=== PATIENT | female | born 1935 | race Caucasian/White ===

== ENCOUNTER → 2016-06-30 | Outpatient (CLI) | payer BC ==
[~2016-06-30] MED LIST: ATOR10TA88 PO; CHLOTAB3 PO; CHOL4POW5 PO; CIPR1TAB11 PO; CLON1TAB3 PO; CLOP1TAB15 PO; CYCL0.05 OP; DOXY100C76 PO; FURO-85 PO; GABA1TAB PO; GABAPENTIN PO; LEVO1TAB33 PO; LEVO75TA PO; LEVO75TA5 PO; LUTE1CAP5 PO; METO1TAB31 PO; MULT-845 PO; MULTCAP33 PO; NTRGSL/4 UT; OXYC1CAP5 PO; POLY1SOL6 OP; POLY335019 PO; POTA20TA16 PO; SPIR25TA PO; TUMERIC PO; bactrim PO
[2016-06-30 10:33] LABS: BLOOD UREA NITROGEN 26 mg/dl (7-18); BUN/CREATININE RATIO 25.6 (10-20); CALCIUM 9.9 mg/dl (8.5-10.1); CARBON DIOXIDE 26 mmol/L (21-32); CHLORIDE 108 mmol/L (98-107); GLUCOSE 79 mg/dl (70-99); POTASSIUM 3.9 mmol/L (3.5-5.1); SODIUM 144 mmol/L (136-145)
--- NOTE | 2016-06-30 10:37 | DIAGNOSTIC IMAGING REPORT ---
ULTRASOUND OF THE THYROID GLAND CLINICAL HISTORY: Hypothyroidism. COMPARISON STUDY: No priors. TECHNIQUE: Real-time, grayscale, and color flow sonography of the thyroid gland is performed utilizing a high-frequency linear transducer. Images are reviewed in the transverse and longitudinal planes. FINDINGS: Right lobe: The right lobe of the thyroid gland mildly atrophic and homogeneous in echotexture, measuring 3.9 x 1.5 x 1.6 cm. There are several colloid cysts in the right lobe. The largest measures 1.1 x 0.9 x 0.8 cm. A hypoechoic nodule in the lower pole measures 0.9 x 0.7 x 0.9 cm. Additional subcentimeter nodules are noted. Left lobe: The left lobe of the thyroid gland is mildly atrophic and homogeneous in echotexture, measuring 3.3 x 1.5 x 1.5 cm. Colloid cysts are noted. The largest is in the midpole and measures 1.0 x 0.6 x 0.9 cm. A solid and cystic nodule in the upper pole measures 1.0 x 0.6 x 1.0 cm. Isthmus: The thyroid isthmus is normal in appearance and measures 0.2 cm in AP diameter. IMPRESSION: Bilateral low suspicion subcentimeter nodules and colloid cysts as above. Electronically signed by: Ronak Montalvo M.D. 06/30/2016 10:35 AM Dictated Date/Time: 06/30/2016 10:33 AM
== END | disposition home or self-care (01) ==
LOC: C.ULTR 09:14
PROVIDERS: ATTEND Internal Medicine Endocrinology, Diabetes & Metabolism
DX: E03.9 Hypothyroidism, unspecified (principal)

== ENCOUNTER → 2016-07-03 | Outpatient (CLI) | payer BC ==
[2016-07-03 10:29] LABS: BLOOD UREA NITROGEN 16 mg/dl (7-18); BUN/CREATININE RATIO 18.9 (10-20); CALCIUM 10.2 mg/dl (8.5-10.1); CARBON DIOXIDE 27 mmol/L (21-32); CHLORIDE 106 mmol/L (98-107); CREATININE 0.87 mg/dl (0.60-1.20); GLUCOSE 94 mg/dl (70-99); POTASSIUM 4.1 mmol/L (3.5-5.1); SODIUM 142 mmol/L (136-145)
[2016-07-03 10:31] LABS: CALCIUM URINE < 5.0 mg/dl; URINE COLLECTION TIME 24 HOURS
[2016-07-03 10:40] LABS: PHOSPHORUS 3.1 mg/dl (2.5-4.9); THYROID STIMULATING HORMONE 0.291 uIu/ml (0.300-4.500)
== END | disposition home or self-care (01) ==
LOC: C.LAB 09:08
PROVIDERS: ATTEND Internal Medicine Endocrinology, Diabetes & Metabolism
DX: E21.3 Hyperparathyroidism, unspecified (principal); Z85.828 Personal history of other malignant neoplasm of skin

== ENCOUNTER → 2016-07-22 | Outpatient (CLI) | payer BC ==
[~2016-07-22] MED LIST changes: -SPIR25TA PO
[2016-07-22 12:12] LABS: URINE APPEARANCE CLEAR (CLEAR); URINE BILIRUBIN NEG (NEG); URINE COLOR YELLOW; URINE EPITHELIAL CELL AUTO 0-5 /lpf (0-5); URINE NITRITE NEG (NEG); URINE SPECIFIC GRAVITY 1.009 (1.000-1.030); UROBILINOGEN NEG (NEG); ZZUR CULT IF INDIC CLEAN CATCH NO
[2016-07-22 12:14] LABS: MANUAL MICROSCOPIC REQUIRED? NO; REVIEW REQ? NO
== END | disposition home or self-care (01) ==
LOC: C.LAB 11:06
PROVIDERS: ATTEND Internal Medicine Nephrology
DX: E21.3 Hyperparathyroidism, unspecified (principal); E03.9 Hypothyroidism, unspecified; N18.9 Chronic kidney disease, unspecified

== ENCOUNTER → 2016-08-02 | Outpatient (CLI) | payer BC ==
[2016-08-02 19:07] LABS: BASO % 0.3 %; BASO ABS # 0.02 K/uL (0-0.2); COMPLETE YES; EOS % 0.8 %; HEMATOCRIT 41.7 % (37-47); IG% 0.3 %; LYMPH % 40.2 %; MEAN CELL VOLUME 93.1 fL (80-100); MEAN CORPUSCULAR HEMOGLOBIN 31.5 pg (25-34); MEAN CORPUSCULAR HGB CONC 33.8 g/dl (32-36); MEAN PLATELET VOLUME 11.2 fL (7.4-10.4); MONO % 12.6 %; NEUT % 45.8 %; PLATELET COUNT 240 K/uL (130-400); RED BLOOD COUNT 4.48 M/uL (4.2-5.4); WHITE BLOOD COUNT 7.46 K/uL (4.8-10.8)
[2016-08-02 19:26] LABS: ALT/SGPT 30 U/L (12-78); BLOOD UREA NITROGEN 35 mg/dl (7-18); BUN/CREATININE RATIO 23.6 (10-20); CALCIUM 11.2 mg/dl (8.5-10.1); CARBON DIOXIDE 25 mmol/L (21-32); CHLORIDE 103 mmol/L (98-107); GLUCOSE 84 mg/dl (70-99); POTASSIUM 4.1 mmol/L (3.5-5.1); SODIUM 138 mmol/L (136-145)
[2016-08-02 19:29] LABS: ALB/GLOB RATIO 1.2 (0.9-2); ALKALINE PHOSPHATASE 79 U/L (45-117); AST/SGOT 21 U/L (15-37)
== END | disposition home or self-care (01) ==
LOC: C.LAB 18:08
PROVIDERS: ATTEND Family Medicine
DX: E83.52 Hypercalcemia (principal)

== ENCOUNTER → 2016-08-09 | Outpatient (CLI) | payer BC ==
--- NOTE | 2016-08-09 16:01 | DIAGNOSTIC IMAGING REPORT ---
CT OF THE ABDOMEN AND PELVIS WITHOUT CONTRAST, STONE PROTOCOL CLINICAL HISTORY: Gross hematuria. Probable kidney stone. COMPARISON STUDY: CT of the abdomen and pelvis February 02, 2016 and bladder ultrasound June 16, 2016. TECHNIQUE: Helical axial images of the abdomen and pelvis were obtained without IV or oral contrast according to renal stone protocol. FINDINGS: There is mild dilatation of visualized portions of the ascending aorta. Note is made of a 3 mm calculus within the lower pole of the right kidney. There are no ureteral calculi although evaluation of the pelvis is difficult due to streak artifact from a right hip arthroplasty. There is no hydronephrosis or hydroureter. Multifocal scarring of the left kidney is noted. Numerous bilateral renal lesions are suboptimally assessed on this unenhanced exam. The majority of these measure water attenuation and likely reflect cysts. A 3 cm intermediate attenuation lesion within the upper pole of the left kidney shown on image 60 of 189 was shown to likely represent a hyperdense cyst on MRI of July 01, 2008. The sensitivity for detection of urothelial lesions is diminished on this unenhanced exam. There is no evidence for a bowel obstruction. The appendix is normal. A tubular peripherally calcified abnormality within the left anterior aspect of the pelvis is unchanged and of doubtful significance. There is no lymphadenopathy. No suspicious findings are identified within visualized skeletal structures. A 9 mm right hepatic lobe cyst is again noted. The gallbladder surgically absent. IMPRESSION: 1. 3 mm right renal calculus. No ureteral calculi or hydronephrosis. Decreased sensitivity for detection of urothelial lesions given the lack of IV contrast. 2. Multifocal scarring of the left kidney. Multiple bilateral renal lesions which are suboptimally assessed on this unenhanced exam although are similar to prior studies and likely reflect a combination of simple and hyperdense cysts. Electronically signed by: Reilly Silva M.D. 08/09/2016 4:00 PM Dictated Date/Time: 08/09/2016 3:46 PM
== END | disposition home or self-care (01) ==
LOC: C.CTS 15:21
PROVIDERS: ATTEND Family Medicine
DX: R31.0 Gross hematuria (principal); N20.1 Calculus of ureter

== ENCOUNTER → 2016-08-21 | Outpatient (CLI) | payer BC ==
[2016-08-21 13:38] LABS: CALCIUM URINE 7.3 mg/dl
== END | disposition home or self-care (01) ==
LOC: C.LABSPEC 11:35
PROVIDERS: ATTEND Family Medicine
DX: R31.9 Hematuria, unspecified (principal); R39.15 Urgency of urination; R39.89 Other symptoms and signs involving the genitourinary system

== ENCOUNTER → 2016-11-02 | Outpatient (CLI) | payer BC ==
[~2016-11-02] MED LIST changes: +ATOR10TA82 PO; -ATOR10TA88 PO; +CYCL0.052 OPB; +GABA600T PO; +METO-478 PO; -METO1TAB31 PO; +TURMERIC PO; +VALA500T60 PO
== END | disposition home or self-care (01) ==
LOC: C.LAB 11:17
PROVIDERS: ATTEND Radiology Diagnostic Radiology
DX: E21.3 Hyperparathyroidism, unspecified (principal)

== ENCOUNTER → 2016-11-16 | Outpatient (CLI) | payer BC ==
--- NOTE | 2016-11-16 12:38 | DIAGNOSTIC IMAGING REPORT ---
KUB CLINICAL HISTORY: Constipation. FINDINGS: An AP supine abdominal radiograph is correlated with abdominal CT dated 08/09/2016. There is a nonobstructed abdominal bowel gas pattern noting moderate colonic fecal retention. No evidence of intraperitoneal free air is seen on this supine examination. Cholecystectomy clips are noted in the right upper quadrant. Vascular calcifications are observed in the pelvis. The skeletal structures are osteopenic. There is advanced lumbosacral spondylosis. A right hip arthroplasty is in place. There is evidence of a healed right pubic ring fracture. IMPRESSION: Nonobstructed abdominal bowel gas pattern noting moderate constipation. Electronically signed by: Ronak Montalvo M.D. 11/16/2016 12:36 PM Dictated Date/Time: 11/16/2016 12:35 PM
--- NOTE | 2016-11-16 12:43 | DIAGNOSTIC IMAGING REPORT ---
PELVIS/BILATERAL HIP 2 VIEWS CLINICAL HISTORY: Fall. Bilateral hip pain. COMPARISON STUDY: Abdominal series 02/21/2016. FINDINGS: Right total hip arthroplasty. Old, healed right pubic bone fractures. No acute fracture or dislocation within the pelvis or hips. The sacrum is intact. Mild osteoarthritis within the left hip, bilateral sacroiliac joints. There is osteitis pubis. Calcifications are again noted within the left deep pelvis. IMPRESSION: No acute fracture or dislocation within the pelvis or hips. Electronically signed by: Rip Hester M.D. 11/16/2016 12:42 PM Dictated Date/Time: 11/16/2016 12:37 PM
== END | disposition home or self-care (01) ==
LOC: C.RAD 11:34
PROVIDERS: ATTEND Family Medicine
DX: M25.551 Pain in right hip (principal); M25.552 Pain in left hip; K59.00 Constipation, unspecified

== ENCOUNTER → 2017-01-09 | Outpatient (CLI) | payer BC ==
[~2017-01-09] MED LIST changes: -ATOR10TA82 PO; +ATOR10TA88 PO; -CYCL0.052 OPB; -FURO-85 PO; -GABA1TAB PO; -GABA600T PO; -GABAPENTIN PO; -METO-478 PO; +METO1TAB31 PO; -TURMERIC PO; -VALA500T60 PO
--- NOTE | 2017-01-09 12:23 | DIAGNOSTIC IMAGING REPORT ---
(BLADE) RETROPERITONEAL LTD CLINICAL HISTORY: URINARY RETENTION*WITH PRE AND POST VOID RESIDUAL* TECHNIQUE: Ultrasound COMPARISON STUDY: 06/16/2016 FINDINGS: Prevoid bladder volume is 122 cc. Post void is 14 cc. Small amount of debris is present within the bladder. IMPRESSION: Pre and postvoid volumes 122 and 14 cc respectively. Small amount of bladder debris The above report was generated using voice recognition software. It may contain grammatical, syntax or spelling errors. Electronically signed by: Maykel Mejias M.D. 01/09/2017 12:22 PM Dictated Date/Time: 01/09/2017 12:20 PM
== END | disposition home or self-care (01) ==
LOC: C.ULTR 11:32
PROVIDERS: ATTEND Family Medicine
DX: R33.9 Retention of urine, unspecified (principal)

== ENCOUNTER → 2017-01-30 | Outpatient (CLI) | payer BC ==
--- NOTE | 2017-01-30 15:52 | DIAGNOSTIC IMAGING REPORT ---
CHEST 2 VIEWS ROUTINE CLINICAL HISTORY: PRE OP, PT WENT TO LAB FIRST, SEND PT TO [facility] NEXT preoperative evaluation COMPARISON STUDY: 02/21/2016 FINDINGS: The bones soft tissues and hemidiaphragms are normal. The cardiomediastinal silhouette is normal. The lungs are clear. The pulmonary vasculature is normal. IMPRESSION: Negative chest. The above report was generated using voice recognition software. It may contain grammatical, syntax or spelling errors. Electronically signed by: Maykel Mejias M.D. 01/30/2017 3:51 PM Dictated Date/Time: 01/30/2017 3:51 PM
[2017-01-30 16:38] LABS: BASO % 0.6 %; BASO ABS # 0.04 K/uL (0-0.2); COMPLETE YES; EOS % 2.3 %; HEMATOCRIT 35.5 % (37-47); LYMPH % 24.6 %; LYMPH ABS # 1.63 K/uL (1.2-3.4); MEAN CELL VOLUME 98.6 fL (80-100); MEAN CORPUSCULAR HEMOGLOBIN 32.2 pg (25-34); MEAN CORPUSCULAR HGB CONC 32.7 g/dl (32-36); MEAN PLATELET VOLUME 11.3 fL (7.4-10.4); MONO % 13.4 %; NEUT % 59.1 %; PLATELET COUNT 209 K/uL (130-400); WHITE BLOOD COUNT 6.63 K/uL (4.8-10.8)
[2017-01-30 16:53] LABS: PARTIAL THROMBOPLASTIN RATIO 1.1; PROTHROMBIN TIME (PATIENT) 10.5 SECONDS (9.0-12.0)
[2017-01-30 17:01] LABS: ALT/SGPT 25 U/L (12-78); AST/SGOT 23 U/L (15-37); BLOOD UREA NITROGEN 24 mg/dl (7-18); BUN/CREATININE RATIO 28.8 (10-20); CALCIUM 10.2 mg/dl (8.5-10.1); CARBON DIOXIDE 27 mmol/L (21-32); CHLORIDE 111 mmol/L (98-107); CREATININE 0.84 mg/dl (0.60-1.20); GLUCOSE 94 mg/dl (70-99); POTASSIUM 3.6 mmol/L (3.5-5.1); SODIUM 144 mmol/L (136-145)
[2017-01-30 17:04] LABS: ALB/GLOB RATIO 1.1 (0.9-2); ALKALINE PHOSPHATASE 76 U/L (45-117)
== END | disposition home or self-care (01) ==
LOC: C.CPL 15:04
PROVIDERS: ATTEND Family Medicine
DX: Z01.818 Encounter for other preprocedural examination (principal)

== ENCOUNTER → 2017-02-09 | Outpatient (CLI) | payer BC ==
[2017-02-14 10:36] LABS: HSV TYPE 1 DNA Not Detected (Not Detected); HSV TYPE 2 DNA Not Detected (Not Detected)
== END | disposition home or self-care (01) ==
LOC: C.LABSPEC 10:49
PROVIDERS: ATTEND Family Medicine
DX: R22.1 Localized swelling, mass and lump, neck (principal)

== ENCOUNTER → 2017-02-12 | Outpatient (CLI) | payer BC ==
--- NOTE | 2017-02-12 18:03 | DIAGNOSTIC IMAGING REPORT ---
(CHEST) THORAX WITHOUT CT DOSE: 198.01 mGy.cm HISTORY: FEVER TECHNIQUE: Multiaxial CT images of the chest were performed without contrast. A dose lowering technique was utilized adhering to the principles of ALARA. COMPARISON: Chest CT 09/08/2011. FINDINGS: Mild aneurysmal dilatation of the ascending thoracic aorta measuring 4.1 cm. No mediastinal or hilar lymphadenopathy. The heart is normal in size. No pleural or pericardial effusions. Cystic focus anterior to the scapula which measures 4.2 x 2.4 cm. This favors a distended subcoracoid recess. Cholecystectomy. Stable 1 cm hypodense lesion within the right hepatic lobe. This favors a cyst. There are few hypodense lesions within the left kidney which also favor cysts. There is also a 3.1 cm intermediate density lesion within the upper pole the left kidney. This could represent a renal mass but is incompletely characterize on this noncontrast study. Coronary artery calcifications. Partially visualized left shoulder prosthesis. No fractures within the visualized osseous structures. No pneumothorax. The central airways are patent. There are multiple scattered subcentimeter pulmonary nodules seen throughout the lungs. There are between 20 and 30 nodules total. The dominant nodule is seen within the right lower lobe on image 114 and measures 5 mm. These nodules are new compared to the 2012 examination. No focal lung consolidations. IMPRESSION: 1. Multiple new scattered subcentimeter pulmonary nodules seen within the lungs measuring up to 5 mm. These may represent inflammatory/infectious nodules. Metastatic disease cannot be entirely excluded. A 2-[address] follow-up is recommended to ensure resolution/stability of these nodules. 2. There is a 3.1 cm indeterminate lesion within the left kidney. Dedicated nonemergent renal CT or renal ultrasound is recommended to exclude a renal mass. Electronically signed by: Rip Hester M.D. 02/12/2017 6:02 PM Dictated Date/Time: 02/12/2017 5:44 PM
--- NOTE | 2017-02-12 18:24 | DIAGNOSTIC IMAGING REPORT ---
SINUSES MIN 3 VIEWS ROUTINE CLINICAL HISTORY: FEVER COMPARISON STUDY: Sinuses 02/28/2013. FINDINGS: The paranasal sinuses and mastoid air cells appear clear. No fluid levels identified. Minimal right nasal septal deviation. The orbital floors are intact. IMPRESSION: No significant sinus disease by conventional radiographic technique. Electronically signed by: Rip Hester M.D. 02/12/2017 6:23 PM Dictated Date/Time: 02/12/2017 6:21 PM
== END | disposition home or self-care (01) ==
LOC: C.CTS 17:28
PROVIDERS: ATTEND Family Medicine
DX: R50.9 Fever, unspecified (principal); N28.9 Disorder of kidney and ureter, unspecified; R91.1 Solitary pulmonary nodule

== ENCOUNTER → 2017-03-03 | Outpatient (CLI) | payer BC ==
--- NOTE | 2017-03-03 11:40 | DIAGNOSTIC IMAGING REPORT ---
LEFT PELVIS/UNILATERAL HIP 2-3VIEWS CLINICAL HISTORY: INJURY trauma. Pain. COMPARISON: 11/16/2016 DISCUSSION: Moderate degenerative change left hip. No evidence for acetabular protrusion. No evidence for fracture or dislocation. Old fracture right pubic ring unchanged in the prior study. Pre-existing total right hip arthroplasty. There is no evidence for soft tissue swelling. IMPRESSION: Degenerative and postoperative change. No acute process left hip. The above report was generated using voice recognition software. It may contain grammatical, syntax or spelling errors. Electronically signed by: Maykel Mejias M.D. 03/03/2017 11:39 AM Dictated Date/Time: 03/03/2017 11:37 AM
== END | disposition home or self-care (01) ==
LOC: C.RAD 11:15
PROVIDERS: ATTEND Family Medicine
DX: S79.911A Unspecified injury of right hip, initial encounter (principal); M89.8X8 Other specified disorders of bone, other site; X58.XXXA Exposure to other specified factors, initial encounter; Z96.641 Presence of right artificial hip joint

== ENCOUNTER → 2017-03-05 | Outpatient (CLI) | payer BC ==
--- NOTE | 2017-03-05 16:51 | DIAGNOSTIC IMAGING REPORT ---
HEAD WITHOUT CONTRAST (CT) CT DOSE: 709.48 mGy.cm HISTORY: Mental status change SUBDURAL HEMATOMA TECHNIQUE: Multiaxial CT images of the head were performed without the use of intravenous contrast. A dose lowering technique was utilized adhering to the principles of ALARA. Comparison: 10/01/2006 Findings: The paranasal sinuses and mastoid air cells are clear. The calvarium and skull base are intact. The ventricles and sulci are within normal limits. There is no mass, hematoma, midline shift, or acute infarct. Mild age-related atrophy and chronic small vessel change. No acute intracranial hemorrhage. Impression: Age-related change. No acute process. The above report was generated using voice recognition software. It may contain grammatical, syntax or spelling errors. Electronically signed by: Maykel Mejias M.D. 03/05/2017 4:49 PM Dictated Date/Time: 03/05/2017 4:47 PM
== END | disposition home or self-care (01) ==
LOC: C.CTS 16:22
PROVIDERS: ATTEND Family Medicine
DX: R50.9 Fever, unspecified (principal); S06.5X9A Traumatic subdural hemorrhage with loss of consciousness of unspecified duration, initial encounter; X58.XXXA Exposure to other specified factors, initial encounter

== ENCOUNTER → 2017-03-23 | Outpatient (CLI) | payer BC ==
[~2017-03-23] MED LIST changes: -CIPR1TAB11 PO
--- NOTE | 2017-03-23 12:22 | DIAGNOSTIC IMAGING REPORT ---
MRI OF THE BRAIN WITHOUT CONTRAST CLINICAL HISTORY: Altered mental status. History of head trauma one month ago. Dizziness. Weight loss. COMPARISON STUDY: Noncontrast head CT dated 03/05/2017, MRI the brain dated 12/24/2012 FINDINGS: Sagittal T1, axial diffusion, proton density and T2 weighted axial, coronal FLAIR, and axial T1-weighted images were acquired. No intra or extra-axial mass lesions are visualized Axial diffusion-weighted images reveal no evidence of acute or subacute infarction. There is no evidence of ventricular dilatation. Proton density T2-weighted and FLAIR images reveal scattered foci of increased T2 signal within the white matter, likely on a small vessel basis. These have minimally progressed when compared the prior December 2012 study There are no abnormal flow voids. There are foci of increased T2 signal within the right mastoid, likely inflammatory. IMPRESSION: 1. No acute intracranial findings 2. No evidence of intracranial mass 3. No evidence of acute or subacute infarction Electronically signed by: Ronald Tuttle M.D. 03/23/2017 12:20 PM Dictated Date/Time: 03/23/2017 12:17 PM
== END | disposition home or self-care (01) ==
LOC: C.MRI 11:27
PROVIDERS: ATTEND Family Medicine
DX: R41.82 Altered mental status, unspecified (principal); S09.90XA Unspecified injury of head, initial encounter; X58.XXXA Exposure to other specified factors, initial encounter

== ENCOUNTER → 2017-05-22 | Outpatient (CLI) | payer BC ==
[~2017-05-22] MED LIST changes: +ATOR10TA82 PO; -ATOR10TA88 PO; -CYCL0.05 OP; +CYCL0.052 OPB; -DOXY100C76 PO; +GABA600T PO; -LEVO1TAB33 PO; +METO-478 PO; -METO1TAB31 PO; -POLY1SOL6 OP; -TUMERIC PO; +TURMERIC PO; +VALA500T60 PO; -bactrim PO
== END | disposition home or self-care (01) ==
LOC: C.MAMM 14:44
PROVIDERS: ATTEND Family Medicine
DX: M85.88 Other specified disorders of bone density and structure, other site (principal); M81.0 Age-related osteoporosis without current pathological fracture

== ENCOUNTER → 2017-05-28 | Day surgery (SDC) | payer BC ==
[2017-05-14 08:24] VITALS: Ht 167.6 cm; Wt 63.6 kg
[~2017-05-28] VITALS: Ht 167.6 cm; Wt 63.6 kg
[~2017-05-28] MED LIST changes: +FENTANYL CITRATE INJ 50 MCG/1 ML 2 ML VIAL ONE; +LIDOCAINE HCL 2% 2 ML VIAL (20MG/ML) ONE; +PROPOFOL IV EMULSION 10 MG/ML 20 ML VIAL IV ONE
--- NOTE | 2017-05-28 15:02 | Endo History and Physical ---
History & Physical Date of Service: May 28, 2017. Chief Complaint: Dysphagia Referring Physician: Dr Clay History of Present Illness For EGD Past Surgical History Hx Cardiac Surgery: Yes (HEART CATH-1 STENT) Hx Internal Defibrillator: No Hx Pacemaker: No Hx Abdominal Surgery: Yes (VISHNU BSO) Hx of Implantable Prosthesis: No Hx Post-Op Nausea and Vomiting: No Hx Cancer Surgery: Yes (SKIN INCISION-SCC) Hx Thoracic Surgery: No Hx Orthopedic: No (RT/LEFT TKA, RT CHARLI, LEFT TSA, LUMBAR FUSION, RT THUMB SURGERY) Hx Urinary Tract Surgery: No Family History Esophogeal CA, IBD Social History Smoking Status: Never Smoker Hx Substance Use: No Hx Alcohol Use: No Allergies Coded Allergies: Iodinated Diagnostic Agents (Verified Allergy, Severe, ANAPHYLAXIS, ) Amoxicillin (Verified Adverse Reaction, Intermediate, diarrhea, 05/21/17) Clavulanic Acid (Verified Adverse Reaction, Intermediate, diarrhea, ) Penicillins (Verified Adverse Reaction, Mild, augmentin=diarrhea/gi sxs, 05/21/17) Current Medications Reported Home Medications Medications Dose Route/Sig Max Daily Dose Days Date Category Dose Instructions [Turmeric] 1 Cap PO HS 05/14/17 Reported Restasis (Cyclosporine (Ophth)) 0.05 % Emu 1 Drop OPB BID 05/14/17 Reported Neurontin (Gabapentin) 600 Mg Tab 600 Mg PO HS 05/07/17 Reported Valtrex (Valacyclovir HCl) 500 Mg Tab 500 Mg PO BID 05/07/17 Reported Oxycodone Hcl 5 Mg Cap 5 Mg PO DAILY PRN 12/11/16 Reported Natural Lutein (Lutein) 20 Mg Cap 20 Mg PO BID 12/11/16 Reported Levothyroxine Sodium 75 Mcg Tab 37.5 Mg PO Sunday11/06/16 Reported Centrum Silver Adult 50+ (Multiple Vitamins W/ Minerals) 1 Tab Tab 1 Tab PO DAILY 05/24/16 Reported Miralax (Polyethylene Glycol 3350) 1 Pow 17 Gm PO BID PRN 05/24/16 Reported Preservision Areds (Multiple Vitamins W/ Minerals) 1 Cap Cap 1 Cap PO BID 02/02/16 Reported WITH EXTRA LUTEIN Nitrostat (Nitroglycerin) 0.4 Mg Tab 0.4 Mg UT PRN 02/02/16 Reported Synthroid (Levothyroxine Sodium) 75 Mcg Tab 75 Mcg PO Q6 DAYS 02/02/16 Reported Prevalite (Cholestyramine Light) 4 Gm/Dose Pow 1 Dose PO BID PRN 02/02/16 Reported Lipitor (Atorvastatin Calcium) 10 Mg Tab 10 Mg PO 2XWK 02/02/16 Reported Parafon Forte Dsc (Chlorzoxazone) 500 Mg Tab 500 Mg PO HS PRN 02/02/16 Reported Klor-Con (Potassium Chloride) 20 Meq Tabcr 20 Meq PO BID 02/02/16 Reported Klonopin (Clonazepam) 1 Mg Tab 1 Mg PO HS 01/16/13 Reported WILL TAKE A 2ND 1 @ NIGHT PRN Plavix (Clopidogrel Bisulfate) 75 Mg Tab 75 Mg PO HS 01/16/13 Reported Toprol Xl (Metoprolol Succinate) 25 Mg Tab 25 Mg PO BID 05/05/12 Reported Vital Signs Weight (Kilograms): 63.64 Height (Feet): 5 Height (Inches): 6 Physical Exam General Appearance: WD/WN Respiratory/Chest: Respiratory effort: no dyspnea Cardiovascular: Heart Auscultation: RRR Abdomen: Inspection & Palpation: soft Assessment and Plan Dysphagia for EGD
--- NOTE | 2017-05-28 15:42 | Discharge Instructions ---
Endoscopy Patient Instructions Date / Procedure(s) Performed May 28, 2017. EGD Allergy Information Coded Allergies: Iodinated Diagnostic Agents (Verified Allergy, Severe, ANAPHYLAXIS, ) Amoxicillin (Verified Adverse Reaction, Intermediate, diarrhea, 05/21/17) Clavulanic Acid (Verified Adverse Reaction, Intermediate, diarrhea, ) Penicillins (Verified Adverse Reaction, Mild, augmentin=diarrhea/gi sxs, 05/21/17) Discharge Date / Findings May 28, 2017. Normal EGD Medication Instructions Restart Stopped Medication(s): resume meds Reported Home Medications Medications Dose Route/Sig Max Daily Dose Days Date Category Dose Instructions [Turmeric] 1 Cap PO HS 05/14/17 Reported Restasis (Cyclosporine (Ophth)) 0.05 % Emu 1 Drop OPB BID 05/14/17 Reported Neurontin (Gabapentin) 600 Mg Tab 600 Mg PO HS 05/07/17 Reported Valtrex (Valacyclovir HCl) 500 Mg Tab 500 Mg PO BID 05/07/17 Reported Oxycodone Hcl 5 Mg Cap 5 Mg PO DAILY PRN 12/11/16 Reported Natural Lutein (Lutein) 20 Mg Cap 20 Mg PO BID 12/11/16 Reported Levothyroxine Sodium 75 Mcg Tab 37.5 Mg PO SUNDAY 30 11/06/16 Reported Centrum Silver Adult 50+ (Multiple Vitamins W/ Minerals) 1 Tab Tab 1 Tab PO DAILY 05/24/16 Reported Miralax (Polyethylene Glycol 3350) 1 Pow Pow 17 Gm PO BID PRN 05/24/16 Reported Preservision Areds (Multiple Vitamins W/ Minerals) 1 Cap Cap 1 Cap PO BID 02/02/16 Reported WITH EXTRA LUTEIN Nitrostat (Nitroglycerin) 0.4 Mg Tab 0.4 Mg UT PRN 02/02/16 Reported Synthroid (Levothyroxine Sodium) 75 Mcg Tab 75 Mcg PO Q6 DAYS 02/02/16 Reported Prevalite (Cholestyramine Light) 4 Gm/Dose Pow 1 Dose PO BID PRN 02/02/16 Reported Lipitor (Atorvastatin Calcium) 10 Mg Tab 10 Mg PO 2XWK 02/02/16 Reported Parafon Forte Dsc (Chlorzoxazone) 500 Mg Tab 500 Mg PO HS PRN 02/02/16 Reported Klor-Con (Potassium Chloride) 20 Meq Tabcr 20 Meq PO BID 02/02/16 Reported Klonopin (Clonazepam) 1 Mg Tab 1 Mg PO HS 01/16/13 Reported WILL TAKE A 2ND 1 @ NIGHT PRN Plavix (Clopidogrel Bisulfate) 75 Mg Tab 75 Mg PO HS 01/16/13 Reported Toprol Xl (Metoprolol Succinate) 25 Mg Tab 25 Mg PO BID 05/05/12 Reported Provider Instructions Activity Restrictions - No exercising or heavy lifting for 24 hours. - Do not drink alcohol the day of the procedure. - Do not drive a car or operate machinery until the day after the procedure. - Do not make any important decisions or sign important papers in 24 hours after the procedure. Following Day: - Return to full activity which may include returning to work/school. Diet Start your diet with liquids and light foods (jello, soup, juice, toast). Then eat your usual diet if not nauseated. Treatment For Common After Affects For mild abdominal pain, bloating, or excessive gas: - Rest - Eat lightly - Lie on right side Follow-Up Information Follow-up with as scheduled Anesthesia Information What You Should Know You have had a procedure that required some medicine to reduce anxiety and discomfort. This treatment is called moderate sedation. After receiving the treatment, you may be sleepy, but you will be able to breathe on your own. The effects of the treatment may last for several hours. Follow these instructions along with Activity/Diet recommendations noted above: * Do NOT do anything where dizziness or clumsiness would be dangerous. * Rest quietly at home today, then you can be up and about tomorrow. * Have a responsible person stay with you the rest of today. * You may have had an I.V. today. If so, you may take the dressing off later today. Recommendations Call your doctor if: * Trouble breathing * Continuous vomiting for more than 24 hours * Temperature above 101 degrees * Severe abdominal pain or bloating * Pain not relieved by pain medicine ordered * There is increased drainage or redness from any incision * A large amount of rectal bleeding greater than 2-3 tablespoons. (If you had a polyp/s removed or have hemorrhoids, a small amount of blood - from the rectum is to be expected.) * You have any unanswered questions or concerns. IN THE EVENT OF A SERIOUS EMERGENCY, GO TO THE NEAREST EMERGENCY ROOM Your discharge instructions were prepared by provider Salinas Villagran. Patient Instructions Signature Page Hannah Ahmadi Patient (or Guardian) Signature/Date: I have read and understand the instructions given to me by my caregivers. Caregiver/RN/Doctor Signature/Date: The above-named patient and/or guardian has received patient instructions on this date. + Original Patient Signature Page (only) stays with chart. Please make copy for patient.
--- NOTE | 2017-05-28 15:44 | GI REPORT ---
Procedure Date: 05/28/2017 3:32 PM Procedure: Upper GI endoscopy Indications: Dysphagia Medicines: Fentanyl 50 micrograms IV, Propofol total dose 50 mg IV Complications: No immediate complications. Estimated Blood Loss: Estimated blood loss: none. Procedure: Pre-Anesthesia Assessment: - Prior to the procedure, a History and Physical was performed, and patient medications, allergies and sensitivities were reviewed. The patient's tolerance of previous anesthesia was reviewed. - The risks and benefits of the procedure and the sedation options and risks were discussed with the patient. All questions were answered and informed consent was obtained. After obtaining informed consent, the endoscope was passed under direct vision. Throughout the procedure, the patient's blood pressure, pulse, and oxygen saturations were monitored continuously. The scope was introduced through the mouth, and advanced to the second part of duodenum. The upper GI endoscopy was accomplished without difficulty. The patient tolerated the procedure well. Findings: The esophagus was normal. The stomach was normal. The examined duodenum was normal. Impression: - Normal esophagus. - Normal stomach. - Normal examined duodenum. - No specimens collected. Recommendation: - Discharge patient to home (ambulatory). - Continue present medications. - Return to primary care physician PRN. Salinas Villagran M.D. Salinas Villagran MD 05/28/2017 3:43:58 PM This report has been signed electronically. Note Initiated On: 05/28/2017 3:32 PM I attest to the content of the Intraoperative Record and orders documented therein, exceptions below
--- NOTE | 2017-05-28 15:57 | Anesthesiology Progress Note ---
Anesthesia Post Op Note Date & Time May 28, 2017 at 15:57 Vital Signs Pain Intensity: 0 Vital Signs Past 12 Hours Date Time Temp Pulse Resp B/P (MAP) Pulse Ox O2 Delivery O2 Flow Rate FiO2 05/28/17 15:49 70 20 122/71 (88) 97 Room Air 05/28/17 15:10 36.6 86 16 152/90 (110) 97 Room Air Notes Mental Status: alert / awake / arousable, participated in evaluation Pt Amnestic to Procedure: Yes Nausea / Vomiting: adequately controlled Pain: adequately controlled Airway Patency, RR, SpO2: stable & adequate BP & HR: stable & adequate Hydration State: stable & adequate Anesthetic Complications: no major complications apparent
[2017-05-28 16:18] VITALS: BP 164/89; PULSE 66; O2SAT 97
== END | disposition home or self-care (01) ==
LOC: C.GI 14:26
PROVIDERS: ATTEND Internal Medicine Gastroenterology
DX: R13.10 Dysphagia, unspecified (principal); Z80.0 Family history of malignant neoplasm of digestive organs; Z83.79 Family history of other diseases of the digestive system; Z96.641 Presence of right artificial hip joint; E21.3 Hyperparathyroidism, unspecified

== ENCOUNTER → 2017-08-21 | Outpatient (CLI) | payer BC ==
[~2017-08-21] MED LIST changes: -CHOL4POW5 PO; +CLON0.1T12 PO; -FENTANYL CITRATE INJ 50 MCG/1 ML 2 ML VIAL ONE; -LIDOCAINE HCL 2% 2 ML VIAL (20MG/ML) ONE; +PRED20TA PO; -PROPOFOL IV EMULSION 10 MG/ML 20 ML VIAL IV ONE
--- NOTE | 2017-08-21 14:35 | DIAGNOSTIC IMAGING REPORT ---
KUB CLINICAL HISTORY: 81 years-old Female presenting with RENAL COLIC,KIDNEY STONE. TECHNIQUE: Single supine view of the abdomen was obtained. COMPARISON: 11/16/2016. FINDINGS: Mild diffuse gaseous distention of small bowel. Moderate stool burden in the right colon. No gross pneumoperitoneum allowing for supine technique. Cholecystectomy clips noted. Evaluation of the renal shadows is significantly limited by bowel gas and stool. A single punctate renal calculus is evident at the lower pole of the right kidney. Total right hip arthroplasty. Significant degenerative changes in the lower lumbar spine. Old fracture deformity of the right superior pubic ramus suggested. Lung bases clear. IMPRESSION: 1. Punctate calculus at the lower pole the right kidney. Electronically signed by: Charan Sena M.D. 08/21/2017 2:34 PM Dictated Date/Time: 08/21/2017 2:32 PM
[2017-08-21 15:10] LABS: ALBUMIN 3.4 gm/dl (3.4-5.0); ALT/SGPT 27 U/L (12-78); AST/SGOT 22 U/L (15-37); BLOOD UREA NITROGEN 18 mg/dl (7-18); CALCIUM 8.9 mg/dl (8.5-10.1); CARBON DIOXIDE 24 mmol/L (21-32); CREATININE 1.13 mg/dl (0.60-1.20); GLUCOSE 107 mg/dl (70-99); POTASSIUM 4.1 mmol/L (3.5-5.1); SODIUM 138 mmol/L (136-145)
[2017-08-21 15:13] LABS: ALKALINE PHOSPHATASE 67 U/L (45-117); TOTAL PROTEIN 7.6 gm/dl (6.4-8.2)
== END | disposition home or self-care (01) ==
LOC: C.RAD 13:27
PROVIDERS: ATTEND Family Medicine
DX: N23 Unspecified renal colic (principal); N20.0 Calculus of kidney; N39.0 Urinary tract infection, site not specified; E21.3 Hyperparathyroidism, unspecified

== ENCOUNTER → 2017-08-30 | Outpatient (CLI) | payer BC ==
--- NOTE | 2017-08-30 14:14 | DIAGNOSTIC IMAGING REPORT ---
(CHEST) THORAX WITHOUT CLINICAL HISTORY: R91.8 Pulmonary nodules COMPARISON STUDY: February 12, 2017 CT DOSE: 313.58 mGy.cm TECHNIQUE: CT of the thorax was performed from the thoracic inlet to the lung bases. Images are reviewed in the axial, sagittal, and coronal planes. IV contrast was not administered for this examination. A dose lowering technique was utilized adhering to the principles of ALARA. FINDINGS: Thyroid: Imaged portions of the thyroid gland are normal in appearance. Thoracic aorta: There is mild dilatation of the ascending thoracic aorta which measures 4 cm Heart: The heart is normal in size and configuration, without pericardial effusion. Lungs and pleural spaces: There are no pleural effusions. There is no focal pulmonary consolidation. There is been interval resolution of the previously identified scattered subcentimeter pulmonary nodules. This could indicate a prior inflammatory etiology. No suspicious pulmonary masses are visualized Mediastinum: There is no mediastinal lymphadenopathy. Paige: There is no nodes of pathologic hilar adenopathy given the limitations of a noncontrast study Axilla: There is no evidence of pathologic axillary lymphadenopathy. Upper abdomen: There is a stable 1 cm right lobe hepatic hypodensity. Clustered upper pole left renal cysts are suspected Skeletal structures: There is a fluid collection anterior to the right scapula, likely relating fluid within the subcoracoid recess. Advanced arthritic changes are present within the right shoulder. There is a left shoulder arthroplasty. IMPRESSION: 1. Interval resolution of the multiple subcentimeter pulmonary nodules. This indicates a prior inflammatory etiology 2. No evidence of pathologic adenopathy 3. Stable mild dilatation of the ascending thoracic aorta which measures 4 cm Electronically signed by: Ronald Tuttle M.D. 08/30/2017 2:12 PM Dictated Date/Time: 08/30/2017 2:05 PM
== END | disposition home or self-care (01) ==
LOC: C.CTS 13:50
PROVIDERS: ATTEND Internal Medicine Critical Care Medicine
DX: R91.8 Other nonspecific abnormal finding of lung field (principal)

== ENCOUNTER → 2017-09-06 | Outpatient (CLI) | payer BC ==
--- NOTE | 2017-09-07 12:56 | ECHOCARDIOGRAM REPORT ---
*NOTICE TO RECEIVING [employer] This information is strictly Confidential and protected under [place] law. [place] law prohibits you from making any further disclosure of this information unless further disclosure is expressly permitted by the written consent of the person to whom it pertains or is authorized by law. A general authorization for the release of medical or other information is not sufficient for this purpose. Hospital accepts no responsibility if the information is made available to any other person, INCLUDING THE PATIENT. Interpretation Summary * Name: BANG CAVAZOS Study Date: 09/06/2017 11:41 AM BP: 176/93 mmHg * Patient Location: [facility] HR: 68 * : 1935 (M/d/yyyy) Gender: Female Height: 64 in * Age: 81 yrs Ethnicity: [place] Weight: 154 lb * Ordering Physician: Shivam Kenny * Referring Physician: Royce Clay. * Performed By: Yojana Miller RCS * * Reason For Study: THORACIC ASCENDING AORTIC DILATION * BSA: 1.8 m2 * -- Conclusions -- * There is mild concentric left ventricular hypertrophy. * Left ventricular systolic function is normal. * Grade I diastolic dysfunction, (abnormal relaxation pattern). * There is mild mitral regurgitation. * Right ventricular systolic pressure is elevated at 50-60mmHg. Procedure Details * A complete two-dimensional transthoracic echocardiogram was performed (2D, M-mode, Doppler and color flow Doppler). Left Ventricle * The left ventricle is normal in size. * There is mild concentric left ventricular hypertrophy. * Left ventricular systolic function is normal. * Ejection Fraction = 55-60%. * Grade I diastolic dysfunction, (abnormal relaxation pattern). * The left ventricular wall motion is normal. Right Ventricle * The right ventricle is normal in size and function. Atria * The left atrial size is normal. * Right atrial size is normal. Mitral Valve * The mitral valve leaflets appear thickened, but open well. * There is mild mitral regurgitation. Tricuspid Valve * The tricuspid valve is not well visualized, but is grossly normal. * There is trace tricuspid regurgitation. * Right ventricular systolic pressure is elevated at 50-60mmHg. Aortic Valve * The aortic valve is normal in structure and function. * The aortic valve is trileaflet. * No hemodynamically significant valvular aortic stenosis. * There is no significant aortic regurgitation. Pulmonic Valve * The pulmonic valve leaflets are thin and pliable; valve motion is normal. Great Vessels * The aortic root is normal size. Pericardium/Pleural * There is no pericardial effusion. MMode 2D Measurements and Calculations IVSd 1.3 cm IVSs 1.5 cm LVIDd 4.5 cm LVIDs 3.1 cm LVPWd 1.1 cm LVPWs 1.2 cm IVS/LVPW 1.1 FS 30.2 % EDV(Teich) 90.9 ml ESV(Teich) 38.5 ml EF(Teich) 57.7 % EDV(cubed) 89.2 ml ESV(cubed) 30.3 ml EF(cubed) 66.0 % % IVS thick 15.7 % % LVPW thick 4.8 % LV mass(C)d 193.5 grams LV mass(C)dI 110.6 grams/m\S\2 LV mass(C)s 133.6 grams LV mass(C)sI 76.3 grams/m\S\2 SV(Teich) 52.4 ml SI(Teich) 29.9 ml/m\S\2 SV(cubed) 58.8 ml SI(cubed) 33.6 ml/m\S\2 Ao root diam 3.0 cm Ao root area 7.2 cm\S\2 ACS 2.1 cm LA dimension 2.5 cm LA/Ao 0.82 LVOT diam 2.0 cm LVOT area 3.3 cm\S\2 LVAd ap4 25.6 cm\S\2 LVLd ap4 6.8 cm EDV(MOD-sp4) 78.8 ml EDV(sp4-el) 81.2 ml LVAs ap4 14.3 cm\S\2 LVLs ap4 5.2 cm ESV(MOD-sp4) 32.0 ml ESV(sp4-el) 33.3 ml EF(MOD-sp4) 59.4 % EF(sp4-el) 59.0 % LVAd ap2 23.0 cm\S\2 LVLd ap2 6.2 cm EDV(MOD-sp2) 69.3 ml EDV(sp2-el) 72.7 ml LVAs ap2 15.9 cm\S\2 LVLs ap2 5.1 cm ESV(MOD-sp2) 40.9 ml ESV(sp2-el) 42.0 ml EF(MOD-sp2) 41.0 % EF(sp2-el) 42.2 % LVLd %diff -10.95 % EDV(MOD-bp) 78.3 ml LVLs %diff -0.84 % ESV(MOD-bp) 36.5 ml EF(MOD-bp) 53.4 % SV(MOD-sp4) 46.8 ml SI(MOD-sp4) 26.8 ml/m\S\2 SV(MOD-sp2) 28.4 ml SI(MOD-sp2) 16.2 ml/m\S\2 SV(MOD-bp) 41.8 ml SI(MOD-bp) 23.9 ml/m\S\2 SV(sp4-el) 47.9 ml SI(sp4-el) 27.4 ml/m\S\2 SV(sp2-el) 30.7 ml SI(sp2-el) 17.5 ml/m\S\2 Doppler Measurements and Calculations MV E max amanda 79.8 cm/sec MV A max amanda 90.1 cm/sec MV E/A 0.89 MV P1/2t max amanda 96.6 cm/sec MV P1/2t 42.4 msec MVA(P1/2t) 5.2 cm\S\2 MV dec slope 667.3 cm/sec\S\2 MV dec time 0.17 sec Ao V2 max 80.0 cm/sec Ao max PG 2.6 mmHg Ao max PG (full) 0.69 mmHg JENNIFER(V,A) 2.8 cm\S\2 JENNIFER(V,D) 2.8 cm\S\2 LV V1 max PG 1.9 mmHg LV V1 max 68.5 cm/sec MR max amanda 569.1 cm/sec MR max PG 130.5 mmHg PA V2 max 93.2 cm/sec PA max PG 3.5 mmHg PI max amanda 184.6 cm/sec PI max PG 13.6 mmHg PI dec slope 204.1 cm/sec\S\2 PI P1/2t 264.9 msec TR max amanda 327.9 cm/sec
== END | disposition home or self-care (01) ==
LOC: C.CPL 11:02
PROVIDERS: ATTEND Internal Medicine Critical Care Medicine
DX: I71.2 Thoracic aortic aneurysm, without rupture (principal)

== ENCOUNTER → 2017-10-03 | Outpatient (CLI) | payer BC ==
[~2017-10-03] MED LIST changes: +POTA-639 PO; -POTA20TA16 PO
== END | disposition home or self-care (01) ==
LOC: C.LABSPEC 14:39
PROVIDERS: ATTEND Family Medicine
DX: N39.0 Urinary tract infection, site not specified (principal)

== ENCOUNTER → 2017-10-15 | Outpatient (CLI) | payer BC ==
--- NOTE | 2017-10-15 17:02 | DIAGNOSTIC IMAGING REPORT ---
ABDOMEN AND PELVIS CT WITHOUT CONTRAST CT DOSE: 742.91 mGycm HISTORY: NEPHROLITHIASIS, POSSIBLE STONE TECHNIQUE: Multiaxial CT images of the abdomen and pelvis were performed without the use of intravenous and oral contrast according to the standard department stone protocol. A dose lowering technique was utilized adhering to the principles of ALARA. COMPARISON STUDY: Abdomen and pelvis CT 08/09/2016. FINDINGS: Stable 3 mm nodule within the right lower lobe. No pneumoperitoneum. No pneumatosis. There is a right total hip arthroplasty. Old, healed right pubic ring fractures. Cholecystectomy. Stable 9 mm hypodense lesion within the right hepatic lobe. The unenhanced pancreas, spleen, and adrenal glands are unremarkable. No retroperitoneal lymphadenopathy. Multiple bilateral renal lesions are not simply changed compared to the prior study. These are incompletely characterize on this noncontrast study. No left-sided nephrolithiasis. A stable 3 mm stone within the right kidney. No hydronephrosis. No ureteral stones identified. Of note, the distal ureters and bladder are not well evaluated due to the metallic artifact. No definite bladder wall thickening. Pelvic floor collapse. The uterus is surgically absent. Suboptimal evaluation for bowel pathology due to the lack of intravenous and oral contrast. However, there is no definite bowel wall thickening or obstruction. Normal appendix. Colonic diverticulosis. Stable multifocal scarring within the left kidney. IMPRESSION: 1. Overall, no significant change compared to the prior study. 2. Right-sided nephrolithiasis. No ureteral calculi identified. No hydronephrosis. 3. Multiple bilateral renal lesions are not significantly changed. 4. No definite bowel wall thickening or obstruction. Electronically signed by: Rip Hester M.D. 10/15/2017 5:00 PM Dictated Date/Time: 10/15/2017 4:49 PM
== END | disposition home or self-care (01) ==
LOC: C.CTS 16:29
PROVIDERS: ATTEND Family Medicine
DX: N20.0 Calculus of kidney (principal)

== ENCOUNTER → 2018-01-16 | Outpatient (CLI) | payer BC ==
[~2018-01-16] MED LIST changes: +ASPCH81X PO; -CHLOTAB3 PO; -CLON1TAB3 PO; +CLON1TAB5 PO; +FLUT50SP45 NAE; +LATA0.5S OPB; -LEVO75TA PO; +NRN300 PO; -PRED20TA PO; -TURMERIC PO
--- NOTE | 2018-01-16 11:47 | DIAGNOSTIC IMAGING REPORT ---
CHEST 2 VIEWS ROUTINE CLINICAL HISTORY: PAT preoperative evaluation COMPARISON STUDY: 01/30/2017 FINDINGS: The bones soft tissues and hemidiaphragms are normal. The cardiomediastinal silhouette is normal. The lungs are clear. The pulmonary vasculature is normal. IMPRESSION: Negative chest. The above report was generated using voice recognition software. It may contain grammatical, syntax or spelling errors. Electronically signed by: Maykel Mejias M.D. 01/16/2018 10:28 AM Dictated Date/Time: 01/16/2018 10:28 AM
[2018-01-16 12:38] LABS: PTT PATIENT 26.3 SECONDS (21.0-31.0)
[2018-01-16 13:05] LABS: BASO % 0.4 %; BASO ABS # 0.03 K/uL (0-0.2); EOS ABS # 0.21 K/uL (0-0.5); HEMATOCRIT 36.2 % (37-47); HEMOGLOBIN 11.9 g/dL (12.0-16.0); IG# 0.02 K/uL (0.00-0.02); LYMPH % 17.7 %; LYMPH ABS # 1.25 K/uL (1.2-3.4); MEAN CELL VOLUME 103.1 fL (80-100); MEAN CORPUSCULAR HEMOGLOBIN 33.9 pg (25-34); MEAN CORPUSCULAR HGB CONC 32.9 g/dl (32-36); MEAN PLATELET VOLUME 10.6 fL (7.4-10.4); MONO % 16.4 %; MONO ABS # 1.16 K/uL (0.11-0.59); NEUT % 62.2 %; PLATELET COUNT 253 K/uL (130-400); RED CELL DISTRIBUTION WIDTH CV 13.8 % (11.5-14.5); RED CELL DISTRIBUTION WIDTH SD 51.8 fL (36.4-46.3); WHITE BLOOD COUNT 7.07 K/uL (4.8-10.8)
== END | disposition home or self-care (01) ==
LOC: C.CPL 09:17
PROVIDERS: ATTEND Orthopaedic Surgery Orthopaedic Surgery of the Spine
DX: Z01.812 Encounter for preprocedural laboratory examination (principal)

== ENCOUNTER 2018-01-21 08:24 | Inpatient (IN) | payer BC, OTHER ==
[2018-01-14 08:34] VITALS: BMI 25.0
--- NOTE | 2018-01-14 17:34 | PAT Medication Instructions ---
Service Date Jan 14, 2018. Current Home Medication List Aspirin (Aspirin Chewable), 81 MG PO DAILY Atorvastatin (Lipitor), 10 MG PO 2XWK Clonazepam (Klonopin), 1 MG PO HS Clonidine Hcl (Catapres), 1 TAB PO BID PRN for IF SBP >170 Clopidogrel (Plavix), 75 MG PO HS Cyclosporine (Ophth) (Restasis), 1 DROP OPB QID Fluticasone Propionate (Nasal) (Allergy Nasal [place] 24 Ho), 1-2 SPRAY ROYA BID Gabapentin (Neurontin), 300 MG PO HS Latanoprost (Xalatan 0.005% Oph Veronica), 1 DROPS OPB HS Levothyroxine Sodium (Levothyroxine Sodium), 1 TAB PO QAM Lutein (Natural Lutein), 20 MG PO BID Metoprolol Succinate (Toprol Xl), 25 MG PO BID Multiple Vitamins W/ Minerals (Preservision Areds), 1 CAP PO BID Multiple Vitamins W/ Minerals (Centrum Silver Adult 50+), 1 TAB PO DAILY Nitroglycerin (Nitrostat), 0.4 MG UT PRN Oxycodone Hcl (Oxycodone Hcl), 5 MG PO Q4 PRN for Pain Polyethylene Glycol 3350 (Miralax), 17 GM PO BID PRN for Constipation Potassium Ext Rel (Klor-Con), 20 MEQ PO BID Valacyclovir (Valtrex), 500 MG PO BID Medication Instructions For Your Scheduled Surgery -Check with surgeon and metal buggy operator: Aspirin (Aspirin Chewable), 81 MG PO DAILY Clopidogrel (Plavix), 75 MG PO HS -Continue as directed: Atorvastatin (Lipitor), 10 MG PO 2XWK Nitroglycerin (Nitrostat), 0.4 MG UT PRN (if needed) - Hold the following medications 2 weeks prior to surgery: Lutein (Natural Lutein), 20 MG PO BID - Hold the following medications the morning of surgery: Multiple Vitamins W/ Minerals (Preservision Areds), 1 CAP PO BID Multiple Vitamins W/ Minerals (Centrum Silver Adult 50+), 1 TAB PO DAILY Polyethylene Glycol 3350 (Miralax), 17 GM PO BID PRN for Constipation Potassium Ext Rel (Klor-Con), 20 MEQ PO BID - Take the following medications the morning of surgery with a sip of water: Clonidine Hcl (Catapres), 1 TAB PO BID PRN for IF SBP >170 (if needed) Cyclosporine (Ophth) (Restasis), 1 DROP OPB QID Fluticasone Propionate (Nasal) (Allergy Nasal [place] 24 Ho), 1-2 SPRAY ROYA BID Levothyroxine Sodium (Levothyroxine Sodium), 1 TAB PO QAM Metoprolol Succinate (Toprol Xl), 25 MG PO BID Oxycodone Hcl (Oxycodone Hcl), 5 MG PO Q4 PRN for Pain (if needed, may be taken up to four hours before surgery) Valacyclovir (Valtrex), 500 MG PO BID - Take the following medications as scheduled the night before surgery: Clonazepam (Klonopin), 1 MG PO HS Clonidine Hcl (Catapres), 1 TAB PO BID PRN for IF SBP >170 (if needed) Cyclosporine (Ophth) (Restasis), 1 DROP OPB QID Fluticasone Propionate (Nasal) (Allergy Nasal [place] 24 Ho), 1-2 SPRAY ROYA BID Gabapentin (Neurontin), 300 MG PO HS Latanoprost (Xalatan 0.005% Oph Veronica), 1 DROPS OPB HS Metoprolol Succinate (Toprol Xl), 25 MG PO BID Multiple Vitamins W/ Minerals (Preservision Areds), 1 CAP PO BID Oxycodone Hcl (Oxycodone Hcl), 5 MG PO Q4 PRN for Pain (if needed) Polyethylene Glycol 3350 (Miralax), 17 GM PO BID PRN for Constipation (if needed ) Potassium Ext Rel (Klor-Con), 20 MEQ PO BID Valacyclovir (Valtrex), 500 MG PO BID If you have any questions please call us at [phone] or [phone] or [phone]
[2018-01-16 09:30] VITALS: BMI 26.0
--- NOTE | 2018-01-18 16:55 | HISTORY & PHYSICAL EXAMINATION ---
DATE OF ADMISSION: 01/21/2018 CHIEF COMPLAINT: She is being preoped for spinal stenosis surgery. HISTORY OF PRESENT ILLNESS: Hannah is delightful. She is 81. She is failing conservative care. She has pain, weakness, lower extremity difficulty and bladder issues. PAST MEDICAL HISTORY: Positive for rheumatoid arthritis, kidney disease, usual childhood diseases. PAST SURGICAL HISTORY: Tonsils, complete hysterectomy, bilateral knee replacement, cholecystectomy. ALLERGIES: POLLEN, IODINE. FAMILY HISTORY: Carcinoma. SOCIAL HISTORY: , three children. No alcohol. No tobacco. Moderately active. REVIEW OF SYSTEMS: Twelve system review is positive for some chills, sinus issues. No chest pain, palpitations. There is no asthma or wheezing. Does have a change in bowel habits with constipation, occasional incontinence. Does have some urinary issues and some kidney stones and some old kidney surgery. She also admits to musculoskeletal joint pain. MEDICATIONS: Include Medrol 25 mg, Synthroid, Plavix, Zocor, lutein capsules, gabapentin and clonidine. OBJECTIVE: GENERAL: She is alert, oriented. Mentation normal. VITAL SIGNS: Blood pressure 130/80, pulse 80, respiratory rate 16. HEENT: Essentially normal. SKIN INTEGUMENTARY: Normal. CARDIAC: Normal S1, S2, no S3. LUNGS: Clear to auscultation. ABDOMEN: Soft, nontender. EXTREMITIES: She has pain localized in the L4 region, lumbar spine, weakness to the extremities, dorsi flexors, plantar flexors and quadriceps region. MRI of the spine demonstrate a grade 2 spondylolisthesis with pinpoint canal stenosis at L4-5. PLAN: Includes laminectomy and fusion at L4-L5 lumbar spine.
[~2018-01-21] VITALS: Ht 167.6 cm; Wt 74.4 kg
[2018-01-21] VITALS (8 sets, daily range): BP systolic 108–156; BP diastolic 63–86; PULSE 74–104; TEMP 36.4–37.6; O2SAT 94–100; Ht 167.6 cm; Wt 74.4 kg
[~2018-01-21 08:24] MED LIST changes: +LACTATED RINGER'S 1000ML 1,000 ML IV SCH; -NRN300 PO; +NSS 1000ML IV SCH
[2018-01-21] MEDS ORDERED: NRN300 PO (09:03)
[2018-01-21] MEDS ORDERED: PHENYLEPHRINE HCL INJ 10 MG/ML VIAL ONE (09:49)
[2018-01-21] MEDS ORDERED: LIDOCAINE HCL 2% 2 ML VIAL (20MG/ML) ONE (09:49)
[2018-01-21] MEDS ORDERED: PROPOFOL IV EMULSION 10 MG/ML 20 ML VIAL ONE (09:49)
[2018-01-21] MEDS ORDERED: ONDANSETRON INJ 2 MG/ML 2 ML VIAL ONE (09:49)
[2018-01-21] MEDS ORDERED: GLYCOPYRROLATE INJ 0.2 MG/ML VIAL ONE (09:49)
[2018-01-21] MEDS ORDERED: SUCCINYLCHOLINE CHLORIDE 20 MG/ML 10 ML VIAL IV ONE (09:49)
[2018-01-21] MEDS ORDERED: NEOSTIGMINE METHYLSULFATE 5 MG/5 ML SYR ONE (09:49)
[2018-01-21] MEDS ORDERED: DEXAMETHASONE SOD INJ 4 MG/ML VIAL ONE (09:49)
[2018-01-21] MEDS ORDERED: EpHEDrine SULFATE INJ 50 MG/ML AMP ONE (09:49)
[2018-01-21] MEDS ORDERED: FENTANYL CITRATE INJ 50 MCG/1 ML 2 ML VIAL ONE ×2 (09:50→14:12)
[2018-01-21] MEDS ORDERED: THROMBIN FOR SOLN 20000 UNIT KIT ONE (10:29)
[2018-01-21] MEDS ORDERED: VANCOMYCIN HCL 1000MG/20ML VIAL ONE (10:29)
[2018-01-21] MEDS ORDERED: GELATIN SPONGE SZ 100 ONE ×2 (10:29→12:10)
[2018-01-21] MEDS ORDERED: BACITRACIN 50000 UNIT VIAL ONE (10:29)
[2018-01-21] MEDS ORDERED: BUPIVACAINE/EPINEPHRINE 0.5% MPF 1:200,000 30 ML VIAL ONE (10:30)
--- NOTE | 2018-01-21 10:34 | History & Physical Bridge Note ---
H&P Re-Evaluation Bridge Note: I have examined the patient, reviewed the History & Physical and in the interval since the performance of the History & Physical I have noted the following changes of clinical significance: No changes noted
[2018-01-21] MEDS: CEFAZOLIN 2000MG IV PUSH 15 ML IV SCH (11:02)
[2018-01-21] MEDS ORDERED: HYDROmorphone INJ 2 MG/ML SYR/VIAL ONE (11:35)
[2018-01-21 12:44] LABS: ISTAT CREATININE 0.5 mg/dl (0.6-1.3); ISTAT IONIZED CALCIUM 1.15 mmol/l (1.12-1.32); ISTAT POTASSIUM 3.6 mEq/L (3.3-5.0)
[2018-01-21 12:55] LABS: HEMATOCRIT 30.3 % (37-47); HEMOGLOBIN 9.7 g/dL (12.0-16.0)
--- NOTE | 2018-01-21 13:06 | Pathology Note ---
Pathology Note Date of Service Jan 21, 2018. Pathology Notes We received an order for type and cross x 2 on this 82 year old female patient. She is O negative. Current inventory of O negative is low at 5 units (normal is 8 units). One unit is short dated (will soon). We will give her the short date unit of O negative and a unit of O positive to conserve O negative inventory. Elbert Peace MD
--- NOTE | 2018-01-21 13:23 | DIAGNOSTIC IMAGING REPORT ---
INTRAOPERATIVE RADIOGRAPH CLINICAL HISTORY: L4-L5 spinal fusion. Fluoroscopy time: 2 seconds. FINDINGS: A single spot fluoroscopic view of the lumbar spine is presented. Surgical probes project posteriorly at L3 and L5. There is grade 1 anterolisthesis at L4-L5. IMPRESSION: Intraoperative image of the lower lumbar spine as above. Electronically signed by: Ronak Montalvo M.D. 01/21/2018 1:22 PM Dictated Date/Time: 01/21/2018 1:21 PM
--- NOTE | 2018-01-21 13:27 | [facility] Post Operative Brief Note ---
Immediate Operative Summary Operative Date Jan 21, 2018. Pre-Operative Diagnosis Grade 2 Spondilolisthesis with [place] Canal Stenosis L4-L5 Post-Operative Diagnosis Grade 2 Spondilolisthesis with [place] Canal Stenosis L4-L5 Procedure(s) Performed Decompression L3-S1, Laminectiomy and Fusion L3-L4 Surgeon Dr Huber Firer Electric Locomotive Surgeon(s) Elbert Mcdaniel PA-C Estimated Blood Loss 300ml Findings Consistent with Post-Op Diagnosis Specimens None per surgeon Anesthesia Type General Disposition Accompanied Pt To Recover: no Overlapping Procedure I was immediately available: during the entire case
[2018-01-21] MEDS ORDERED: LORAZEPAM 1 MG TAB PO PRN (13:45)
[2018-01-21] MEDS ORDERED: LORAZEPAM INJ 1 MG in SYRINGE 0 ML IV PRN (13:45)
[2018-01-21] MEDS ORDERED: NITROGLYCERIN 0.4 MG SL PER TAB CHARGE UT PRN (13:45)
[2018-01-21] MEDS ORDERED: HYDROmorphone INJ 1 MG/ML SYR IV PRN (13:45)
[2018-01-21] MEDS ORDERED: OXYCODONE/ACETAMINOPHEN 5-325 TAB PO PRN (13:45)
[2018-01-21] MEDS ORDERED: OXYCODONE HCL IR 5 MG TAB (IMMEDIATE RELEASE) PO PRN (13:45)
[2018-01-21] MEDS ORDERED: POLYETHYLENE (MIRALAX) 17 GM PACK PO PRN ×2 (13:45→14:15)
[2018-01-21] MEDS ORDERED: ONDANSETRON INJ 2 MG/ML 2 ML VIAL IV PRN ×2 (13:45→14:00)
[2018-01-21] MEDS ORDERED: ACETAMINOPHEN 325 MG TAB PO PRN (13:45)
[2018-01-21] MEDS ORDERED: METOCLOPRAMIDE HCL INJ 5 MG/ML 2 ML VIAL IV PRN (13:45)
[2018-01-21] MEDS ORDERED: MAGNESIUM HYDROXIDE SUSP 30 ML UDC PO PRN (13:45)
[2018-01-21] MEDS ORDERED: PROMETHAZINE HCL INJ 12.5 MG in SODIUM CHLORIDE 0.9% 50ML 50 ML IV PRN ×2 (13:45→14:00)
[2018-01-21] MEDS ORDERED: CLONIDINE HCL 0.1 MG TAB PO PRN (13:45)
[2018-01-21] MEDS ORDERED: FENTANYL CITRATE INJ 50 MCG/1 ML 2 ML VIAL IV PRN (14:00)
[2018-01-21] MEDS ORDERED: NALOXONE HCL 0.4 MG/1 ML VIAL/CARP IV PRN (14:00)
[2018-01-21] MEDS ORDERED: LABETALOL HCL IV 5 MG/ML 20ML IV PRN (14:00)
[2018-01-21] MEDS ORDERED: EpHEDrine SULFATE INJ 50 MG/ML AMP IV PRN (14:00)
[2018-01-21] MEDS ORDERED: ATROPINE SULFATE 0.1 MG/ML 5ML SYR IV PRN (14:00)
[2018-01-21] MEDS ORDERED: CISATRACURIUM BESYLATE IV SOLN 2 MG/ML 10 ML VIAL ONE (14:07)
[2018-01-21] MEDS ORDERED: ESMOLOL HCL 10 MG/ML 10 ML VIAL ONE (14:07)
[2018-01-21] MEDS ORDERED: ROCURONIUM BROMIDE 10 MG/ML 5 ML VIAL ONE (14:07)
--- NOTE | 2018-01-21 14:09 | OPERATIVE REPORT ---
DATE OF OPERATION: 01/21/2018 PREOPERATIVE DIAGNOSES: 1. Severe spinal stenosis lumbar spine, L3-L4, L4-L5. 2. A grade 2 spondylolisthesis, L4 on L5. 3. Prior surgery, L4 on L5. POSTOPERATIVE DIAGNOSES: 1. Severe spinal stenosis lumbar spine, L3-L4, L4-L5. 2. A grade 2 spondylolisthesis, L4 on L5. 3. Prior surgery, L4 on L5. PROCEDURES: Include: 1. Laminectomy L3, L4, L5, lumbar spine foraminotomy, decompression of the cauda equina. 2. Posterior lateral fusion, L3-L4. I assessed the stability of the grade 2 spondylolisthesis. I felt that the spine was rock solid at the time of surgery and that a fusion including instrumentation at the L4-L5 level of the lumbar spine was not indicated. ANESTHESIA: General. SURGEON: Bert Huber DO UPHOLSTERER APPRENTICE: Elbert Mcdaniel PA-C. BLOOD LOSS: 300 mL. No apparent complications. ANESTHETIC: General. DESCRIPTION OF PROCEDURE: The patient was taken to the operating room and general intubated anesthetic provided to the patient and placed prone, scrubbed, prepped and draped sterile. We made a skin incision and fascial incision. We came down between the lamina of L3 and the lamina of the sacrum. We put in a deep self-retaining retractor. The spinal canal was exceedingly tight. We meticulously decompressed the neural elements getting free of the nerve roots at S1, L5, L4, even L3 to my estimation. They were free of obstruction bilaterally. The cauda equina was free as well, ligamentum flavum, removed significant bone. I thus assessed the spine for stability as I did preoperative, I felt it was very solid at L4-L5, there was 0 motion at this level. So to prevent junctional breakdown, I went ahead and did a biological fusion at L3-L4 lumbar spine. We irrigated thoroughly. We closed in layers with #1 Vicryl, 2-0 and 3-0 nylon over vancomycin powder and over Hemovac drain. The patient then returned supine, extubated to PACU stable. No apparent complications. Sponge and needle count correct. I attest to the content of the Intraoperative Record and any orders documented therein. Any exception s are noted below.
[2018-01-21 14:18] LABS: HEMATOCRIT 30.1 % (37-47); HEMOGLOBIN 9.8 g/dL (12.0-16.0)
--- NOTE | 2018-01-21 14:41 | Anesthesiology Progress Note ---
Anesthesia Post Op Note Date & Time Jan 21, 2018 at 14:40 Vital Signs Pain Intensity: 3 Vital Signs Past 12 Hours Date Time Temp Pulse Resp B/P (MAP) Pulse Ox O2 Delivery O2 Flow Rate FiO2 01/21/18 14:30 81 13 109/79 98 Nasal Cannula 2 01/21/18 14:20 84 12 122/78 100 Nasal Cannula 2 01/21/18 14:10 89 23 104/79 97 Nasal Cannula 2 01/21/18 14:00 36.3 87 28 125/54 100 Oxymask 10 01/21/18 13:50 36.3 93 13 124/56 100 Oxymask 10 01/21/18 09:07 37.6 104 20 156/86 94 Room Air Notes Mental Status: alert / awake / arousable, participated in evaluation Pt Amnestic to Procedure: Yes Nausea / Vomiting: adequately controlled Pain: adequately controlled Airway Patency, RR, SpO2: stable & adequate BP & HR: stable & adequate Hydration State: stable & adequate Anesthetic Complications: no major complications apparent
[2018-01-21] MEDS: SODIUM CHLORIDE 0.9% 1000ML 1,000 ML IV SCH (16:26)
[2018-01-21] MEDS: HYDROmorphone INJ 1 MG/ML SYR IV PRN (16:27)
--- NOTE | 2018-01-21 16:38 | History and Physical ---
History & Physical Date & Time of Service: Jan 21, 2018 at 16:34 Chief Complaint: Spinal Stenosis, Spondylolisthesis Primary Care Physician: Royce Clay M.D. 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 Social History Smoking Status: Never Smoker Drug Use: other Marital Status: Housing status: lives with family Occupational Status: retired Immunizations History of Influenza Vaccine: Yes Influenza Vaccine Date: Jun 03, 2011 History of Tetanus Vaccine?: Yes Tetanus Immunization Date: Jun 03, 2010 History of Pneumococcal: Yes Pneumococcal Date: Sep 17, 2004 History of Hepatitis B Vaccine: No Allergies Coded Allergies: Iodinated Diagnostic Agents (Verified Allergy, Severe, ANAPHYLAXIS, ) Home Medications Scheduled Aspirin (Aspirin Chewable), 81 MG PO DAILY Atorvastatin (Lipitor), 10 MG PO 2XWK Clonazepam (Klonopin), 1 MG PO HS Clopidogrel (Plavix), 75 MG PO HS Cyclosporine (Ophth) (Restasis), 1 DROP OPB QID Fluticasone Propionate (Nasal) (Allergy Nasal [place] 24 Ho), 1-2 SPRAY ROYA BID Gabapentin (Gabapentin), 300 MG PO DAILY Latanoprost (Xalatan 0.005% Oph Veronica), 1 DROPS OPB HS Levothyroxine Sodium (Levothyroxine Sodium), 1 TAB PO QAM Lutein (Natural Lutein), 20 MG PO BID Metoprolol Succinate (Toprol Xl), 25 MG PO BID Multiple Vitamins W/ Minerals (Preservision Areds), 1 CAP PO BID Multiple Vitamins W/ Minerals (Centrum Silver Adult 50+), 1 TAB PO DAILY Nitroglycerin (Nitrostat), 0.4 MG UT PRN Potassium Ext Rel (Klor-Con), 20 MEQ PO BID Valacyclovir (Valtrex), 500 MG PO BID Scheduled PRN Clonidine Hcl (Catapres), 1 TAB PO BID PRN for IF SBP >170 Oxycodone Hcl (Oxycodone Hcl), 5 MG PO Q4 PRN for Pain Polyethylene Glycol 3350 (Miralax), 17 GM PO BID PRN for Constipation Physical Exam Vital Signs Date Time Temp Pulse Resp B/P (MAP) Pulse Ox O2 Delivery O2 Flow Rate FiO2 01/21/18 16:00 91 18 135/71 (92) 100 Nasal Cannula 2.0 01/21/18 15:45 36.4 74 18 133/80 96 Nasal Cannula 2.0 01/21/18 15:10 36.7 82 19 129/68 98 Nasal Cannula 2 01/21/18 14:55 36.7 84 10 123/68 98 Nasal Cannula 2 01/21/18 14:40 36.7 84 10 115/57 98 Nasal Cannula 2 01/21/18 14:30 81 13 109/79 98 Nasal Cannula 2 01/21/18 14:20 84 12 122/78 100 Nasal Cannula 2 01/21/18 14:10 89 23 104/79 97 Nasal Cannula 2 01/21/18 14:00 87 28 125/54 100 Oxymask 10 01/21/18 13:50 36.3 93 13 124/56 100 Oxymask 10 01/21/18 09:07 37.6 104 20 156/86 94 Room Air Diagnostics Laboratory Results Results Past 24 Hours Test 01/21/18 12:20 01/21/18 12:45 01/21/18 14:11 Range/Units Bedside Hemoglobin 8.8 12.0-16.0 g/dl Bedside Hematocrit 26 37-47 % Bedside Sodium 139 135-144 mEq/L Bedside Potassium 3.6 3.3-5.0 mEq/L Bedside Chloride 108 101-112 mEq/L Bedside Total CO2 25 24-31 mEq/l Anion Gap 10.0 16-25 mmol/L Bedside Blood Urea Nitrogen 14 7-18 mg/dl Bedside Creatinine 0.5 0.6-1.3 mg/dl Bedside Glucose (other) 95 70-99 mg/dl Bedside Ionized Calcium (Negar) 1.15 1.12-1.32 mmol/l Hemoglobin 9.7 9.8 12.0-16.0 g/dL Hematocrit 30.3 30.1 37-47 % Troponin I < 0.015 0-0.045 ng/ml Impression Assessment and Plan consult #[id number] Advanced Directives Existing Living Will: Yes Existing Power of Tag Clerk: Yes Resuscitation Status VTE Prophylaxis Will order VTE Prophylaxis: Yes
--- NOTE | 2018-01-21 16:40 | Progress Note ---
Progress Note Date of Service Jan 21, 2018. Progress Note consult for post op afib sinus preop ekg sinus on monitor - reviewed entirety of her time on monitor - did have some atrial ectopy that created an appearance of irregularity, did have period of artifact that obscured P waves but was totally regular then called PACU - sinus there they called OR - 10 seconds of ?afib then - not captured on anything to be able to review pt with no known hx of afib, notes that PCP has never raised concern about this -suspect atrial ectopy or artifact not afib -monitor overnight -if no afib, nothing to manage -would defer to PCP regarding outpt event monitoring for completeness -TSH for completeness; echo was done in august - LVH and elevated R heart pressures -will sign off unless further need arises, thanks
--- NOTE | 2018-01-21 17:23 | CONSULTATION REPORT ---
DATE OF CONSULTATION: 01/21/2018 REASON FOR CONSULTATION: Management of postop AFib. HISTORY OF PRESENT ILLNESS: The patient is an 82-year-old female who is immediately postop from a laminectomy, L3, L4, L5, lumbar spine foraminectomy, decompression of the cauda equina and posterior fusion of L3 and L4. We are asked to consult for postop AFib. On review of her chart, I found her preop EKG to be sinus rhythm. I went to evaluate her on monitor with the monitor grocery clerk selling. She does not have a lot of time on monitor to evaluate. So we essentially looked at every heartbeat and while she has a little bit of atrial ectopy that drives a degree of irregularity, she does not have any atrial fibrillation at all. At another point, she has a degree of artifact that makes it difficult to see P waves but at that point she is clearly very regular. So I called the PACU and the PACU nurse noted that she was sinus rhythm the entire time in PACU. Called back to the OR and apparently while not captured in any way that anyone else can review for about 10 seconds, the drug and alcohol counselor thought the person may be in AFib. On evaluation with the patient, she feels okay. She has no chest symptoms. She notes she has never had AFib before. She has no suspicion that she has AFib nor has her PCP, felt the need to evaluate her for it. She notes "I am diagnosing myself as not having AFib." REVIEW OF SYSTEMS: Otherwise negative, except for as above. PAST MEDICAL HISTORY: Includes type 1 diabetes with diabetic retinopathy, CKD, approximately stage IV. Apparently prior PE, GERD, protein S deficiency, asthma, hypothyroidism, of course lumbar spine disease. PAST SURGICAL HISTORY: Most relevant today's procedure as listed above. FAMILY HISTORY: None of significance. SOCIAL HISTORY: She is a never smoker, no alcohol. ALLERGIES: INCLUDE IODINE, MIRTAZAPINE, NEFAZODONE, NITROFURANTOIN, AMOXICILLIN, CLAVULANIC, CODEINE, ASPIRIN, AND PENICILLINS. CURRENT MEDICATIONS: Listed as aspirin, atorvastatin, Klonopin, Catapres, Plavix, Restasis, fluticasone nasal, gabapentin, Xalatan, Synthroid, Lutein, metoprolol, multivitamins, nitroglycerin, oxycodone, MiraLax, potassium, and Valtrex. PHYSICAL EXAMINATION: VITAL SIGNS: Temperature 36.4, pulse 74, respiratory rate 18, blood pressure 133/80, and 96% on 2 L. GENERAL: She is awake, alert, oriented, pleasant, in no acute distress. HEENT: Normocephalic, atraumatic. Mucous membranes are moist. CARDIOVASCULAR: Regular without rubs, murmurs, or gallops. LUNGS: Clear to auscultation bilaterally. No rales, rhonchi or wheezes. EXTREMITIES: Show no cyanosis. SKIN: Shows no rashes, no pallor or icterus. NEUROLOGIC: Shows no focal deficits. EKG is sinus rhythm, on the monitor is sinus. Do not have an old TSH on record. She does have an echo from August showing mild LVH, normal systolic function, grade 1 diastolic dysfunction, mild mitral regurg, and elevated right ventricular systolic pressure at 50-60. ASSESSMENT AND PLAN: Abnormal rhythm. We were asked to manage postop atrial fibrillation, truthfully she has been in sinus for all that I can see. Unfortunately, there is nothing captured of her 10 seconds of abnormal or potentially abnormal rhythm in the OR. We will continue to monitor her rhythm overnight but if she shows no atrial fibrillation, certainly there does not appear to be anything that needs to be acutely managed given the common things are common in atrial fibrillation and her age range with some LVH certainly would not be surprising. I will defer to her PCP about possibly ambulatory monitoring such as an event monitor, but unless she goes into atrial fibrillation overtly nothing appears to need to be done at this point in time. For completeness sake, I will check a TSH. She has a recent enough echo that this would certainly not need to be repeated and we will sign off the consultation unless further need arises.
[2018-01-21] MEDS: DEXAMETHASONE INJ 10 MG in SYRINGE 0 ML IV SCH (19:30)
[2018-01-21] MEDS: CEFAZOLIN IV 1,000 MG in SYRINGE 0 ML IV SCH (19:30)
[2018-01-21] MEDS ORDERED: MINERALS PO SCH (21:00)
[2018-01-21] MEDS ORDERED: LUTEIN 20 MG PO SCH (21:00)
[2018-01-21] MEDS ORDERED: MULTIPLE VITAMINS PO SCH (21:00)
[2018-01-21] MEDS: LATANOPROST 0.005% OP SOLN 2.5 ML BTL OPB SCH (21:34)
[2018-01-21] MEDS: METOPROLOL SUCC 25MG EXT REL TAB PO SCH (21:39)
[2018-01-21] MEDS: POTASSIUM CHLORIDE 20 MEQ TABCR PO SCH (21:39)
[2018-01-21] MEDS: CLONAZEPAM 1 MG TAB PO SCH (21:41)
[2018-01-22] VITALS (8 sets, daily range): BP systolic 109–125; BP diastolic 64–77; PULSE 68–81; TEMP 36.5–37; O2SAT 91–97
[2018-01-22] MEDS: DEXAMETHASONE INJ 10 MG in SYRINGE 0 ML IV SCH ×3 (03:07→19:55)
[2018-01-22] MEDS: CEFAZOLIN IV 1,000 MG in SYRINGE 0 ML IV SCH ×2 (03:08→11:48)
[2018-01-22] MEDS: SODIUM CHLORIDE 0.9% 1000ML 1,000 ML IV SCH ×2 (03:10→08:08)
[2018-01-22] MEDS: HYDROmorphone INJ 1 MG/ML SYR IV PRN ×3 (03:15→11:25)
[2018-01-22] MEDS: LEVOTHYROXINE 75 MCG TAB PO SCH (05:54)
[2018-01-22] MEDS ORDERED: BISACODYL 5 MG TABEC PO PRN (06:00)
[2018-01-22] MEDS ORDERED: BISACODYL 10 MG SUPP PR PRN (06:00)
[2018-01-22] MEDS: CEROVITE ADV FORMULA TAB PO SCH (07:57)
[2018-01-22] MEDS: METOPROLOL SUCC 25MG EXT REL TAB PO SCH ×2 (07:58→21:17)
[2018-01-22] MEDS: ASPIRIN 81 MG ECTAB PO SCH (07:58)
[2018-01-22] MEDS: CycloSPORINE 0.05% 0.4 ML 30 UDV/BOX OPB SCH ×2 (07:58→19:56)
[2018-01-22] MEDS: POLYETHYLENE (MIRALAX) 17 GM PACK PO SCH (07:59)
[2018-01-22] MEDS: POTASSIUM CHLORIDE 20 MEQ TABCR PO SCH ×2 (07:59→21:00)
--- NOTE | 2018-01-22 08:07 | Clinical Documentation Query ---
CLINICAL DOCUMENTATION QUERY Dr. BOYD, In your clinical opinion is this patient being managed for: ( ) Acute blood loss anemia ( ) Not Agree ( ) Other explanation of clinical findings (No explanation is considered a No Response) ( ) Unable to determine ( ) Need to Discuss (Phone CDS or qliq) (No discussion is considered a No Response) The medical record reflects the following clinical findings, treatment, and risk factors. Clinical Indicators: 82 yo female presenting with lumbar spinal stenosis for a spinal fusion. Baseline Hgb 12.3/Hct 37.4 which has trended down to 9.8/30.1. EBL of 600 cc with additional 90 cc hemovac drainage. Treatment: IV fluids, monitor H/H Risk Factors: expected surgery associated blood loss Please clarify and document your clinical opinion in the progress notes and discharge summary. Terms such as "probable", "suspected", "likely", "questionable", "possible", or "still to be ruled out" are acceptable. IF IN AGREEMENT, YOU MUST DOCUMENT ABOVE DIAGNOSTIC STATEMENT IN DAILY PROGRESS NOTES AND DISCHARGE SUMMARY. This document is not part of the patient's record. Thank You, Angie Zamora, RN [phone]
[2018-01-22] MEDS ORDERED: GABAPENTIN 300 MG CAP PO SCH (09:00)
--- NOTE | 2018-01-22 10:06 | ORTHOPEDICS PROGRESS NOTE ---
DATE: 01/22/2018 SUBJECTIVE: She is alert, oriented, able to move extremities to a mild degree. No chest pain, shortness of breath, confusion. ASSESSMENT: Severe spinal stenosis, cauda equina type symptoms, profound lower extremity weakness. She is now 20 hours postoperative. PLAN: We will try to get up with physical therapy today, hopefully get her discharged to [facility] I am estimating tomorrow or the next day.
--- NOTE | 2018-01-22 10:15 | Anesthesiology Progress Note ---
Anesthesia Post Op Note Date & Time Jan 22, 2018 at 10:15 Vital Signs Vital Signs Past 12 Hours Date Time Temp Pulse Resp B/P (MAP) Pulse Ox O2 Delivery O2 Flow Rate FiO2 01/22/18 08:00 Room Air 01/22/18 07:47 36.5 81 16 114/71 (85) 96 01/22/18 04:41 36.6 74 18 109/64 (79) 93 Nasal Cannula 2.0 01/22/18 00:00 Nasal Cannula 01/21/18 23:43 36.7 79 18 130/76 (94) 94 Nasal Cannula 2.0
--- NOTE | 2018-01-22 17:06 | Discharge Instructions ---
Discharge Instructions Date of Service Jan 22, 2018. Admission Reason for Admission: Spinal Stenosis, Spondylolisthesis Discharge Discharge Diagnosis / Problem: same Discharge Goals Goal(s): Improve function Activity Recommendations Activity Limitations: as noted below Lifting Limitations: no more than 5 pounds, gradually increase as tolerated Exercise/Sports Limitations: until after follow-up appointment May Resume Sexual Activity: after follow-up appointment Shower/Bathe: keep incision dry . Instructions / Follow-Up Instructions / Follow-Up MEDICATIONS: Please take your prescriptions as instructed at your pre-op appointment. SPECIAL CARE: The following information is intended to answer some of the common questions and concerns regarding your surgery. Each patient is an individual and receives individual counselling throughout the course of treatment, from diagnosis to surgery all the way through recovery. What follows is not an exhaustive list, but should be a useful guide to some of the common questions and concerns patients have regarding their surgeries. These are not provided to keep you from calling us; rather, they give you something accurate and concrete to reference as you recover from your procedure. If you need us, we are available to you. As always, if you are not sure about something, call us at [phone]. MEDICAL EMERGENCIES: For these conditions, call 911 or go to your local hospital-based Emergency Department - not [facility] or equivalent. * Paralysis * Severe chest pain or difficulty breathing * Swelling or redness of either leg Spine procedures can be rather complex and though complications are rare, they do occur. In such cases, effective advice regarding emergency situations cannot always be addressed over the telephone. You may be referred to the emergency department for more effective management of your problem. Activity Limitations: It is important to give your body time to heal, so please limit your activities : * In general, don't do anything that moves your spine too much. You should avoid contact sports, twisting or heavy lifting while you recover. * 5-10 pounds is all you should attempt to lift. * You should not plan on driving for approximately 3 weeks and you should avoid traveling more than 30-45 minutes at a time. Longer trips should be broken down with walking breaks spaced appropriately. * Physical therapy is not usually required. * Walking and good posture practices will help you recover and regain your function. * Avoid straining or sudden changes in position. * In general, the goal is to take it easy and recover. Don't cause any new problems. Just relax. Showers: * Do not take a bath, use a Jacuzzi or hot tub or otherwise submerge your incision. * It is usually safe to take a shower 4-5 days after your surgery. * Your incision does not require any special creams or ointments. * Simply clean it with soap and water, dry and re-dress with a clean bandage afterwards. Incision: * Keep incision clean, dry and protected until your first follow-up appointment. * Some amount of drainage and redness is normal. Any drainage should be fairly clear and not have a foul odor. * If you feel anything is wrong or you have excessive drainage, please call us. * Your stitches and tasha will be removed 10-14 days after your surgery. At the time of your first post-op visit. * Neck surgeries are typically closed with a suture underneath the skin. The steri-strips over the incision should be maintained until we see you in the office. Bracing: * You may be provided with a back or neck brace to encourage good posture and prevent injury. It will remind you not to do too much as you heal and will alert others to the fact that you have had a surgery. * Back braces may be removed for showers and when you are resting at home. They must be worn when you are walking around for any period of time or for travel. * For neck surgery, you will likely be provided with two cervical collars. The soft collar ([place] or foam rubber) is worn most commonly throughout the day and while sleeping. The plastic collar (provided at the hospital) is for showering/bathing. * Except while eating, collars should remain in place. More specifically, bracing is provided for a purpose and should be worn. * Please obtain your brace or collars prior to your operation and bring them to the hospital with you on the day of surgery. * You should also bring your collars to your post-op appointment with Dr. Huber. You should always take good care of your body and practice healthy habits, especially following surgery. You should: * Follow your doctor's treatment plan * Sit and stand properly with good posture (ears over shoulders, shoulders over hips) Don't slouch * Learn to lift correctly * Exercise regularly (low-impact aerobic exercise is especially good, but check with your doctor first) * Generally, be up and walking for 5-10 minutes at a time at least 3-4 times per day from the day you get home * Increasing walking to tolerance until you can walk for 20-30 minutes at a time * Attain and maintain a healthy body weight * Eat healthy foods ( a well-balanced, low-fat diet rich in fruits and vegetables) and get enough calcium * Avoid excessive use of alcohol When to call our office - If you notice any of the following: * Increased pain not relieve by pain medicine * Fevers greater then 100 degrees F, chills or flu symptoms * Increased redness around incision * Drainage from the incision that is not clear * Any foul smelling drainage * Swelling or fluid collection beneath the skin Miscellaneous: * In the hospital, you may be given a walker or cane for support while walking. These are temporary needs and are intended to prevent injuries due to falls. You may discontinue them when you feel strong and steady enough on your feet. * Sleep in a comfortable position. We find that many patients find a lounge chair or recliner with several pillows to be beneficial in the early post-operative period. * The support stockings should be used for 7-10 days and may be discontinued when you are back to walking more and conducting usual household activities. No problem is insignificant. We are here to help you and get you well. Contact us at [phone]. Definitions: Foraminotomy: If part of the disc or a bone spur (osteophyte) is pressing on a nerve as it leaves the vertebra (through an exit called the foramen), a foraminotomy may be done. Otomy means "to make an opening." A foraminotomy is making the opening of the foramen larger, so the nerve can exit without being compressed. Laminotomy: Similar to the foraminotomy, a laminotomy makes a larger opening, this time in your bony plate protecting your spinal canal and spinal cord (the lamina). The lamina may be pressing on your nerve, so the surgeon may make more room for the nerves using a laminotomy. Laminectomy: Sometimes, a laminotomy is not sufficient. The surgeon may need to remove all or part of the lamina. This procedure is called a laminectomy. This can often be done at many levels without any harmful effects. Current Hospital Diet Patient's current hospital diet: Regular Diet Discharge Diet Recommended Diet: Regular Diet Procedures Procedures Performed: Decompression L3-S1, Laminectiomy and Fusion L3-L4 Pending Studies Studies pending at discharge: no Medical Emergencies . Who to Call and When: Medical Emergencies: If at any time you feel your situation is an emergency, please call 911 immediately. . Non-Emergent Contact Non-Emergency issues call your: Primary Care Provider . "Provider Documentation" section prepared by Bert Huber. .
[2018-01-22] MEDS: LATANOPROST 0.005% OP SOLN 2.5 ML BTL OPB SCH (21:14)
[2018-01-22] MEDS: CLONAZEPAM 1 MG TAB PO SCH (21:15)
[2018-01-22] MEDS: OXYCODONE HCL IR 5 MG TAB (IMMEDIATE RELEASE) PO PRN (21:18)
[2018-01-22] MEDS ORDERED: NURSING VERBAL MED ORDER ONE (23:15)
[2018-01-23] MEDS: DEXAMETHASONE INJ 10 MG in SYRINGE 0 ML IV SCH (04:18)
[2018-01-23] MEDS: LEVOTHYROXINE 75 MCG TAB PO SCH (05:44)
[2018-01-23 08:09] VITALS: BP 138/72; PULSE 70; TEMP 36.9; O2SAT 94
[2018-01-23 08:52] VITALS: O2SAT 94
[2018-01-23] MEDS: CycloSPORINE 0.05% 0.4 ML 30 UDV/BOX OPB SCH ×2 (09:02→21:09)
[2018-01-23] MEDS: METOPROLOL SUCC 25MG EXT REL TAB PO SCH ×2 (09:03→21:13)
[2018-01-23] MEDS: ASPIRIN 81 MG ECTAB PO SCH (09:04)
[2018-01-23] MEDS: CEROVITE ADV FORMULA TAB PO SCH (09:04)
[2018-01-23] MEDS: POTASSIUM CHLORIDE 20 MEQ TABCR PO SCH ×2 (09:05→21:11)
[2018-01-23] MEDS: POLYETHYLENE (MIRALAX) 17 GM PACK PO SCH (09:05)
[2018-01-23] MEDS ORDERED: NURSING VERBAL MED ORDER ONE (09:30)
[2018-01-23] MEDS ORDERED: HYDROmorphone INJ 1 MG/ML SYR IV PRN (10:00)
[2018-01-23] MEDS: HYDROmorphone HCL 2 MG TAB PO PRN (10:06)
--- NOTE | 2018-01-23 11:24 | Hospitalist Progress Note ---
Hospitalist Progress Note Date of Service Jan 23, 2018. Subjective Pt evaluation today including: conversation w/ patient, conversation w/ family ( at bedside), physical exam, chart review, lab review, review of inpatient medication list Patient voices several concerns to me. She is concerned that she has not been up and walking around enough and states physical therapy has not worked with her at all, although review of her chart shows that PT did do a full evaluation yesterday. She states the pain in her back is still rather severe and the oxycodone does not help. The pain does radiate down her legs, R>L. She denies any acute numbness or tingling. She is otherwise doing well postop. She has a mild non-productive cough. She is tolerating a diet well and voiding on her own. She has not yet passed gas or had a bowel movement postop but took some Miralax this morning. The patient denies fevers, chills, sweats, chest pain, palpitations, claudication, wheezing, shortness of breath, nausea, vomiting, abdominal pain, dysuria, hematuria, urinary retention, paralysis, weakness, numbness and tingling. Additional Comments: See HPI for pertinent positives and negatives. All other systems reviewed and negative. Objective Vital Signs Date Time Temp Pulse Resp B/P (MAP) Pulse Ox O2 Delivery O2 Flow Rate FiO2 01/23/18 08:52 94 Room Air 01/23/18 08:09 36.9 70 16 138/72 (94) 94 Room Air 01/23/18 07:45 Room Air 01/22/18 23:51 Room Air 01/22/18 22:48 36.9 68 18 122/73 (89) 91 Room Air 01/22/18 21:19 68 125/77 (93) 01/22/18 15:41 37.0 81 18 124/74 (91) 96 Room Air 01/22/18 15:30 Room Air 01/22/18 15:00 36.7 78 16 97 01/22/18 11:47 78 97 01/22/18 11:42 36.7 79 16 115/74 (88) 97 Room Air Physical Exam Notes: General appearance: Well-developed, well-nourished, no apparent distress Head: Normocephalic, atraumatic Eyes: Normal inspection, PERRL, EOMI ENT: Normal ENT inspection, hearing grossly normal, pharynx normal Neck: Supple, no JVD, trachea midline Respiratory/Chest: Lungs clear to auscultation, normal breath sounds, no respiratory distress Cardiovascular: Regular rate & rhythm, no gallop, no murmur Abdomen/GI: Normal bowel sounds, non-tender, soft Extremities/Musculoskeletal: +Pt in back brace, hemovac in place. Trace pitting edema. No calf tenderness Neurological/Psych: Alert, normal mood/affect, oriented x 3 Skin: Normal color, warm/dry, no rash Assessment and Plan 82 y/o female with a history of CAD s/p stent, HTN, HLD, hypothyroidism, CKD stage III, neuropathy, and h/o PE who presents s/p decompression of L3-S1, laminectomy and fusion of L3-L4 with Dr. Huber for medical management. S/p lumbar decompression and fusion--POD #2 -Pain management, DVT prophylaxis, and PT/OT as per primary team -Ok to resume Plavix but no chemical DVT ppx per Dr. Huber. Recommend chemical ppx if able when ok with surgery due to h/o PE -PT/OT recommend rehab, pt wants [facility] Delirium--resolved -Pt reportedly saw cats in the hallway last night per nursing. On my exam she is alert and oriented x4, no hallucinations -Likely hospital delirium Possible postop a-fib--no a-fib found, pt has remained sinus CAD s/p stent in 2008, HTN, HLD--stable -Continue ASA, clonidine, metoprolol, Lipitor -Plavix resumed, ok w/surgery Hypothyroidism -Continue Synthroid CKD stage III -Check PRP w/morning labs -POC creatinine done on POD #0 WNL Neuropathy -Continue gabapentin, adjusted dosing to match what pt does at home Code Status -Level I, FULL RESUSCITATION STATUS Pt. is stable from a medical standpoint, we will sign off. Clear for discharge as per primary team.
[2018-01-23 11:58] VITALS: BP 132/79; PULSE 72; TEMP 36.9; O2SAT 94
[2018-01-23 15:49] VITALS: BP 135/76; PULSE 79; TEMP 37; O2SAT 91
[2018-01-23] MEDS: OXYCODONE HCL IR 5 MG TAB (IMMEDIATE RELEASE) PO PRN (19:05)
[2018-01-23] MEDS ORDERED: COUGH DROP (SUGAR FREE) LOZ 24 LOZ/1 BOX LOZ PRN (20:45)
[2018-01-23] MEDS ORDERED: NURSING DECISION MEDICATION ORDER SCH (20:45)
[2018-01-23] MEDS ORDERED: GABAPENTIN 600 MG TAB PO SCH (21:00)
[2018-01-23] MEDS ORDERED: CLOPIDOGREL BISULFATE 75 MG TAB PO SCH (21:00)
[2018-01-23] MEDS: CLONAZEPAM 1 MG TAB PO SCH (21:09)
[2018-01-23] MEDS: LATANOPROST 0.005% OP SOLN 2.5 ML BTL OPB SCH (21:10)
[2018-01-23 21:14] VITALS: BP 146/82; PULSE 65
[2018-01-23 23:01] VITALS: BP 137/88; PULSE 63; TEMP 36.5; O2SAT 94
[2018-01-24] MEDS: LEVOTHYROXINE 75 MCG TAB PO SCH (05:46)
[2018-01-24 06:54] VITALS: BP 150/76; PULSE 63; TEMP 36.5; O2SAT 93
[2018-01-24 07:17] LABS: HEMATOCRIT 24.6 % (37-47); HEMOGLOBIN 8.2 g/dL (12.0-16.0); MEAN CELL VOLUME 99.6 fL (80-100); MEAN CORPUSCULAR HEMOGLOBIN 33.2 pg (25-34); MEAN CORPUSCULAR HGB CONC 33.3 g/dl (32-36); MEAN PLATELET VOLUME 10.4 fL (7.4-10.4); PLATELET COUNT 263 K/uL (130-400); RED CELL DISTRIBUTION WIDTH CV 13.9 % (11.5-14.5); RED CELL DISTRIBUTION WIDTH SD 50.7 fL (36.4-46.3)
[2018-01-24 07:51] LABS: CALCIUM 8.7 mg/dl (8.5-10.1); CREATININE 0.73 mg/dl (0.60-1.20); POTASSIUM 4.4 mmol/L (3.5-5.1)
[2018-01-24 07:54] VITALS: BP 155/84; PULSE 64; TEMP 37.1; O2SAT 98
[2018-01-24 08:03] VITALS: O2SAT 98
[2018-01-24] MEDS: CycloSPORINE 0.05% 0.4 ML 30 UDV/BOX OPB SCH (08:48)
[2018-01-24] MEDS: HYDROmorphone HCL 2 MG TAB PO PRN (08:48)
[2018-01-24] MEDS: ASPIRIN 81 MG ECTAB PO SCH (08:49)
[2018-01-24] MEDS: POTASSIUM CHLORIDE 20 MEQ TABCR PO SCH (08:49)
[2018-01-24] MEDS: POLYETHYLENE (MIRALAX) 17 GM PACK PO SCH (08:50)
[2018-01-24] MEDS: CEROVITE ADV FORMULA TAB PO SCH (08:50)
[2018-01-24] MEDS: METOPROLOL SUCC 25MG EXT REL TAB PO SCH (08:51)
--- NOTE | 2018-01-24 13:48 | OPERATIVE REPORT ---
DATE OF OPERATION: 01/24/2018 ADDENDUM I was asked the, in clinical opinion, was the patient be managed for acute blood loss anemia and I agree with that. She had fairly extensive spinal surgery and her drop in hemoglobin from 12-9.8 would be secondary to blood loss anemia. No other explanation. I attest to the content of the Intraoperative Record and any orders documented therein. Any exception s are noted below.
[2018-01-24 14:10] VITALS: BP 155/84; PULSE 64; TEMP 37.1; O2SAT 98
[2018-01-24] MEDS: OXYCODONE HCL IR 5 MG TAB (IMMEDIATE RELEASE) PO PRN (15:52)
[2018-01-30] MEDS ORDERED: HYDROmorphone HCL 2 MG TAB PO PRN (17:30)
[2018-01-31] MEDS ORDERED: LIDODERM (LIDOCAINE) PATCH 5% TD SCH (09:00)
== END 2018-01-24 16:05 | DRG 460 ==
LOC: C.ACU 08:24 → C.2T 13:49 → ENRESERV 14:57 → C.MSW 01-22 15:33
PROVIDERS: ADMIT Orthopaedic Surgery Orthopaedic Surgery of the Spine; ATTEND Orthopaedic Surgery Orthopaedic Surgery of the Spine
PROC: 0SG00Z1 (ICD-10-PCS; principal; 2018-01-21 10:00)
PROC: 00NY0ZZ Release Lumbar Spinal Cord, Open Approach (ICD-10-PCS; principal; 2018-01-21 10:00)
DX: M48.061 Spinal stenosis, lumbar region without neurogenic claudication (principal); D62 Acute posthemorrhagic anemia; M43.16 Spondylolisthesis, lumbar region; I49.9 Cardiac arrhythmia, unspecified; R41.0 Disorientation, unspecified; I25.10 Atherosclerotic heart disease of native coronary artery without angina pectoris; E78.5 Hyperlipidemia, unspecified; I12.9 Hypertensive chronic kidney disease with stage 1 through stage 4 chronic kidney disease, or unspecified chronic kidney disease; N18.3 Chronic kidney disease, stage 3 (moderate); E03.9 Hypothyroidism, unspecified; G62.9 Polyneuropathy, unspecified; M06.9 Rheumatoid arthritis, unspecified; H40.9 Unspecified glaucoma; Z86.711 Personal history of pulmonary embolism; Z86.2 Personal history of diseases of the blood and blood-forming organs and certain disorders involving the immune mechanism; I25.2 Old myocardial infarction; Z95.5 Presence of coronary angioplasty implant and graft; Z79.02 Long term (current) use of antithrombotics/antiplatelets; Z79.52 Long term (current) use of systemic steroids; Z79.82 Long term (current) use of aspirin; Z79.899 Other long term (current) drug therapy; Z91.048 Other nonmedicinal substance allergy status; Z88.0 Allergy status to penicillin; Z88.1 Allergy status to other antibiotic agents; Z88.5 Allergy status to narcotic agent; Z88.6 Allergy status to analgesic agent; Z88.8 Allergy status to other drugs, medicaments and biological substances

== ENCOUNTER 2018-01-29 10:59 | Inpatient (IN) | payer BC, OTHER ==
[~2018-01-29] VITALS: Ht 167.6 cm; Wt 73.0 kg
[~2018-01-29 10:59] MED LIST changes: +CLON1TAB10 PO; -CLON1TAB5 PO; -GABA600T PO; -LACTATED RINGER'S 1000ML 1,000 ML IV SCH; +NRN300 PO; -NSS 1000ML IV SCH
[2018-01-29] MEDS ORDERED: SODIUM CHLORIDE 0.9% 1000ML 1,000 ML IV SCH ×2 (11:05→16:45)
--- NOTE | 2018-01-29 11:35 | EMERGENCY ROOM VISIT NOTE ---
History Report prepared by Altagracia: Mary Lawson Under the Supervision of: Dr. Alexx Carpenter M.D. First contact with patient: 11:05 Chief Complaint: ALTERED MENTAL STATUS Stated Complaint: AMS Nursing Triage Summary: pt brought in by EMS from [facility]. staff states pt w/ AMS and right sided weakness begining this am. last well known time unknown. ems states states strenght equal bilaterally. pt unable to raise right arm in room. pt a/o x2. History of Present Illness The patient is a 82 year old female who presents to the Emergency Room after referral from Dr. Oakes's office. He states that the patient had right-sided weakness that began last night. The patient also complains of pain to the right shoulder, arm, and wrist. She also states that pain worsens with range of motion. The patient's son is with her and states that she has had this pain for "quite some time". The patient was recently discharged from [facility] after having a laminectomy with Dr. Huber. She is at [facility] for rehabilitation. Source of History: patient, family, treating provider Onset: last night Position: other (generalized) Quality: other (right-sided weakness ) Modifying Factors (Worsening): movement Note: additional symptoms: right shoulder, arm, and wrist, pain Review of Systems See HPI for pertinent positives & negatives. A total of 10 systems reviewed and were otherwise negative. 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 Social History Smoking Status: Former Smoker Drug Use: other Marital Status: Housing Status: lives with family Occupation Status: retired Current/Historical Medications Scheduled Aspirin (Aspirin Chewable), 81 MG PO DAILY Atorvastatin (Lipitor), 10 MG PO 2XWK Clonazepam (Klonopin), 1 MG PO HS Clopidogrel (Plavix), 75 MG PO HS Cyclosporine (Ophth) (Restasis), 1 DROP OPB BID Docusate Sodium (Docusate Sodium), 100 MG PO BID Fluticasone Propionate (Nasal) (Allergy Nasal [place] [address] Ho), 1-2 SPRAY ROYA BID Gabapentin (Neurontin), 600 MG PO UD Latanoprost (Xalatan 0.005% Oph Veronica), 1 DROPS OPB HS Levothyroxine Sodium (Levothyroxine Sodium), 1 TAB PO QAM Lidocaine (Lidocaine), 1 PATCH TD QAM Metoprolol Succinate (Toprol Xl), 25 MG PO BID Multiple Vitamins W/ Minerals (Preservision Areds), 1 CAP PO BID Multiple Vitamins W/ Minerals (Centrum Silver Adult 50+), 1 TAB PO DAILY Nitroglycerin (Nitrostat), 0.4 MG UT PRN Potassium Ext Rel (Klor-Con), 20 MEQ PO BID Scheduled PRN Acetaminophen (Tylenol), 650 MG PO Q4 PRN for Pain Bisacodyl (Bisacodyl), 1 SUPP RE DAILY PRN for Constipation Clonidine Hcl (Catapres), 1 TAB PO BID PRN for IF SBP >170 Hydromorphone Hcl (Dilaudid), 4 MG PO Q4 PRN for Pain Magnesium Hydroxide (Milk Of Magnesia), 30 ML PO DAILY PRN for Constipation Polyethylene Glycol 3350 (Miralax), 17 GM PO BID PRN for Constipation Senna (Senokot), 1 TAB PO QDL PRN for Constipation Sodium Phosphate/Biphosphate (Fleet Enema), 1 EA ME DAILY PRN for Constipation Allergies Coded Allergies: Iodinated Diagnostic Agents (Verified Allergy, Severe, ANAPHYLAXIS, 01/29/18 ) Physical Exam Vital Signs Date Time Temp Pulse Resp B/P (MAP) Pulse Ox O2 Delivery O2 Flow Rate FiO2 01/29/18 15:00 80 21 97 Room Air 01/29/18 14:30 73 19 98 Room Air 01/29/18 13:40 71 18 123/76 97 Room Air 01/29/18 13:23 71 01/29/18 12:14 73 18 126/83 97 Room Air 01/29/18 11:09 96 Room Air 01/29/18 11:09 37.1 81 18 120/73 97 Room Air 01/29/18 11:07 80 Physical Exam GENERAL: Awake, well-appearing, in no acute distress. Alert to person and place , but does not know the day. Is somewhat noncooperative with exam. HENT: Normocephalic, atraumatic. Oropharynx unremarkable. EYES: Normal conjunctiva. Sclera non-icteric. NECK: Supple. No nuchal rigidity. FROM. No JVD. RESPIRATORY: Clear to auscultation. CARDIAC: Regular rate, normal rhythm. Extremities warm and well perfused. Pulses equal. ABDOMEN: Soft, non-distended. No tenderness to palpation. No rebound or guarding. No masses. RECTAL: Deferred. MUSCULOSKELETAL: Chest examination reveals no tenderness. The back is symmetrical on inspection without obvious abnormality. There is no CVA tenderness to palpation. No joint edema. She has right shoulder pain with movement of the right shoulder. LOWER EXTREMITIES: Calves are equal size bilaterally and non-tender. No edema. No discoloration. NEURO: Normal sensorium. No sensory or motor deficits noted. SKIN: No rash or jaundice noted. Medical Decision & Procedures ER Provider Diagnostic Interpretation: Radiology results as stated below per my review and radiologist interpretation: HEAD WITHOUT CONTRAST (CT) CT DOSE: 537.48 mGy.cm HISTORY: Mental status change Stroke TECHNIQUE: Multiaxial CT images of the head were performed without the use of intravenous contrast. A dose lowering technique was utilized adhering to the principles of ALARA. Comparison: 2016 Findings: The paranasal sinuses and mastoid air cells are clear. The calvarium and skull base are intact. The ventricles and sulci are within normal limits. There is no mass, hematoma, midline shift, or acute infarct. Impression: No acute intracranial abnormality. Mild age-related change. The above report was generated using voice recognition software. It may contain grammatical, syntax or spelling errors. Electronically signed by: Maykel Mejias M.D. 01/29/2018 12:03 PM Dictated Date/Time: 01/29/2018 12:03 PM CHEST ONE VIEW PORTABLE CLINICAL HISTORY: Stroke mental status change COMPARISON STUDY: 01/16/2018 FINDINGS: The bones soft tissues and hemidiaphragms are normal. The cardiomediastinal silhouette is normal. The lungs are clear. The pulmonary vasculature is normal. Prior left shoulder arthroplasty. IMPRESSION: No acute process. The above report was generated using voice recognition software. It may contain grammatical, syntax or spelling errors. Electronically signed by: Maykel Mejias M.D. 01/29/2018 11:37 AM Dictated Date/Time: 01/29/2018 11:35 AM R SHOULDER MIN 2 VIEWS ROUTINE CLINICAL HISTORY: Pt c/o RT shoulder pain pain COMPARISON: None. DISCUSSION: Considerable degenerative change of the glenohumeral joint. Considerable peripheral reactive osteophytic change of the humeral head. Moderate sclerosis of the glenoid. Mild degenerative change acromioclavicular joint. No significant soft tissue calcifications. There is no evidence for soft tissue swelling. IMPRESSION: Significant degenerative change right glenohumeral joint. The above report was generated using voice recognition software. It may contain grammatical, syntax or spelling errors. Electronically signed by: Maykle Mejias M.D. 01/29/2018 11:38 AM Dictated Date/Time: 01/29/2018 11:37 AM Laboratory Results Test 01/29/18 11:21 01/29/18 11:30 01/29/18 11:51 01/29/18 13:57 Bedside Glucose 207 mg/dl (70-90) Urine Color YELLOW Urine Appearance CLEAR (CLEAR) Urine pH 6.0 (4.5-7.5) Urine Specific [place] 1.014 (1.000-1.030) Urine Protein 1+ (NEG) Urine Glucose (UA) NEG (NEG) Urine Ketones NEG (NEG) Urine Occult Blood NEG (NEG) Urine Nitrite NEG (NEG) Urine Bilirubin NEG (NEG) Urine Urobilinogen NEG (NEG) Urine Leukocyte Esterase NEG (NEG) Urine WBC (Auto) 0 /hpf (0-5) Urine RBC (Auto) 0-4 /hpf (0-4) Urine Hyaline Casts (Auto) 1-5 /lpf (0-5) Urine Epithelial Cells (Auto) 5-10 /lpf (0-5) Urine Bacteria (Auto) NEG (NEG) Erythrocyte Sedimentation Rate 76 mm/hr (0-21) Prothrombin Time 10.8 SECONDS (9.0-12.0) Prothromb Time International Ratio 1.0 (0.9-1.1) Activated Partial Thromboplast Time 26.4 SECONDS (21.0-31.0) Partial Thromboplastin Ratio 1.0 Estimated Average Glucose 120 mg/dl Hemoglobin A1c 5.8 % (4.5-5.6) Phosphorus Level 2.3 mg/dl (2.5-4.9) Magnesium Level 2.2 mg/dl (1.8-2.4) Total Creatine Kinase 52 U/L (26-192) Troponin I 0.032 ng/ml (0-0.045) C-Reactive Protein 9.64 mg/dl (0-0.29) Thyroid Stimulating Hormone (TSH) 0.324 uIu/ml (0.300-4.500) Arterial Blood pH 7.46 (7.35-7.45) Arterial Blood Partial Pressure CO2 31 mmHg (35-46) Arterial Blood Partial Pressure O2 86 mm/Hg (80-95) Arterial Blood HCO3 22 mmol/L (19-24) Arterial Blood Oxygen Saturation 95.9 % (90-95) Arterial Blood Base Excess -1.7 mEq/L (-9-1.8) Arterial Blood Gas Delivery RA Michele Test POS (POS) Labs reviewed by ED physician. Medications Administered Medications (Trade) Dose Ordered Sig/Michael Route Start Time Stop Time Status Last Admin Dose Admin Sodium Chloride 1,000 ml @ 50 mls/hr Q20H IV 01/29/18 11:05 01/30/18 08:22 DC 01/29/18 11:05 50 MLS/HR Acetaminophen (Tylenol Tab) 650 mg Q4 PRN PO 01/29/18 15:00 02/28/18 14:59 01/29/18 22:41 650 MG ECG Per My Interpretation Indication: other (altered mental status ) Rate (beats per minute): 78 Rhythm: normal sinus Findings: other (no ST elevation or ST depression) ED Course 1120: Past medical records reviewed. The patient was evaluated in room C6. A complete history and physical examination was performed. 1252: I discussed the case with Dr. Ferrari-Dave Connors Hospitalist. She will admit the patient for further evaluation. Medical Decision Prior records/ancillary studies reviewed and summarized above. Nursing notes reviewed. Additional history obtained from Dr. Oakes. The patient's history was concerning for weakness. Differential diagnosis: Etiologies such as metabolic, infection, hypo/hyperglycemia, electrolyte abnormalities, cardiac sources, intracerebral event, toxicologic, neurologic, as well as others were entertained. This is a 89-year-old female who presents emergency department over concerns about altered mental status. There was some concern that the patient had right- sided weakness however on my physical examination the patient states that her right side is just painful and it has been this way for the past several months. Patient's son is also at the bedside and he also confirms this. Based on this physical examination as well as history I do not feel that the patient is a candidate for TPA or stroke alert. She does have an elevation in her white blood cell count. She was sent for CT of the head as well as the lumbar spine. There does not appear to be any evidence of infection at the patient's surgical field. I did discuss the case with the on-call hospitalist who agreed to admit the patient. Patient and family were in agreement with the treatment plan. Medication Reconcilliation Current Medication List: was personally reviewed by me Blood Pressure Screening Patient's blood pressure: Normal blood pressure Consults Time Called: 1248 Consulting Physician: Dr. Maru Connors Hospitalist Returned Call: 1252 I discussed the case with Dr. [facility]u [facility]. She will admit the patient for further evaluation. Impression Primary Impression: Altered mental status Scribe Attestation The scribe's documentation has been prepared under my direction and personally reviewed by me in its entirety. I confirm that the note above accurately reflects all work, treatment, procedures, and medical decision making performed by me. Departure Information Dispostion Being Evaluated By Hospitalist Referrals Royce Clay M.D. (PCP) Patient Instructions My Dave Connors Health Problem Qualifiers Primary Impression: Altered mental status Altered mental status type: unspecified Qualified Codes: R41.82 - Altered mental status, unspecified
--- NOTE | 2018-01-29 11:38 | DIAGNOSTIC IMAGING REPORT ---
CHEST ONE VIEW PORTABLE CLINICAL HISTORY: Stroke mental status change COMPARISON STUDY: 01/16/2018 FINDINGS: The bones soft tissues and hemidiaphragms are normal. The cardiomediastinal silhouette is normal. The lungs are clear. The pulmonary vasculature is normal. Prior left shoulder arthroplasty. IMPRESSION: No acute process. The above report was generated using voice recognition software. It may contain grammatical, syntax or spelling errors. Electronically signed by: Maykel Mejias M.D. 01/29/2018 11:37 AM Dictated Date/Time: 01/29/2018 11:35 AM
--- NOTE | 2018-01-29 11:39 | DIAGNOSTIC IMAGING REPORT ---
R SHOULDER MIN 2 VIEWS ROUTINE CLINICAL HISTORY: Pt c/o RT shoulder pain pain COMPARISON: None. DISCUSSION: Considerable degenerative change of the glenohumeral joint. Considerable peripheral reactive osteophytic change of the humeral head. Moderate sclerosis of the glenoid. Mild degenerative change acromioclavicular joint. No significant soft tissue calcifications. There is no evidence for soft tissue swelling. IMPRESSION: Significant degenerative change right glenohumeral joint. The above report was generated using voice recognition software. It may contain grammatical, syntax or spelling errors. Electronically signed by: Maykel Mejias M.D. 01/29/2018 11:38 AM Dictated Date/Time: 01/29/2018 11:37 AM
[2018-01-29 12:04] LABS: BASO % 0.1 %; BASO ABS # 0.01 K/uL (0-0.2); HEMATOCRIT 30.3 % (37-47); HEMOGLOBIN 9.9 g/dL (12.0-16.0); IG# 0.16 K/uL (0.00-0.02); LYMPH % 7.4 %; LYMPH ABS # 1.09 K/uL (1.2-3.4); MEAN CORPUSCULAR HEMOGLOBIN 32.4 pg (25-34); MEAN CORPUSCULAR HGB CONC 32.7 g/dl (32-36); MONO ABS # 2.81 K/uL (0.11-0.59); NEUT % 72.4 %; NEUT ABS # 10.74 K/uL (1.4-6.5); PLATELET COUNT 335 K/uL (130-400); RED CELL DISTRIBUTION WIDTH CV 13.9 % (11.5-14.5); RED CELL DISTRIBUTION WIDTH SD 49.8 fL (36.4-46.3); WHITE BLOOD COUNT 14.81 K/uL (4.8-10.8)
--- NOTE | 2018-01-29 12:04 | DIAGNOSTIC IMAGING REPORT ---
HEAD WITHOUT CONTRAST (CT) CT DOSE: 537.48 mGy.cm HISTORY: Mental status change Stroke TECHNIQUE: Multiaxial CT images of the head were performed without the use of intravenous contrast. A dose lowering technique was utilized adhering to the principles of ALARA. Comparison: 2016 Findings: The paranasal sinuses and mastoid air cells are clear. The calvarium and skull base are intact. The ventricles and sulci are within normal limits. There is no mass, hematoma, midline shift, or acute infarct. Impression: No acute intracranial abnormality. Mild age-related change. The above report was generated using voice recognition software. It may contain grammatical, syntax or spelling errors. Electronically signed by: Maykel Mejias M.D. 01/29/2018 12:03 PM Dictated Date/Time: 01/29/2018 12:03 PM
[2018-01-29 12:18] LABS: PTT PATIENT 26.4 SECONDS (21.0-31.0)
[2018-01-29 12:26] LABS: BLOOD UREA NITROGEN 19 mg/dl (7-18); CALCIUM 8.8 mg/dl (8.5-10.1); CARBON DIOXIDE 22 mmol/L (21-32); CKMB < 1.0 ng/ml (0.5-3.6); GLUCOSE 181 mg/dl (70-99); POTASSIUM 4.6 mmol/L (3.5-5.1); SODIUM 132 mmol/L (136-145)
[2018-01-29] MEDS ORDERED: DOCU100C31 PO (13:25)
[2018-01-29] MEDS ORDERED: MOML PO (13:25)
[2018-01-29] MEDS ORDERED: BISA10SU5 RE (13:25)
[2018-01-29] MEDS ORDERED: ACET-1311 PO (13:25)
[2018-01-29] MEDS ORDERED: HYDR4TAB2 PO (13:25)
[2018-01-29] MEDS ORDERED: SENN-61 PO (13:25)
[2018-01-29] MEDS ORDERED: GABA600T PO (13:25)
[2018-01-29] MEDS ORDERED: LIDO1PAD2 TD (13:25)
[2018-01-29] MEDS ORDERED: SODIENE PR (13:25)
--- NOTE | 2018-01-29 13:30 | DIAGNOSTIC IMAGING REPORT ---
LUMBAR SPINE WITHOUT CT DOSE: 640.49 mGycm HISTORY: Pain Pt c/o low bck pain, recent laminectomy TECHNIQUE: Multiaxial CT images of the lumbar spine were performed and reformatted in the sagittal and coronal plane without the use of contrast. A dose lowering technique was utilized adhering to the principles of ALARA. COMPARISON: 01/21/2018 FINDINGS: Grade 2 anterolisthesis of L4 on L5. This has been present previously. Vacuum disc is present the L4-L5 level. Interval posterior laminectomy from L3 through L5. Small amount of residual postprocedural air is present considered unremarkable in a postoperative basis. No major compromise of the spinal canal. Moderate osteophytic narrowing of the neuroforamina bilaterally at L4-L5. Generalized degenerative changes of posterior facets throughout. IMPRESSION: 1. Grade 2 anterolisthesis of L4 and L5 2. Moderate osteophytic narrowing of the neuroforamina bilaterally at L4-L5. 3. Operative changes consistent with a posterior decompression hemilaminotomy from L3 through L5. 4. Unremarkable postoperative lumbar spine The above report was generated using voice recognition software. It may contain grammatical, syntax or spelling errors. Electronically signed by: Maykel Mejias M.D. 01/29/2018 1:29 PM Dictated Date/Time: 01/29/2018 1:25 PM
[2018-01-29] MEDS ORDERED: MAGNESIUM HYDROXIDE SUSP 30 ML UDC PO PRN (15:00)
[2018-01-29] MEDS ORDERED: BISACODYL 10 MG SUPP PR PRN (15:00)
[2018-01-29] MEDS ORDERED: ACETAMINOPHEN 325 MG TAB PO PRN (15:00)
[2018-01-29] MEDS ORDERED: PHARMACIST DISCHARGE MED REC CONSULT PRN (15:00)
--- NOTE | 2018-01-29 15:15 | History and Physical ---
History & Physical Date & Time of Service: Jan 29, 2018 at 15:11 Chief Complaint: AMS Primary Care Physician: Royce Clay M.D. History of Present Illness Source: patient 82yo female from [facility] complaining of RUE pain and weakness that started last night. Pain involves shoulder, arm and wrist, associated with muscle cramping. Also with increased pain and weakness in her right leg. Patient also found to be slightly altered, less responsive than previously. No additional complaints at this time. I spoke with patient's PCP, Dr. Oakes who voiced concern for possible TIA given RUE/RLE weakness and mild alteration in mental status. Patient denies fevers, but does have some chills. Denies chest pain, shortness of breath, cough, sputum, abdominal pain, nausea/vomiting , diarrhea or constipation. She is still complaining of pain in the right arm. ER Course: NSS Past Medical/Surgical History Medical Problems: Hypothyroidism Asthma CKD PE Protein S deficiency GERD Past Surgical History: Laminectomy Left shoulder knee Right hip thumb right hand hysterectomy Family History Patient reports no known family medical history. Social History Smoking Status: Former Smoker Alcohol Use: none Drug Use: none, other Marital Status: Housing status: lives with family Occupational Status: retired Immunizations History of Influenza Vaccine: Yes Influenza Vaccine Date: Jun 03, 2011 History of Tetanus Vaccine?: Yes Tetanus Immunization Date: Jun 03, 2010 History of Pneumococcal: Yes Pneumococcal Date: Sep 17, 2004 History of Hepatitis B Vaccine: No Allergies Coded Allergies: Iodinated Diagnostic Agents (Verified Allergy, Severe, ANAPHYLAXIS, 01/29/18 ) Home Medications Scheduled Aspirin (Aspirin Chewable), 81 MG PO DAILY Atorvastatin (Lipitor), 10 MG PO 2XWK Clonazepam (Klonopin), 1 MG PO HS Clopidogrel (Plavix), 75 MG PO HS Cyclosporine (Ophth) (Restasis), 1 DROP OPB BID Docusate Sodium (Docusate Sodium), 100 MG PO BID Fluticasone Propionate (Nasal) (Allergy Nasal [place] 24 Ho), 1-2 SPRAY ROYA BID Gabapentin (Neurontin), 600 MG PO UD Latanoprost (Xalatan 0.005% Oph Veronica), 1 DROPS OPB HS Levothyroxine Sodium (Levothyroxine Sodium), 1 TAB PO QAM Lidocaine (Lidocaine), 1 PATCH TD QAM Metoprolol Succinate (Toprol Xl), 25 MG PO BID Multiple Vitamins W/ Minerals (Preservision Areds), 1 CAP PO BID Multiple Vitamins W/ Minerals (Centrum Silver Adult 50+), 1 TAB PO DAILY Nitroglycerin (Nitrostat), 0.4 MG UT PRN Potassium Ext Rel (Klor-Con), 20 MEQ PO BID Scheduled PRN Acetaminophen (Tylenol), 650 MG PO Q4 PRN for Pain Bisacodyl (Bisacodyl), 1 SUPP RE DAILY PRN for Constipation Clonidine Hcl (Catapres), 1 TAB PO BID PRN for IF SBP >170 Hydromorphone Hcl (Dilaudid), 4 MG PO Q4 PRN for Pain Magnesium Hydroxide (Milk Of Magnesia), 30 ML PO DAILY PRN for Constipation Polyethylene Glycol 3350 (Miralax), 17 GM PO BID PRN for Constipation Senna (Senokot), 1 TAB PO QDL PRN for Constipation Sodium Phosphate/Biphosphate (Fleet Enema), 1 EA AL DAILY PRN for Constipation Review of Systems Constitutional: + chills, No fever, No sweats Eyes: No worsening of vision, No diplopia ENT: No hearing loss, No sore throat Respiratory: No cough, No sputum, No shortness of breath Cardiovascular: No chest pain, No palpitations Abdomen: No pain, No nausea, No vomiting, No diarrhea, No constipation Musculoskeletal: No joint pain Genitourinary - Female: No dysuria, No urinary frequency Neurologic: + weakness, No numbness/tingling Endocrine: No fatigue Hematologic / Lymphatic: No abnormal bleeding/bruising Integumentary: No rash Physical Exam Vital Signs Date Time Temp Pulse Resp B/P (MAP) Pulse Ox O2 Delivery O2 Flow Rate FiO2 01/29/18 15:00 80 21 97 Room Air 01/29/18 14:30 73 19 98 Room Air 01/29/18 13:40 71 18 123/76 97 Room Air 01/29/18 13:23 71 01/29/18 12:14 73 18 126/83 97 Room Air 01/29/18 11:09 96 Room Air 01/29/18 11:09 37.1 81 18 120/73 97 Room Air 01/29/18 11:07 80 General: patient resting comfortably in bed, NAD, AA&O x 4 Skin: warm, dry, intact, no rashes or lesions HEENT: NC/AT, PERRL, EOMI, anicteric sclera, conjunctiva without injection, nares patent, dry mucus membranes, no oropharyngeal lesions, neck supple, trachea midline, no thyromegaly, no LAD Heart: +S1/S2, regular, no m/r/g Lungs: equal air entry bilaterally, no rales/rhonchi/wheezes Abdomen: soft, NT/ND, no masses/organomegaly/ascites Extremities: warm, well perfused, no clubbing/cyanosis or edema, 2+ palpable pulses in UE/LE bilaterally Neuro: AA&O x 4, speech intact, no facial droop, CN II-XII grossly intact, RUE in flexion, pain with palpation and movement, limited ROM at the elbow. Altered sensation to light touch. Mild decrease in MS 4+/5 RLE with mild decrease in strength 4+/5, unable to assess coordination and gait secondary to discomfort Diagnostics Laboratory Results Results Past 24 Hours Test 01/29/18 11:21 01/29/18 11:30 01/29/18 11:51 01/29/18 13:57 Range/Units Bedside Glucose 207 70-90 mg/dl Urine Color YELLOW Urine Appearance CLEAR CLEAR Urine pH 6.0 4.5-7.5 Urine Specific [place] 1.014 1.000-1.030 Urine Protein 1+ NEG Urine Glucose (UA) NEG NEG Urine Ketones NEG NEG Urine Occult Blood NEG NEG Urine Nitrite NEG NEG Urine Bilirubin NEG NEG Urine Urobilinogen NEG NEG Urine Leukocyte Esterase NEG NEG Urine WBC (Auto) 0 0-5 /hpf Urine RBC (Auto) 0-4 0-4 /hpf Urine Hyaline Casts (Auto) 1-5 0-5 /lpf Urine Epithelial Cells (Auto) 5-10 0-5 /lpf Urine Bacteria (Auto) NEG NEG White Blood Count 14.81 4.8-10.8 K/uL Red Blood Count 3.06 4.2-5.4 M/uL Hemoglobin 9.9 12.0-16.0 g/dL Hematocrit 30.3 37-47 % Mean Corpuscular Volume 99.0 80-100 fL Mean Corpuscular Hemoglobin 32.4 25-34 pg Mean Corpuscular Hemoglobin Concent 32.7 32-36 g/dl Platelet Count 335 130-400 K/uL Mean Platelet Volume 10.0 7.4-10.4 fL Neutrophils (%) (Auto) 72.4 % Lymphocytes (%) (Auto) 7.4 % Monocytes (%) (Auto) 19.0 % Eosinophils (%) (Auto) 0.0 % Basophils (%) (Auto) 0.1 % Neutrophils # (Auto) 10.74 1.4-6.5 K/uL Lymphocytes # (Auto) 1.09 1.2-3.4 K/uL Monocytes # (Auto) 2.81 0.11-0.59 K/uL Eosinophils # (Auto) 0.00 0-0.5 K/uL Basophils # (Auto) 0.01 0-0.2 K/uL RDW Standard Deviation 49.8 36.4-46.3 fL RDW Coefficient of Variation 13.9 11.5-14.5 % Immature Granulocyte % (Auto) 1.1 % Immature Granulocyte # (Auto) 0.16 0.00-0.02 K/uL Erythrocyte Sedimentation Rate 76 0-21 mm/hr Prothrombin Time 10.8 9.0-12.0 SECONDS Prothromb Time International Ratio 1.0 0.9-1.1 Activated Partial Thromboplast Time 26.4 21.0-31.0 SECONDS Partial Thromboplastin Ratio 1.0 Sodium Level 132 136-145 mmol/L Potassium Level 4.6 3.5-5.1 mmol/L Chloride Level 102 98-107 mmol/L Carbon Dioxide Level 22 21-32 mmol/L Anion Gap 8.0 3-11 mmol/L Blood Urea Nitrogen 19 7-18 mg/dl Creatinine 0.90 0.60-1.20 mg/dl Est Creatinine Clear Calc Drug Dose 42.6 ml/min Estimated GFR () 69.0 Estimated GFR (Non- 59.5 BUN/Creatinine Ratio 20.9 10-20 Random Glucose 181 70-99 mg/dl Calcium Level 8.8 8.5-10.1 mg/dl Magnesium Level 2.2 1.8-2.4 mg/dl Total Creatine Kinase 52 26-192 U/L Creatine Kinase MB < 1.0 0.5-3.6 ng/ml Creatine Kinase MB Ratio 0-3.0 Troponin I 0.032 0-0.045 ng/ml C-Reactive Protein 9.64 0-0.29 mg/dl Arterial Blood pH 7.46 7.35-7.45 Arterial Blood Partial Pressure CO2 31 35-46 mmHg Arterial Blood Partial Pressure O2 86 80-95 mm/Hg Arterial Blood HCO3 22 19-24 mmol/L Arterial Blood Oxygen Saturation 95.9 90-95 % Arterial Blood Base Excess -1.7 -9-1.8 mEq/L Arterial Blood Gas Delivery RA Michele Test POS POS Test 01/29/18 15:00 Range/Units Diagnostic Radiology Brain MRI WITH AND WITHOUT CONTRAST HISTORY: Right-sided weakness. Confusion. Stroke TECHNIQUE: Multiplanar multisequence MRI of the brain was performed both before and after the intravenous administration of contrast. COMPARISON STUDY: Head CT 01/29/2018. Brain MRI 03/23/2017. FINDINGS: There is a 7 mm focus of restricted diffusion within the right cerebellar hemisphere and a 5 mm focus of restricted diffusion within the left cerebellar hemisphere. These are consistent with acute lacunar infarcts. There is no mass, hematoma, or midline shift. The paranasal sinuses are clear. The mastoid air cells are clear. The ventricles and sulci demonstrate mild age-related involutional changes. Scattered foci of T2 hyperintensity seen within the periventricular and subcortical white matter are nonspecific but suggestive of mild microvascular ischemic changes. The major vascular flow voids at the skull base are well-maintained. IMPRESSION: Small acute bilateral cerebellar lacunar infarcts. BILATERAL CAROTID DOPPLER STUDY HISTORY: Stroke COMPARISON: None. TECHNIQUE: Real-time, grayscale, and color Doppler sonography of the carotid arteries was performed. Imaging reviewed in the transverse and longitudinal planes. All measurements were calculated based on NASCET criteria. FINDINGS: Antegrade flow is seen in the bilateral vertebral arteries. The brachial pressures are hemodynamically similar. Moderate calcified plaque within the right carotid bifurcation and right carotid bulb. Mild to moderate calcified plaque within the left carotid bifurcation/carotid bulb. The peak systolic velocity within the right ICA is 121 cm/s. The right systolic ratio is 1.3. The peak systolic velocity within the left ICA is 83 cm/s. The left systolic ratio is 1.0. IMPRESSION: Mild to moderate calcified plaque within the bilateral carotid arteries. However, no hemodynamically significant stenosis. EKG regular, narrow complex rhythm with P waves, ?inverted P axis downward in lead 3 , ?atrial arrhythmia Impression Assessment and Plan 82yo female with small cerebellar strokes noted 1. CVA - patient with weakness in RUE/LUE. MRI brain revealed small cerebellar strokes -Admit to medical floor -Neuro checks q shift -Check AIC and lipids -Continue ASA and Plavix -Increase Atorvastatin to 80mg -Consult Neurology -Consult PT, OT -Nursing swallow evaluation 2. CAD - Stable, no evidence of ischemia -Continue ASA, Plavix and Statin as above -Hold metoprolol for now to allow for permissive hypertension -Continue to monitor 3. Hypothyroidism - stable -Continue synthroid 4. F/E/N - NSS at 80mL/hr x 1 liter, monitor electrolytes and replete as needed , AHA diet as tolerated. 5. Ppx - Lovenox for DVT prophylaxis 6. Code - Full per discussion with patient 7. Dispo - admit to medical floor Resuscitation Status Full VTE Prophylaxis Will order VTE Prophylaxis: Yes
[2018-01-29] MEDS ORDERED: IV FLUIDS COMPLETED PRN (16:00)
[2018-01-29] MEDS ORDERED: GABAPENTIN~ORDER AWAITING ACTION SCH (16:00)
[2018-01-29 16:01] LABS: PHOSPHORUS 2.3 mg/dl (2.5-4.9)
[2018-01-29] MEDS ORDERED: NURSING VERBAL MED ORDER ONE (17:30)
[2018-01-29 17:38] LABS: CKMB < 1.0 ng/ml (0.5-3.6)
[2018-01-29 17:46] VITALS: BP 129/81; PULSE 88; TEMP 37.1; O2SAT 97; Ht 167.6 cm; Wt 73.0 kg
--- NOTE | 2018-01-29 19:55 | DIAGNOSTIC IMAGING REPORT ---
Brain MRI WITH AND WITHOUT CONTRAST HISTORY: Right-sided weakness. Confusion. Stroke TECHNIQUE: Multiplanar multisequence MRI of the brain was performed both before and after the intravenous administration of contrast. COMPARISON STUDY: Head CT 01/29/2018. Brain MRI 03/23/2017. FINDINGS: There is a 7 mm focus of restricted diffusion within the right cerebellar hemisphere and a 5 mm focus of restricted diffusion within the left cerebellar hemisphere. These are consistent with acute lacunar infarcts. There is no mass, hematoma, or midline shift. The paranasal sinuses are clear. The mastoid air cells are clear. The ventricles and sulci demonstrate mild age-related involutional changes. Scattered foci of T2 hyperintensity seen within the periventricular and subcortical white matter are nonspecific but suggestive of mild microvascular ischemic changes. The major vascular flow voids at the skull base are well-maintained. IMPRESSION: Small acute bilateral cerebellar lacunar infarcts. Electronically signed by: Rip Hester M.D. 01/29/2018 7:53 PM Dictated Date/Time: 01/29/2018 7:48 PM
--- NOTE | 2018-01-29 20:24 | DIAGNOSTIC IMAGING REPORT ---
BILATERAL CAROTID DOPPLER STUDY HISTORY: Stroke COMPARISON: None. TECHNIQUE: Real-time, grayscale, and color Doppler sonography of the carotid arteries was performed. Imaging reviewed in the transverse and longitudinal planes. All measurements were calculated based on NASCET criteria. FINDINGS: Antegrade flow is seen in the bilateral vertebral arteries. The brachial pressures are hemodynamically similar. Moderate calcified plaque within the right carotid bifurcation and right carotid bulb. Mild to moderate calcified plaque within the left carotid bifurcation/carotid bulb. The peak systolic velocity within the right ICA is 121 cm/s. The right systolic ratio is 1.3. The peak systolic velocity within the left ICA is 83 cm/s. The left systolic ratio is 1.0. IMPRESSION: Mild to moderate calcified plaque within the bilateral carotid arteries. However, no hemodynamically significant stenosis. Electronically signed by: Rip Hester M.D. 01/29/2018 8:23 PM Dictated Date/Time: 01/29/2018 8:21 PM
[2018-01-29] MEDS: FLUTICASONE PROPIONATE NA SPR 16 GM BTL NAE SCH (20:42)
[2018-01-29] MEDS: DOCUSATE SODIUM 100 MG CAP PO SCH (20:43)
[2018-01-29] MEDS: CLOPIDOGREL BISULFATE 75 MG TAB PO SCH (20:44)
[2018-01-29 20:45] VITALS: BP 117/80; PULSE 80
[2018-01-29] MEDS: ENOXAPARIN 40 MG/0.4 ML SYR SC SCH (20:47)
[2018-01-29] MEDS: CLONAZEPAM 1 MG TAB PO SCH (20:50)
[2018-01-29] MEDS ORDERED: METOPROLOL SUCC 25MG EXT REL TAB PO SCH (21:00)
[2018-01-29] MEDS ORDERED: GABAPENTIN 300 MG CAP PO SCH (21:00)
[2018-01-29] MEDS ORDERED: NURSING DECISION MEDICATION ORDER SCH (21:15)
[2018-01-29] MEDS: GABAPENTIN 600 MG TAB PO SCH (21:30)
[2018-01-29 22:33] VITALS: TEMP 37.8
[2018-01-29] MEDS: CycloSPORINE 0.05% 0.4 ML 30 UDV/BOX OPB SCH (22:42)
[2018-01-29] MEDS: LATANOPROST 0.005% OP SOLN 2.5 ML BTL OPB SCH (22:43)
[2018-01-29 23:07] VITALS: BP 125/80; PULSE 79; TEMP 37.8; O2SAT 95
[2018-01-30] VITALS (9 sets, daily range): BP systolic 106–143; BP diastolic 63–88; PULSE 68–85; TEMP 36.6–37.3; O2SAT 94–97
[2018-01-30 06:26] LABS: BASO % 0.1 %; BASO ABS # 0.01 K/uL (0-0.2); EOS % 0.4 %; EOS ABS # 0.04 K/uL (0-0.5); HEMATOCRIT 30.1 % (37-47); HEMOGLOBIN 9.8 g/dL (12.0-16.0); IG# 0.13 K/uL (0.00-0.02); LYMPH % 16.7 %; LYMPH ABS # 1.76 K/uL (1.2-3.4); MEAN CELL VOLUME 98.7 fL (80-100); MEAN CORPUSCULAR HEMOGLOBIN 32.1 pg (25-34); MEAN CORPUSCULAR HGB CONC 32.6 g/dl (32-36); MEAN PLATELET VOLUME 10.4 fL (7.4-10.4); MONO % 20.6 %; MONO ABS # 2.17 K/uL (0.11-0.59); NEUT ABS # 6.41 K/uL (1.4-6.5); PLATELET COUNT 318 K/uL (130-400); RED CELL DISTRIBUTION WIDTH SD 50.2 fL (36.4-46.3); WHITE BLOOD COUNT 10.52 K/uL (4.8-10.8)
[2018-01-30 06:27] LABS: HEMOGLOBIN A1C 5.8 % (4.5-5.6)
[2018-01-30 07:02] LABS: CALCIUM 8.2 mg/dl (8.5-10.1); CREATININE 0.81 mg/dl (0.60-1.20)
[2018-01-30] MEDS: LEVOTHYROXINE 75 MCG TAB PO SCH (07:02)
[2018-01-30] MEDS ORDERED: KETOROLAC TROMETHAMINE 15 MG/ML VIAL IV. STA (08:14)
[2018-01-30] MEDS: CycloSPORINE 0.05% 0.4 ML 30 UDV/BOX OPB SCH ×2 (08:44→20:58)
[2018-01-30] MEDS: LIDODERM (LIDOCAINE) PATCH 5% TD SCH (08:44)
[2018-01-30] MEDS: ASPIRIN 81 MG CHEW PO SCH (08:45)
[2018-01-30] MEDS: DOCUSATE SODIUM 100 MG CAP PO SCH ×2 (08:45→20:19)
[2018-01-30] MEDS: FLUTICASONE PROPIONATE NA SPR 16 GM BTL NAE SCH ×2 (08:50→21:00)
[2018-01-30] MEDS: GABAPENTIN 600 MG TAB PO SCH ×2 (08:50→20:56)
[2018-01-30] MEDS ORDERED: ATORVASTATIN 40 MG TAB PO SCH (09:00)
[2018-01-30] MEDS ORDERED: ATORVASTATIN 10 MG TAB PO SCH (09:00)
--- NOTE | 2018-01-30 10:01 | Neurology Consultation ---
Neurology Consultation Date of Consultation: Jan 30, 2018. Attending Physician: Roxie Ferrari D.O. Primary Care Physician: Royce Clay M.D. Reason for Consultation: Stroke History of Present Illness Source: patient, hospital records Patient is an 82-year-old female who was transferred to the hospital from [facility] for further evaluation of altered mental status that was noted yesterday morning. She has also been complaining of right-sided weakness that seems to be new although she has chronic right shoulder and lumbar radiculopathy. She has a history of recent lumbar spinal fusion and laminectomy completed 1-2 weeks ago and continues to complain of sciatica type pain to the right lower limb. Her history is also notable for severe right shoulder arthropathy although she was not considered an appropriate candidate for shoulder surgery. She has chronic right shoulder pain which limits the overall mobility of her right upper limb. Past medical history is notable for asthma, chronic kidney disease, diabetes mellitus, protein S deficiency, and history of pulmonary embolism. She takes both aspirin and Plavix as well as Lipitor and gabapentin. A CT of the head completed in the emergency department was negative for hemorrhage or acute process. An electrocardiogram revealed a normal sinus rhythm, 78 beats per minute. A serum glucose was 181. Sodium 132. Hemoglobin 9.9. White blood cell count 14.81. Additional testing is also been completed including a brain MRI and carotid ultrasound. The brain MRI revealed 2, small, bilateral cerebellar lacunar infarcts. The study was also notable for chronic small vessel ischemic disease. I reviewed the images as well as the radiologist's interpretation of this test. The carotid ultrasound was negative for hemodynamically significant stenosis.Antegrade flow seen in both vertebral arteries. Past Medical/Surgical History Medical Problems: (1) Altered mental status Status: Acute (2) Perforated bowel Status: Acute Family History Noncontributory in light of patient's advanced age Social History Smoking Status: Never smoker Alcohol Use: none Drug Use: none, other Marital Status: Housing Status: lives with family Occupation Status: retired Allergies Coded Allergies: Iodinated Diagnostic Agents (Verified Allergy, Severe, ANAPHYLAXIS, 01/29/18 ) Current Inpatient Medications Current Inpatient Medications Medications (Trade) Dose Ordered Sig/Michael Route Start Time Stop Time Status Last Admin Dose Admin Miscellaneous Information (Pharmacist Discharge Med Rec Consult) 1 ea UD PRN N/A 01/29/18 15:00 02/28/18 14:59 Enoxaparin Sodium (Lovenox Inj) 40 mg Q24H SC 01/29/18 21:00 02/28/18 20:59 01/29/18 20:47 40 MG Acetaminophen (Tylenol Tab) 650 mg Q4 PRN PO 01/29/18 15:00 02/28/18 14:59 01/29/18 22:41 650 MG Aspirin (Aspirin Chew) 81 mg DAILY PO 01/30/18 09:00 03/01/18 08:59 01/30/18 08:45 81 MG Bisacodyl (Dulcolax Supp) 10 mg DAILY PRN FL 01/29/18 15:00 02/28/18 14:59 Clonazepam (Klonopin Tab) 1 mg HS PO 01/29/18 21:00 02/28/18 20:59 01/29/18 20:50 1 MG Clopidogrel Bisulfate (plAVix TAB) 75 mg HS PO 01/29/18 21:00 02/28/18 20:59 01/29/18 20:44 75 MG Docusate Sodium (coLACE CAP) 100 mg BID PO 01/29/18 21:00 02/28/18 20:59 Fluticasone Propionate (Flonase Nasal [place]) 1 sprays BID ROYA 01/29/18 21:00 02/28/18 20:59 01/29/18 20:42 1 SPRAYS Latanoprost (Xalatan Oph Soln) 1 drops HS OPB 01/29/18 21:00 02/28/18 20:59 01/29/18 22:43 1 DROPS Levothyroxine Sodium (Synthroid Tab) 75 mcg DAILYBB PO 01/30/18 06:30 03/01/18 06:59 01/30/18 07:02 75 MCG Lidocaine (Lidoderm Patch 5%) 1 patch QAM TD 01/30/18 09:00 03/01/18 08:59 01/30/18 08:44 1 PATCH Magnesium Hydroxide (Milk Of Magnesia Susp) 30 ml DAILY PRN PO 01/29/18 15:00 02/28/18 14:59 Miscellaneous (Remove Lidoderm Patch) 1 ea DAILY@21 N/A 01/29/18 21:00 02/28/18 20:59 01/29/18 21:00 1 EA Miscellaneous (Iv Fluids Completed) 1 ea PRN PRN N/A 01/29/18 16:00 01/29/19 15:59 Gabapentin (Neurontin Tab) 300 mg BID PO 01/29/18 21:30 02/28/18 21:29 Cyclosporine (Restasis) 1 drops BID OPB 01/29/18 22:00 02/28/18 21:59 01/30/18 08:44 1 DROPS Atorvastatin Calcium (Lipitor Tab) 80 mg DAILY PO 01/30/18 09:00 03/01/18 08:59 01/30/18 08:45 80 MG Review of Systems Constitutional: No fever chills Eyes: No vision loss or diplopia ENT: No vertigo or tinnitus Cardiovascular: No chest pain or palpitations Respiratory: No cough or shortness of breath Musculoskeletal: Chronic joint pain, especially the right shoulder and low back as described in the history of present illness. Neurological: As per history of present illness A full 10 point review of systems was obtained from this patient with pertinent positives and negatives described in history of present illness and otherwise listed above. All remaining systems were reviewed and are negative. Physical Exam Vital Signs (Past 24 Hrs): Date Time Temp Pulse Resp B/P (MAP) Pulse Ox O2 Delivery O2 Flow Rate FiO2 01/30/18 07:06 36.7 68 16 110/73 (85) 97 01/30/18 04:27 37.0 74 18 107/88 (94) 94 Room Air 01/30/18 02:06 37.3 01/29/18 23:07 37.8 79 20 125/80 (95) 95 Room Air 01/29/18 22:33 37.8 01/29/18 20:45 80 117/80 (92) 01/29/18 20:30 Room Air 01/29/18 17:46 37.1 88 20 129/81 97 Room Air 01/29/18 16:23 74 20 129/81 97 01/29/18 15:00 80 21 97 Room Air 01/29/18 14:30 73 19 98 Room Air 01/29/18 13:40 71 18 123/76 97 Room Air 01/29/18 13:23 71 01/29/18 12:14 73 18 126/83 97 Room Air 01/29/18 11:09 96 Room Air 01/29/18 11:09 37.1 81 18 120/73 97 Room Air 01/29/18 11:07 80 The patient is a well-developed elderly female. She is lying comfortably in bed. She is alert and fully oriented. Recent and remote memory intact. Attention and concentration normal. Patient exhibits a normal spontaneous speech pattern as well as an age-appropriate fund of knowledge. Visual ramos full to confrontation. Visual acuity normal. Pupils equal round react to light and accommodation. Eye movements normal. There is no nystagmus. Facial sensation intact. There is no facial droop or facial weakness. Hearing intact bilaterally. Palate elevates to midline. Shoulder shrug strength limited on the right due to pain. Tongue protrudes to midline. Sensation intact to all modalities in all 4 limbs. Deep tendon reflexes are diminished throughout. Plantar responses downgoing bilaterally. There is no dysdiadochokinesia or dysmetria of [id number] or heel to chang bilaterally. Movement of the right upper extremity is limited, however, due to persistent right shoulder pain. Ophthalmoscopic examination reveals normal-appearing optic discs and posterior segments. No papilledema or hemorrhages. Carotid pulses normal bilaterally, no bruits to auscultation. Gait and station cannot be tested. Patient's muscle strength appears to be normal throughout although she does have some limitation proximally of the right upper extremity due to persistent right shoulder pain. Otherwise, she has intact strength for the right biceps, triceps , wrist and finger extensors, ppap coordinator, and intrinsic hand muscles. Patient exhibits normal facility for the right hand as well. Muscle tone normal throughout. No atrophy. No abnormal movements observed. Laboratory Results Past 24 Hours: 01/30/18 05:33 Red Blood Count 3.05, Mean Corpuscular Volume 98.7, Mean Corpuscular Hemoglobin 32.1, Mean Corpuscular Hemoglobin Concent 32.6, Mean Platelet Volume 10.4, Neutrophils (%) (Auto) 61.0, Lymphocytes (%) (Auto) 16.7, Monocytes (%) (Auto) 20.6, Eosinophils (%) (Auto) 0.4, Basophils (%) (Auto) 0.1, Neutrophils # (Auto ) 6.41, Lymphocytes # (Auto) 1.76, Monocytes # (Auto) 2.17, Eosinophils # (Auto ) 0.04, Basophils # (Auto) 0.01 01/30/18 05:33 Test 01/29/18 11:21 01/29/18 11:30 01/29/18 11:51 01/29/18 13:57 Bedside Glucose 207 mg/dl (70-90) Urine Color YELLOW Urine Appearance CLEAR (CLEAR) Urine pH 6.0 (4.5-7.5) Urine Specific [place] 1.014 (1.000-1.030) Urine Protein 1+ (NEG) Urine Glucose (UA) NEG (NEG) Urine Ketones NEG (NEG) Urine Occult Blood NEG (NEG) Urine Nitrite NEG (NEG) Urine Bilirubin NEG (NEG) Urine Urobilinogen NEG (NEG) Urine Leukocyte Esterase NEG (NEG) Urine WBC (Auto) 0 /hpf (0-5) Urine RBC (Auto) 0-4 /hpf (0-4) Urine Hyaline Casts (Auto) 1-5 /lpf (0-5) Urine Epithelial Cells (Auto) 5-10 /lpf (0-5) Urine Bacteria (Auto) NEG (NEG) Erythrocyte Sedimentation Rate 76 mm/hr (0-21) Prothrombin Time 10.8 SECONDS (9.0-12.0) Prothromb Time International Ratio 1.0 (0.9-1.1) Activated Partial Thromboplast Time 26.4 SECONDS (21.0-31.0) Partial Thromboplastin Ratio 1.0 Estimated Average Glucose 120 mg/dl Hemoglobin A1c 5.8 % (4.5-5.6) Phosphorus Level 2.3 mg/dl (2.5-4.9) Magnesium Level 2.2 mg/dl (1.8-2.4) Total Creatine Kinase 52 U/L (26-192) Troponin I 0.032 ng/ml (0-0.045) C-Reactive Protein 9.64 mg/dl (0-0.29) Thyroid Stimulating Hormone (TSH) 0.324 uIu/ml (0.300-4.500) Arterial Blood pH 7.46 (7.35-7.45) Arterial Blood Partial Pressure CO2 31 mmHg (35-46) Arterial Blood Partial Pressure O2 86 mm/Hg (80-95) Arterial Blood HCO3 22 mmol/L (19-24) Arterial Blood Oxygen Saturation 95.9 % (90-95) Arterial Blood Base Excess -1.7 mEq/L (-9-1.8) Arterial Blood Gas Delivery RA Michele Test POS (POS) Test 01/29/18 15:11 01/29/18 16:48 01/30/18 05:33 Creatine Kinase MB Ratio (0-3.0) Creatine Kinase MB < 1.0 ng/ml (0.5-3.6) White Blood Count 10.52 K/uL (4.8-10.8) Red Blood Count 3.05 M/uL (4.2-5.4) Hemoglobin 9.8 g/dL (12.0-16.0) Hematocrit 30.1 % (37-47) Mean Corpuscular Volume 98.7 fL (80-100) Mean Corpuscular Hemoglobin 32.1 pg (25-34) Mean Corpuscular Hemoglobin Concent 32.6 g/dl (32-36) Platelet Count 318 K/uL (130-400) Mean Platelet Volume 10.4 fL (7.4-10.4) Neutrophils (%) (Auto) 61.0 % Lymphocytes (%) (Auto) 16.7 % Monocytes (%) (Auto) 20.6 % Eosinophils (%) (Auto) 0.4 % Basophils (%) (Auto) 0.1 % Neutrophils # (Auto) 6.41 K/uL (1.4-6.5) Lymphocytes # (Auto) 1.76 K/uL (1.2-3.4) Monocytes # (Auto) 2.17 K/uL (0.11-0.59) Eosinophils # (Auto) 0.04 K/uL (0-0.5) Basophils # (Auto) 0.01 K/uL (0-0.2) RDW Standard Deviation 50.2 fL (36.4-46.3) RDW Coefficient of Variation 14.0 % (11.5-14.5) Immature Granulocyte % (Auto) 1.2 % Immature Granulocyte # (Auto) 0.13 K/uL (0.00-0.02) Anion Gap 7.0 mmol/L (3-11) Est Creatinine Clear Calc Drug Dose 50.1 ml/min Estimated GFR () 78.4 Estimated GFR (Non- 67.6 BUN/Creatinine Ratio 24.2 (10-20) Calcium Level 8.2 mg/dl (8.5-10.1) Triglycerides Level 71 mg/dl (0-150) Cholesterol Level 174 mg/dl (0-200) HDL Cholesterol 40 mg/dl LDL Cholesterol, Calculated 120 mg/dl VLDL Cholesterol, Calculated 14 mg/dl Cholesterol/HDL Ratio 4.4 Date/Time Source Procedure Growth Status 01/29/18 18:16 Nasal MRSA DNA Surveillance Screen - Final Specimen Negative for MRSA by DNA Probe Complete Impression Resolved alteration in mental status. Patient's brain MRI does reveal to small , bilateral, cerebellar lacunar infarcts. I do not find any specific deficits on this patient's neurological examination that would be consistent with the small infarcts. This patient's right upper extremity weakness appears to be primarily related to chronic right shoulder arthropathy and pain. Her shoulder x-ray does reveal significant glenohumeral degeneration. This patient's difficulty moving her right lower extremity appears to be primarily related to her history of lumbar spinal stenosis for which she recently underwent spinal fusion surgery. Plan I would recommend a transthoracic echocardiogram with bubble study to evaluate for any potential cardioembolic source. Would also obtain an MRA of the head and neck to evaluate for significant vertebrobasilar stenosis. Would continue Aspirin, Plavix, and Lipitor as ordered. I am uncertain if additional orthopedic consultations are needed for this patient in regards to her shoulder or lumbar spine I will defer to the primary service. Please contact me if I may be of further assistance.
--- NOTE | 2018-01-30 16:47 | Hospitalist Progress Note ---
Hospitalist Progress Note Date of Service Jan 30, 2018. Subjective Pt evaluation today including: conversation w/ patient, conversation w/ family , physical exam, chart review, lab review, review of studies, review of inpatient medication list Patient seen and evaluated. MRI confirms b/l cerebellar lacunar infarcts. She is alert and oriented. Is sometimes forgetful but does not appear delirious. Unsure if confusion was pain medication or some delirium due to some underlying dementia? Her presenting symptoms do not seem to really coordinate with her CVA findings. Her med rec states she is on Dilaudid for pain and this may contributing. 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 Constitutional: + chills, No fever Respiratory: No cough, No shortness of breath Cardiovascular: No chest pain Abdomen: No pain, No nausea, No vomiting, No diarrhea, No constipation Musculoskeletal: No swelling, No calf pain Female : No dysuria Neurologic: + weakness (ongoing RLE and RUE (limitations from pain)) Heme: No abnormal bleeding/bruising Skin: No rash Medications Current Inpatient Medications Medications (Trade) Dose Ordered Sig/Michael Route Start Time Stop Time Status Last Admin Dose Admin Miscellaneous Information (Pharmacist Discharge Med Rec Consult) 1 ea UD PRN N/A 01/29/18 15:00 02/28/18 14:59 Enoxaparin Sodium (Lovenox Inj) 40 mg Q24H SC 01/29/18 21:00 02/28/18 20:59 01/29/18 20:47 40 MG Acetaminophen (Tylenol Tab) 650 mg Q4 PRN PO 01/29/18 15:00 02/28/18 14:59 01/29/18 22:41 650 MG Aspirin (Aspirin Chew) 81 mg DAILY PO 01/30/18 09:00 03/01/18 08:59 01/30/18 08:45 81 MG Bisacodyl (Dulcolax Supp) 10 mg DAILY PRN MD 01/29/18 15:00 02/28/18 14:59 Clonazepam (Klonopin Tab) 1 mg HS PO 01/29/18 21:00 02/28/18 20:59 01/29/18 20:50 1 MG Clopidogrel Bisulfate (plAVix TAB) 75 mg HS PO 01/29/18 21:00 02/28/18 20:59 01/29/18 20:44 75 MG Docusate Sodium (coLACE CAP) 100 mg BID PO 01/29/18 21:00 02/28/18 20:59 Fluticasone Propionate (Flonase Nasal [place]) 1 sprays BID ROYA 01/29/18 21:00 02/28/18 20:59 01/29/18 20:42 1 SPRAYS Latanoprost (Xalatan Oph Soln) 1 drops HS OPB 01/29/18 21:00 02/28/18 20:59 01/29/18 22:43 1 DROPS Levothyroxine Sodium (Synthroid Tab) 75 mcg DAILYBB PO 01/30/18 06:30 03/01/18 06:59 01/30/18 07:02 75 MCG Lidocaine (Lidoderm Patch 5%) 1 patch QAM TD 01/30/18 09:00 03/01/18 08:59 01/30/18 08:44 1 PATCH Magnesium Hydroxide (Milk Of Magnesia Susp) 30 ml DAILY PRN PO 01/29/18 15:00 02/28/18 14:59 Miscellaneous (Remove Lidoderm Patch) 1 ea DAILY@21 N/A 01/29/18 21:00 02/28/18 20:59 01/29/18 21:00 1 EA Miscellaneous (Iv Fluids Completed) 1 ea PRN PRN N/A 01/29/18 16:00 01/29/19 15:59 Gabapentin (Neurontin Tab) 300 mg BID PO 01/29/18 21:30 02/28/18 21:29 Cyclosporine (Restasis) 1 drops BID OPB 01/29/18 22:00 02/28/18 21:59 01/30/18 08:44 1 DROPS Atorvastatin Calcium (Lipitor Tab) 80 mg DAILY PO 01/30/18 09:00 03/01/18 08:59 01/30/18 08:45 80 MG Objective Vital Signs Date Time Temp Pulse Resp B/P (MAP) Pulse Ox O2 Delivery O2 Flow Rate FiO2 01/30/18 12:16 36.6 79 16 106/63 (77) 97 Room Air 01/30/18 08:10 97 Room Air 01/30/18 08:10 97 Room Air 01/30/18 07:06 36.7 68 16 110/73 (85) 97 01/30/18 04:27 37.0 74 18 107/88 (94) 94 Room Air 01/30/18 02:06 37.3 01/29/18 23:07 37.8 79 20 125/80 (95) 95 Room Air 01/29/18 22:33 37.8 01/29/18 20:45 80 117/80 (92) 01/29/18 20:30 Room Air 01/29/18 17:46 37.1 88 20 129/81 97 Room Air 01/29/18 16:23 74 20 129/81 97 Physical Exam General Appearance: no apparent distress Eyes: sclerae normal ENT: hearing grossly normal Neck: supple, no JVD, trachea midline Respiratory/Chest: lungs clear, normal breath sounds, no respiratory distress, no accessory muscle use Cardiovascular: regular rate, rhythm Abdomen: normal bowel sounds, non tender, soft Neurologic/Psychiatric: alert, oriented x 3, + pertinent finding (limited ROM to elbow of RUE but good strength; some mild weakness of RLE) Skin: normal color, warm/dry Laboratory Results Last 24 Hours Test 01/29/18 16:48 01/30/18 05:33 Creatine Kinase MB < 1.0 ng/ml White Blood Count 10.52 K/uL Red Blood Count 3.05 M/uL Hemoglobin 9.8 g/dL Hematocrit 30.1 % Mean Corpuscular Volume 98.7 fL Mean Corpuscular Hemoglobin 32.1 pg Mean Corpuscular Hemoglobin Concent 32.6 g/dl Platelet Count 318 K/uL Mean Platelet Volume 10.4 fL Neutrophils (%) (Auto) 61.0 % Lymphocytes (%) (Auto) 16.7 % Monocytes (%) (Auto) 20.6 % Eosinophils (%) (Auto) 0.4 % Basophils (%) (Auto) 0.1 % Neutrophils # (Auto) 6.41 K/uL Lymphocytes # (Auto) 1.76 K/uL Monocytes # (Auto) 2.17 K/uL Eosinophils # (Auto) 0.04 K/uL Basophils # (Auto) 0.01 K/uL RDW Standard Deviation 50.2 fL RDW Coefficient of Variation 14.0 % Immature Granulocyte % (Auto) 1.2 % Immature Granulocyte # (Auto) 0.13 K/uL Sodium Level 136 mmol/L Potassium Level 4.0 mmol/L Chloride Level 108 mmol/L Carbon Dioxide Level 21 mmol/L Anion Gap 7.0 mmol/L Blood Urea Nitrogen 20 mg/dl Creatinine 0.81 mg/dl Est Creatinine Clear Calc Drug Dose 50.1 ml/min Estimated GFR () 78.4 Estimated GFR (Non- 67.6 BUN/Creatinine Ratio 24.2 Random Glucose 100 mg/dl Calcium Level 8.2 mg/dl Triglycerides Level 71 mg/dl Cholesterol Level 174 mg/dl HDL Cholesterol 40 mg/dl LDL Cholesterol, Calculated 120 mg/dl VLDL Cholesterol, Calculated 14 mg/dl Cholesterol/HDL Ratio 4.4 Assessment and Plan 82yo female with small cerebellar strokes noted Acute B/L Cerebellar Lacunar Infarcts: - However her presenting symptoms appear rather chronic in regards to RUE/RLE weakness and pain and wouldn't really coordinate with a cerebellar infarct - limitations of RUE is more pain related and RLE is likely more explained by her chronic spine issues/recent decompression - Only noted coordination issues viewed was when she was trying to eat she would occ. miss her mouth but rather nonspecific as she was eating using her R hand which is bothersome for her - Carotid U/S with mild/moderate plaque in b/l carotids but no significant stenosis - Awaiting echo - ASA 81 mg daily; Plavix 75 mg daily; will resume her Atorvastatin 10 mg twice a week as she reports (and outpatient records record) myalgias with daily usage - Metoprolol placed on hold for permissive HTN and can likely resume this tomorrow - Neurology following - recommendations given and additional testing suggested Paroxysmal Atrial Fibrillation and CAD: - It appears she has documented episodes as she does follow with cardiology - EKG does suggest a possible ectopy atrial rhythm but no episodes of A Fib have been noted during admission - There was question of possible A Fib during her back surgery however it did not appear to be - She was started on isosorbide HS upon review of outpatient records - patient does report she takes a daily medication to help with pain but relates this to her previous shingles as she states she has "internal shingles" and possibly this maybe what she was referring to as I do not see other medications that she could be thinking of as I would think she is not on suppressive anti-virals? DVT Prophylaxis: Lovenox Code Status: FULL Disposition: Plan to return to [facility] for ongoing rehab - possibly tomorrow Discharge planning: rehab hospital
[2018-01-30] MEDS: ENOXAPARIN 40 MG/0.4 ML SYR SC SCH (20:52)
[2018-01-30] MEDS: ISOSORBIDE MONONITRATE 30 MG TABCR PO SCH (20:52)
[2018-01-30] MEDS: CLONAZEPAM 1 MG TAB PO SCH (20:57)
[2018-01-30] MEDS: LATANOPROST 0.005% OP SOLN 2.5 ML BTL OPB SCH (20:59)
[2018-01-30] MEDS: CLOPIDOGREL BISULFATE 75 MG TAB PO SCH (21:00)
[2018-01-30] MEDS: HYDROCODONE/ACETAMIN 5/325MG TAB PO PRN (21:01)
[2018-01-31] VITALS (7 sets, daily range): BP systolic 97–143; BP diastolic 59–85; PULSE 81–97; TEMP 36.6–36.8; O2SAT 96–98
[2018-01-31] MEDS: HYDROCODONE/ACETAMIN 5/325MG TAB PO PRN ×3 (04:15→21:16)
[2018-01-31 06:11] LABS: BASO % 0.1 %; BASO ABS # 0.01 K/uL (0-0.2); HEMATOCRIT 26.8 % (37-47); HEMOGLOBIN 8.5 g/dL (12.0-16.0); IG# 0.08 K/uL (0.00-0.02); LYMPH % 12.8 %; LYMPH ABS # 1.52 K/uL (1.2-3.4); MEAN CELL VOLUME 98.5 fL (80-100); MEAN CORPUSCULAR HEMOGLOBIN 31.3 pg (25-34); MEAN CORPUSCULAR HGB CONC 31.7 g/dl (32-36); MEAN PLATELET VOLUME 10.1 fL (7.4-10.4); MONO % 10.8 %; MONO ABS # 1.28 K/uL (0.11-0.59); NEUT % 75.6 %; NEUT ABS # 9.01 K/uL (1.4-6.5); PLATELET COUNT 306 K/uL (130-400); RED CELL DISTRIBUTION WIDTH CV 13.9 % (11.5-14.5); RED CELL DISTRIBUTION WIDTH SD 50.2 fL (36.4-46.3)
[2018-01-31 06:37] LABS: CALCIUM 8.5 mg/dl (8.5-10.1); CREATININE 0.66 mg/dl (0.60-1.20); POTASSIUM 3.8 mmol/L (3.5-5.1)
[2018-01-31] MEDS: LEVOTHYROXINE 75 MCG TAB PO SCH (07:12)
[2018-01-31] MEDS: CycloSPORINE 0.05% 0.4 ML 30 UDV/BOX OPB SCH ×2 (08:08→20:35)
[2018-01-31] MEDS: FLUTICASONE PROPIONATE NA SPR 16 GM BTL NAE SCH ×2 (08:09→20:35)
[2018-01-31] MEDS: DOCUSATE SODIUM 100 MG CAP PO SCH ×2 (08:10→20:36)
[2018-01-31] MEDS: LIDODERM (LIDOCAINE) PATCH 5% TD SCH (08:11)
[2018-01-31] MEDS: ASPIRIN 81 MG CHEW PO SCH (08:12)
--- NOTE | 2018-01-31 11:03 | Discharge Instructions ---
Discharge Instructions Date of Service Jan 31, 2018. Admission Reason for Admission: Tia (Transient Ischemic Attack) Discharge Discharge Diagnosis / Problem: same Discharge Goals Goal(s): Improve function Activity Recommendations Activity Limitations: as noted below Lifting Limitations: no more than 5 pounds Exercise/Sports Limitations: gradually increase as tolerated Shower/Bathe: no limitations . Instructions / Follow-Up Instructions / Follow-Up Please try to ambulate 2 to 3 times per day. weight bearing as tolerated. Sutures may be removed 02/04/18. Apply steri strips. Follow up with dr. Huber 2 weeks Current Hospital Diet Patient's current hospital diet: AHA Diet (Heart Healthy) Discharge Diet Recommended Diet: Regular Diet Pending Studies Studies pending at discharge: no Laboratory Results Hemoglobin A1c Test 01/29/18 11:51 Range/Units Estimated Average Glucose 120 mg/dl Hemoglobin A1c 5.8 H 4.5-5.6 % Lipid Panel Test 01/30/18 05:33 Range/Units Triglycerides Level 71 0-150 mg/dl Cholesterol Level 174 0-200 mg/dl HDL Cholesterol 40 mg/dl Cholesterol/HDL Ratio 4.4 LDL Cholesterol, Calculated 120 mg/dl Medical Emergencies . Who to Call and When: Medical Emergencies: If at any time you feel your situation is an emergency, please call 911 immediately. . . "Provider Documentation" section prepared by Bert Huber. .
--- NOTE | 2018-01-31 15:44 | DIAGNOSTIC IMAGING REPORT ---
MRA HEAD WITHOUT CONTRAST HISTORY: Stroke Cerebellar CVA TECHNIQUE: 3-D [id number] MRA of the brain was performed without contrast. COMPARISON STUDY: None. FINDINGS: Visualized intracranial internal carotid arteries, distal vertebral arteries, and basilar artery are widely patent. There is no significant stenosis, occlusion, or aneurysm seen within the bilateral ACAs, MCAs, or med asst. 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 Right vertebral is dominant. Basilar artery is unremarkable. IMPRESSION: 1. The anterior middle posterior cerebral circulations are intact and unremarkable. 3. Posterior circulation shows a small caliber left vertebral artery with a high-grade long segment stenosis at its distal aspect. The above report was generated using voice recognition software. It may contain grammatical, syntax or spelling errors. Electronically signed by: Maykel Mejias M.D. 01/31/2018 3:43 PM Dictated Date/Time: 01/31/2018 3:39 PM
--- NOTE | 2018-01-31 15:58 | DIAGNOSTIC IMAGING REPORT ---
MRA NECK WITHOUT CONTRAST CLINICAL HISTORY: Cerebellar CVA stroke COMPARISON STUDY: None. TECHNIQUE: A 1.5 Jeanine magnet was utilized. 2-D and 3-D [id number] imaging was performed to obtain unenhanced MRA of the neck. NASCET criteria were utilized to estimate the degree of carotid stenosis. FINDINGS: Mild atherosclerotic change carotid bifurcations. No evidence for significant stenotic process. Right vertebral artery and basilar unremarkable. Left vertebral artery is considerably small terms caliber the critical enteritis a high-grade stenosis distally. IMPRESSION: 1. 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 2. Mild plaque duration carotid bifurcations. 3. Study is otherwise unremarkable with no additional evidence for a secondary significant stenotic process. The above report was generated using voice recognition software. It may contain grammatical, syntax or spelling errors. Electronically signed by: Maykel Mejias M.D. 01/31/2018 3:57 PM Dictated Date/Time: 01/31/2018 3:55 PM
--- NOTE | 2018-01-31 16:03 | ECHOCARDIOGRAM REPORT ---
*NOTICE TO RECEIVING [employer] This information is strictly Confidential and protected under [place] law. [place] law prohibits you from making any further disclosure of this information unless further disclosure is expressly permitted by the written consent of the person to whom it pertains or is authorized by law. A general authorization for the release of medical or other information is not sufficient for this purpose. Hospital accepts no responsibility if the information is made available to any other person, INCLUDING THE PATIENT. Interpretation Summary * Name: BANG CAVAZOS Study Date: 01/30/2018 03:00 PM BP: 106/63 mmHg * Patient Location: .[facility]\S\[id number]\S\2 HR: 87 * : 1935 (M/d/yyyy) Gender: Female Height: 66 in * Age: 82 yrs Ethnicity: [place] Weight: 156 lb * Ordering Physician: Akiko Lion * Referring Physician: Self, Referred * Performed By: Roxie Brunner RDCS * * Reason For Study: CEREBRAL ISCHEMIA/EMBOLUS * BSA: 1.8 m2 * -- Conclusions -- * 1. Normal left ventricular size and systolic function. EF 60-65%. No regional wall motion abnormalities. No left ventricular hypertrophy. Type 1 diastolic dysfunction. * 2. No significant valvular abnormalities visualized. * 3. Normal estimated right ventricular systolic pressure; 28mmHg. * 4. Interatrial septal aneurysm. No visualized right to left interatrial shunt noted via color Doppler or following agitated saline injection. * 5. Compared to prior study on 09/06/2017, RVSP is now normal. Procedure Details * A saline contrast injection was performed to assess for cardiac shunting. * The injection was performed through an intravenous line in the left arm. * The attending nurse who injected the saline contrast was ZBIGNIEW BIRMINGHAM. * A total of 10 cc of agitated saline was given. Left Ventricle * Normal left ventricular size and systolic function. EF 60-65%. No regional wall motion abnormalities. No left ventricular hypertrophy. Type 1 diastolic dysfunction. Right Ventricle * The right ventricle is normal size. * The right ventricular systolic function is normal as assessed by tricuspid annular plane systolic excursion (TAPSE) (normal >1.5 cm). Atria * The left atrial size is normal. * Right atrial size is normal. * There is no evidence of atrial septal defect, but resolution does not allow assessment for a patent foramen ovale. * Interatrial septal aneurysm. No visualized right to left interatrial shunt noted via color Doppler or following agitated saline injection. Mitral Valve * The mitral valve leaflets appear normal. There is no evidence of stenosis, fluttering, or prolapse. * Significant mitral regurgitation is absent. Tricuspid Valve * The tricuspid valve is not well visualized, but is grossly normal. * There is no tricuspid stenosis. * There is mild tricuspid regurgitation. Aortic Valve * The aortic valve is trileaflet. * No hemodynamically significant valvular aortic stenosis. * No aortic regurgitation is present. Pulmonic Valve * The pulmonary valve is inadequately visualized, but the Doppler data is adequate for interpretation. * There is no pulmonic valvular stenosis. * Trace pulmonic valvular regurgitation. Great Vessels * The aortic root is normal size. Pericardium/Pleural * There is no pericardial effusion. Great Vessels * Normal inferior vena cava size and collapsability with sniff indicates a normal right atrial pressure of 3 mmHg MMode 2D Measurements and Calculations IVSd 0.97 cm IVSs 1.6 cm LVIDd 4.4 cm LVIDs 2.7 cm LVPWd 0.95 cm LVPWs 1.9 cm IVS/LVPW 1.0 FS 38.8 % EDV(Teich) 90.0 ml ESV(Teich) 27.6 ml EF(Teich) 69.4 % EDV(cubed) 88.1 ml ESV(cubed) 20.2 ml EF(cubed) 77.1 % % IVS thick 61.8 % % LVPW thick 96.2 % LV mass(C)d 142.7 grams LV mass(C)dI 79.3 grams/m\S\2 LV mass(C)s 178.4 grams LV mass(C)sI 99.1 grams/m\S\2 SV(Teich) 62.5 ml SI(Teich) 34.7 ml/m\S\2 SV(cubed) 67.9 ml SI(cubed) 37.7 ml/m\S\2 Ao root diam 3.4 cm Ao root area 9.0 cm\S\2 LA dimension 2.8 cm LA/Ao 0.81 LVAd ap4 28.1 cm\S\2 LVLd ap4 8.2 cm EDV(MOD-sp4) 83.7 ml EDV(sp4-el) 81.9 ml LVAs ap4 16.7 cm\S\2 LVLs ap4 6.6 cm ESV(MOD-sp4) 38.4 ml ESV(sp4-el) 35.7 ml EF(MOD-sp4) 54.1 % EF(sp4-el) 56.4 % SV(MOD-sp4) 45.3 ml SI(MOD-sp4) 25.1 ml/m\S\2 SV(sp4-el) 46.2 ml SI(sp4-el) 25.7 ml/m\S\2 Doppler Measurements and Calculations MV E max amanda 79.8 cm/sec MV A max amanda 84.1 cm/sec MV E/A 0.95 MV dec time 0.23 sec Ao V2 max 148.4 cm/sec Ao max PG 8.8 mmHg Ao max PG (full) 2.4 mmHg LV V1 max PG 6.4 mmHg LV V1 max 126.5 cm/sec TR max amanda 249.3 cm/sec RVSP(TR) 27.9 mmHg RAP systole 3.0 mmHg
[2018-01-31] MEDS: LATANOPROST 0.005% OP SOLN 2.5 ML BTL OPB SCH (20:36)
[2018-01-31] MEDS: CLOPIDOGREL BISULFATE 75 MG TAB PO SCH (20:37)
[2018-01-31] MEDS: GABAPENTIN 600 MG TAB PO SCH (20:38)
[2018-01-31] MEDS: ISOSORBIDE MONONITRATE 30 MG TABCR PO SCH (20:46)
[2018-01-31] MEDS: CLONAZEPAM 1 MG TAB PO SCH (20:47)
[2018-01-31] MEDS: ENOXAPARIN 40 MG/0.4 ML SYR SC SCH (20:50)
--- NOTE | 2018-01-31 22:32 | Hospitalist Progress Note ---
Hospitalist Progress Note Date of Service Jan 31, 2018. Subjective Pt evaluation today including: conversation w/ patient, physical exam, chart review, lab review, review of studies, review of inpatient medication list Patient seen and evaluated. No acute events overnight. She is having a lot of "nerve pain" which is chronic. She is hesitant to use more Gabapentin as it makes her sleepy and gives her diplopia. She has been using [place] but reports she is not sure how helpful it is...and its probably not. She is able to have more ROM in her RUE but does seem to favor this but some pain with movement at the elbow and shoulder. She isn't weak on exam except for the limitations from pain. Again it is likely the cerebellar lacunar infarcts are more incidental as her symptoms do not really fit with this part of the brain. Unsure of the confusion as she appears to be likely at her baseline. She can be forgetful but is well aware of the situation and has good recall. She states it is her 60th wedding anniversary today and her will be coming in for a special dinner. She still plans to return to [facility] for ongoing rehab. No findings of A Fib or arrhythmia on monitor. Echo with interatrial septal aneurysm but no visualized R to L shunt. Her MRA shows L vertebral artery stenosis which may be the cause of her lacunar infarcts? Constitutional: No fever, No chills Respiratory: No cough, No shortness of breath Cardiovascular: No chest pain, No palpitations Abdomen: No pain, No nausea, No vomiting, No diarrhea, No constipation Musculoskeletal: + joint pain (R elbow/shoulder) Female : No dysuria Neurologic: + problem reported ("nerve pain" in lower extremities) Heme: No abnormal bleeding/bruising Medications Current Inpatient Medications Medications (Trade) Dose Ordered Sig/Michael Route Start Time Stop Time Status Last Admin Dose Admin Miscellaneous Information (Pharmacist Discharge Med Rec Consult) 1 ea UD PRN N/A 01/29/18 15:00 02/28/18 14:59 Enoxaparin Sodium (Lovenox Inj) 40 mg Q24H SC 01/29/18 21:00 02/28/18 20:59 01/31/18 20:50 40 MG Acetaminophen (Tylenol Tab) 650 mg Q4 PRN PO 01/29/18 15:00 02/28/18 14:59 01/29/18 22:41 650 MG Aspirin (Aspirin Chew) 81 mg DAILY PO 01/30/18 09:00 03/01/18 08:59 01/31/18 08:12 81 MG Bisacodyl (Dulcolax Supp) 10 mg DAILY PRN WA 01/29/18 15:00 02/28/18 14:59 Clonazepam (Klonopin Tab) 1 mg HS PO 01/29/18 21:00 02/28/18 20:59 01/31/18 20:47 1 MG Clopidogrel Bisulfate (plAVix TAB) 75 mg HS PO 01/29/18 21:00 02/28/18 20:59 01/31/18 20:37 75 MG Docusate Sodium (coLACE CAP) 100 mg BID PO 01/29/18 21:00 02/28/18 20:59 Fluticasone Propionate (Flonase Nasal [place]) 1 sprays BID ROYA 01/29/18 21:00 02/28/18 20:59 01/31/18 20:35 1 SPRAYS Latanoprost (Xalatan Oph Soln) 1 drops HS OPB 01/29/18 21:00 02/28/18 20:59 01/31/18 20:36 1 DROPS Levothyroxine Sodium (Synthroid Tab) 75 mcg DAILYBB PO 01/30/18 06:30 03/01/18 06:59 01/31/18 07:12 75 MCG Lidocaine (Lidoderm Patch 5%) 1 patch QAM TD 01/30/18 09:00 03/01/18 08:59 01/31/18 08:11 1 PATCH Magnesium Hydroxide (Milk Of Magnesia Susp) 30 ml DAILY PRN PO 01/29/18 15:00 02/28/18 14:59 Miscellaneous (Remove Lidoderm Patch) 1 ea DAILY@21 N/A 01/29/18 21:00 02/28/18 20:59 01/30/18 21:15 1 EA Miscellaneous (Iv Fluids Completed) 1 ea PRN PRN N/A 01/29/18 16:00 01/29/19 15:59 Cyclosporine (Restasis) 1 drops BID OPB 01/29/18 22:00 02/28/18 21:59 01/31/18 20:35 1 DROPS Gabapentin (Neurontin Tab) 300 mg HS PO 01/30/18 21:00 02/28/18 21:29 01/31/18 20:38 300 MG Atorvastatin Calcium (Lipitor Tab) 10 mg WeSa@0900 PO 02/02/18 09:00 03/04/18 08:59 Isosorbide Mononitrate (Imdur Ext Rel Tab) 30 mg HS PO 01/30/18 21:00 03/01/18 20:59 01/31/18 20:46 30 MG Acetaminophen/ Hydrocodone Bitart ([place] 5/325 Tab) one tablet for pain level ... Q6H PRN PO 01/30/18 17:45 02/13/18 17:44 01/31/18 21:16 1 TAB Objective Vital Signs Date Time Temp Pulse Resp B/P (MAP) Pulse Ox O2 Delivery O2 Flow Rate FiO2 01/31/18 19:45 36.6 95 18 143/85 (104) 97 Room Air 01/31/18 17:23 Room Air 01/31/18 15:31 36.7 83 18 126/73 (90) 97 Room Air 01/31/18 11:34 36.8 81 20 104/66 (79) 98 01/31/18 08:00 96 Room Air 01/31/18 07:33 36.6 84 20 97/59 (72) 96 01/31/18 03:42 36.7 81 18 107/71 (83) 96 Room Air 01/31/18 00:00 Room Air 01/30/18 23:22 36.6 81 16 107/66 (80) 94 Room Air Physical Exam General Appearance: WD/WN, no apparent distress Eyes: sclerae normal ENT: hearing grossly normal Neck: supple, no JVD, trachea midline Respiratory/Chest: lungs clear, normal breath sounds, no respiratory distress, no accessory muscle use Cardiovascular: regular rate, rhythm, no gallop, no murmur Abdomen: normal bowel sounds, non tender, soft Extremities: no pedal edema Neurologic/Psychiatric: alert, oriented x 3, + pertinent finding (no focal deficits; RUE with improved ROM but limited due to pain) Skin: normal color, warm/dry Laboratory Results Last 24 Hours Test 01/31/18 05:42 White Blood Count 11.90 K/uL Red Blood Count 2.72 M/uL Hemoglobin 8.5 g/dL Hematocrit 26.8 % Mean Corpuscular Volume 98.5 fL Mean Corpuscular Hemoglobin 31.3 pg Mean Corpuscular Hemoglobin Concent 31.7 g/dl Platelet Count 306 K/uL Mean Platelet Volume 10.1 fL Neutrophils (%) (Auto) 75.6 % Lymphocytes (%) (Auto) 12.8 % Monocytes (%) (Auto) 10.8 % Eosinophils (%) (Auto) 0.0 % Basophils (%) (Auto) 0.1 % Neutrophils # (Auto) 9.01 K/uL Lymphocytes # (Auto) 1.52 K/uL Monocytes # (Auto) 1.28 K/uL Eosinophils # (Auto) 0.00 K/uL Basophils # (Auto) 0.01 K/uL RDW Standard Deviation 50.2 fL RDW Coefficient of Variation 13.9 % Immature Granulocyte % (Auto) 0.7 % Immature Granulocyte # (Auto) 0.08 K/uL Red Blood Cell Morphology Unremarkable Sodium Level 137 mmol/L Potassium Level 3.8 mmol/L Chloride Level 107 mmol/L Carbon Dioxide Level 22 mmol/L Anion Gap 8.0 mmol/L Blood Urea Nitrogen 20 mg/dl Creatinine 0.66 mg/dl Est Creatinine Clear Calc Drug Dose 61.5 ml/min Estimated GFR () 95.3 Estimated GFR (Non- 82.3 BUN/Creatinine Ratio 30.5 Random Glucose 90 mg/dl Calcium Level 8.5 mg/dl Assessment and Plan 82yo female with small cerebellar strokes noted Acute B/L Cerebellar Lacunar Infarcts: - However her presenting symptoms appear rather chronic in regards to RUE/RLE weakness and pain and wouldn't really coordinate with a cerebellar infarct - limitations of RUE is more pain related and RLE is likely more explained by her chronic spine issues/recent decompression - Carotid U/S with mild/moderate plaque in b/l carotids but no significant stenosis; MRA with L vertebral artery stenosis - Echo - shows interatrial aneurysm but no R to L shunt - ASA 81 mg daily; Plavix 75 mg daily; will resume her Atorvastatin 10 mg twice a week as she reports (and outpatient records report) myalgias with daily usage - Can resume Metoprolol - Neurology following - recommendations given and additional testing suggested Paroxysmal Atrial Fibrillation and CAD: - It appears she has documented episodes as she does follow with cardiology - EKG does suggest a possible ectopy atrial rhythm but no episodes of A Fib have been noted during admission - There was question of possible A Fib during her back surgery however it did not appear to be when reviewing monitor - She was started on isosorbide HS upon review of outpatient records - discussed this with her and she reports she has the Rx but hasn't started this but after discussion she thinks it may be worth trying as it was recommended by her corporate concierge - Would hold on utilizing anti-coagulation as this hasn't been seen while hospitalized DVT Prophylaxis: Lovenox Code Status: FULL Disposition: Plan to return to [facility] for ongoing rehab - possibly tomorrow Continued [facility] stay due to: ambulation difficulties Discharge planning: rehab hospital
[2018-02-01] MEDS ORDERED: CLONAZEPAM 1 MG TAB PO ONE (00:45)
[2018-02-01 05:19] VITALS: BP 99/60; PULSE 88; TEMP 36.7; O2SAT 94
[2018-02-01] MEDS: LEVOTHYROXINE 75 MCG TAB PO SCH (05:25)
[2018-02-01] MEDS: HYDROCODONE/ACETAMIN 5/325MG TAB PO PRN ×2 (05:26→15:28)
[2018-02-01 06:33] LABS: BASO % 0.1 %; BASO ABS # 0.01 K/uL (0-0.2); EOS % 1.4 %; EOS ABS # 0.13 K/uL (0-0.5); HEMATOCRIT 24.2 % (37-47); HEMOGLOBIN 7.8 g/dL (12.0-16.0); IG# 0.06 K/uL (0.00-0.02); LYMPH % 17.4 %; LYMPH ABS # 1.65 K/uL (1.2-3.4); MEAN CELL VOLUME 98.8 fL (80-100); MEAN CORPUSCULAR HEMOGLOBIN 31.8 pg (25-34); MEAN CORPUSCULAR HGB CONC 32.2 g/dl (32-36); MEAN PLATELET VOLUME 9.9 fL (7.4-10.4); MONO % 9.5 %; NEUT ABS # 6.71 K/uL (1.4-6.5); PLATELET COUNT 303 K/uL (130-400); RED CELL DISTRIBUTION WIDTH CV 14.2 % (11.5-14.5); RED CELL DISTRIBUTION WIDTH SD 51.4 fL (36.4-46.3); WHITE BLOOD COUNT 9.46 K/uL (4.8-10.8)
[2018-02-01 07:08] LABS: CREATININE 0.68 mg/dl (0.60-1.20); POTASSIUM 3.9 mmol/L (3.5-5.1)
[2018-02-01 07:25] VITALS: BP 99/59; PULSE 92; TEMP 36.6; O2SAT 95
[2018-02-01] MEDS: CycloSPORINE 0.05% 0.4 ML 30 UDV/BOX OPB SCH (08:41)
[2018-02-01] MEDS: DOCUSATE SODIUM 100 MG CAP PO SCH (08:43)
[2018-02-01] MEDS: FLUTICASONE PROPIONATE NA SPR 16 GM BTL NAE SCH (08:43)
[2018-02-01] MEDS: ASPIRIN 81 MG CHEW PO SCH (08:44)
[2018-02-01] MEDS: LIDODERM (LIDOCAINE) PATCH 5% TD SCH (08:50)
[2018-02-01 09:00] VITALS: O2SAT 95
[2018-02-01 10:13] LABS: HEMATOCRIT 27.2 % (37-47); HEMOGLOBIN 8.7 g/dL (12.0-16.0)
[2018-02-01 11:44] VITALS: BP 104/68; PULSE 86; TEMP 36.5; O2SAT 92
[2018-02-01] MEDS ORDERED: NRN600 PO (12:19)
--- NOTE | 2018-02-01 12:33 | Discharge Instructions ---
Discharge Instructions Date of Service Feb 01, 2018. Admission Reason for Admission: Tia (Transient Ischemic Attack) Discharge Discharge Diagnosis / Problem: Lacunar Cerebellum CVA Discharge Goals Goal(s): Decrease discomfort, Improve function, Increase independence Activity Recommendations Activity Level: Assistance Required Therapies: Physical Therapy, Occupational Therapy . Additional Information Patient informed of condition: Yes Advance Directives: Yes DNR: No Level of Care: Acute Rehab Communicable Disease: No Prognosis: Stable Instructions / Follow-Up Instructions / Follow-Up Acute B/L Cerebellar Lacunar Infarcts: - However her presenting symptoms appear rather chronic in regards to RUE/RLE weakness and pain and wouldn't really coordinate with a cerebellar infarct. Possibly recent surgery and chronic lower extremity issues maybe masked some subtle symptoms? Given that they are lacunar they may not have really given symptoms? - Pain is improving in RUE but some pain with the elbow and shoulder. Will use Voltaren gel to help with symptoms. There is no fracture but there is significant degenerative changes likely contributing to her symptoms - Carotid U/S with mild/moderate plaque in b/l carotids but no significant stenosis; MRA with L vertebral artery stenosis however this is normally not intervened on and is more medically managed. She states she does forget to take her ASA sometimes and the main intervention will be ASA/Plavix - Echo - shows interatrial aneurysm but no R to L shunt to explain b/l strokes - No episodes of atrial fib/flutter to explain embolic nature - she does care a chronic diagnosis of paroxysmal a fib but currently no findings of this and will hold on anticoagulation but may need to consider event monitor to see if there are episodes in the long-term evaluation and decision for anticoagulation can be determined from there - ASA 81 mg daily; Plavix 75 mg daily; will resume her Atorvastatin 10 mg twice a week as she reports (and outpatient records report) myalgias with daily usage - Can resume Metoprolol BID - Recommend F/U with Dr. Vo from [facility] in next 1-2 weeks. She was previously established with him prior to admission Paroxysmal Atrial Fibrillation and CAD: - It appears she has documented episodes in the past as she does follow with cardiology - EKG does suggest a possible ectopy atrial rhythm but no episodes of A Fib have been noted during admission - There was question of possible A Fib during her back surgery however it did not appear to be when reviewing monitor - She was started on isosorbide HS upon review of outpatient records - discussed this with her and she reports she has the Rx but hasn't started this - did use this during admission and she does report some dizziness this morning and might be best to not continue this. Did not place on D/C medication reconciliation. May need to have cardiology evaluate this prior to her starting this upon returning home Altered Mental Status: RESOLVED - Patient appears to be at baseline and confirms. Not sure if this was medication-induced? No further episodes of delirium or altered mental status viewed in-hospital. Neuropathy: - This appears chronic and related to her chronic back issues. Dr. Huber supplied discharge instructions and recommendations for suture removal - She states gabapentin works the best but she reports she has only been using 300 mg at night because it makes her dizzy/drowsy. Did make this change on the med rec and maybe with F/U with neurology a better regimen can be planned. She does not want to use gabapentin through the day. - She has been using [place] here for pain. Will provide an Rx. There was Dilaudid on the list when she came in. Wasn't sure if this was added at [facility] as it is not in the drug monitoring program. Pain medication can be adjusted as necessary per recommendations from [facility]. Current Hospital Diet Patient's current hospital diet: AHA Diet (Heart Healthy) Discharge Diet Recommended Diet: AHA Diet (Heart Healthy) Pending Studies Studies pending at discharge: no Physician Orders On Transfer POLST Discussion: Not Applicable Laboratory Results Hemoglobin A1c Test 01/29/18 11:51 Range/Units Estimated Average Glucose 120 mg/dl Hemoglobin A1c 5.8 H 4.5-5.6 % Lipid Panel Test 01/30/18 05:33 Range/Units Triglycerides Level 71 0-150 mg/dl Cholesterol Level 174 0-200 mg/dl HDL Cholesterol 40 mg/dl Cholesterol/HDL Ratio 4.4 LDL Cholesterol, Calculated 120 mg/dl Medical Emergencies . Who to Call and When: Medical Emergencies: If at any time you feel your situation is an emergency, please call 911 immediately. . Non-Emergent Contact Non-Emergency issues call your: Primary Care Provider Call Non-Emergent contact if: you have a fever, your pain is concerning you, you have any medication questions . . "Provider Documentation" section prepared by Akiko Lion. . Core Measure Problem Core Measures: Stroke Stroke Core Measures Reason no t-PA for Stroke: Treatment not indicated Reason no antithrom by day 2: Treatment provided - N/A Reason no antithrom at D/C: Treatment provided - N/A Reason no statin at D/C: Treatment provided - N/A Reason no anticoag w/a fib: Treatment not indicated
[2018-02-01] MEDS ORDERED: VLTG EX (12:34)
[2018-02-01] MEDS ORDERED: HYDR-5688 PO (12:35)
[2018-02-01 12:43] VITALS: BP 104/68; PULSE 86; TEMP 36.5; O2SAT 92
--- NOTE | 2018-02-01 18:57 | Discharge Summary ---
Discharge Summary Date of Service Feb 01, 2018. Discharge Summary Admission Date: Jan 30, 2018 at 11:42 Discharge Date: Feb 01, 2018 Discharge Disposition: Rehab Principal Diagnosis: B/L Cerebellar Lacunar Infarcts Problems/Secondary Diagnoses: 1. Cerebellar Lacunar Infarcts 2. Chronic Lumbar Back Pain/Stenosis S/P Decompression/Fusion 3. Paroxysmal Atrial Fibrillation 4. CAD 5. Peripheral Neuropathy Immunizations: Have You Had Influenza Vaccine: Yes Influenza Vaccine Date: Jun 03, 2011 History of Tetanus Vaccine?: Yes Tetanus Immunization Date: Jun 03, 2010 History of Pneumococcal: Yes Pneumococcal Date: Sep 17, 2004 History of Hepatitis B Vaccine: No Procedures: Brain MRI WITH AND WITHOUT CONTRAST FINDINGS: There is a 7 mm focus of restricted diffusion within the right cerebellar hemisphere and a 5 mm focus of restricted diffusion within the left cerebellar hemisphere. These are consistent with acute lacunar infarcts. There is no mass, hematoma, or midline shift. The paranasal sinuses are clear. The mastoid air cells are clear. The ventricles and sulci demonstrate mild age-related involutional changes. Scattered foci of T2 hyperintensity seen within the periventricular and subcortical white matter are nonspecific but suggestive of mild microvascular ischemic changes. The major vascular flow voids at the skull base are well-maintained. IMPRESSION: Small acute bilateral cerebellar lacunar infarcts. MRA HEAD WITHOUT CONTRAST FINDINGS: Visualized intracranial internal carotid arteries, distal vertebral arteries, and basilar artery are widely patent. There is no significant stenosis, occlusion, or aneurysm seen within the bilateral ACAs, MCAs, or form worker. 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 Right vertebral is dominant. Basilar artery is unremarkable. IMPRESSION: 1. The anterior middle posterior cerebral circulations are intact and unremarkable. 2. Posterior circulation shows a small caliber left vertebral artery with a high-grade long segment stenosis at its distal aspect. BILATERAL CAROTID DOPPLER STUDY FINDINGS: Antegrade flow is seen in the bilateral vertebral arteries. The brachial pressures are hemodynamically similar. Moderate calcified plaque within the right carotid bifurcation and right carotid bulb. Mild to moderate calcified plaque within the left carotid bifurcation/carotid bulb. The peak systolic velocity within the right ICA is 121 cm/s. The right systolic ratio is 1.3. The peak systolic velocity within the left ICA is 83 cm/s. The left systolic ratio is 1.0. IMPRESSION: Mild to moderate calcified plaque within the bilateral carotid arteries. However, no hemodynamically significant stenosis. LUMBAR SPINE WITHOUT FINDINGS: Grade 2 anterolisthesis of L4 on L5. This has been present previously. Vacuum disc is present the L4-L5 level. Interval posterior laminectomy from L3 through L5. Small amount of residual postprocedural air is present considered unremarkable in a postoperative basis. No major compromise of the spinal canal. Moderate osteophytic narrowing of the neuroforamina bilaterally at L4-L5. Generalized degenerative changes of posterior facets throughout. IMPRESSION: 1. Grade 2 anterolisthesis of L4 and L5 2. Moderate osteophytic narrowing of the neuroforamina bilaterally at L4-L5. 3. Operative changes consistent with a posterior decompression hemilaminotomy from L3 through L5. 4. Unremarkable postoperative lumbar spine R SHOULDER MIN 2 VIEWS ROUTINE DISCUSSION: Considerable degenerative change of the glenohumeral joint. Considerable peripheral reactive osteophytic change of the humeral head. Moderate sclerosis of the glenoid. Mild degenerative change acromioclavicular joint. No significant soft tissue calcifications. There is no evidence for soft tissue swelling. IMPRESSION: Significant degenerative change right glenohumeral joint. Consultations: 1. Neurology Medication Reconciliation New Medications: Diclofenac Sod (Voltaren) 100 Appln/100 Gm Gel 1 APPLN EX Q6H PRN for Pain, #1 TUBE Gabapentin (Gabapentin) 600 Mg Tab 300 MG PO HS for 30 Days, #30 TAB Hydrocodone/Acetaminophen 5MG/325MG ([place] 5MG/325MG) Tab 1-2 TAB PO Q6H PRN for Pain for 3 Days, #24 TAB PRN PAIN Continued Medications: Acetaminophen (Tylenol) 325 Mg Tab 650 MG PO Q4 PRN for Pain Aspirin (Aspirin Chewable) 81 Mg Chew 81 MG PO DAILY "OFTEN FORGETS TO TAKE" Atorvastatin (Lipitor) 10 Mg Tab 10 MG PO 2XWK, TAB Bisacodyl (Bisacodyl) 10 Mg Sup 1 SUPP RE DAILY PRN for Constipation Clonazepam (Klonopin) 1 Mg Tab 1 MG PO HS, TAB WILL TAKE A 2ND 1 @ NIGHT PRN Clonidine Hcl (Catapres) 0.1 Mg Tab 1 TAB PO BID PRN for IF SBP >170, TAB Clopidogrel (Plavix) 75 Mg Tab 75 MG PO HS, TAB Cyclosporine (Ophth) (Restasis) 0.05 % Emu 1 DROP OPB BID, BTL Docusate Sodium (Docusate Sodium) 100 Mg Cap 100 MG PO BID Fluticasone Propionate (Nasal) (Allergy Nasal [place] 24 Ho) 50 Mcg/Act Spr 1-2 SPRAY ROYA BID Latanoprost (Xalatan 0.005% Oph Veronica) 0.005 % Veronica 1 DROPS OPB HS, ML Levothyroxine Sodium (Levothyroxine Sodium) 75 Mcg Tab 1 TAB PO QAM, TAB Lidocaine (Lidocaine) 5 % Pad 1 PATCH TD QAM Magnesium Hydroxide (Milk Of Magnesia) 30 Ml Susp 30 ML PO DAILY PRN for Constipation Metoprolol Succinate (Toprol Xl) 25 Mg Tab 25 MG PO BID, TAB Multiple Vitamins W/ Minerals (Preservision Areds) 1 Cap Cap 1 CAP PO BID WITH EXTRA LUTEIN Multiple Vitamins W/ Minerals (Centrum Silver Adult 50+) 1 Tab Tab 1 TAB PO DAILY Nitroglycerin (Nitrostat) 0.4 Mg Tab 0.4 MG UT PRN, BTL Polyethylene Glycol 3350 (Miralax) 1 Pow Pow 17 GM PO BID PRN for Constipation, #527 GM Potassium Ext Rel (Klor-Con) 20 Meq Tabcr 20 MEQ PO BID, TAB Senna (Senokot) 8.6 Mg Tab 1 TAB PO QDL PRN for Constipation Sodium Phosphate/Biphosphate (Fleet Enema) Selena 1 EA NM DAILY PRN for Constipation Discontinued Medications: Gabapentin (Neurontin) 600 Mg Tab 600 MG PO UD Hydromorphone Hcl (Dilaudid) 4 Mg Tab 4 MG PO Q4 PRN for Pain Discharge Exam REVIEW OF SYSTEMS: Constitutional: No fever, No chills Respiratory: No cough, No shortness of breath Cardiovascular: No chest pain, No palpitations Abdomen: No pain, No nausea, No vomiting, No diarrhea, No constipation Musculoskeletal: + joint pain (R elbow/shoulder) Female : No dysuria Neurologic: + problem reported ("nerve pain" in lower extremities) Heme: No abnormal bleeding/bruising PHYSICAL EXAM General Appearance: WD/WN, no apparent distress Eyes: sclerae normal ENT: hearing grossly normal Neck: supple, no JVD, trachea midline Respiratory/Chest: lungs clear, normal breath sounds, no respiratory distress, no accessory muscle use Cardiovascular: regular rate, rhythm, no gallop, no murmur Abdomen: normal bowel sounds, non tender, soft Extremities: no pedal edema Neurologic/Psychiatric: alert, oriented x 3, + pertinent finding (no focal deficits; RUE with improved ROM but limited due to pain) Skin: normal color, warm/dry Hospital Course ADMISSION: 82yo female from [facility] complaining of RUE pain and weakness that started last night. Pain involves shoulder, arm and wrist, associated with muscle cramping. Also with increased pain and weakness in her right leg. Patient also found to be slightly altered, less responsive than previously. No additional complaints at this time. I spoke with patient's PCP, Dr. Oakes who voiced concern for possible TIA given RUE/RLE weakness and mild alteration in mental status. Patient denies fevers, but does have some chills. Denies chest pain, shortness of breath, cough, sputum, abdominal pain, nausea/vomiting , diarrhea or constipation. She is still complaining of pain in the right arm. HOSPITAL COURSE: Acute B/L Cerebellar Lacunar Infarcts: - However her presenting symptoms appear rather chronic in regards to RUE/RLE weakness and pain and wouldn't really coordinate with a cerebellar infarct. Possibly recent surgery and chronic lower extremity issues maybe masked some subtle symptoms? Given that they are lacunar they may not have really given symptoms? - Pain is improving in RUE but some pain with the elbow and shoulder. Will use Voltaren gel to help with symptoms. There is no fracture but there is significant degenerative changes likely contributing to her symptoms - Carotid U/S with mild/moderate plaque in b/l carotids but no significant stenosis; MRA with L vertebral artery stenosis however this is normally not intervened on and is more medically managed. She states she does forget to take her ASA sometimes and the main intervention will be ASA/Plavix - Echo - shows interatrial aneurysm but no R to L shunt to explain b/l strokes - No episodes of atrial fib/flutter to explain embolic nature - she does care a chronic diagnosis of paroxysmal a fib but currently no findings of this and will hold on anticoagulation but may need to consider event monitor to see if there are episodes in the long-term evaluation and decision for anticoagulation can be determined from there - ASA 81 mg daily; Plavix 75 mg daily; will resume her Atorvastatin 10 mg twice a week as she reports (and outpatient records report) myalgias with daily usage - Discussed with [facility] that she is on Imdur there and no BB therapy - this can be further evaluated by her application integration specialist/PCP - Recommend F/U with Dr. Vo from [facility] in next 1-2 weeks. She was previously established with him prior to admission Paroxysmal Atrial Fibrillation and CAD: - It appears she has documented episodes in the past as she does follow with cardiology - EKG does suggest a possible ectopy atrial rhythm but no episodes of A Fib have been noted during admission - There was question of possible A Fib during her back surgery however it did not appear to be when reviewing monitor - She was started on isosorbide HS upon review of outpatient records - discussed this with her and she reports she has the Rx but hasn't started this but apparently has been on this at [facility] - this again could be reviewed again by her application integration specialist/PCP Altered Mental Status: RESOLVED - Patient appears to be at baseline and confirms. Not sure if this was medication-induced? No further episodes of delirium or altered mental status viewed in-hospital. Neuropathy: - This appears chronic and related to her chronic back issues. Dr. Huber supplied discharge instructions and recommendations for suture removal - She states gabapentin works the best but she reports she has only been using 300 mg at night because it makes her dizzy/drowsy. Did make this change on the med rec and maybe with F/U with neurology a better regimen can be planned. She does not want to use gabapentin through the day. - She has been using [place] here for pain. Will provide an Rx. There was Dilaudid on the list when she came in. Wasn't sure if this was added at [facility] as it is not in the drug monitoring program. Pain medication can be adjusted as necessary per recommendations from [facility]. Disposition: Return to [facility] for ongoing rehab prior to return home Total Time Spent: Greater than 30 minutes This includes examination of the patient, discharge planning, medication reconciliation, and communication with other providers. Discharge Instructions Please refer to the electronic Patient Visit Report (Discharge Instructions) for additional information. Additional Copies To William, Dory Jackson; Royce Clay M.D.
[2018-02-02] MEDS ORDERED: ATORVASTATIN 10 MG TAB PO SCH (09:00)
== END 2018-02-01 15:35 | DRG 65 ==
LOC: EDBD 10:59 → C.EDC 11:01 → C.MED 15:08 → ENRESERV 16:09 → OBSVTOIN 01-30 11:42
PROVIDERS: ADMIT Internal Medicine; ATTEND Internal Medicine
DX: I63.8 Other cerebral infarction (principal); I48.0 Paroxysmal atrial fibrillation; E03.9 Hypothyroidism, unspecified; J45.902 Unspecified asthma with status asthmaticus; D68.59 Other primary thrombophilia; N18.4 Chronic kidney disease, stage 4 (severe); Z86.73 Personal history of transient ischemic attack (TIA), and cerebral infarction without residual deficits; E11.319 Type 2 diabetes mellitus with unspecified diabetic retinopathy without macular edema; K21.9 Gastro-esophageal reflux disease without esophagitis; Z86.711 Personal history of pulmonary embolism; Z87.890 Personal history of sex reassignment; Z98.1 Arthrodesis status; I25.10 Atherosclerotic heart disease of native coronary artery without angina pectoris; E11.51 Type 2 diabetes mellitus with diabetic peripheral angiopathy without gangrene

== ENCOUNTER 2022-02-24 08:29 | Inpatient (IN) ==
[2022-02-24 08:47] LABS: Basophils # (auto) 0.04 K/uL (0-0.2); Basophils % (auto) 0.6 %; Eosinophils % (auto) 2.9 %; Hematocrit (blood only) 38.7 % (34.1-44.9); Hemoglobin 12.5 g/dl (12.0-16.0); Immature Granulocytes # (auto) 0.03 K/uL (0.00-0.02); Immature Granulocytes % (auto) 0.4 %; Lymphocytes # (auto) 2.16 K/uL (1.2-3.4); Lymphocytes % (auto) 31.1 %; Mean Corpuscular Hemoglobin 30.9 pg (25.0-34.0); Mean Corpuscular Hgb Conc 32.3 g/dL (32.0-36.0); Mean Corpuscular Volume 95.8 fL (80.0-100.0); Mean Platelet Volume 11.7 fL (9.4-12.3); Monocytes # (auto) 1.06 K/uL (0.24-0.82); Monocytes % (auto) 15.3 %; Neutrophils # (auto) 3.45 K/uL (1.4-6.5); Neutrophils % (auto) 49.7 %; Platelet Count 151 K/uL (130-400); RDW Coefficient of Variation 15.7 % (11.5-14.5); RDW Standard Deviation 55.8 fL (36.4-46.3); Red Blood Count 4.04 M/uL (3.93-5.22); White Blood Count 6.94 K/ul (4.8-10.8)
--- NOTE | 2022-02-24 08:49 | Emergency Department Note ---
Impression & Plan COVID-19, Cough, Weakness ED Provider Note Provider: Jose L Leonardo MD DATE OF SERVICE: 02/24/2022 CHIEF COMPLAINT: Weakness HISTORY OF PRESENT ILLNESS: Patient is a 86-year-old female history of CVA, CAD, and UTI presenting from house today reportedly having weakness and cough developing over the last day or 2. She states that she tested positive for COVID yesterday at home. She denies sick contact to her knowledge. Patient states she feels generally weak all over. Denies any chest pain or abdominal pain. Denies nausea, vomiting or diarrhea. Patient noted by EMS to be 91% on room air. States her daughter is out of town and her son's wedding and her son-in-law came to check on her and was worried and referred her here. She denies taking any medications today. Patient states she has not seen a doctor in quite some time and does not take any medications at home however the records indicate differently and I do believe she has some underlying memory issues. REVIEW OF SYSTEMS: A total of 10 review of systems was obtained and negative except as stated above in the HPI. PAST MEDICAL HISTORY: As noted above MEDICATIONS: Reviewed home medication list from the [facility] medical record SOCIAL HISTORY: She states she lives at home with her , denies a smoking history PHYSICAL EXAM: GENERAL: alert and oriented to person in no acute distress on stretcher but not the best long-term historian. Head: normocephalic and atraumatic EYES: No injection, discharge or icterus. PERRL NECK: Trachea midline. Supple. ENT: Mucous membranes pink and moist. LUNGS: Airway patent. No retractions. Breath sounds clear. Occasionally coughing. HEART: Regular rate and rhythm. No chest wall tenderness ABDOMEN: Soft and non-tender, without guarding or rebound. SKIN: Acyanotic, warm, dry, without rashes EXTREMITIES: Without swelling, tenderness or deformity NEUROLOGICAL: No focal deficits. No aphasia. No facial droop or slurred speech. EK bpm sinus rhythm first-degree AV block. No PVC. No acute ST segment elevation with left axis and LVH with some mild QRS widening of 126 ms. Some respiratory artifact noted on the cardiogram. CONTINUOUS CARDIAC MONITORING: was ordered and showed a heart rate of 70s-80s bpm in normal sinus rhythm Patient's laboratory studies and imaging reviewed. Differential includes Infection, dehydration, metabolic abnormality, hypo/hyp erglycemia, electrolyte disturbance, anemia, hypoxia, cardiac sources, intracerebral event, toxicologic, neurologic, as well as other pathologies. IMPRESSION/MEDICAL DECISION MAKING: Patient poorly with COVID from home with cough. On room air here not hypoxic. Basic blood work and x-ray obtained as she does have somewhat of a deep cough. Benign abdomen. No trauma history reported. I case management access [facility] medical records. Patient on multiple home medications. Blood work here without significant anemia or leukocytosis. Creatinine today 1.58 with last creatinine in November 23.. Given a small amount of fluid. No other significant electrolyte abnormalities. No troponin elevation or evidence of hepatitis or pancreatitis. Chest x-ray per radiology report with some cardiomegaly but no other acute findings noted. Does have some documented memory issues and likely still experiencing some of that as she cannot remember what her taught previously and is little bit easy with his details. Patient's COVID test here does return positive. Discussed with the patient's daughter via phone findings. Fairly good cough and does have some transient desaturations during coughing fits into the high 80s mid 80s but recovers at rest. Sore throat reported. Given some steroid here as well as some Tylenol Mucinex to help with symptoms. Patient did receive the COVID-vaccine and boosters by report was at home with her who has dementia but there are caregivers and daughter who assist. Discussion with the daughter via phone and feel that further observation here would be best and she is in agreement. Discussed with the patient. Hospitalist contacted. DIAGNOSIS: Weakness, cough, COVID-19 DISPOSITION: Hospitalist will evaluate Patient was agreeable with this plan. Past Med/Surg History Medical History Actinic keratosis Alzheimer disease EARLY STAGES Asthma (12/23/12) PT DENIES Chronic fatigue Chronic kidney disease CVA (cerebral vascular accident) PER RECORD-PT DENIES ANY RESIDUAL PHYSICAL EFFECTS Cyst removed from left eye Diabetic retinopathy (12/23/12) Dyslipidemia Fall GERD (gastroesophageal reflux disease) (12/23/12) History of hyperparathyroidism w/ subsequent surgery at [facility] History of pulmonary embolus (PE) (12/23/12) History of SCC (squamous cell carcinoma) of skin Hypercalcemia Hyperparathyroidism Hypertension F/U DR NELDA RAMON Hypogammaglobulinemia Hypothyroidism Idiopathic polyneuropathy Lumbar stenosis Memory loss or impairment Midline low back pain with right-sided sciatica Protein S deficiency F/U [facility] [employer] REPRESENT[facility] Pulmonary nodules Rheumatoid arthritis Sinus infection Thoracic ascending aortic aneurysm TIA (transient ischemic attack) HX Urinary retention Vitamin D deficiency Xerostomia Surgical History History of bilateral knee replacement History of colonoscopy History of esophagogastroduodenoscopy (EGD) History of kidney surgery History of lumbar fusion History of right coronary artery stent placement Hx laparoscopic cholecystectomy Hx of hysterectomy Hx of shoulder surgery Hx of tonsillectomy Hx of total hip arthroplasty Family History Mother Family history of diabetes mellitus Other Family history non-contributory Social History Smoking Status: Never smoker Second Hand Exposure: No; Hx Alcohol Use: No Hx Substance Use: No Preferred Language: Emirati Communication Ability: Effective Motivational Speaker Required: No Beliefs That Will Affect Care: Orthodoxy Orthodoxy Beliefs: PRESBYTERIAN marital status: Current Living Situation: Spouse current occupational status: retired Feels Safe at Home: Yes Assistive Devices: Glasses Allergies Allergies Allergy/AdvReac Type Severity Reaction Status Date / Time Iodinated Contrast Media Allergy Severe ANAPHYLAXIS Verified 09/22/21 10:25 allopurinol AdvReac CAN NOT Verified 09/22/21 10:25 TAKE DUE TO KIDNEY FUNCTION Home Meds Home Medications Medication Instructions Recorded Confirmed atorvastatin 10 mg tablet (Lipitor) 10 mg PO 2XWK #0 tabs 02/02/16 02/24/22 vitamins A,C,D-ievy-razrxf 2,148 1 tab PO BID 06/16/18 02/24/22 mcg-113 mg-45 mg-17.4 mg tablet (PreserVision AREDS) cyclosporine 0.05 % eye drops in a 1 drp OPB BID 02/05/19 02/24/22 dropperette (Restasis) latanoprost 0.005 % eye drops 1 drp OPB HS 02/05/19 02/24/22 (Xalatan) metoprolol succinate 25 mg 25 mg PO BID #0 tabs 07/01/19 02/24/22 tablet,extended release 24 hr (Toprol XL) multivitamin with minerals 1 tab PO QAM #0 tabs 04/22/20 02/24/22 lutein 20 mg tablet 20 mg PO QAM 05/05/20 02/24/22 Previous Rx's Medication Instructions Recorded furosemide 20 mg tablet 20 mg PO DAILY PRN edema #30 tabs 01/15/20 potassium chloride 20 mEq 20 meq PO DAILY PRN if take 01/15/20 tablet,extended release (K-Tab) furosemide #30 tabs levothyroxine 75 mcg tablet 75 mcg PO QAM #90 tabs 04/22/20 (Synthroid) memantine 10 mg tablet See Rx Instructions .Route 08/25/21 .COMPLEX #180 tabs donepezil 10 mg tablet 10 mg PO HS #30 tabs 11/16/21 pregabalin 100 mg capsule 100 mg PO BID #60 caps 11/25/21 meloxicam 15 mg tablet 15 mg PO DAILY #30 tabs 12/14/21 nortriptyline 75 mg capsule 75 mg PO HS #30 caps 01/30/22 Results & Data (ED) Vital Signs Vital Signs - 24 hr 02/24/22 08:34 02/24/22 08:34 02/24/22 08:34 Temperature 36.9 C Temperature Source Oral Pulse Rate 83 Pulse Rate [Right Finger] Pulse Rhythm Regular Pulse Rhythm [Right Finger] Pulse Strength Normal Pulse Strength [Right Finger] Respiratory Rate 19 Respiratory Effort / Characteristics Non-Labored Non-Labored Respiratory Depth Normal Respiratory Pattern Regular Regular Blood Pressure 138/91 Blood Pressure [Left Arm] Blood Pressure Mean 106 Blood Pressure Mean [Left Arm] Blood Pressure Position Lying Blood Pressure Position [Left Arm] Pulse Oximetry 96 Oxygen Delivery Method Room Air Room Air Sepsis Recent Fever Within 48 Hours No Sepsis New/Unexplained Change in Mental Status No Sepsis Action Taken by Nursing No Action Required 02/24/22 09:33 02/24/22 10:00 Temperature Temperature Source Pulse Rate Pulse Rate [Right Finger] 82 Pulse Rhythm Pulse Rhythm [Right Finger] Regular Pulse Strength Pulse Strength [Right Finger] Normal Respiratory Rate 18 Respiratory Effort / Characteristics Non-Labored Respiratory Depth Normal Respiratory Pattern Regular Blood Pressure Blood Pressure [Left Arm] 135/86 Blood Pressure Mean Blood Pressure Mean [Left Arm] 102 Blood Pressure Position Blood Pressure Position [Left Arm] Lying Pulse Oximetry 92 Oxygen Delivery Method Room Air Room Air Sepsis Recent Fever Within 48 Hours Sepsis New/Unexplained Change in Mental Status Sepsis Action Taken by Nursing Laboratory Data Result diagrams: 02/24/22 08:35 02/24/22 08:35 Lab Results 02/24/22 02/24/22 02/24/22 Range/Units 08:35 08:35 08:35 WBC 6.94 (4.8-10.8) K/ul RBC 4.04 (3.93-5.22) M/uL Hgb 12.5 (12.0-16.0) g/dl Hct 38.7 (34.1-44.9) % MCV 95.8 (80.0-100.0) fL MCH 30.9 (25.0-34.0) pg MCHC 32.3 (32.0-36.0) g/dL RDW Std Deviation 55.8 H (36.4-46.3) fL RDW Coeff of Bon 15.7 H (11.5-14.5) % Plt Count 151 (130-400) K/uL MPV 11.7 (9.4-12.3) fL Immature Gran % (Auto) 0.4 % Neut % (Auto) 49.7 % Lymph % (Auto) 31.1 % [place] % (Auto) 15.3 % Eos % (Auto) 2.9 % Baso % (Auto) 0.6 % Neut # (Auto) 3.45 (1.4-6.5) K/uL Lymph # (Auto) 2.16 (1.2-3.4) K/uL [place] # (Auto) 1.06 H (0.24-0.82) K/uL Eos # (Auto) 0.20 (0-0.50) K/uL Baso # (Auto) 0.04 (0-0.2) K/uL Immature Gran # (Auto) 0.03 H (0.00-0.02) K/uL PT 10.4 (9.0-12.0) Seconds INR 1.0 (0.9-1.1) Sodium 144 (136-145) mmol/L Potassium 3.9 (3.5-5.1) mmol/L Chloride 108 H (98-107) mmol/L Carbon Dioxide 28 (21-32) mmol/L Anion Gap 8 (3-11) BUN 36 H (6-23) mg/dl Creatinine 1.58 H (0.6-1.2) mg/dl Est Cr Clr Drug Dosing 29.1 ml/min Est GFR ( Amer) 34.0 ml/min Est GFR (Non-Af Amer) 29.3 ml/min BUN/Creatinine Ratio 22.8 H (10-20) Glucose 92 (70-99(Fasting)) mg/dl Calcium 8.9 (8.5-10.1) mg/dl Magnesium 2.0 (1.7-2.4) mg/dl Total Bilirubin 0.4 (0.2-1.0) mg/dl AST 25 (13-39) U/L ALT 18 (7-52) U/L Alkaline Phosphatase 63 (34-104) U/L Troponin I High Sens 12.2 (0-14) pg/ml Total Protein 6.3 (6.0-8.3) gm/dl Albumin 3.8 (3.4-5.0) gm/dl Globulin 2.5 (2.5-4.0) gm/dl Albumin/Globulin Ratio 1.5 (0.9-2) Lipase 71 (11-82) U/L TSH (0.300-4.500) uIu/ml SARS-CoV-2, RNA, NAAT (NEGATIVE) 02/24/22 02/24/22 Range/Units 09:16 09:33 WBC (4.8-10.8) K/ul RBC (3.93-5.22) M/uL Hgb (12.0-16.0) g/dl Hct (34.1-44.9) % MCV (80.0-100.0) fL MCH (25.0-34.0) pg MCHC (32.0-36.0) g/dL RDW Std Deviation (36.4-46.3) fL RDW Coeff of Bon (11.5-14.5) % Plt Count (130-400) K/uL MPV (9.4-12.3) fL Immature Gran % (Auto) % Neut % (Auto) % Lymph % (Auto) % [place] % (Auto) % Eos % (Auto) % Baso % (Auto) % Neut # (Auto) (1.4-6.5) K/uL Lymph # (Auto) (1.2-3.4) K/uL [place] # (Auto) (0.24-0.82) K/uL Eos # (Auto) (0-0.50) K/uL Baso # (Auto) (0-0.2) K/uL Immature Gran # (Auto) (0.00-0.02) K/uL PT (9.0-12.0) Seconds INR (0.9-1.1) Sodium (136-145) mmol/L Potassium (3.5-5.1) mmol/L Chloride (98-107) mmol/L Carbon Dioxide (21-32) mmol/L Anion Gap (3-11) BUN (6-23) mg/dl Creatinine (0.6-1.2) mg/dl Est Cr Clr Drug Dosing ml/min Est GFR ( Amer) ml/min Est GFR (Non-Af Amer) ml/min BUN/Creatinine Ratio (10-20) Glucose (70-99(Fasting)) mg/dl Calcium (8.5-10.1) mg/dl Magnesium (1.7-2.4) mg/dl Total Bilirubin (0.2-1.0) mg/dl AST (13-39) U/L ALT (7-52) U/L Alkaline Phosphatase (34-104) U/L Troponin I High Sens (0-14) pg/ml Total Protein (6.0-8.3) gm/dl Albumin (3.4-5.0) gm/dl Globulin (2.5-4.0) gm/dl Albumin/Globulin Ratio (0.9-2) Lipase (11-82) U/L TSH 3.127 (0.300-4.500) uIu/ml SARS-CoV-2, RNA, NAAT POSITIVE A* (NEGATIVE) Administered Medications Discontinued Medications Acetaminophen (Acetaminophen 500 Mg Tab) 1,000 mg PO NOW STA Stop: 02/24/22 10:31 Last Admin: 02/24/22 10:51 Dose: 1,000 mg Documented By: AP Dexamethasone Sodium Phosphate (DexamethasonePf 10 Mg/Ml Vial) 6 mg IV NOW ONE Stop: 02/24/22 10:31 Last Admin: 02/24/22 10:51 Dose: 6 mg Documented By: AP Guaifenesin (Guaifenesin 600 Mg Tabcr) 1,200 mg PO ONCE ONE Stop: 02/24/22 10:32 Last Admin: 02/24/22 10:51 Dose: 1,200 mg Documented By: NATHEN Sodium Chloride (Nss) 250 mls @ 999 mls/hr IV .Q16M ONE Stop: 02/24/22 10:45 Last Infusion: 02/24/22 11:15 Dose: 0 mls/hr Documented By: Admin: 02/24/22 10:52 Dose: 999 mls/hr Documented By: AP Imaging Data Radiologist's Impression: Chest X-Ray 02/24/22 08:40 SINGLE VIEW CHEST CLINICAL HISTORY: Generalized weakness. FINDINGS: An AP, portable, upright chest radiograph is compared to study dated 10/15/2020 and correlated with chest CT dated 02/05/2020. The examination is degraded by portable technique and patient rotation. The heart is enlarged noting atherosclerotic calcification of the thoracic aorta. The pulmonary vasculature is noncongested. Chronic interstitial thickening is similar to previous. There is chronic elevation of the right hemidiaphragm with bibasilar scarring/atelectasis. The lungs and pleural spaces are otherwise clear. No pneumothorax is seen. The bony thorax is grossly intact. A left shoulder arthroplasty is in place. Advanced arthritic change is seen in the right shoulder. IMPRESSION: Cardiomegaly with no active disease in the chest. ACT 112: Negative or not required by law. Electronically signed by: Ronak Montalvo M.D. 02/24/2022 9:20 AM Discharge Plan Visit Data Chief Complaint: Shortness of Breath/Dyspnea Stated Complaint: SOB, COUGH, COVID + ED Provider: Jose L Leonardo Discharge Problem: COVID-19, Cough, Weakness Patient Disposition: Being Evaluated by Hospitalist Forms Stand Alone Forms: My [facility] [employer] Prescriptions Prescriptions: No Action atorvastatin [Lipitor] 10 mg Tablet 10 mg PO 2XWK Qty: 0 metoprolol succinate [Toprol XL] 25 mg tablet extended release 24 hr 25 mg PO BID Qty: 0 multivitamin with minerals Tablet 1 tab PO QAM Qty: 0 Label Comments: WITH EXTRA LUTEIN Pt has not taken for some days due to not getting the medication from the store. Pt says that dosage varies by whatever the store has in stock that day. 05/08/19 memantine 10 mg tablet See Rx Instructions .ROUTE .COMPLEX Qty: 180 1RF Dose Instruction: TAKE 1 TABLET BY MOUTH TWICE A DAY Rx Instructions: TAKE 1 TABLET BY MOUTH TWICE A DAY nortriptyline 75 mg capsule 75 mg PO HS Qty: 30 5RF furosemide 20 mg tablet 20 mg PO DAILY PRN (Reason: edema) Qty: 30 5RF Rx Instructions: Take one pill only if you have swelling or weight gain. Take a potassium pill if you take furosemide. potassium chloride [K-Tab] 20 mEq tablet extended release 20 meq PO DAILY PRN (Reason: if take furosemide) Qty: 30 5RF Rx Instructions: Take 1 pill if you take furosemide. pregabalin 100 mg capsule 100 mg PO BID Qty: 60 5RF donepezil 10 mg tablet 10 mg PO HS Qty: 30 8RF levothyroxine [Synthroid] 75 mcg tablet 75 mcg PO QAM Qty: 90 3RF Rx Instructions: MUST BE BRAND NAME meloxicam 15 mg tablet 15 mg PO DAILY Qty: 30 3RF PreserVision AREDS [id number] Tablet 1 tab PO BID cyclosporine [Restasis] 0.05 % dropperette 1 drp OPB BID latanoprost [Xalatan] 0.005 % drops 1 drp OPB HS lutein 20 mg Tablet 20 mg PO QAM Referrals Referrals: Pancho Zimmer MD [Primary Care Provider] - : Cough Qualifiers: Cough type: acute Qualified Code(s): R05.1 - Acute cough
[2022-02-24 08:57] LABS: Prothrombin Time 10.4 Seconds (9.0-12.0)
[2022-02-24 09:19] LABS: Troponin I High Sensitivity 12.2 pg/ml (0-14)
--- NOTE | 2022-02-24 09:21 | XRay Report ---
SINGLE VIEW CHEST CLINICAL HISTORY: Generalized weakness. FINDINGS: An AP, portable, upright chest radiograph is compared to study dated 10/15/2020 and correlat ed with chest CT dated 02/05/2020. The examination is degraded by portable technique and patient rotat ion. The heart is enlarged noting atherosclerotic calcification of the thoracic aorta. The pulmonary vasculature is noncongested. Chronic interstitial thickening is similar to previous. There is chroni c elevation of the right hemidiaphragm with bibasilar scarring/atelectasis. The lungs and pleural [place] are otherwise clear. No pneumothorax is seen. The bony thorax is grossly intact. A left shoulder arthroplasty is in place. Advanced arthritic change is seen in the right shoulder. IMPRESSION: Cardiomegaly with no active disease in the chest. ACT 112: Negative or not required by law. Electronically signed by: Ronak Montalvo M.D. 02/24/2022 9:20 AM
[2022-02-24 09:24] LABS: Albumin Globulin Ratio 1.5 (0.9-2); Albumin Level 3.8 gm/dl (3.4-5.0); BUN Creatinine Ratio 22.8 (10-20); Bilirubin,Total 0.4 mg/dl (0.2-1.0); Calcium 8.9 mg/dl (8.5-10.1); Creatinine Clr Calc Pharmacy 29.1 ml/min; Est GFR (Non-African American) 29.3 ml/min; Globulin 2.5 gm/dl (2.5-4.0); Potassium 3.9 mmol/L (3.5-5.1); Total Protein 6.3 gm/dl (6.0-8.3)
[2022-02-24] MEDS ORDERED: SODIUM CHLORIDE 0.9% 250 ML IV ONE (10:30)
[2022-02-24] MEDS ORDERED: dexAMETHasone**PF** 10 MG/ML VIAL IV ONE (10:30)
[2022-02-24] MEDS ORDERED: ACETAMINOPHEN 500 MG TAB PO STA (10:30)
[2022-02-24] MEDS ORDERED: guaiFENesin 600 MG TABCR PO ONE (10:31)
--- NOTE | 2022-02-24 11:29 | History & Physical Report ---
Date of Service February 24, 2022 History of Present Illness Chief Complaint: shortness of breath Primary Care Provider: Pancho Zimmer MD Allergies Allergy/AdvReac Type Severity Reaction Status Date / Time Iodinated Contrast Media Allergy Severe ANAPHYLAXIS Verified 09/22/21 10:25 allopurinol AdvReac CAN NOT Verified 09/22/21 10:25 TAKE DUE TO KIDNEY FUNCTION Home Medications Medication Instructions Recorded Confirmed Type atorvastatin 10 mg tablet (Lipitor) 10 mg PO 2XWK #0 tabs 02/02/16 11/16/21 History vitamins A,C,Y-zlem-irbals 2,148 1 tab PO BID 06/16/18 11/16/21 History mcg-113 mg-45 mg-17.4 mg tablet (PreserVision AREDS) cyclosporine 0.05 % eye drops in a 1 drp OPB BID 02/05/19 11/16/21 History dropperette (Restasis) latanoprost 0.005 % eye drops 1 drp OPB HS 02/05/19 11/16/21 History (Xalatan) metoprolol succinate 25 mg 25 mg PO BID #0 tabs 07/01/19 11/16/21 History tablet,extended release 24 hr (Toprol XL) furosemide 20 mg tablet 20 mg PO DAILY PRN edema #30 tabs 01/15/20 11/16/21 Rx potassium chloride 20 mEq 20 meq PO DAILY PRN if take 01/15/20 11/16/21 Rx tablet,extended release (K-Tab) furosemide #30 tabs levothyroxine 75 mcg tablet 75 mcg PO QAM #90 tabs 04/22/20 11/16/21 Rx (Synthroid) multivitamin with minerals 1 tab PO QAM #0 tabs 04/22/20 11/16/21 History lutein 20 mg tablet 20 mg PO QAM 05/05/20 11/16/21 History nitroglycerin 0.4 mg sublingual 0.4 mg sublingual DIRECTED PRN 07/13/20 11/16/21 Rx tablet (Nitrostat) chest pain #25 tabs clonazepam 1 mg tablet 1 mg PO HS PRN Anxiety 05/10/21 11/16/21 History memantine 10 mg tablet See Rx Instructions .Route 08/25/21 11/16/21 Rx .COMPLEX #180 tabs donepezil 10 mg tablet 10 mg PO HS #30 tabs 11/16/21 11/16/21 Rx pregabalin 100 mg capsule 100 mg PO BID #60 caps 11/25/21 11/25/21 Rx meloxicam 15 mg tablet 15 mg PO DAILY #30 tabs 12/14/21 12/14/21 Rx nortriptyline 75 mg capsule 75 mg PO HS #30 caps 01/30/22 Rx Past Med/Surg History Medical History Actinic keratosis Alzheimer disease EARLY STAGES Asthma (12/23/12) PT DENIES Chronic fatigue Chronic kidney disease CVA (cerebral vascular accident) PER RECORD-PT DENIES ANY RESIDUAL PHYSICAL EFFECTS Cyst removed from left eye Diabetic retinopathy (12/23/12) Dyslipidemia Fall GERD (gastroesophageal reflux disease) (12/23/12) History of hyperparathyroidism w/ subsequent surgery at [facility] History of pulmonary embolus (PE) (12/23/12) History of SCC (squamous cell carcinoma) of skin Hypercalcemia Hyperparathyroidism Hypertension F/U DR NELDA RAMON Hypogammaglobulinemia Hypothyroidism Idiopathic polyneuropathy Lumbar stenosis Memory loss or impairment Midline low back pain with right-sided sciatica Protein S deficiency F/U [facility] [employer]BL[employer] Pulmonary nodules Rheumatoid arthritis Sinus infection Thoracic ascending aortic aneurysm TIA (transient ischemic attack) HX Urinary retention Vitamin D deficiency Xerostomia Surgical History History of bilateral knee replacement History of colonoscopy History of esophagogastroduodenoscopy (EGD) History of kidney surgery History of lumbar fusion History of right coronary artery stent placement Hx laparoscopic cholecystectomy Hx of hysterectomy Hx of shoulder surgery Hx of tonsillectomy Hx of total hip arthroplasty Family History Mother Family history of diabetes mellitus Other Family history non-contributory Social History Smoking Status: Never smoker Second Hand Exposure: No; Hx Alcohol Use: No Hx Substance Use: No Preferred Language: Italian Communication Ability: Effective Tile Conduit Layer Required: No Beliefs That Will Affect Care: Muslim Muslim Beliefs: PRESBYTERIAN marital status: Current Living Situation: Spouse current occupational status: retired Feels Safe at Home: Yes Assistive Devices: Glasses Results & Data Results & Data ([facility]) Vital Signs (Past 12 Hours) Vital Signs Temp Pulse Pulse Resp BP BP Pulse Ox 02/24/22 10:00 82 18 135/86 92 02/24/22 09:33 02/24/22 08:34 02/24/22 08:34 36.9 C 83 19 138/91 96 O2 Del Method 02/24/22 10:00 Room Air 02/24/22 09:33 Room Air 02/24/22 08:34 Room Air 02/24/22 08:34 Room Air
[2022-02-24] MEDS ORDERED: ALUMINUM/MAGNESIUM SUSP 30 ML UDC PO PRN (12:39)
[2022-02-24] MEDS ORDERED: MAGNESIUM HYDROXIDE SUSP 30 ML UDC PO PRN (12:39)
[2022-02-24] MEDS ORDERED: ACETAMINOPHEN 325 MG TAB PO PRN (12:39)
--- NOTE | 2022-02-24 12:40 | History & Physical Report ---
Date of Service February 24, 2022 Assessment & Plan (1) COVID-19: Admission and Anticipated Discharge Date Admission Date: Weakness COVID-19 infection Possible COVID-19 pneumonia Patient presenting with dry cough 2 to 3 days associated with weakness Patient has been vaccinated 4 times against COVID per her dtr. Admitting CXR with no acute chest disease, but occasional bilateral crackles on exam. Admitting Trop WNL, EKG with SR. Pt w/ no chest pain or palpitation. Get Pro-Ovidio, CRP, BNP. Incentive spirometer, flutter valve, symptomatic management for cough Continue with dexamethasone started in the ED on 02/24 Patient does not qualify for remdesivir due to her renal function, if it improves tomorrow, patient's daughter Yoon would like to be called prior to resuming remdesivir. PT/ot KELLEY over CKD stage III Admitting BUN and creatinine 36 and 1.58, baseline creatinine around 1.0 Likely prerenal secondary to acute illness and dehydration, will continue with gentle IV hydration Patient uses Lasix and potassium supplement as needed for BLE swelling but per daughter she has been giving them almost daily over the past week. BMP in a.m. hold nephrotoxic's. Renally dose meds. Other chronic medical conditions: Continue with/resume home meds as and when appropriate. Patient uses Lasix and potassium supplement as needed for BLE swelling. DVT prophylaxis: Heparin Full code History of Present Illness Chief Complaint: cough, weakness Primary Care Provider: Pancho Zimmer MD 86-year-old lady with PMH of memory loss or impairment, idiopathic polyneuropathy, abnormal gait, chronic gout, acquired hypothyroidism, HLD, PAF not on anticoagulation, CAD, esophageal motility disorder, GERD, chronic constipation, multiple renal cyst, CKD stage III, generalized OA, senile osteoporosis presented to our ED 02/24 with complaint of dry cough for 2 to 3 days associated with weakness and possible decreased appetite [per patient] but for daughter patient has been eating okay. No other review of symptoms are positive including fever/chills/chest pain/palpitations/belly pain/diarrhea/pain or burning while passing urine/skin rash or wound anywhere in the body. Patient appears to be forgetful more often though oriented x3 at bedside exam. Patient reports not taking any medications at home but when confirmed with her daughter over the phone, her daughter Yoon is giving her medications daily. Per her daughter, patient did not have history of smoking/using alcohol/using recreational drugs. Patient is full code. Family history positive for T2DM in patient's mother. Patient is vaccinated 4 times against COVID. Patient is started on dexamethasone in the ED, will continue with the same. Patient was using 2.5 L nasal cannula oxygen at bedside exam, per ED doctor, patient desaturates into mid 80s during bouts of cough. Patient's labs were fairly normal except for KELLEY noted, EGFR less than 30, hence remdesivir contraindicated for the time being. Allergies Allergy/AdvReac Type Severity Reaction Status Date / Time Iodinated Contrast Media Allergy Severe ANAPHYLAXIS Verified 09/22/21 10:25 allopurinol AdvReac CAN NOT Verified 09/22/21 10:25 TAKE DUE TO KIDNEY FUNCTION Home Medications Medication Instructions Recorded Confirmed Type atorvastatin 10 mg tablet (Lipitor) 10 mg PO 2XWK #0 tabs 02/02/16 02/24/22 History vitamins A,C,L-jhpx-gmkfxg 2,148 1 tab PO BID 06/16/18 02/24/22 History mcg-113 mg-45 mg-17.4 mg tablet (PreserVision AREDS) cyclosporine 0.05 % eye drops in a 1 drp OPB BID 02/05/19 02/24/22 History dropperette (Restasis) latanoprost 0.005 % eye drops 1 drp OPB HS 02/05/19 02/24/22 History (Xalatan) metoprolol succinate 25 mg 25 mg PO BID #0 tabs 07/01/19 02/24/22 History tablet,extended release 24 hr (Toprol XL) furosemide 20 mg tablet 20 mg PO DAILY PRN edema #30 tabs 01/15/20 02/24/22 Rx potassium chloride 20 mEq 20 meq PO DAILY PRN if take 01/15/20 02/24/22 Rx tablet,extended release (K-Tab) furosemide #30 tabs levothyroxine 75 mcg tablet 75 mcg PO QAM #90 tabs 04/22/20 02/24/22 Rx (Synthroid) multivitamin with minerals 1 tab PO QAM #0 tabs 04/22/20 02/24/22 History lutein 20 mg tablet 20 mg PO QAM 05/05/20 02/24/22 History memantine 10 mg tablet See Rx Instructions .Route 08/25/21 02/24/22 Rx .COMPLEX #180 tabs donepezil 10 mg tablet 10 mg PO HS #30 tabs 11/16/21 02/24/22 Rx pregabalin 100 mg capsule 100 mg PO BID #60 caps 11/25/21 02/24/22 Rx meloxicam 15 mg tablet 15 mg PO DAILY #30 tabs 12/14/21 02/24/22 Rx nortriptyline 75 mg capsule 75 mg PO HS #30 caps 01/30/22 02/24/22 Rx Past Med/Surg History Medical History Actinic keratosis Alzheimer disease EARLY STAGES Asthma (12/23/12) PT DENIES Chronic fatigue Chronic kidney disease CVA (cerebral vascular accident) PER RECORD-PT DENIES ANY RESIDUAL PHYSICAL EFFECTS Cyst removed from left eye Diabetic retinopathy (12/23/12) Dyslipidemia Fall GERD (gastroesophageal reflux disease) (12/23/12) History of hyperparathyroidism w/ subsequent surgery at [facility] History of pulmonary embolus (PE) (12/23/12) History of SCC (squamous cell carcinoma) of skin Hypercalcemia Hyperparathyroidism Hypertension F/U DR NELDA RAMON Hypogammaglobulinemia Hypothyroidism Idiopathic polyneuropathy Lumbar stenosis Memory loss or impairment Midline low back pain with right-sided sciatica Protein S deficiency F/U [facility] [employer] [facility] Pulmonary nodules Rheumatoid arthritis Sinus infection Thoracic ascending aortic aneurysm TIA (transient ischemic attack) HX Urinary retention Vitamin D deficiency Xerostomia Surgical History History of bilateral knee replacement History of colonoscopy History of esophagogastroduodenoscopy (EGD) History of kidney surgery History of lumbar fusion History of right coronary artery stent placement Hx laparoscopic cholecystectomy Hx of hysterectomy Hx of shoulder surgery Hx of tonsillectomy Hx of total hip arthroplasty Family History Mother Family history of diabetes mellitus Other Family history non-contributory Social History Smoking Status: Never smoker Second Hand Exposure: No; Hx Alcohol Use: No Hx Substance Use: No Preferred Language: Bolivian Communication Ability: Effective Liability Analyst Required: No Beliefs That Will Affect Care: Buddhism Buddhism Beliefs: PRESBYTERIAN marital status: Current Living Situation: Spouse current occupational status: retired Feels Safe at Home: Yes Assistive Devices: Glasses Review of Systems Review of Systems: Negative otherwise mentioned in HPI. Physical Exam Physical Exam: GENERAL: Alert and oriented x3. NAD, on 2.5L NC O2. Looks ill/frail/weak. HEENT: No pallor, no icterus. Pupils equal, round and reactive to light. Oral mucosa moist. NECK: No JVD, no neck masses. HEART: S1 and S2 heard. Regular rate and rhythm. No murmur, no gallop. RESPIRATORY SYSTEM: Normal AP diameter. No accessory muscle use. No wheezing, occasional bilateral crackles. ABDOMEN: Soft, bowel sounds present, nontender, no distention. CENTRAL NERVOUS SYSTEM: No facial droop. Speech is clear. Obeys simple commands. Moves extremities. EXTREMITIES: No edema, no erythema seen. LLE calf tender. Results & Data Results & Data ([facility]) Vital Signs (Past 12 Hours) Vital Signs Temp Pulse Pulse Resp BP BP Pulse Ox 02/24/22 10:00 82 18 135/86 92 02/24/22 09:33 02/24/22 08:34 02/24/22 08:34 36.9 C 83 19 138/91 96 O2 Del Method 02/24/22 10:00 Room Air 02/24/22 09:33 Room Air 02/24/22 08:34 Room Air 02/24/22 08:34 Room Air Code Status & VTE Plan VTE Prophylaxis Plan VTE Prophylaxis will be ordered: Yes
[2022-02-24] MEDS ORDERED: BENZONATATE 100 MG CAPSULE ONE (14:21)
[2022-02-24] MEDS: SODIUM CHLORIDE 0.9% 1000ML 1,000 ML IV SCH (14:32)
--- NOTE | 2022-02-24 15:03 | Electrocardiogram Report ---
Test Reason : Blood Pressure : / mmHG Vent. Rate : 081 BPM Atrial Rate : 081 BPM P-R Int : 222 ms QRS Dur : 126 ms QT Int : 382 ms P-R-T Axes : 020 -44 072 degrees QTc Int : 443 ms Sinus rhythm with 1st degree A-V block Left axis deviation Left ventricular hypertrophy with QRS widening Abnormal ECG When compared with ECG of 15-OCT-2020 03:56, WA interval has increased QRS duration has increased Confirmed by Donald Singer ([id number]) on 02/24/2022 3:02:54 PM Referred By: REFERRED SELF Confirmed By:Calin Singer
[2022-02-24] MEDS: BENZONATATE 100 MG CAPSULE PO SCH ×2 (15:40→20:56)
--- NOTE | 2022-02-24 17:44 | Ultrasound Report ---
LEFT LOWER EXTREMITY VENOUS DOPPLER HISTORY: Left leg pain. Calf tender during exam, r/o dvt COMPARISON STUDY: None. FINDINGS: There is normal compressibility, flow, and augmentation within the left lower extremity shankar p venous system. IMPRESSION: No DVT within the left lower extremity. ACT 112: Negative or not required by law. Electronically signed by: Rip Hester M.D. 02/24/2022 5:43 PM
--- NOTE | 2022-02-24 18:57 | XRay Report ---
XR chest 1V portable CLINICAL HISTORY: covid/shortness of breath TECHNIQUE: Single frontal radiograph of the chest was obtained. Comparison: Comparison is made to chest radiograph 02/24/2022 FINDINGS: Patient is status post left shoulder arthroplasty. The aorta is tortuous. The remainder of the cardio mediastinal silhouette is unremarkable. Cardiomegaly is again seen. Prominence and cephalization of t he vasculature is seen. Incidental note is made of eventration of the right hemidiaphragm. No evidenc e of pleural effusion or pneumothorax. IMPRESSION: Cardiomegaly with mild pulmonary edema. No radiographic evidence of pneumonia. ACT 112: Negative or not required by law. Electronically signed by: Derick Quintero M.D. 02/24/2022 6:56 PM
[2022-02-24] MEDS: METOPROLOL SUCC 25MG EXT REL TAB PO SCH (20:56)
[2022-02-24] MEDS: NORTRIPTYLINE HCL 25 MG CAP PO SCH (20:56)
[2022-02-24] MEDS: DONEPEZIL HCL 10 MG TAB PO SCH (20:56)
[2022-02-24] MEDS: HEPARIN SOD 5,000 UNIT/0.5 ML VIAL SQ SCH (20:56)
[2022-02-24] MEDS: MEMANTINE HCL 10 MG TAB PO SCH (20:56)
[2022-02-24] MEDS: guaiFENesin 600 MG TABCR PO SCH (20:57)
[2022-02-24] MEDS: LATANOPROST 0.005% OP SOLN 2.5 ML BTL OPB SCH (20:57)
[2022-02-24] MEDS ORDERED: NON-FORMULARY MEDICATION (Vitamins A,C,E-Zinc-Copper [Preservision Areds] 7,160-113-100 un PO SCH (21:00)
[2022-02-24] MEDS ORDERED: BENZOCAINE/MENTHOL 18 LOZ/1 BOX MT PRN (21:25)
[2022-02-24] MEDS: PREGABALIN 50 MG CAP PO SCH (21:39)
[2022-02-24] MEDS: guaiFENesin/DEXTROM SYRUP 100MG/10MG 5ML UDC PO PRN (22:14)
[2022-02-25] MEDS: SODIUM CHLORIDE 0.9% 1000ML 1,000 ML IV SCH (06:06)
[2022-02-25] MEDS: guaiFENesin/DEXTROM SYRUP 100MG/10MG 5ML UDC PO PRN (06:06)
[2022-02-25] MEDS: LEVOTHYROXINE SODIUM 75 MCG TABLET PO SCH (06:06)
--- NOTE | 2022-02-25 07:39 | Hospitalist Progress Note ---
Date of Service February 25, 2022 Assessment & Plan (1) COVID-19: Plan: Weakness COVID-19 infection Possible COVID-19 pneumonia Patient presenting with dry cough 2 to 3 days associated with weakness Patient has been vaccinated 4 times against COVID per her dtr. Admitting CXR with no acute chest disease, but occasional bilateral crackles on exam. Admitting Trop WNL, EKG with SR. Pt w/ no chest pain or palpitation. procalcitonin negative CRP 2.4, BNP 18 Incentive spirometer, flutter valve, symptomatic management for cough Continue with dexamethasone started in the ED on 02/24 Patient does not qualify for remdesivir as she is on RA PT/OT KELLEY over CKD stage III Admitting BUN and creatinine 36 and 1.58, baseline creatinine around 1.0 Current Cr 1.3 Likely prerenal secondary to acute illness and dehydration, gave gentle IV hydration Patient uses Lasix and potassium supplement as needed for BLE swelling but per daughter she has been giving them almost daily over the past week. Follow BMP hold nephrotoxic's. Renally dose meds. Other chronic medical conditions: Continue with/resume home meds as and when appropriate. Patient uses Lasix and potassium supplement as needed for BLE swelling. DVT prophylaxis:Heparin Full code Admission and Anticipated Discharge Date Admission Date: February 24, 2022 Subjective Pt seen in follow up of covid 19 infection, cough, hypoxia Currently lying in bed, in no acute distress, on room air Initially confused, was not sure where she was, then said that she was in the hospital Reports that she needs to talk to her family, made RN aware, who connected with the family Currently denies any fevers, chills, chest pain, shortness of breath, abdomen pain, nausea vomiting Reports poor appetite Review of Systems Review of Systems: All systems reviewed & are unremarkable except as noted in Subjective Physical Exam Physical Exam: GENERAL: elderly f rail F , Alert and oriented x3. NAD, on RA HEENT: NC/ AT. EOMI. Pupils e qual, round and re active to light. Oral mucosa moist. NECK: No JVD, no neck masses. HEAR T: S1 and S2 hear d. Regular rate a nd rhythm. No mur mur, no gallop. RE SPIRATORY: Normal AP diameter. No accessory muscle u se. No wheezing, occasional bilater al crackles. ABDOM EN: Soft, bowel s ounds present, non tender, no distent ion. NEURO: No fa cial droop. Speec h is clear. Obeys simple commands. Moves extremities . EXTREMITIES: No edema, no erythem a seen.moves extr emities Results & Data Results & Data ([facility]) Vital Signs (Past 12 Hours) Vital Signs Temp Pulse Pulse Resp BP Pulse Ox O2 Del Method 02/25/22 07:09 80 02/25/22 07:09 Room Air 02/25/22 03:29 36.6 C 82 18 155/88 H 92 Room Air 02/24/22 22:20 84 02/24/22 22:45 36.6 C 78 18 160/97 H 95 Room Air Laboratory Results 02/25/22 02/25/22 02/25/22 Range/Units 17:00 07:25 07:25 WBC 6.88 (4.8-10.8) K/ul RBC 3.90 L (3.93-5.22) M/uL Hgb 12.1 (12.0-16.0) g/dl Hct 36.7 (34.1-44.9) % MCV 94.1 (80.0-100.0) fL MCH 31.0 (25.0-34.0) pg MCHC 33.0 (32.0-36.0) g/dL RDW Std Deviation 50.4 H (36.4-46.3) fL RDW Coeff of Bon 14.5 (11.5-14.5) % Plt Count 158 (130-400) K/uL MPV 11.7 (9.4-12.3) fL Sodium 140 (136-145) mmol/L Potassium 4.2 (3.5-5.1) mmol/L Chloride 109 H (98-107) mmol/L Carbon Dioxide 24 (21-32) mmol/L Anion Gap 7 (3-11) BUN 38 H (6-23) mg/dl Creatinine 1.32 H (0.6-1.2) mg/dl Est Cr Clr Drug Dosing 34.8 ml/min Est GFR ( Amer) 42.2 ml/min Est GFR (Non-Af Amer) 36.4 ml/min BUN/Creatinine Ratio 28.8 H (10-20) Glucose 134 H (70-99(Fasting)) mg/dl Calcium 8.4 L (8.5-10.1) mg/dl Phosphorus 2.7 (2.5-4.9) mg/dl Magnesium 1.9 (1.7-2.4) mg/dl C-Reactive Protein 2.40 H (0-0.5) mg/dl Urine Color Yellow Urine Appearance Clear (Clear) Urine pH 7.0 (4.5-7.5) Ur Specific [place] 1.015 (1.000-1.030) Urine Protein Negative (Negative) Urine Glucose (UA) Negative (Negative) Urine Ketones Negative (Negative) Urine Blood Negative (Negative) Urine Nitrite Negative (Negative) Urine Bilirubin Negative (Negative) Urine Urobilinogen Negative (Negative) Ur Leukocyte Esterase Trace H (Negative) Urine WBC (Auto) 1-5 (0-5) /hpf Urine RBC (Auto) 5-10 H (0-4) /hpf U Hyaline Cast (Auto) 1-5 (0-5) /lpf U Epithel Cells (Auto) >30 H (0-5) /lpf Urine Bacteria (Auto) Negative (Negative) Medications Administered Current Inpatient Medications Acetaminophen (Acetaminophen 325 Mg Tab) 650 mg PO Q4H PRN PRN Reason: Pain or Fever Stop: 03/26/22 12:38 Al Hydrox/Mg Hydrox/Simethicone (Aluminum/Magnesium Susp 30 Ml Udc) 15 ml PO Q4H PRN PRN Reason: Dyspepsia Stop: 03/26/22 12:38 Atorvastatin Calcium (Atorvastatin 10 Mg Tab) 10 mg PO MoTh@0900 [facility] Stop: 03/29/22 08:59 Benzocaine (Benzocaine/Menthol 18 Esthela/1 Box) 1 esthela MT Q6 PRN PRN Reason: tongue Stop: 03/26/22 21:24 Last Admin: 02/24/22 22:15 Dose: 1 esthela Benzonatate (Benzonatate 100 Mg Capsule) 100 mg PO TID [facility] Stop: 03/26/22 13:59 Last Admin: 02/24/22 20:56 Dose: 100 mg Donepezil HCl (Donepezil Hcl 10 Mg Tab) 10 mg PO HS [facility] Stop: 03/26/22 20:59 Last Admin: 02/24/22 20:56 Dose: 10 mg Guaifenesin (Guaifenesin 600 Mg Tabcr) 600 mg PO Q12 [facility] Stop: 03/26/22 20:59 Last Admin: 02/24/22 20:57 Dose: 600 mg Guaifenesin/Dextromethorphan (Guaifenesin/Dextrom Syrup 100mg/10mg 5ml Udc) 5 ml PO Q6H PRN PRN Reason: Cough Stop: 03/26/22 21:24 Last Admin: 02/25/22 06:06 Dose: 5 ml Heparin Sodium (Porcine) (Heparin Sod 5,000 Unit/0.5 Ml Vial) 5,000 units SQ Q12 [facility] Stop: 03/26/22 20:59 Last Admin: 02/24/22 20:56 Dose: 5,000 units Dexamethasone 6 mg/ Syringe 1.5 mls @ 1 mls/min IV DAILY [facility] Stop: 03/27/22 08:59 Sodium Chloride (Nss 1000ml) 1,000 mls @ 60 mls/hr IV .[id number] [facility] Stop: 02/25/22 22:04 Last Admin: 02/25/22 06:06 Dose: 60 mls/hr Latanoprost (Latanoprost 0.005% Op Soln 2.5 Ml Btl) 1 drops OPB HS [facility] Stop: 03/26/22 20:59 Last Admin: 02/24/22 20:57 Dose: 1 drops Levothyroxine Sodium (Levothyroxine Sodium 75 Mcg Tablet) 75 mcg PO DAILYBB [facility] Stop: 03/27/22 06:29 Last Admin: 02/25/22 06:06 Dose: 75 mcg Magnesium Hydroxide (Magnesium Hydroxide Susp 30 Ml Udc) 30 ml PO Q12H PRN PRN Reason: Constipation Stop: 03/26/22 12:38 Memantine (Memantine Hcl 10 Mg Tab) 10 mg PO BID [facility] Stop: 03/26/22 20:59 Last Admin: 02/24/22 20:56 Dose: 10 mg Metoprolol Succinate (Metoprolol Succ 25mg Ext Rel Tab) 25 mg PO BID [facility] Stop: 03/26/22 20:59 Last Admin: 02/24/22 20:56 Dose: 25 mg Miscellaneous (Restasis Eye Drops: Order Awaiting Action) 1 each N/A DAILY [facility] Stop: 03/27/22 08:59 Multivitamins/Minerals (Cerovite Adv Formula Tab) 1 tab PO QAM [facility] Stop: 03/27/22 08:59 Nortriptyline HCl (Nortriptyline Hcl 25 Mg Cap) 75 mg PO HS [facility] Stop: 03/26/22 20:59 Last Admin: 02/24/22 20:56 Dose: 75 mg Pregabalin (Pregabalin 50 Mg Cap) 50 mg PO BID [facility] Stop: 03/26/22 20:59 Last Admin: 02/24/22 21:39 Dose: 50 mg
[2022-02-25 08:05] LABS: Hematocrit (blood only) 36.7 % (34.1-44.9); Hemoglobin 12.1 g/dl (12.0-16.0); Mean Corpuscular Volume 94.1 fL (80.0-100.0); Mean Platelet Volume 11.7 fL (9.4-12.3); Platelet Count 158 K/uL (130-400); RDW Coefficient of Variation 14.5 % (11.5-14.5); RDW Standard Deviation 50.4 fL (36.4-46.3); White Blood Count 6.88 K/ul (4.8-10.8)
--- NOTE | 2022-02-25 08:16 | XRay Report ---
XR chest 1V portable HISTORY: covid /shortness of breath COMPARISON: Chest 02/24/2022. FINDINGS: No pneumothorax. No pleural effusions. The heart remains mildly enlarged. There is a tortuo us thoracic aorta, unchanged. There is a left shoulder prosthesis and advanced degenerative changes a gain noted within the right shoulder. No new focal lung consolidations to suggest pneumonia. No evide nce for pulmonary edema. IMPRESSION: Stable mild cardiomegaly. Otherwise, no acute process within the chest. ACT 112: Negative or not required by law. Electronically signed by: Rip Hester M.D. 02/25/2022 8:15 AM
[2022-02-25 08:36] LABS: BUN Creatinine Ratio 28.8 (10-20); C Reactive Protein 2.4 mg/dl (0-0.5); Calcium 8.4 mg/dl (8.5-10.1); Creatinine Clr Calc Pharmacy 34.8 ml/min; Est GFR (African American) 42.2 ml/min; Est GFR (Non-African American) 36.4 ml/min; Magnesium 1.9 mg/dl (1.7-2.4); Phosphorus 2.7 mg/dl (2.5-4.9); Potassium 4.2 mmol/L (3.5-5.1)
[2022-02-25] MEDS: MEMANTINE HCL 10 MG TAB PO SCH ×2 (09:31→21:08)
[2022-02-25] MEDS: BENZONATATE 100 MG CAPSULE PO SCH ×3 (09:31→21:08)
[2022-02-25] MEDS: PREGABALIN 50 MG CAP PO SCH ×2 (09:31→21:19)
[2022-02-25] MEDS: CEROVITE ADV FORMULA TAB PO SCH (09:32)
[2022-02-25] MEDS: HEPARIN SOD 5,000 UNIT/0.5 ML VIAL SQ SCH ×2 (09:32→21:08)
[2022-02-25] MEDS: dexAMETHasone 6 MG in SYRINGE 0 ML IV SCH (09:32)
[2022-02-25] MEDS: guaiFENesin 600 MG TABCR PO SCH ×2 (09:32→21:08)
[2022-02-25] MEDS: METOPROLOL SUCC 25MG EXT REL TAB PO SCH ×2 (09:32→21:08)
[2022-02-25] MEDS: RESTASIS EYE DROPS: ORDER AWAITING ACTION SCH (09:32)
[2022-02-25 17:25] LABS: Appearance Urine Clear (Clear); Bacteria Urine Automated Negative (Negative); Bilirubin Urine Negative (Negative); Blood Urine Negative (Negative); Color Urine Yellow; Epithelial Cell Urine Auto >30 /lpf (0-5); Glucose Urine UA Negative (Negative); Ketones Urine Negative (Negative); Leukocyte Esterase Urine Trace (Negative); Nitrite Urine Negative (Negative); Protein Urine Negative (Negative); Specific Gravity Urine 1.015 (1.000-1.030); Urobilinogen Urine Negative (Negative)
[2022-02-25] MEDS: DONEPEZIL HCL 10 MG TAB PO SCH (21:08)
[2022-02-25] MEDS: NORTRIPTYLINE HCL 25 MG CAP PO SCH (21:08)
[2022-02-25] MEDS: LATANOPROST 0.005% OP SOLN 2.5 ML BTL OPB SCH (21:09)
[2022-02-25] MEDS ORDERED: QUEtiapine FUMARATE 25 MG TABLET PO PRN (23:33)
[2022-02-26] MEDS ORDERED: HALOPERIDOL LACTATE 5 MG/ML 1 ML VIAL IM ONE (00:32)
[2022-02-26] MEDS: LEVOTHYROXINE SODIUM 75 MCG TABLET PO SCH (06:23)
[2022-02-26 07:35] LABS: Hematocrit (blood only) 37.6 % (34.1-44.9); Hemoglobin 12.5 g/dl (12.0-16.0); Mean Corpuscular Hemoglobin 30.7 pg (25.0-34.0); Mean Corpuscular Hgb Conc 33.2 g/dL (32.0-36.0); Mean Corpuscular Volume 92.4 fL (80.0-100.0); Mean Platelet Volume 12.1 fL (9.4-12.3); Platelet Count 192 K/uL (130-400); RDW Coefficient of Variation 14.7 % (11.5-14.5); Red Blood Count 4.07 M/uL (3.93-5.22); White Blood Count 10.06 K/ul (4.8-10.8)
[2022-02-26] MEDS: CEROVITE ADV FORMULA TAB PO SCH (08:01)
[2022-02-26] MEDS: METOPROLOL SUCC 25MG EXT REL TAB PO SCH ×2 (08:01→20:27)
[2022-02-26] MEDS: dexAMETHasone 6 MG in SYRINGE 0 ML IV SCH (08:02)
[2022-02-26] MEDS: MEMANTINE HCL 10 MG TAB PO SCH ×2 (08:02→20:27)
[2022-02-26] MEDS: guaiFENesin 600 MG TABCR PO SCH ×2 (08:02→20:27)
[2022-02-26] MEDS: HEPARIN SOD 5,000 UNIT/0.5 ML VIAL SQ SCH ×2 (08:02→20:27)
[2022-02-26] MEDS: RESTASIS EYE DROPS: ORDER AWAITING ACTION SCH (08:03)
[2022-02-26 08:08] LABS: BUN Creatinine Ratio 30.8 (10-20); Creatinine Clr Calc Pharmacy 42.9 ml/min; Est GFR (African American) 54.4 ml/min; Magnesium 2.1 mg/dl (1.7-2.4); Phosphorus 3.2 mg/dl (2.5-4.9); Potassium 4.1 mmol/L (3.5-5.1)
--- NOTE | 2022-02-26 08:13 | Hospitalist Progress Note ---
Date of Service February 26, 2022 Assessment & Plan (1) COVID-19: Plan: Weakness COVID-19 infection Possible COVID-19 pneumonia Patient presenting with dry cough 2 to 3 days associated with weakness Patient has been vaccinated 4 times against COVID per her dtr. Admitting CXR with no acute chest disease, but occasional bilateral crackles on exam. Admitting Trop WNL, EKG with SR. Pt w/ no chest pain or palpitation. procalcitonin negative CRP 2.4, BNP 18 Incentive spirometer, flutter valve, symptomatic management for cough Continued with dexamethasone started in the ED on 02/24, initially - >will stop now as patient is breathing comfortably on room air, and will try to avoid steroids in elderly patient like this Patient does not qualify for remdesivir as she is on RA PT/OT KELLEY over CKD stage III - resolved Admitting BUN and creatinine 36 and 1.58, baseline creatinine around 1.0 Current Cr 1.0 Likely prerenal secondary to acute illness and dehydration, gave gentle IV hydration Patient uses Lasix and potassium supplement as needed for BLE swelling but per daughter she has been giving them almost daily over the past week. Follow BMP hold nephrotoxic's. Renally dose meds. Other chronic medical conditions: Continue with/resume home meds as and when appropriate. Patient uses Lasix and potassium supplement as needed for BLE swelling. DVT prophylaxis:Heparin Full code Admission and Anticipated Discharge Date Admission Date: February 24, 2022 Subjective Pt seen in follow up of covid 19 infection, cough, hypoxia Currently lying in bed, in no acute distress, on room air Confused on and off but able to answer simple questions appropriately Currently denies any fevers, chills, chest pain, shortness of breath, abdomen pain, nausea vomiting Reports poor appetite Daughter is out of town, for wedding. Son-in-law present at home, currently taking care of patient's who also has COVID. CM aware. Review of Systems Review of Systems: All systems reviewed & are unremarkable except as noted in Subjective Physical Exam Physical Exam: GENERAL: elderly f rail F , Alert and oriented x3. NAD, on RA HEENT: NC/ AT. EOMI. Pupils e qual, round and re active to light. Oral mucosa moist. NECK: No JVD, no neck masses. HEAR T: S1 and S2 hear d. Regular rate a nd rhythm. No mur mur, no gallop. RE SPIRATORY: Normal AP diameter. No accessory muscle u se. No wheezing, occasional bilater al crackles. ABDOM EN: Soft, bowel s ounds present, non tender, no distent ion. NEURO: No fa cial droop. Speec h is clear. Obeys simple commands. Moves extremities . EXTREMITIES: No edema, no erythem a seen.moves extr emities Results & Data Results & Data ([facility]) Vital Signs (Past 12 Hours) Vital Signs Temp Pulse Pulse Resp BP Pulse Ox O2 Del Method 02/25/22 23:10 71 02/25/22 22:15 36.8 C 78 18 167/101 H 95 Room Air Laboratory Results 02/26/22 02/26/22 02/25/22 Range/Units 06:49 06:49 17:00 WBC 10.06 (4.8-10.8) K/ul RBC 4.07 (3.93-5.22) M/uL Hgb 12.5 (12.0-16.0) g/dl Hct 37.6 (34.1-44.9) % MCV 92.4 (80.0-100.0) fL MCH 30.7 (25.0-34.0) pg MCHC 33.2 (32.0-36.0) g/dL RDW Std Deviation 50.0 H (36.4-46.3) fL RDW Coeff of Bon 14.7 H (11.5-14.5) % Plt Count 192 (130-400) K/uL MPV 12.1 (9.4-12.3) fL Sodium 140 (136-145) mmol/L Potassium 4.1 (3.5-5.1) mmol/L Chloride 109 H (98-107) mmol/L Carbon Dioxide 23 (21-32) mmol/L Anion Gap 8 (3-11) BUN 33 H (6-23) mg/dl Creatinine 1.07 (0.6-1.2) mg/dl Est Cr Clr Drug Dosing 42.9 ml/min Est GFR ( Amer) 54.4 ml/min Est GFR (Non-Af Amer) 47.0 ml/min BUN/Creatinine Ratio 30.8 H (10-20) Glucose 111 H (70-99(Fasting)) mg/dl Calcium 9.0 (8.5-10.1) mg/dl Phosphorus 3.2 (2.5-4.9) mg/dl Magnesium 2.1 (1.7-2.4) mg/dl C-Reactive Protein (0-0.5) mg/dl Urine Color Yellow Urine Appearance Clear (Clear) Urine pH 7.0 (4.5-7.5) Ur Specific [place] 1.015 (1.000-1.030) Urine Protein Negative (Negative) Urine Glucose (UA) Negative (Negative) Urine Ketones Negative (Negative) Urine Blood Negative (Negative) Urine Nitrite Negative (Negative) Urine Bilirubin Negative (Negative) Urine Urobilinogen Negative (Negative) Ur Leukocyte Esterase Trace H (Negative) Urine WBC (Auto) 1-5 (0-5) /hpf Urine RBC (Auto) 5-10 H (0-4) /hpf U Hyaline Cast (Auto) 1-5 (0-5) /lpf U Epithel Cells (Auto) >30 H (0-5) /lpf Urine Bacteria (Auto) Negative (Negative) 02/25/22 Range/Units 07:25 WBC (4.8-10.8) K/ul RBC (3.93-5.22) M/uL Hgb (12.0-16.0) g/dl Hct (34.1-44.9) % MCV (80.0-100.0) fL MCH (25.0-34.0) pg MCHC (32.0-36.0) g/dL RDW Std Deviation (36.4-46.3) fL RDW Coeff of Bon (11.5-14.5) % Plt Count (130-400) K/uL MPV (9.4-12.3) fL Sodium 140 (136-145) mmol/L Potassium 4.2 (3.5-5.1) mmol/L Chloride 109 H (98-107) mmol/L Carbon Dioxide 24 (21-32) mmol/L Anion Gap 7 (3-11) BUN 38 H (6-23) mg/dl Creatinine 1.32 H (0.6-1.2) mg/dl Est Cr Clr Drug Dosing 34.8 ml/min Est GFR ( Amer) 42.2 ml/min Est GFR (Non-Af Amer) 36.4 ml/min BUN/Creatinine Ratio 28.8 H (10-20) Glucose 134 H (70-99(Fasting)) mg/dl Calcium 8.4 L (8.5-10.1) mg/dl Phosphorus 2.7 (2.5-4.9) mg/dl Magnesium 1.9 (1.7-2.4) mg/dl C-Reactive Protein 2.40 H (0-0.5) mg/dl Urine Color Urine Appearance (Clear) Urine pH (4.5-7.5) Ur Specific [place] (1.000-1.030) Urine Protein (Negative) Urine Glucose (UA) (Negative) Urine Ketones (Negative) Urine Blood (Negative) Urine Nitrite (Negative) Urine Bilirubin (Negative) Urine Urobilinogen (Negative) Ur Leukocyte Esterase (Negative) Urine WBC (Auto) (0-5) /hpf Urine RBC (Auto) (0-4) /hpf U Hyaline Cast (Auto) (0-5) /lpf U Epithel Cells (Auto) (0-5) /lpf Urine Bacteria (Auto) (Negative) Medications Administered Current Inpatient Medications Acetaminophen (Acetaminophen 325 Mg Tab) 650 mg PO Q4H PRN PRN Reason: Pain or Fever Stop: 03/26/22 12:38 Al Hydrox/Mg Hydrox/Simethicone (Aluminum/Magnesium Susp 30 Ml Udc) 15 ml PO Q4H PRN PRN Reason: Dyspepsia Stop: 03/26/22 12:38 Atorvastatin Calcium (Atorvastatin 10 Mg Tab) 10 mg PO MoTh@0900 [facility] Stop: 03/29/22 08:59 Benzocaine (Benzocaine/Menthol 18 Esthela/1 Box) 1 esthela MT Q6 PRN PRN Reason: tongue Stop: 03/26/22 21:24 Last Admin: 02/24/22 22:15 Dose: 1 esthela Benzonatate (Benzonatate 100 Mg Capsule) 100 mg PO TID [facility] Stop: 03/26/22 13:59 Last Admin: 02/25/22 21:08 Dose: 100 mg Donepezil HCl (Donepezil Hcl 10 Mg Tab) 10 mg PO HS [facility] Stop: 03/26/22 20:59 Last Admin: 02/25/22 21:08 Dose: 10 mg Guaifenesin (Guaifenesin 600 Mg Tabcr) 600 mg PO Q12 ABNER Stop: 03/26/22 20:59 Last Admin: 02/25/22 21:08 Dose: 600 mg Guaifenesin/Dextromethorphan (Guaifenesin/Dextrom Syrup 100mg/10mg 5ml Udc) 5 ml PO Q6H PRN PRN Reason: Cough Stop: 03/26/22 21:24 Last Admin: 02/25/22 06:06 Dose: 5 ml Heparin Sodium (Porcine) (Heparin Sod 5,000 Unit/0.5 Ml Vial) 5,000 units SQ Q12 ABNER Stop: 03/26/22 20:59 Last Admin: 02/25/22 21:08 Dose: 5,000 units Dexamethasone 6 mg/ Syringe 1.5 mls @ 1 mls/min IV DAILY ABNER Stop: 03/27/22 08:59 Last Admin: 02/25/22 09:32 Dose: 1 mls/min Latanoprost (Latanoprost 0.005% Op Soln 2.5 Ml Btl) 1 drops OPB HS ABNER Stop: 03/26/22 20:59 Last Admin: 02/25/22 21:09 Dose: 1 drops Levothyroxine Sodium (Levothyroxine Sodium 75 Mcg Tablet) 75 mcg PO DAILYBB ABNER Stop: 03/27/22 06:29 Last Admin: 02/26/22 06:23 Dose: 75 mcg Magnesium Hydroxide (Magnesium Hydroxide Susp 30 Ml Udc) 30 ml PO Q12H PRN PRN Reason: Constipation Stop: 03/26/22 12:38 Memantine (Memantine Hcl 10 Mg Tab) 10 mg PO BID ABNER Stop: 03/26/22 20:59 Last Admin: 02/25/22 21:08 Dose: 10 mg Metoprolol Succinate (Metoprolol Succ 25mg Ext Rel Tab) 25 mg PO BID ABNER Stop: 03/26/22 20:59 Last Admin: 02/25/22 21:08 Dose: 25 mg Miscellaneous (Restasis Eye Drops: Order Awaiting Action) 1 each N/A DAILY ABNER Stop: 03/27/22 08:59 Last Admin: 02/25/22 09:32 Dose: 1 each Multivitamins/Minerals (Cerovite Adv Formula Tab) 1 tab PO QAM ABNER Stop: 03/27/22 08:59 Last Admin: 02/25/22 09:32 Dose: 1 tab Nortriptyline HCl (Nortriptyline Hcl 25 Mg Cap) 75 mg PO HS ABNER Stop: 03/26/22 20:59 Last Admin: 02/25/22 21:08 Dose: 75 mg Pregabalin (Pregabalin 50 Mg Cap) 50 mg PO BID ABNER Stop: 03/26/22 20:59 Last Admin: 02/25/22 21:19 Dose: 50 mg
[2022-02-26] MEDS: BENZONATATE 100 MG CAPSULE PO SCH ×3 (08:24→20:31)
[2022-02-26] MEDS: PREGABALIN 50 MG CAP PO SCH ×2 (08:24→20:32)
[2022-02-26] MEDS ORDERED: OLANZapine 5 MG TABLET PO PRN (19:23)
[2022-02-26] MEDS: NORTRIPTYLINE HCL 25 MG CAP PO SCH (20:27)
[2022-02-26] MEDS: DONEPEZIL HCL 10 MG TAB PO SCH (20:27)
[2022-02-26] MEDS: LATANOPROST 0.005% OP SOLN 2.5 ML BTL OPB SCH (20:28)
[2022-02-27] MEDS: guaiFENesin/DEXTROM SYRUP 100MG/10MG 5ML UDC PO PRN (03:46)
--- NOTE | 2022-02-27 08:36 | Hospitalist Progress Note ---
Date of Service February 27, 2022 Assessment & Plan (1) COVID-19: Plan: Weakness COVID-19 infection Possible COVID-19 pneumonia Patient presenting with dry cough 2 to 3 days associated with weakness Patient has been vaccinated 4 times against COVID per her dtr. Admitting CXR with no acute chest disease, but occasional bilateral crackles on exam. Admitting Trop WNL, EKG with SR. Pt w/ no chest pain or palpitation. procalcitonin negative CRP 2.4, BNP 18 Incentive spirometer, flutter valve, symptomatic management for cough Continued with dexamethasone started in the ED on 02/24, initially - > stopped as patient is breathing comfortably on room air, and will try to avoid steroids in elderly patient like this Patient does not qualify for remdesivir as she is on RA PT/OT KELLEY over CKD stage III - resolved Admitting BUN and creatinine 36 and 1.58, baseline creatinine around 1.0 Current Cr 1.0 Likely prerenal secondary to acute illness and dehydration, gave gentle IV hydration Patient uses Lasix and potassium supplement as needed for BLE swelling but per daughter she has been giving them almost daily over the past week. Follow BMP hold nephrotoxic's. Renally dose meds. Other chronic medical conditions: Continue with/resume home meds as and when appropriate. Patient uses Lasix and potassium supplement as needed for BLE swelling. DVT prophylaxis:Heparin Full code Admission and Anticipated Discharge Date Admission Date: February 24, 2022 Subjective Pt seen in follow up of covid 19 infection, cough, hypoxia Currently lying in bed, in no acute distress, on room air Confused on and off but able to answer simple questions appropriately Currently denies any fevers, chills, chest pain, shortness of breath, abdomen pain, nausea vomiting Reports poor appetite Also reports feeling weak. Patient has home health care per daughter. Per daughter, patient can come back home. CM aware. Review of Systems Review of Systems: All systems reviewed & are unremarkable except as noted in Subjective Physical Exam Physical Exam: GENERAL: elderly f rail F , Alert and oriented x3. NAD, on RA HEENT: NC/ AT. EOMI. Pupils e qual, round and re active to light. Oral mucosa moist. NECK: No JVD, no neck masses. HEAR T: S1 and S2 hear d. Regular rate a nd rhythm. No mur mur, no gallop. RE SPIRATORY: Normal AP diameter. No accessory muscle u se. No wheezing, occasional bilater al crackles. ABDOM EN: Soft, bowel s ounds present, non tender, no distent ion. NEURO: No fa cial droop. Speec h is clear. Obeys simple commands. Moves extremities . EXTREMITIES: No edema, no erythem a seen.moves extr emities Results & Data Results & Data ([facility]) Vital Signs (Past 12 Hours) Vital Signs Temp Pulse Pulse Resp BP Pulse Ox O2 Del Method 02/27/22 07:45 36.8 C 64 17 152/88 H 95 Room Air 02/27/22 03:45 36.5 C 67 18 153/89 H 93 Room Air 02/26/22 22:05 65 02/26/22 23:17 37.1 C 72 18 134/78 94 Room Air Medications Administered Current Inpatient Medications Acetaminophen (Acetaminophen 325 Mg Tab) 650 mg PO Q4H PRN PRN Reason: Pain or Fever Stop: 03/26/22 12:38 Al Hydrox/Mg Hydrox/Simethicone (Aluminum/Magnesium Susp 30 Ml Udc) 15 ml PO Q4H PRN PRN Reason: Dyspepsia Stop: 03/26/22 12:38 Atorvastatin Calcium (Atorvastatin 10 Mg Tab) 10 mg PO MoTh@0900 [facility] Stop: 03/29/22 08:59 Benzocaine (Benzocaine/Menthol 18 Esthela/1 Box) 1 esthela MT Q6 PRN PRN Reason: tongue Stop: 03/26/22 21:24 Last Admin: 02/24/22 22:15 Dose: 1 esthela Benzonatate (Benzonatate 100 Mg Capsule) 100 mg PO TID ABNER Stop: 03/26/22 13:59 Last Admin: 02/26/22 20:31 Dose: 100 mg Donepezil HCl (Donepezil Hcl 10 Mg Tab) 10 mg PO HS ABNER Stop: 03/26/22 20:59 Last Admin: 02/26/22 20:27 Dose: 10 mg Guaifenesin (Guaifenesin 600 Mg Tabcr) 600 mg PO Q12 ABNER Stop: 03/26/22 20:59 Last Admin: 02/26/22 20:27 Dose: 600 mg Guaifenesin/Dextromethorphan (Guaifenesin/Dextrom Syrup 100mg/10mg 5ml Udc) 5 ml PO Q6H PRN PRN Reason: Cough Stop: 03/26/22 21:24 Last Admin: 02/27/22 03:46 Dose: 5 ml Heparin Sodium (Porcine) (Heparin Sod 5,000 Unit/0.5 Ml Vial) 5,000 units SQ Q12 ABNER Stop: 03/26/22 20:59 Last Admin: 02/26/22 20:27 Dose: 5,000 units Latanoprost (Latanoprost 0.005% Op Soln 2.5 Ml Btl) 1 drops OPB HS ABNER Stop: 03/26/22 20:59 Last Admin: 02/26/22 20:28 Dose: 1 drops Levothyroxine Sodium (Levothyroxine Sodium 75 Mcg Tablet) 75 mcg PO DAILYBB ABNER Stop: 03/27/22 06:29 Last Admin: 02/26/22 06:23 Dose: 75 mcg Magnesium Hydroxide (Magnesium Hydroxide Susp 30 Ml Udc) 30 ml PO Q12H PRN PRN Reason: Constipation Stop: 03/26/22 12:38 Memantine (Memantine Hcl 10 Mg Tab) 10 mg PO BID ABNER Stop: 03/26/22 20:59 Last Admin: 02/26/22 20:27 Dose: 10 mg Metoprolol Succinate (Metoprolol Succ 25mg Ext Rel Tab) 25 mg PO BID ABNER Stop: 03/26/22 20:59 Last Admin: 02/26/22 20:27 Dose: 25 mg Miscellaneous (Restasis Eye Drops: Order Awaiting Action) 1 each N/A DAILY ABNER Stop: 03/27/22 08:59 Last Admin: 02/26/22 08:03 Dose: Not Given Multivitamins/Minerals (Cerovite Adv Formula Tab) 1 tab PO QAM ABNER Stop: 03/27/22 08:59 Last Admin: 02/26/22 08:01 Dose: 1 tab Nortriptyline HCl (Nortriptyline Hcl 25 Mg Cap) 75 mg PO HS ABNER Stop: 03/26/22 20:59 Last Admin: 02/26/22 20:27 Dose: 75 mg Olanzapine (Olanzapine 5 Mg Tablet) 5 mg PO HS PRN PRN Reason: Agitation Stop: 03/28/22 20:59 Last Admin: 02/26/22 20:27 Dose: 5 mg Pregabalin (Pregabalin 50 Mg Cap) 50 mg PO BID ABNER Stop: 03/26/22 20:59 Last Admin: 02/26/22 20:32 Dose: 50 mg
[2022-02-27] MEDS ORDERED: ATORVASTATIN 10 MG TAB PO SCH (09:00)
[2022-02-27] MEDS: HEPARIN SOD 5,000 UNIT/0.5 ML VIAL SQ SCH (10:24)
[2022-02-27] MEDS: MEMANTINE HCL 10 MG TAB PO SCH (10:25)
[2022-02-27] MEDS: guaiFENesin 600 MG TABCR PO SCH (10:25)
[2022-02-27] MEDS: LEVOTHYROXINE SODIUM 75 MCG TABLET PO SCH (10:25)
[2022-02-27] MEDS: CEROVITE ADV FORMULA TAB PO SCH (10:25)
[2022-02-27] MEDS: RESTASIS EYE DROPS: ORDER AWAITING ACTION SCH (10:27)
[2022-02-27] MEDS: BENZONATATE 100 MG CAPSULE PO SCH ×2 (10:35→14:01)
[2022-02-27] MEDS: PREGABALIN 50 MG CAP PO SCH (10:35)
[2022-02-27] MEDS: METOPROLOL SUCC 25MG EXT REL TAB PO SCH (11:52)
--- NOTE | 2022-02-27 13:31 | Discharge Summary ---
Date of Service February 27, 2022 Admission HPI Per Admitting Provider 86-year-old lady with PMH of memory loss or impairment, idiopathic polyneuropathy, abnormal gait, chronic gout, acquired hypothyroidism, HLD, PAF not on anticoagulation, CAD, esophageal motility disorder, GERD, chronic constipation, multiple renal cyst, CKD stage III, generalized OA, senile osteoporosis presented to our ED 02/24 with complaint of dry cough for 2 to 3 days associated with weakness and possible decreased appetite [per patient] but for daughter patient has been eating okay. No other review of symptoms are positive including fever/chills/chest pain/palpitations/belly pain/diarrhea/pain or burning while passing urine/skin rash or wound anywhere in the body. Patient appears to be forgetful more often though oriented x3 at bedside exam. Patient reports not taking any medications at home but when confirmed with her daughter over the phone, her daughter Yoon is giving her medications daily. Per her daughter, patient did not have history of smoking/using alcohol/using recreational drugs. Patient is full code. Family history positive for T2DM in patient's mother. Patient is vaccinated 4 times against COVID. Patient is started on dexamethasone in the ED, will continue with the same. P atient was using 2.5 L nasal cannula oxygen at bedside exam, per ED doctor, patient desaturates into mid 80s during bouts of cough. Patient's labs were fairly normal except for KELLEY noted, EGFR less than 30, hence remdesivir contraindicated for the time being. Admission Exam Per Admitting Provider GENERAL: Alert and oriented x3. NAD, on 2.5L NC O2. Looks ill/frail/weak. HEENT: No pallor, no icterus. Pupils equal, round and reactive to light. Oral mucosa moist. NECK: No JVD, no neck masses. HEART: S1 and S2 heard. Regular rate and rhythm. No murmur, no gallop. RESPIRATORY SYSTEM: Normal AP diameter. No accessory muscle use. No wheezing, occasional bilateral crackles. ABDOMEN: Soft, bowel sounds present, nontender, no distention. CENTRAL NERVOUS SYSTEM: No facial droop. Speech is clear. Obeys simple commands. Moves extremities. EXTREMITIES: No edema, no erythema seen. LLE calf tender. Principal Diagnosis Covid 19 infection weakness Discharge Exam GENERAL: elderly frail F , Alert and oriented x3. NAD, on RA HEENT: NC/AT. EOMI. Pupils equal, round and reactive to light. Oral mucosa moist. NECK: No JVD, no neck masses. HEART: S1 and S2 heard. Regular rate and rhythm. No murmur, no gallop. RESPIRATORY: Normal AP diameter. No accessory muscle use. No wheezing, occasional bilateral crackles. ABDOMEN: Soft, bowel sounds present, nontender, no distention. NEURO: No facial droop. Speech is clear. Obeys simple commands. Moves extremities. EXTREMITIES: No edema, no erythema seen.moves extremities Discharge Data Allergies Allergy/AdvReac Type Severity Reaction Status Date / Time Iodinated Contrast Media Allergy Severe ANAPHYLAXIS Verified 09/22/21 10:25 allopurinol AdvReac CAN NOT Verified 09/22/21 10:25 TAKE DUE TO KIDNEY FUNCTION Consultations 02/24/22 11:35 ED Decision to Admit Stat Ordered Studies 02/24/22 16:00 US venous doppler LE LT Routine FINDINGS: There is normal compressibility, flow, and augmentation within the left lower extremity deep venous system. IMPRESSION: No DVT within the left lower extremity. Hospital Course (1) COVID-19: Weakness COVID-19 infection Possible COVID-19 pneumonia Patient presenting with dry cough 2 to 3 days associated with weakness Patient has been vaccinated 4 times against COVID per her dtr. Admitting CXR with no acute chest disease, but occasional bilateral crackles on exam. Admitting Trop WNL, EKG with SR. Pt w/ no chest pain or palpitation. procalcitonin negative CRP 2.4, BNP 18 Incentive spirometer, flutter valve, symptomatic management for cough Continued with dexamethasone started in the ED on 02/24, initially - > stopped as patient is breathing comfortably on room air, and will try to avoid steroids in elderly patient like this Patient does not qualify for remdesivir as she is on RA PT/OT KELLEY over CKD stage III - resolved Admitting BUN and creatinine 36 and 1.58, baseline creatinine around 1.0 Current Cr 1.0 Likely prerenal secondary to acute illness and dehydration, gave gentle IV hydration Patient uses Lasix and potassium supplement as needed for BLE swelling but per daughter she has been giving them almost daily over the past week. Follow BMP hold nephrotoxic's. Renally dose meds. Other chronic medical conditions: Continue with/resume home meds as and when appropriate. Patient uses Lasix and potassium supplement as needed for BLE swelling. Home Health Attestation I certify that this patient is under my care and that I, or a physicians child care assistant working with me, had a face to-face encounter that meets the home health [id number] encounter requirements with this patient. The encounter with the patient was in whole, or in part, for the following medical condition, which is the primary reason for home health care (list m edical condition): SOB I certify that, based on my findings, the following services are medically necessary home health services: My clinical findings support the need for the above services because: Skilled Nsg Assessment Further, I certify that my clinical findings support that this patient is homebound (i.e. absences from home require considerable and taxing effort and are for medical reasons or [facility] services or infrequently or of short duration when for other reasons) because: Supportive Aid - Walker Certification for Home Health Services: Based on the above findings, I certify that this patient is confined to the home and needs intermittent custodial care, physical therapy and/or speech therapy or continues to need occupational therapy. The patient is under my care, and I have initiated the establishment of the plan of care. This patient will be followed by a physician who will periodically review the plan of care. Total Time Total Time Spent Total Time Spent (In Minutes): 40 Discharge Plan Discharge Items Patient Disposition: Home - Home Health Services Reason For Visit: SOB Discharge Diagnosis: Covid 19 infection weakness Activity: Per Instructions section Non-emergency contact: Primary Care Provider Call non-emergency contact if: you have any medication questions and your symptoms worsen Follow-up/Referrals: Pancho Zimmer MD [Primary Care Provider] - Diet: Heart Healthy Diet Texture: Easy to Chew Addtl Attending Provider Instructions: Follow-up with your primary care doctor within 1 week. Continue taking guaifenesin, and using incentive spirometer and flutter valve. Pending Studies at Discharge: No Stand-Alone Forms: My [employer], Smoking Cessation Medications and DC Order Prescriptions: New guaifenesin [Mucinex] 600 mg Tablet Extended Release 12hr 600 mg PO Q12 5 Days Qty: 10 0RF Continued atorvastatin [Lipitor] 10 mg Tablet 10 mg PO 2XWK Qty: 0 metoprolol succinate [Toprol XL] 25 mg tablet extended release 24 hr 25 mg PO BID Qty: 0 multivitamin with minerals Tablet 1 tab PO QAM Qty: 0 Label Comments: WITH EXTRA LUTEIN Pt has not taken for some days due to not getting the medication from the store. Pt says that dosage varies by whatever the store has in stock that day. 05/08/19 memantine 10 mg tablet See Rx Instructions .ROUTE .COMPLEX Qty: 180 1RF Dose Instruction: TAKE 1 TABLET BY MOUTH TWICE A DAY Rx Instructions: TAKE 1 TABLET BY MOUTH TWICE A DAY nortriptyline 75 mg capsule 75 mg PO HS Qty: 30 5RF furosemide 20 mg tablet 20 mg PO DAILY PRN (Reason: edema) Qty: 30 5RF Rx Instructions: Take one pill only if you have swelling or weight gain. Take a potassium pill if you take furosemide. potassium chloride [K-Tab] 20 mEq tablet extended release 20 meq PO DAILY PRN (Reason: if take furosemide) Qty: 30 5RF Rx Instructions: Take 1 pill if you take furosemide. pregabalin 100 mg capsule 100 mg PO BID Qty: 60 5RF donepezil 10 mg tablet 10 mg PO HS Qty: 30 8RF levothyroxine [Synthroid] 75 mcg tablet 75 mcg PO QAM Qty: 90 3RF Rx Instructions: MUST BE BRAND NAME meloxicam 15 mg tablet 15 mg PO DAILY Qty: 30 3RF PreserVision AREDS [id number] Tablet 1 tab PO BID cyclosporine [Restasis] 0.05 % dropperette 1 drp OPB BID latanoprost [Xalatan] 0.005 % drops 1 drp OPB HS lutein 20 mg Tablet 20 mg PO QAM Discharge Orders: Discharge Order (Routine); Ordered 02/27/22 Ordered By: Edgard Alexandra Admission Data Admit Date/Time: 02/24/22 11:49 Attending Provider: Edgard Alexandra Admit Provider: Lida Villanueva Primary Care Provider: Pancho Zimmer Other Providers: Lida Villanueva ; [facility]
== END 2022-02-27 16:00 | disposition home health service (06) | DRG 177 ==
LOC: ED 08:29 → SUATTDRO 11:49 → EDINP 11:49 → 2S 15:20

== ENCOUNTER 2022-07-05 12:08 | Inpatient (IN) ==
--- NOTE | 2022-07-05 13:18 | XRay Report ---
TWO VIEW CHEST CLINICAL HISTORY: Atypical chest pain.. FINDINGS: PA and lateral chest radiographs are compared to study dated 02/25/2022 and correlated with c hest CT dated 02/05/2020. The heart is enlarged noting atherosclerotic calcification of the thoracic a facundo. The pulmonary vasculature is noncongested. Chronic interstitial thickening is similar to previo us. There is bibasilar scarring/atelectasis. No airspace consolidation or pleural effusion is identif ied. There is no pneumothorax. The skeletal structures are osteopenic. The bony thorax appears intact . Advanced arthritic change is seen in the right shoulder. Left shoulder arthroplasty is in place. Sp ondylotic change is noted in the spine. Surgical clips are seen in the upper abdomen. IMPRESSION: Cardiomegaly with no active disease in the chest. ACT 112: Negative or not required by law. Electronically signed by: Ronak Montalvo M.D. 07/05/2022 1:16 PM
[2022-07-05 13:21] LABS: INR 0.9 (0.9-1.1); Partial Thromboplastin Ratio 0.8; Partial Thromboplastin Time 23.1 Seconds (21.0-31.0)
[2022-07-05 13:32] LABS: Basophils # (auto) 0.02 K/uL (0-0.2); Basophils % (auto) 0.2 %; Eosinophils # (auto) 0.22 K/uL (0-0.50); Eosinophils % (auto) 2.7 %; Hematocrit (blood only) 40.4 % (34.1-44.9); Hemoglobin 12.9 g/dl (12.0-16.0); Immature Granulocytes # (auto) 0.05 K/uL (0.00-0.02); Immature Granulocytes % (auto) 0.6 %; Lymphocytes % (auto) 19.6 %; Mean Corpuscular Hemoglobin 31.1 pg (25.0-34.0); Mean Corpuscular Hgb Conc 31.9 g/dL (32.0-36.0); Mean Corpuscular Volume 97.3 fL (80.0-100.0); Mean Platelet Volume 10.9 fL (9.4-12.3); Neutrophils # (auto) 5.38 K/uL (1.4-6.5); Neutrophils % (auto) 65.9 %; Platelet Count 182 K/uL (130-400); RDW Coefficient of Variation 15.1 % (11.5-14.5); Red Blood Count 4.15 M/uL (3.93-5.22); White Blood Count 8.17 K/ul (4.8-10.8)
[2022-07-05 13:38] LABS: Alanine Aminotransferase 40 U/L (7-52); Albumin Globulin Ratio 1.2 (0.9-2); Albumin Level 3.7 gm/dl (3.4-5.0); Alkaline Phosphatase 86 U/L (34-104); Anion Gap 7 (3-11); Aspartate Aminotransferase 22 U/L (13-39); BUN Creatinine Ratio 23.4 (10-20); Bilirubin,Total 0.6 mg/dl (0.2-1.0); Blood Urea Nitrogen 26 mg/dl (6-23); Calcium 9.6 mg/dl (8.5-10.1); Carbon Dioxide 28 mmol/L (21-32); Chloride 107 mmol/L (98-107); Est GFR (African American) 52.1 ml/min; Est GFR (Non-African American) 44.9 ml/min; Globulin 3.2 gm/dl (2.5-4.0); Glucose 112 mg/dl (70-99(Fasting)); Sodium 142 mmol/L (136-145); Total Protein 6.9 gm/dl (6.0-8.3)
[2022-07-05] MEDS ORDERED: ASPIRIN CHEW 324 MG PO STA (14:55)
--- NOTE | 2022-07-05 14:55 | Emergency Department Note ---
Impression & Plan Non-ST elevation (NSTEMI) myocardial infarction, LBBB (left bundle branch block) ED Provider Note INFORMANT: Patient ED PROVIDER(S): Alexx Ervin DO CHIEF COMPLAINT: Chest pain and pedal edema PLAN: Disposition: Admission Condition: Good Outpatient prescription management: none Referral: I spoke with the hospitalist, who will see the patient for admission/observation and further evaluation and consultation. I also spoke with Dr. Kang, bacteriologist pharmaceutical, about the patient. He does recommend admission. MEDICAL DECISION MAKING: This is a 86-year-old female who presents to the ED with a chief complaint of going to the PCP today for pedal edema. The patient scheduled her appointment yesterday. Her daughter noticed some increasing pedal edema starting a week ago. She has been taking Lasix for this without improvement. This morning the patient did have some chest discomfort. At the doctor's office they noticed that she had a new left bundle branch block. She was sent here for further evaluation. She has seen Dr. Kang in the past. Her physical exam today does reveal some pedal edema. Her blood pressure is elevated and her heart rate is slightly tachycardic with a heart rate of 110. Oxygen saturations are normal. Lung sounds are clear. The patient's CBC and chemistry panel was unremarkable. No significant anemia or electrolyte abnormality. A chest x-ray did not show pneumonia or pneumothorax. Troponin was elevated at 61. This is concerning for a myocardial infarction in the setting of a new left bundle branch block noted on her EKG today. The patient will be seen by the hospitalist for further evaluation and care. She was treated with aspirin p.o. Currently not having any chest discomfort. Triage Nursing notes reviewed. Vital Signs: reviewed Prior /Outside records reviewed: none Differential diagnosis: Differential includes myocardial infarction, congestive heart failure, pneumoni a, pneumothorax, other. Diagnostics, as interpreted by me: 12 lead ECG: Sinus tachycardia rate of 106 with a new left bundle branch block. This is new from 10/05/2020. No PVCs. Normal QTC. Cardiac Monitoring: Sinus tach at a rate of 100 110. Medical decision rules: none Imaging studies: Chest x-ray: No acute disease. Pneumothorax or pneumonia. Procedures: none. Critical care: none. HPI: This is a 86-year-old female who presents to the ED with a chief complaint of going to the PCP today for pedal edema. The patient scheduled her appointment yesterday. Her daughter noticed some increasing pedal edema starting a week ago. She has been taking Lasix for this without improvement. This morning the patient did have some chest discomfort. At the doctor's office they noticed that she had a new left bundle branch block. PAST MEDICAL HISTORY: See Below PAST SURGICAL HISTORY: See Below SOCIAL HISTORY: See Below HOME MEDICATIONS: See Below ALLERGIES: See Below VITALS: See Below PHYSICAL EXAMINATION: CONSTITUTIONAL/VITAL SIGNS: Reviewed GENERAL: Non-toxic in appearance. INTEGUMENTARY: Warm, dry, and [place]. HEAD: Normocephalic. EYES: without scleral icterus. ENT/OROPHARYNX: clear and moist. RESPIRATORY: No increased work of breathing. Lungs clear. CARDIOVASCULAR: Regular rate. Regular rhythm. GI/ABDOMEN: Soft and nontender. . EXTREMITIES: Normal NEUROLOGICAL: Intact without focal deficits. PSYCHIATRIC: Normal affect. MUSCULOSKELETAL: Normal. TRIAGE NURSING DOCUMENTATION REVIEWED. Past Med/Surg History Medical History Actinic keratosis Alzheimer disease EARLY STAGES Asthma (12/23/12) PT DENIES Chronic fatigue Chronic kidney disease CVA (cerebral vascular accident) PER RECORD-PT DENIES ANY RESIDUAL PHYSICAL EFFECTS Cyst removed from left eye Diabetic retinopathy (12/23/12) Dyslipidemia Fall GERD (gastroesophageal reflux disease) (12/23/12) History of hyperparathyroidism w/ subsequent surgery at [facility] History of pulmonary embolus (PE) (12/23/12) History of SCC (squamous cell carcinoma) of skin Hypercalcemia Hyperparathyroidism Hypertension F/U DR NELDA RAMON Hypogammaglobulinemia Hypothyroidism Idiopathic polyneuropathy Lumbar stenosis Memory loss or impairment Midline low back pain with right-sided sciatica Protein S deficiency F/U [facility] RN DOCUMENT IMPROVEMENT Pulmonary nodules Rheumatoid arthritis Sinus infection Thoracic ascending aortic aneurysm TIA (transient ischemic attack) HX Urinary retention Vitamin D deficiency Xerostomia Surgical History History of bilateral knee replacement History of colonoscopy History of esophagogastroduodenoscopy (EGD) History of kidney surgery History of lumbar fusion History of right coronary artery stent placement Hx laparoscopic cholecystectomy Hx of hysterectomy Hx of shoulder surgery Hx of tonsillectomy Hx of total hip arthroplasty Family History Mother Family history of diabetes mellitus Other Family history non-contributory Social History Smoking Status: Never smoker Second Hand Exposure: No; Hx Alcohol Use: No Hx Substance Use: No Preferred Language: Malian Communication Ability: Effective Special Education Professional Required: No Beliefs That Will Affect Care: None marital status: Current Living Situation: Spouse current occupational status: retired Feels Safe at Home: Yes Assistive Devices: Cane and Walker Allergies Allergies Allergy/AdvReac Type Severity Reaction Status Date / Time Iodinated Contrast Media Allergy Severe ANAPHYLAXIS Verified 06/14/22 14:04 allopurinol AdvReac CAN NOT Verified 06/14/22 14:04 TAKE DUE TO KIDNEY FUNCTION Home Meds Home Medications Medication Instructions Recorded Confirmed atorvastatin 10 mg tablet (Lipitor) 10 mg PO 2XWK #0 tabs 02/02/16 06/14/22 vitamins A,C,J-jkse-opkvmw 2,148 1 tab PO BID 06/16/18 06/14/22 mcg-113 mg-45 mg-17.4 mg tablet (PreserVision AREDS) cyclosporine 0.05 % eye drops in a 1 drp OPB BID 02/05/19 06/14/22 dropperette (Restasis) latanoprost 0.005 % eye drops 1 drp OPB HS 02/05/19 06/14/22 (Xalatan) metoprolol succinate 25 mg 25 mg PO BID #0 tabs 07/01/19 06/14/22 tablet,extended release 24 hr (Toprol XL) multivitamin with minerals 1 tab PO QAM #0 tabs 04/22/20 06/14/22 lutein 20 mg tablet 20 mg PO QAM 05/05/20 06/14/22 amoxicillin 500 mg capsule 500 mg PO TID 05/10/22 06/14/22 Previous Rx's Medication Instructions Recorded furosemide 20 mg tablet 20 mg PO DAILY PRN edema #30 tabs 01/15/20 potassium chloride 20 mEq 20 meq PO DAILY PRN if take 01/15/20 tablet,extended release (K-Tab) furosemide #30 tabs levothyroxine 75 mcg tablet 75 mcg PO QAM #90 tabs 04/22/20 (Synthroid) donepezil 10 mg tablet 10 mg PO HS #90 tabs 05/10/22 memantine 10 mg tablet See Rx Instructions .Route 05/10/22 .COMPLEX #180 tabs nortriptyline 75 mg capsule 75 mg PO HS #90 caps 05/10/22 pregabalin 100 mg capsule 100 mg PO BID #180 caps 05/10/22 Results & Data (ED) Vital Signs Vital Signs - 24 hr 07/05/22 12:22 Temperature 36.7 C Temperature Source Temporal Artery Scan Pulse Rate 110 H Respiratory Rate 16 Respiratory Effort / Characteristics Non-Labored Respiratory Depth Normal Respiratory Pattern Regular Blood Pressure 159/96 H Blood Pressure Mean 117 Blood Pressure Position Sitting Pulse Oximetry 96 Oxygen Delivery Method Room Air Sepsis Recent Fever Within 48 Hours No Sepsis New/Unexplained Change in Mental Status No Sepsis Action Taken by Nursing No Action Required Laboratory Data 07/05/22 12:56 07/05/22 12:56 Lab Results 07/05/22 07/05/22 07/05/22 Range/Units 12:56 12:56 12:56 WBC 8.17 (4.8-10.8) K/ul RBC 4.15 (3.93-5.22) M/uL Hgb 12.9 (12.0-16.0) g/dl Hct 40.4 (34.1-44.9) % MCV 97.3 (80.0-100.0) fL MCH 31.1 (25.0-34.0) pg MCHC 31.9 L (32.0-36.0) g/dL RDW Std Deviation 54.0 H (36.4-46.3) fL RDW Coeff of Bon 15.1 H (11.5-14.5) % Plt Count 182 (130-400) K/uL MPV 10.9 (9.4-12.3) fL Immature Gran % (Auto) 0.6 % Neut % (Auto) 65.9 % Lymph % (Auto) 19.6 % Milam % (Auto) 11.0 % Eos % (Auto) 2.7 % Baso % (Auto) 0.2 % Neut # (Auto) 5.38 (1.4-6.5) K/uL Lymph # (Auto) 1.60 (1.2-3.4) K/uL Milam # (Auto) 0.90 H (0.24-0.82) K/uL Eos # (Auto) 0.22 (0-0.50) K/uL Baso # (Auto) 0.02 (0-0.2) K/uL Immature Gran # (Auto) 0.05 H (0.00-0.02) K/uL PT 10.0 (9.0-12.0) Seconds INR 0.9 (0.9-1.1) APTT 23.1 (21.0-31.0) Seconds PTT Ratio 0.8 Sodium 142 (136-145) mmol/L Potassium 4.0 (3.5-5.1) mmol/L Chloride 107 (98-107) mmol/L Carbon Dioxide 28 (21-32) mmol/L Anion Gap 7 (3-11) BUN 26 H (6-23) mg/dl Creatinine 1.11 (0.6-1.2) mg/dl Est Cr Clr Drug Dosing Not Reportable Est GFR ( Amer) 52.1 ml/min Est GFR (Non-Af Amer) 44.9 ml/min BUN/Creatinine Ratio 23.4 H (10-20) Glucose 112 H (70-99(Fasting)) mg/dl Calcium 9.6 (8.5-10.1) mg/dl Total Bilirubin 0.6 (0.2-1.0) mg/dl AST 22 (13-39) U/L ALT 40 (7-52) U/L Alkaline Phosphatase 86 (34-104) U/L Troponin I High Sens 61.0 H* (0-14) pg/ml Total Protein 6.9 (6.0-8.3) gm/dl Albumin 3.7 (3.4-5.0) gm/dl Globulin 3.2 (2.5-4.0) gm/dl Albumin/Globulin Ratio 1.2 (0.9-2) Imaging Data Radiologist's Impression: Chest X-Ray 07/05/22 12:25 TWO VIEW CHEST CLINICAL HISTORY: Atypical chest pain.. FINDINGS: PA and lateral chest radiographs are compared to study dated 02/25/2022 and correlated with chest CT dated 02/05/2020. The heart is enlarged noting atherosclerotic calcification of the thoracic aorta. The pulmonary vasculature is noncongested. Chronic interstitial thickening is similar to previous. There is bibasilar scarring/atelectasis. No airspace consolidation or pleural effusion is identified. There is no pneumothorax. The skeletal structures are osteopenic. The bony thorax appears intact. Advanced arthritic change is seen in the right shoulder. Left shoulder arthroplasty is in place. Spondylotic change is noted in the spine. Surgical clips are seen in the upper abdomen. IMPRESSION: Cardiomegaly with no active disease in the chest. ACT 112: Negative or not required by law. Electronically signed by: Ronak Montalvo M.D. 07/05/2022 1:16 PM Discharge Plan Visit Data Chief Complaint: Cardiac Assessment Stated Complaint: New LBBB ED Provider: Alexx Ervin Discharge Problem: Non-ST elevation (NSTEMI) myocardial infarction, LBBB (left bundle branch bloc k) Patient Disposition: Being Evaluated by Hospitalist Forms Stand Alone Forms: My [facility] Prescriptions Prescriptions: No Action atorvastatin [Lipitor] 10 mg Tablet 10 mg PO 2XWK Qty: 0 metoprolol succinate [Toprol XL] 25 mg tablet extended release 24 hr 25 mg PO BID Qty: 0 multivitamin with minerals Tablet 1 tab PO QAM Qty: 0 Label Comments: WITH EXTRA LUTEIN Pt has not taken for some days due to not getting the medication from the store. Pt says that dosage varies by whatever the store has in stock that day. 05/08/19 furosemide 20 mg tablet 20 mg PO DAILY PRN (Reason: edema) Qty: 30 5RF Rx Instructions: Take one pill only if you have swelling or weight gain. Take a potassium pill if you take furosemide. potassium chloride [K-Tab] 20 mEq tablet extended release 20 meq PO DAILY PRN (Reason: if take furosemide) Qty: 30 5RF Rx Instructions: Take 1 pill if you take furosemide. levothyroxine [Synthroid] 75 mcg tablet 75 mcg PO QAM Qty: 90 3RF Rx Instructions: MUST BE BRAND NAME amoxicillin 500 mg capsule 500 mg PO TID donepezil 10 mg tablet 10 mg PO HS Qty: 90 3RF memantine 10 mg tablet See Rx Instructions .ROUTE .COMPLEX Qty: 180 3RF Dose Instruction: TAKE 1 TABLET BY MOUTH TWICE A DAY Rx Instructions: TAKE 1 TABLET BY MOUTH TWICE A DAY nortriptyline 75 mg capsule 75 mg PO HS Qty: 90 3RF pregabalin 100 mg capsule 100 mg PO BID Qty: 180 1RF PreserVision AREDS [id number] Tablet 1 tab PO BID cyclosporine [Restasis] 0.05 % dropperette 1 drp OPB BID latanoprost [Xalatan] 0.005 % drops 1 drp OPB HS lutein 20 mg Tablet 20 mg PO QAM Referrals Referrals: Pancho Zimmer MD [Primary Care Provider] -
--- NOTE | 2022-07-05 16:06 | History & Physical Report ---
Date of Service July 05, 2022 Assessment & Plan (1) Atrial flutter: (2) LBBB (left bundle branch block): (3) Chest pain: (4) Hypertension, essential: (5) CAD (coronary artery disease): Plan: - Admit to tele with new LBBB and atrial flutter - Trend cardiac biomarkers, initial set was 61, given full dose aspirin in the ER - EKG reviewed as above showing new LBBB, no other acute changes on EKG. Pt with hx of NE however pt does not report this is similar to previous NE symptoms. - CHADs VASC of 5, start heparin gtt with bolus - Check 2 D echo - Consulted cardiology - Continue on metoprolol succ 25 mg BID, losartan 50 mg daily, potassium, atorvastatin - Lasix 20 mg PO has been given daily x 1 week. She does not currently appear overloaded, will hold on further lasix. Will monitor strict I/Os, daily weights - Doppler bilateral LE with edema and sedentary lifestyle. - PT/OT consulted - Allow diet (6) Memory loss: (7) Burning sensation of mouth: Plan: - Follows with Dr. Vo as outpatient - continue on donepezil and meantine - Continue lyrica and nortiptyline for the burning mouth sensation DVT ppx: - teds, scds, heparin gtt as above CODE: Full code Dispo: From home, likely to remain in the hospital x 1-2 days. A total of 78 minutes were spent with greater than 50% of that time face to face with the patient, personally reviewing all current laboratories, imaging studies, past medication reconciliation, outpatient chart review, and discussion with specialists to collaborate care for the patient with attending. Please see attending documentation for corrections and/or additions. History of Present Illness Chief Complaint: Chest pain Primary Care Provider: Pancho Zimmer MD This is an 86 yo F with PMHx of paroxysmal A. fib not on anticoagulation, HLD, CAD, history of NE, history of pulmonary embolism, CKD stage III, GERD, vitamin D deficiency, idiopathic polyneuropathy, esophageal motility disorder, chronic pain syndrome who presents to the ER with acute onset of chest pain and leg swelling. Leg edema has been going on for approximately 1 week and the patient was started on Lasix 20 mg daily which did not seem to improve symptoms. Her left knee has been difficult to bend for some time, but she feels she is swollen more in the left than the right. Pt reports being sedentary. This morning she had an EKG at the PCPs office. She then reports having acute onset of chest pain after being told her EKG did not appear normal. Pt has difficulty recalling the order of events due to short term memory issues. Pt denies having any shortness of breath at rest but with exertion gets short of breath, not a new thing. Daughter, Yoon at bedside reports this has been going on for some time now, that the patient normally cares for her who has severe dementia. Yoon lives next door to them and is the medical POA as well as help with their care. They also have Comfort keepers coming to the home regularly. Patient is found to be in a flutter on EKG with heart rate of 110 with a new left bundle branch block. Allergies Allergy/AdvReac Type Severity Reaction Status Date / Time Iodinated Contrast Media Allergy Severe ANAPHYLAXIS Verified 06/14/22 14:04 allopurinol AdvReac CAN NOT Verified 06/14/22 14:04 TAKE DUE TO KIDNEY FUNCTION Home Medications Medication Instructions Recorded Confirmed Type atorvastatin 10 mg tablet (Lipitor) 10 mg PO QAM #0 tabs 02/02/16 07/05/22 History vitamins A,C,C-nslm-jlqicq 2,148 1 tab PO BID 06/16/18 07/05/22 History mcg-113 mg-45 mg-17.4 mg tablet (PreserVision AREDS) cyclosporine 0.05 % eye drops in a 1 drp OPB BID 02/05/19 07/05/22 History dropperette (Restasis) latanoprost 0.005 % eye drops 1 drp OPB HS 02/05/19 07/05/22 History (Xalatan) metoprolol succinate 25 mg 25 mg PO BID #0 tabs 07/01/19 07/05/22 History tablet,extended release 24 hr (Toprol XL) furosemide 20 mg tablet 20 mg PO DAILY PRN edema #30 tabs 01/15/20 07/05/22 Rx potassium chloride 20 mEq 20 meq PO DAILY PRN if take 01/15/20 07/05/22 Rx tablet,extended release (K-Tab) furosemide #30 tabs levothyroxine 75 mcg tablet 75 mcg PO QAM #90 tabs 04/22/20 07/05/22 Rx (Synthroid) multivitamin with minerals 1 tab PO QAM #0 tabs 04/22/20 07/05/22 History amoxicillin 500 mg capsule 500 mg PO TID 05/10/22 07/05/22 History donepezil 10 mg tablet 10 mg PO HS #90 tabs 05/10/22 07/05/22 Rx memantine 10 mg tablet See Rx Instructions .Route 05/10/22 07/05/22 Rx .COMPLEX #180 tabs nortriptyline 75 mg capsule 75 mg PO HS #90 caps 05/10/22 07/05/22 Rx pregabalin 100 mg capsule 100 mg PO BID #180 caps 05/10/22 07/05/22 Rx losartan 50 mg tablet 50 mg PO DAILY 07/05/22 07/05/22 History Past Med/Surg History Medical History Actinic keratosis Alzheimer disease EARLY STAGES Asthma (12/23/12) PT DENIES Chronic fatigue Chronic kidney disease CVA (cerebral vascular accident) PER RECORD-PT DENIES ANY RESIDUAL PHYSICAL EFFECTS Cyst removed from left eye Diabetic retinopathy (12/23/12) Dyslipidemia Fall GERD (gastroesophageal reflux disease) (12/23/12) History of hyperparathyroidism w/ subsequent surgery at [facility] History of pulmonary embolus (PE) (12/23/12) History of SCC (squamous cell carcinoma) of skin Hypercalcemia Hyperparathyroidism Hypertension F/U DR NELDA RAMON Hypogammaglobulinemia Hypothyroidism Idiopathic polyneuropathy Lumbar stenosis Memory loss or impairment Midline low back pain with right-sided sciatica Protein S deficiency F/U [facility] [employer] Pulmonary nodules Rheumatoid arthritis Sinus infection Thoracic ascending aortic aneurysm TIA (transient ischemic attack) HX Urinary retention Vitamin D deficiency Xerostomia Surgical History History of bilateral knee replacement History of colonoscopy History of esophagogastroduodenoscopy (EGD) History of kidney surgery History of lumbar fusion History of right coronary artery stent placement Hx laparoscopic cholecystectomy Hx of hysterectomy Hx of shoulder surgery Hx of tonsillectomy Hx of total hip arthroplasty Family History Mother Family history of diabetes mellitus Other Cancer Hypertension Social History Smoking Status: Never smoker Second Hand Exposure: No; Hx Alcohol Use: No Hx Substance Use: No Preferred Language: Andorran Communication Ability: Effective Occupational Therapy Professor Required: No Beliefs That Will Affect Care: None marital status: Current Living Situation: Spouse current occupational status: retired Feels Safe at Home: Yes Safety Concerns: Feels Safe At This Time Assistive Devices: Glasses Review of Systems Review of Systems: Constitutional: No fever, sweats or chills Eyes: No diplopia, no worsening or blurred vision ENT: normal hearing, no trouble swallowing Respiratory: No cough, sputum, dyspnea at rest or on exertion Cardiovascular: + chest pain intermittently, denies tightness or palpitations Abdomen: No pain, nausea, vomiting, diarrhea or constipation Musculoskeletal: No joint pain, calf pain, swelling Neurologic: No weakness, numbness/tingling, or balance problems Psychiatric: No anxiety or depression Skin: No rash or itch Physical Exam Physical Exam: General: awake, alert, no apparent distress Head: Normocephalic, atraumatic ENT: PERRL, EOMI, no pharyngeal exudate, mucous membranes moist Chest: Clear to auscultation, on room air, no adventitious breath sounds Cardiac: Regular rate and rhythm, no murmur, no JVD, normal peripheral pulses, good capillary refill Abdominal: NABS x 4 quadrants, soft, nondistended, nontender to palpation, no rebound or guarding Extremities: 1+ Peripheral edema in BLE, mild pitting over ankles, otherwise normal inspection, no peripheral edema or erythema, calfs nontender to palpation Psych: Normal mood and affect Neuro: AAO x 3, has difficulty recalling order of events and specific details of the past week, strength intact bilaterally and rated 4/5 in left knee extension, 5/5 right knee extension, no motor deficits, speech is clear, no peripheral sensory deficits Results & Data Results & [facility] ([facility]) Vital Signs (Past 12 Hours) Vital Signs Temp Pulse Pulse Resp BP BP Pulse Ox 07/05/22 14:10 101 H 14 140/81 94 07/05/22 12:25 07/05/22 12:22 36.7 C 110 H 16 159/96 H 96 O2 Del Method 07/05/22 14:10 07/05/22 12:25 Room Air 07/05/22 12:22 Room Air Laboratory Results 07/05/22 07/05/22 07/05/22 12:56 12:56 12:56 WBC 8.17 RBC 4.15 Hgb 12.9 Hct 40.4 MCV 97.3 MCH 31.1 MCHC 31.9 L RDW Std Deviation 54.0 H RDW Coeff of Bon 15.1 H Plt Count 182 MPV 10.9 Immature Gran % (Auto) 0.6 Neut % (Auto) 65.9 Lymph % (Auto) 19.6 [place] % (Auto) 11.0 Eos % (Auto) 2.7 Baso % (Auto) 0.2 Neut # (Auto) 5.38 Lymph # (Auto) 1.60 [place] # (Auto) 0.90 H Eos # (Auto) 0.22 Baso # (Auto) 0.02 Immature Gran # (Auto) 0.05 H PT 10.0 INR 0.9 APTT 23.1 PTT Ratio 0.8 Sodium 142 Potassium 4.0 Chloride 107 Carbon Dioxide 28 Anion Gap 7 BUN 26 H Creatinine 1.11 Est Cr Clr Drug Dosing Not Reportable Est GFR ( Amer) 52.1 Est GFR (Non-Af Amer) 44.9 BUN/Creatinine Ratio 23.4 H Glucose 112 H Calcium 9.6 Total Bilirubin 0.6 AST 22 ALT 40 Alkaline Phosphatase 86 Troponin I High Sens 61.0 H* Total Protein 6.9 Albumin 3.7 Globulin 3.2 Albumin/Globulin Ratio 1.2 Diagnostic Findings Chest X-Ray 07/05/22 12:25 TWO VIEW CHEST CLINICAL HISTORY: Atypical chest pain.. FINDINGS: PA and lateral chest radiographs are compared to study dated 02/25/2022 and correlated with chest CT dated 02/05/2020. The heart is enlarged noting atherosclerotic calcification of the thoracic aorta. The pulmonary vasculature is noncongested. Chronic interstitial thickening is similar to previous. There is bibasilar scarring/atelectasis. No airspace consolidation or pleural effusion is identified. There is no pneumothorax. The skeletal structures are osteopenic. The bony thorax appears intact. Advanced arthritic change is seen in the right shoulder. Left shoulder arthroplasty is in place. Spondylotic change is noted in the spine. Surgical clips are seen in the upper abdomen. IMPRESSION: Cardiomegaly with no active disease in the chest. ACT 112: Negative or not required by law. Electronically signed by: Ronak Montalvo M.D. 07/05/2022 1:16 PM Code Status & VTE Plan Code Status Full code - discussed with the patientand her daughter Yoon at bedside Supervising Physician Co-Signing Physician Notes I have seen and examined the patient and have discussed the case with the provider above. I agree with the assessment and plan as stated with the following exceptions. The patient is an 86-year-old female with a history of chronic chest pain who presents with generalized illness and malaise for the past week along with worsening leg swelling. She has a history of chest pain in the past and has been seen for a Lexiscan nuclear stress test in September 2020. Although she was symptomatic with chest discomfort this resolved with nitro and continuing to walk an EKG revealed no ischemic changes with follow-up imaging revealing no perfusion defects of concern. She has known coronary artery disease undergoing a stent procedure approximately 13 years ago. She has some tachycardia with a new left bundle branch block on EKG. Although atrial flutter is considered above, this is not apparent on the EKGs or telemetry this evening. She appears to be in sinus tachycardia with a heart rate in the low 100s. Her legs are not edematous and she feels like these are improved. She has a history of short-term memory loss. She reports her chest pain has been intermittent for the last few days and has been lasting longer than 20 to 30 minutes per episode. She cannot identify a clear trigger for the pain. She underwent a bilateral venous Doppler with no evidence of DVT in the lower extremities. Her chest x-ray is clear with no active disease. Other work-up includes a normal CBC, normal coag panel, normal chemistry with a kidney function at baseline, highly sensitive troponin of 61 followed by 57.3. On physical exam she is in no acute distress. She is not working to breathe. Cardiac exam reveals a regular rhythm with tachycardic rate. Lungs are clear to auscultation throughout. Abdomen is soft nontender nondistended. Lower extremities without any edema. She examines as euvolemic to dry. She is menta ting clearly. She is a fairly good historian. Overall this is an 86-year-old female with generalized malaise and chest pain intermittent over the past several days. This may be related to tachycardia and a new left bundle branch block is noted. She has a reported history of atrial fibrillation but is not on anticoagulation, however, this is not a confirmed diagnosis in the most recent cardiology notes. She is not demonstrating atrial flutter on telemetry and is instead in sinus tachycardia with a new left bundle branch block. ACS is also less likely given downtrend of troponin and lack of chest pain. Although heparin drip was started as the initial report was atrial flutter, this will now be stopped pending further cardiology review and recommendations. This patient has had chest pain in the past with a work-up that was unrevealing. The cause of her pain is still unclear. Continue monitoring on telemetry and continue medications as above. DO Andrew (1) Chest pain Chest pain type: unspecified Qualified Code(s): R07.9 - Chest pain, unspecified
[2022-07-05] MEDS ORDERED: Heparin IV Adult Wt-Based Standard WITH Bolus Protocol IV STA (18:17)
[2022-07-05] MEDS ORDERED: HEPARIN SOD (PORCINE) 1000 UNIT/ML IV ONE (18:32)
[2022-07-05] MEDS ORDERED: HEPARIN SODIUM/DEXTROSE 25,000 UNITS/500 ML BAG IV SCH (18:45)
--- NOTE | 2022-07-05 19:10 | Ultrasound Report ---
BILATERAL LOWER EXTREMITY VENOUS DOPPLER CLINICAL HISTORY: Bilateral lower extremity edema. COMPARISON STUDY: Left lower extremity venous Doppler ultrasound February 24, 2022 and right lower e xtremity venous Doppler ultrasound April 23, 2019. TECHNIQUE: Sonography of the deep venous system of the bilateral lower extremities was performed. Co mpression and augmentation were evaluated. FINDINGS: The bilateral common femoral, superficial femoral and popliteal veins were compressible. A ugmentation was normal. Flow was shown within the deep calf vessels. IMPRESSION: No evidence of deep venous thrombus within the bilateral lower extremities. ACT 112: Negative or not required by law. Electronically signed by: Reilly Silva M.D. 07/05/2022 7:09 PM
[2022-07-05] MEDS ORDERED: ACETAMINOPHEN 325 MG TAB PO PRN (19:38)
[2022-07-05] MEDS ORDERED: ONDANSETRON INJ 2 MG/ML 2 ML VIAL IV PRN (19:38)
[2022-07-05] MEDS ORDERED: HEPARIN SOD 5,000 UNIT/0.5 ML VIAL SQ SCH (21:00)
[2022-07-05] MEDS: CEROVITE ADV FORMULA TAB PO SCH (21:16)
[2022-07-05] MEDS: METOPROLOL SUCC 25MG EXT REL TAB PO SCH (21:16)
[2022-07-05] MEDS: NORTRIPTYLINE HCL 25 MG CAP PO SCH (21:17)
[2022-07-05] MEDS: MEMANTINE HCL 10 MG TAB PO SCH (21:17)
[2022-07-05] MEDS: DONEPEZIL HCL 10 MG TAB PO SCH (21:18)
[2022-07-05] MEDS: LATANOPROST 0.005% OP SOLN 2.5 ML BTL OPB SCH (21:19)
[2022-07-05] MEDS: PREGABALIN 100 MG CAP PO SCH (21:19)
[2022-07-06 01:28] LABS: Partial Thromboplastin Ratio 2.2
[2022-07-06 01:40] LABS: Partial Thromboplastin Time 61.2 Seconds (21.0-31.0)
[2022-07-06] MEDS: LEVOTHYROXINE SODIUM 75 MCG TABLET PO SCH (05:45)
[2022-07-06 06:56] LABS: Hematocrit (blood only) 35.6 % (34.1-44.9); Hemoglobin 11.8 g/dl (12.0-16.0); Mean Corpuscular Hemoglobin 31.5 pg (25.0-34.0); Mean Corpuscular Hgb Conc 33.1 g/dL (32.0-36.0); Mean Corpuscular Volume 94.9 fL (80.0-100.0); Platelet Count 167 K/uL (130-400); RDW Coefficient of Variation 15.1 % (11.5-14.5); RDW Standard Deviation 52.9 fL (36.4-46.3); Red Blood Count 3.75 M/uL (3.93-5.22); White Blood Count 6.29 K/ul (4.8-10.8)
[2022-07-06 08:38] LABS: BUN Creatinine Ratio 23.1 (10-20); Calcium 8.8 mg/dl (8.5-10.1); Creatinine Clr Calc Pharmacy 37.9 ml/min; Est GFR (African American) 46.9 ml/min; Est GFR (Non-African American) 40.5 ml/min
--- NOTE | 2022-07-06 08:53 | Cardiology Consultation ---
Date of Consultation July 06, 2022 History of Present Illness Reason for Consultation: Chest pain, new LBBB Requesting Physician: Augie rowell Attending Physician: Lida Villanueva MD History of Present Illness 86-year-old female presenting to the emergency department initially due to lower extremity edema and 10 lb weight gain x1 week. She was seen by her PCP yesterday, 07/06. Patient was tachycardic in the office and EKG was obtained showing sinus tach with a new left bundle versus atrial flutter with rates in the 120s. Patient noted chest pain at that time. In the emergency department EKG obtained showing sinus tachycardia with a left bundle branch block, 106 bpm. Patient was placed on IV heparin. Echocardiogram this morning showed a normal LVEF of 50 to 55% with no wall motion abnormalities. Patient was in sinus rhythm during the exam. Grade 2 diastolic dysfunction noted with elevated left atrial pressures. Labs: Stable CBC. Renal function stable with unremarkable potassium levels. Troponins mildly elevated but flat (61>>57.3>>52.1) Tele: I&O: +700mL Weight: 93.7 kg >> 90.8 kg Past medical history: Paroxysmal A. fib, not on anticoagulation due to increased bleeding risk with gait instability Hyperlipidemia CAD, history of [place] ~2008 at [facility] History of recurrent chest pain, 09/2020- nuclear stress testing 09/2020 was negative for inducible ischemia History of PE CKD stage III GERD Idiopathic polyneuropathy Esophageal motility disorder Chronic pain syndrome Allergies Allergy/AdvReac Type Severity Reaction Status Date / Time Iodinated Contrast Media Allergy Severe ANAPHYLAXIS Verified 06/14/22 14:04 allopurinol AdvReac CAN NOT Verified 06/14/22 14:04 TAKE DUE TO KIDNEY FUNCTION Home Medications Medication Instructions Recorded Confirmed Type atorvastatin 10 mg tablet (Lipitor) 10 mg PO QAM #0 tabs 02/02/16 07/05/22 History vitamins A,C,P-jfbb-xliwsw 2,148 1 tab PO BID 06/16/18 07/05/22 History mcg-113 mg-45 mg-17.4 mg tablet (PreserVision AREDS) cyclosporine 0.05 % eye drops in a 1 drp OPB BID 02/05/19 07/05/22 History dropperette (Restasis) latanoprost 0.005 % eye drops 1 drp OPB HS 02/05/19 07/05/22 History (Xalatan) metoprolol succinate 25 mg 25 mg PO BID #0 tabs 07/01/19 07/05/22 History tablet,extended release 24 hr (Toprol XL) furosemide 20 mg tablet 20 mg PO DAILY PRN edema #30 tabs 01/15/20 07/05/22 Rx potassium chloride 20 mEq 20 meq PO DAILY PRN if take 01/15/20 07/05/22 Rx tablet,extended release (K-Tab) furosemide #30 tabs levothyroxine 75 mcg tablet 75 mcg PO QAM #90 tabs 04/22/20 07/05/22 Rx (Synthroid) multivitamin with minerals 1 tab PO QAM #0 tabs 04/22/20 07/05/22 History amoxicillin 500 mg capsule 500 mg PO TID 05/10/22 07/05/22 History donepezil 10 mg tablet 10 mg PO HS #90 tabs 05/10/22 07/05/22 Rx memantine 10 mg tablet See Rx Instructions .Route 05/10/22 07/05/22 Rx .COMPLEX #180 tabs nortriptyline 75 mg capsule 75 mg PO HS #90 caps 05/10/22 07/05/22 Rx pregabalin 100 mg capsule 100 mg PO BID #180 caps 05/10/22 07/05/22 Rx losartan 50 mg tablet 50 mg PO DAILY 07/05/22 07/05/22 History Patient History Medical History Actinic keratosis Alzheimer disease EARLY STAGES Asthma (12/23/12) PT DENIES Chronic fatigue Chronic kidney disease CVA (cerebral vascular accident) PER RECORD-PT DENIES ANY RESIDUAL PHYSICAL EFFECTS Cyst removed from left eye Diabetic retinopathy (12/23/12) Dyslipidemia Fall GERD (gastroesophageal reflux disease) (12/23/12) History of hyperparathyroidism w/ subsequent surgery at [facility] History of pulmonary embolus (PE) (12/23/12) History of SCC (squamous cell carcinoma) of skin Hypercalcemia Hyperparathyroidism Hypertension F/U DR NELDA RAMON Hypogammaglobulinemia Hypothyroidism Idiopathic polyneuropathy Lumbar stenosis Memory loss or impairment Midline low back pain with right-sided sciatica Protein S deficiency F/U [facility] [employer] Pulmonary nodules Rheumatoid arthritis Sinus infection Thoracic ascending aortic aneurysm TIA (transient ischemic attack) HX Urinary retention Vitamin D deficiency Xerostomia Surgical History History of bilateral knee replacement History of colonoscopy History of esophagogastroduodenoscopy (EGD) History of kidney surgery History of lumbar fusion History of right coronary artery stent placement Hx laparoscopic cholecystectomy Hx of hysterectomy Hx of shoulder surgery Hx of tonsillectomy Hx of total hip arthroplasty Family History Mother Family history of diabetes mellitus Other Cancer Hypertension Social History Smoking Status: Never smoker Second Hand Exposure: No; Hx Alcohol Use: No Hx Substance Use: No Preferred Language: Italian Communication Ability: Effective Optical Glass Silverer Required: No Beliefs That Will Affect Care: None marital status: Current Living Situation: Spouse current occupational status: retired Feels Safe at Home: Yes Safety Concerns: Feels Safe At This Time Assistive Devices: Glasses Results & Data ([facility]) Vital Signs (Past 12 Hours) Vital Signs Temp Pulse Pulse Resp BP BP Pulse Ox 07/06/22 07:44 36.5 C 109 H 18 136/78 97 07/05/22 22:20 105 H 07/06/22 03:27 36.9 C 91 H 16 130/84 95 07/06/22 00:00 07/05/22 23:28 37.1 C 111 H 18 105/75 94 07/05/22 21:14 116 H 140/83 Pulse Ox O2 Del Method O2 Del Method 07/06/22 07:44 Room Air 07/05/22 22:20 07/06/22 03:27 Room Air 07/06/22 00:00 94 Room Air 07/05/22 23:28 Room Air 07/05/22 21:14
[2022-07-06] MEDS ORDERED: LOSARTAN POTASSIUM 50 MG TAB PO SCH (09:00)
[2022-07-06] MEDS: FUROSEMIDE 40 MG TAB PO SCH ×2 (09:11→09:26)
[2022-07-06] MEDS: CEROVITE ADV FORMULA TAB PO SCH ×2 (09:12→21:05)
[2022-07-06] MEDS: MEMANTINE HCL 10 MG TAB PO SCH ×2 (09:12→21:05)
[2022-07-06] MEDS: ATORVASTATIN 10 MG TAB PO SCH (09:12)
[2022-07-06] MEDS: METOPROLOL SUCC 25MG EXT REL TAB PO SCH ×2 (09:12→21:05)
[2022-07-06] MEDS: POTASSIUM CHLORIDE CRTAB 20 MEQ TABCR PO SCH (09:12)
[2022-07-06] MEDS: PREGABALIN 100 MG CAP PO SCH ×2 (09:15→21:05)
--- NOTE | 2022-07-06 09:16 | Electrocardiogram Report ---
Test Reason : Blood Pressure : / mmHG Vent. Rate : 106 BPM Atrial Rate : 106 BPM P-R Int : 192 ms QRS Dur : 150 ms QT Int : 368 ms P-R-T Axes : 084 -28 117 degrees QTc Int : 488 ms Poor data quality, interpretation may be adversely affected Sinus tachycardia Left bundle branch block Abnormal ECG When compared with ECG of 24-FEB-2022 08:47, MS interval has decreased Left bundle branch block is now Present Minimal criteria for Septal infarct are no longer Present Confirmed by Inder Bello ([id number]) on 07/06/2022 9:15:57 AM Referred By: REFERRED SELF Confirmed By:Inder Bello
[2022-07-06] MEDS ORDERED: FUROSEMIDE 40 MG/4 ML VIAL IV ONE (09:27)
[2022-07-06] MEDS ORDERED: ISOSORBIDE MONO EXTENDED REL 30 MG TABCR PO ONE (09:35)
--- NOTE | 2022-07-06 09:35 | Cardiology Consultation ---
Date of Consultation July 06, 2022 Assessment & Plan (1) Sinus tachycardia: (2) LBBB (left bundle branch block): (3) Diastolic CHF: (4) Memory loss: (5) CAD (coronary artery disease): Plan 86 year old female with history of CAD and prior PCI in ~2008, repeat nuclear stress testing due to recurrent chest pain 09/2020 which was nonischemic. Prior to admission patient experienced recurrent chest pressure while at rest- resolved on its own without nitro. HS trop minimally elevated but flat. EKG showing sinus tach. New LBBB- patient currently CP free without dizziness. No evidence of atrial flutter- would not recommend AC at this time. Patient would be a poor candidate for AC due to high fall risk. Patient appearing hypervolemic on exam- weight up about 10 lbs from baseline per patient. Notable leg edema. 1. Will attempted diuresis with 40 mg IV Lasix 2. 2 g sodium diet. Daily standing weights. CHF education. 3. In regards to new LBBB- Patient would be a poor candidate for cardiac catheterization, will hold off on stress testing at this time. Will plan on treating conservatively. Patient noted prior use of SL nitro has improved her symptoms in the past. Start Imdur 30 mg daily. Okay to eat from a cardiac standpoint. 4. Monitor renal function and electrolytes- replace potassium for a goal of 4.0 and mag of 2.0 5. Continue to monitor on telemetry while inpatient. Case discussed with Dr. Elizabeth- will follow. Supervising Physician Co-Signing Physician Notes Patient was seen and personally examined. All records reviewed. Echocardiogram reviewed which revealed mild dyssynergy of the septum with EF -% and grade 2 diastolic dysfunction Underlying history is well outlined above but notable for remote coronary disease with stent to the mid" artery 2008 Chronic diastolic heart failure with recent lapse in diuretic usage. Patient seen yesterday for routine appointment with complaints of increasing weight gain and lower extremity edema. EKG with left bundle branch block newly observed. Concerns raised regarding atrial flutter not present on EKG or examination subsequent Blood pressure and heart rates elevated Plan as outlined above treat diastolic heart failure with IV furosemide. Add isosorbide mononitrate for further blood pressure control. May need upward titration of beta-sole during hospital stay. We will continue History of Present Illness Reason for Consultation: Chest pain, new LBBB Requesting Physician: El[facility] Hospitalist Attending Physician: Lida Villanueva MD History of Present Illness 86-year-old female presenting to the emergency department initially due to lower extremity edema and 10 lb weight gain x1 week. She was seen by her PCP yesterday, 07/06. Patient was tachycardic in the office and EKG was obtained showing sinus tach with a new left bundle versus atrial flutter with rates in the 120s. Patient noted chest pain at that time. In the emergency department EKG obtained showing sinus tachycardia with a left bundle branch block, 106 bpm. Patient was placed on IV heparin, but stopped after no evidence of DVT on dopplers. Echocardiogram this morning showed a normal LVEF of 50 to 55% with no wall motion abnormalities. Patient was in sinus rhythm during the exam. Grade 2 diastolic dysfunction noted withelevated left atrial pressures. Labs: Stable CBC. Renal function stable with unremarkable potassium levels. Troponins mildly elevated but flat (61>>57.3>>52.1) Tele: ST 100s, NO ATRIAL FLUTTER I&O: +700mL Weight: 93.7 kg >> 90.8 kg Upon entrance into the room patient resting in the chair without concern. Patient is a poor historian due to underlying dementia. ROS very vague- notable for recurrent chest pain/pressure. Waxes and wanes- occurs for no rhyme or reason. She will occasionally take SL nitro, none recently though. Denies shortness of breath of [place]. Occasional palpitation. No dizziness/lightheadedness/syncope. Deines orthopnea or PND. Unable to wear her shoes due to pedal and leg edema. Past medical history: Paroxysmal A. fib, not on anticoagulation due to increased bleeding risk with ga it instability Hyperlipidemia CAD, history of [place] ~2008 at [facility] treated with drug-eluting stent mid right coronary artery for single-vessel disease History of recurrent chest pain, 09/2020- nuclear stress testing 09/2020 was negative for inducible ischemia History of PE CKD stage III GERD Idiopathic polyneuropathy Esophageal motility disorder Chronic pain syndrome Allergies Allergy/AdvReac Type Severity Reaction Status Date / Time Iodinated Contrast Media Allergy Severe ANAPHYLAXIS Verified 06/14/22 14:04 allopurinol AdvReac CAN NOT Verified 06/14/22 14:04 TAKE DUE TO KIDNEY FUNCTION Home Medications Medication Instructions Recorded Confirmed Type atorvastatin 10 mg tablet (Lipitor) 10 mg PO QAM #0 tabs 02/02/16 07/05/22 History vitamins A,C,N-tklp-apyqxu 2,148 1 tab PO BID 06/16/18 07/05/22 History mcg-113 mg-45 mg-17.4 mg tablet (PreserVision AREDS) cyclosporine 0.05 % eye drops in a 1 drp OPB BID 02/05/19 07/05/22 History dropperette (Restasis) latanoprost 0.005 % eye drops 1 drp OPB HS 02/05/19 07/05/22 History (Xalatan) metoprolol succinate 25 mg 25 mg PO BID #0 tabs 07/01/19 07/05/22 History tablet,extended release 24 hr (Toprol XL) furosemide 20 mg tablet 20 mg PO DAILY PRN edema #30 tabs 01/15/20 07/05/22 Rx potassium chloride 20 mEq 20 meq PO DAILY PRN if take 01/15/20 07/05/22 Rx tablet,extended release (K-Tab) furosemide #30 tabs levothyroxine 75 mcg tablet 75 mcg PO QAM #90 tabs 04/22/20 07/05/22 Rx (Synthroid) multivitamin with minerals 1 tab PO QAM #0 tabs 04/22/20 07/05/22 History amoxicillin 500 mg capsule 500 mg PO TID 05/10/22 07/05/22 History donepezil 10 mg tablet 10 mg PO HS #90 tabs 05/10/22 07/05/22 Rx memantine 10 mg tablet See Rx Instructions .Route 05/10/22 07/05/22 Rx .COMPLEX #180 tabs nortriptyline 75 mg capsule 75 mg PO HS #90 caps 05/10/22 07/05/22 Rx pregabalin 100 mg capsule 100 mg PO BID #180 caps 05/10/22 07/05/22 Rx losartan 50 mg tablet 50 mg PO DAILY 07/05/22 07/05/22 History Patient History Medical History Actinic keratosis Alzheimer disease EARLY STAGES Asthma (12/23/12) PT DENIES Chronic fatigue Chronic kidney disease CVA (cerebral vascular accident) PER RECORD-PT DENIES ANY RESIDUAL PHYSICAL EFFECTS Cyst removed from left eye Diabetic retinopathy (12/23/12) Dyslipidemia Fall GERD (gastroesophageal reflux disease) (12/23/12) History of hyperparathyroidism w/ subsequent surgery at [facility] History of pulmonary embolus (PE) (12/23/12) History of SCC (squamous cell carcinoma) of skin Hypercalcemia Hyperparathyroidism Hypertension F/U DR NELDA RAMON Hypogammaglobulinemia Hypothyroidism Idiopathic polyneuropathy Lumbar stenosis Memory loss or impairment Midline low back pain with right-sided sciatica Protein S deficiency F/U [facility] [employer] Pulmonary nodules Rheumatoid arthritis Sinus infection Thoracic ascending aortic aneurysm TIA (transient ischemic attack) HX Urinary retention Vitamin D deficiency Xerostomia Surgical History History of bilateral knee replacement History of colonoscopy History of esophagogastroduodenoscopy (EGD) History of kidney surgery History of lumbar fusion History of right coronary artery stent placement Hx laparoscopic cholecystectomy Hx of hysterectomy Hx of shoulder surgery Hx of tonsillectomy Hx of total hip arthroplasty Family History Mother Family history of diabetes mellitus Other Cancer Hypertension Social History Smoking Status: Never smoker Second Hand Exposure: No; Hx Alcohol Use: No Hx Substance Use: No Preferred Language: Kiswahili Communication Ability: Effective Auto Claim Representative Required: No Beliefs That Will Affect Care: None marital status: Current Living Situation: Spouse current occupational status: retired Feels Safe at Home: Yes Safety Concerns: Feels Safe At This Time Assistive Devices: Glasses Review of Systems Review of Systems: All systems reviewed & are unremarkable except as noted in HPI & below Physical Exam Constitutional: WD/WN, vitals as above no acute distress ENMT: external ear and nose normal, oropharynx normal Neck: normal visual inspection and trachea midline Respiratory: normal respiratory effort, lungs clear to auscultation Cardiovascular: Rate/Rhythm: regular rate, regular rhythm and + tachycardic Heart Sounds: normal S1 and normal S2; no murmur (distant heart sounds ) Vessels: no JVD Extremities: + pedal edema (+2 BL pedal edema) and + edema (+2 BLLE pitting edema ) Gastrointestinal (Abdomen): normal bowel sounds, soft, nontender, no hepatosplenomegaly Musculoskeletal: no cyanosis or clubbing, extremities motor strength 5/5 Skin: no rashes, warm and dry Psychiatric: A+Ox3, euthymic affect (short term memory loss ) Orientation: cooperative Results & Data ([facility]) Vital Signs (Past 12 Hours) Vital Signs Temp Pulse Pulse Resp BP Pulse Ox Pulse Ox 07/06/22 07:44 36.5 C 109 H 18 136/78 97 07/05/22 22:20 105 H 07/06/22 03:27 36.9 C 91 H 16 130/84 95 07/06/22 00:00 94 07/05/22 23:28 37.1 C 111 H 18 105/75 94 O2 Del Method O2 Del Method 07/06/22 07:44 Room Air 07/05/22 22:20 07/06/22 03:27 Room Air 07/06/22 00:00 Room Air 07/05/22 23:28 Room Air Laboratory Results Cardiac Enzymes 07/05/22 07/05/22 07/06/22 Range/Units 12:56 20:31 00:49 AST 22 (13-39) U/L Troponin I High Sens 61.0 H* 57.3 H* 52.1 H* (0-14) pg/ml Coagulation 07/05/22 07/06/22 Range/Units 12:56 00:49 PT 10.0 (9.0-12.0) Seconds APTT 23.1 61.2 H* (21.0-31.0) Seconds CBC 07/05/22 07/06/22 Range/Units 12:56 05:56 WBC 8.17 6.29 (4.8-10.8) K/ul RBC 4.15 3.75 L (3.93-5.22) M/uL Hgb 12.9 11.8 L (12.0-16.0) g/dl Hct 40.4 35.6 (34.1-44.9) % Plt Count 182 167 (130-400) K/uL Neut # (Auto) 5.38 (1.4-6.5) K/uL Lymph # (Auto) 1.60 (1.2-3.4) K/uL [place] # (Auto) 0.90 H (0.24-0.82) K/uL Eos # (Auto) 0.22 (0-0.50) K/uL Baso # (Auto) 0.02 (0-0.2) K/uL Comprehensive Metabolic Panel 07/05/22 07/06/22 Range/Units 12:56 05:56 Sodium 142 142 (136-145) mmol/L Potassium 4.0 4.0 (3.5-5.1) mmol/L Chloride 107 108 H (98-107) mmol/L Carbon Dioxide 28 29 (21-32) mmol/L BUN 26 H 28 H (6-23) mg/dl Creatinine 1.11 1.21 H (0.6-1.2) mg/dl Glucose 112 H 102 H (70-99(Fasting)) mg/dl Calcium 9.6 8.8 (8.5-10.1) mg/dl AST 22 (13-39) U/L ALT 40 (7-52) U/L Alkaline Phosphatase 86 (34-104) U/L Total Protein 6.9 (6.0-8.3) gm/dl Albumin 3.7 (3.4-5.0) gm/dl Intake and Output 07/05/22 07/06/22 07/06/22 22:59 06:59 14:59 Intake Total 100 / 700 600 / 700 Balance 100 / 700 600 / 700 Intake: IV 500 / 500 Heparin Sodium/Dextrose 25,000 500 / 500 units In 500 ml @ 1,300 UNITS/ HR 26 mls/hr IV .[id number] [facility] Rx #:[id number] Oral 100 / 200 100 / 200 Other: # Unmeasured Voids 1 1 Weight 96.7 kg 90.8 kg Weight Measurement Method Built in [facility] Built in [facility]
--- NOTE | 2022-07-06 14:55 | Hospitalist Progress Note ---
Date of Service July 06, 2022 Assessment & Plan (1) Diastolic CHF: Plan 86-year-old female with PMH of paroxysmal A. fib not on anticoagulation [poor candidate due to high fall risk], HLD, CAD, WI, PE, CKD stage III, GERD, vitamin D deficiency, idiopathic polyneuropathy, esophageal motility disorder, chronic pain syndrome presented to the ED 07/05 with complaint of acute chest pain and leg swelling. 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 She is being managed for the following: Chest pain, likely demand ischemia Atrial flutter New LBBB History of CAD/HTN Patient presented with chest pain and leg swelling. Status post full dose aspirin in the ED. Patient with history of WI however patient does not report this is similar to previous WI symptoms. Admitting troponin of 61.0, flat trended. Admitting EKG with sinus tachycardia and left bundle branch block which is new. 07/06 echo with ejection fraction 50 to 55%, grade 2 diastolic dysfunction, no regional wall motion abnormalities. Patient with no further chest pain, continue with telemetry. Cardiology on board, appreciate recs Monitor and replete electrolytes. Acute on chronic diastolic heart failure: Patient presents with increasing leg swelling for 1 week [employer], not adherent to Lasix as an outpatient, 07/06 echo as above. Currently on IV Lasix, cardiology managing diuresis, strict I's and O's, daily weight, BLE swelling improving, patient on room air. Monitor and replete electrolytes. Memory loss: Burning sensation of mouth: - Follows with Dr. Vo as outpatient - continue on donepezil and meantine - Continue lyrica and nortiptyline for the burning mouth sensation DVT ppx: Hep SC. CODE: Full code Disposition: PT/OT, CM to assist with DC planning. Admission and Anticipated Discharge Date Admission Date: July 05, 2022 Subjective Patient seen and examined at bedside as a follow-up of chest pain, LBBB, acute on chronic diastolic CHF. Patient was lying in bed, on room air, NAD, reports no new acute event overnight. Patient denies any chest pain, reports eating okay, reports improvement in her leg swelling, reports having constipation, reports feeling better overall. Patient states that she has constipation but does not like to be dependent on a stool softener and hence she takes them sparingly. Also has similar opinion regarding use of Lasix and was stating that she does not like to be dependent on Lasix and has been not been using it. Patient was explained in detail the mechanism of action of both the stool softener and Lasix and their role in the clinical set up/improving her health status. Physical Exam Physical Exam: GENERAL: Alert and oriented x3. NAD, on RA. HEENT: No pallor, no icterus. Pupils equal, round and reactive to light. Oral mucosa moist. NECK: No JVD, no neck masses. HEART: S1 and S2 heard. Regular rate and rhythm. No murmur, no gallop. RESPIRATORY SYSTEM: Normal AP diameter. No accessory muscle use. No wheezing, no crackles. ABDOMEN: Soft, bowel sounds present, nontender, no distention. CENTRAL NERVOUS SYSTEM: No facial droop. Speech is clear. Obeys simple commands. Moves extremities. EXTREMITIES: 1+ ble edema, no erythema seen. Results & Data Results & Data ([facility]) Vital Signs (Past 12 Hours) Vital Signs Temp Pulse Resp BP Pulse Ox O2 Del Method 07/06/22 11:00 36.8 C 99 H 18 104/68 92 Room Air 07/06/22 08:00 Room Air 07/06/22 09:59 99 H 140/100 07/06/22 09:58 102 H 171/123 H 07/06/22 07:44 36.5 C 109 H 18 136/78 97 Room Air 07/06/22 03:27 36.9 C 91 H 16 130/84 95 Room Air
[2022-07-06] MEDS: DONEPEZIL HCL 10 MG TAB PO SCH (21:06)
[2022-07-06] MEDS: NORTRIPTYLINE HCL 25 MG CAP PO SCH (21:06)
[2022-07-06] MEDS: LATANOPROST 0.005% OP SOLN 2.5 ML BTL OPB SCH (21:06)
[2022-07-07] MEDS: LEVOTHYROXINE SODIUM 75 MCG TABLET PO SCH (03:10)
[2022-07-07 07:28] LABS: Hemoglobin 11.5 g/dl (12.0-16.0); Mean Corpuscular Hemoglobin 31.3 pg (25.0-34.0); Mean Corpuscular Hgb Conc 32.9 g/dL (32.0-36.0); Mean Corpuscular Volume 95.4 fL (80.0-100.0); Mean Platelet Volume 10.7 fL (9.4-12.3); Platelet Count 163 K/uL (130-400); RDW Coefficient of Variation 15.1 % (11.5-14.5); RDW Standard Deviation 53.1 fL (36.4-46.3); Red Blood Count 3.67 M/uL (3.93-5.22); White Blood Count 7.81 K/ul (4.8-10.8)
[2022-07-07 07:55] LABS: BUN Creatinine Ratio 27.3 (10-20); Calcium 8.9 mg/dl (8.5-10.1); Creatinine Clr Calc Pharmacy 34.7 ml/min; Est GFR (African American) 42.2 ml/min; Est GFR (Non-African American) 36.4 ml/min; Magnesium 2.1 mg/dl (1.7-2.4); Phosphorus 3.8 mg/dl (2.5-4.9); Potassium 4.4 mmol/L (3.5-5.1)
--- NOTE | 2022-07-07 07:56 | Cardiology Progress Note ---
Date of Service July 07, 2022 Assessment & Plan (1) Sinus tachycardia: (2) LBBB (left bundle branch block): (3) Diastolic CHF: (4) Memory loss: (5) CAD (coronary artery disease): Plan 86 year old female with history of CAD and prior PCI in ~2008, repeat nuclear stress testing due to recurrent chest pain 09/2020 which was nonischemic. Prior to admission patient experienced recurrent chest pressure while at rest- resolved on its own without nitro. HS trop minimally elevated but flat. EKG showing sinus tach. New LBBB- patient currently CP free without dizziness. No evidence of atrial flutter- would not recommend AC at this time. Patient would be a poor candidate for AC due to high fall risk. Echo with low normal LVEF of 50-55% and grade 2 diastolic dysfunction. Patient now appearing primarily euvolemic on exam. Weight down. Mild pedal edema remains. 1. Given x1 dose of IV Lasix yesterday, 07/06. Lower extremity edema improved. Given diastolic dysfunction we will start Lasix 20 mg daily plus spironolactone 12.5mg daily. Stop KCL. Will repeat BMP in the morning and reassess K. 2. 2 g sodium diet. Daily standing weights. CHF education. 3. In regards to new LBBB- Patient would be a poor candidate for cardiac ca theterization, will hold off on stress testing at this time. Will plan on treating conservatively. Patient noted prior use of SL nitro has improved her symptoms in the past. Started on Imdur 30 mg daily resulting in hypotension, medication discontinued. Losartan also on hold. 4. Heart rates improved with diuresis. Continue metoprolol succinate 25 mg BID- future considerations on increase in dose. 5. Monitor renal function and electrolytes- replace potassium for a goal of 4.0 and mag of 2.0 6. Continue to monitor on telemetry while inpatient. 7. Given history of CAD- restart ASA 81 mg daily. Case discussed with Dr. Elizabeth- will follow. Admission and Anticipated Discharge Date Admission Date: July 05, 2022 Supervising Physician Co-Signing Physician Notes Patient seen and examined, chart, medications, telemetry reviewed. Patient had mild lightheadedness when up to the bathroom this morning. Mild orthostasis on exam. Main complaint is peripheral edema per patient though only minimal on exam Telemetry reveals intermittent left bundle branch block Plan: As above. EKG will be ordered for this morning to reveal ST segments but not in left bundle. Begin low-dose diuretic orally first dose today assess tolerance. We will likely increase beta-sole in future rather than resuming low-dose Subjective 86-year-old female initially presented to [facility] emergency department due to chest discomfort, shortness of breath, fluid retention, and a new left bundle branch block. Initially there was concerns for atrial flutter on outpatient EKG (NOT PRESENT). 07/06: 40 mg of IV Lasix given due to lower extremity edema. Elevated blood pressures. Patient noting improvement with sublingual nitro in the past at home. Imdur 30 mg daily was started. BP trended downward to the 100s systolic and losartan was held, Imdur was discontinued. 07/07: Telemetry: SR 80-90s with intermittent LBBB Labs: sCr 1.11>>1.21>>1.32 I&O: +650 mL Weight: 96.7 kg >> 90.7 kg Upon entrance into the room patient without acute complaint- believes that her feet are still swollen, but improved from yesterday. No chest pain or sob. No palpations, dizziness, or fatigue. Review of Systems Review of Systems: All systems reviewed & are unremarkable except as noted in HPI & below Physical Exam Physical Exam: GENERAL: Alert and oriented x3. NAD, on RA. HEENT: No pallor, no icterus. Pupils equal, round and reactive to light. Oral mucosa moist. NECK: No JVD, no neck masses. HEART: S1 and S2 heard. Regular rate and rhythm. No murmur, no gallop. RESPIRATORY SYSTEM: Normal AP diameter. No accessory muscle use. No wheezing, no crackles. ABDOMEN: Soft, bowel sounds present, nontender, no distention. CENTRAL NERVOUS SYSTEM: No facial droop. Speech is clear. Obeys simple commands. Moves extremities. EXTREMITIES: 1+ BL pedal edema, no erythema seen. Compression socks on. Results & Data ([facility]) Vital Signs (Past 12 Hours) Vital Signs Temp Pulse Pulse Resp BP Pulse Ox O2 Del Method 07/07/22 03:39 36.8 C 87 18 100/68 92 Room Air 07/07/22 00:00 07/06/22 23:00 103 H 07/06/22 22:49 36.9 C 100 H 18 107/69 91 Room Air O2 Del Method 07/07/22 03:39 07/07/22 00:00 Room Air 07/06/22 23:00 07/06/22 22:49 Laboratory Results CBC 07/07/22 Range/Units 07:04 WBC 7.81 (4.8-10.8) K/ul RBC 3.67 L (3.93-5.22) M/uL Hgb 11.5 L (12.0-16.0) g/dl Hct 35.0 (34.1-44.9) % Plt Count 163 (130-400) K/uL Comprehensive Metabolic Panel 07/07/22 Range/Units 07:04 Sodium 140 (136-145) mmol/L Potassium 4.4 (3.5-5.1) mmol/L Chloride 106 (98-107) mmol/L Carbon Dioxide 28 (21-32) mmol/L BUN 36 H (6-23) mg/dl Creatinine 1.32 H (0.6-1.2) mg/dl Glucose 105 H (70-99(Fasting)) mg/dl Calcium 8.9 (8.5-10.1) mg/dl Intake and Output 07/06/22 07/07/22 07/07/22 22:59 06:59 14:59 Intake Total 150 / 450 150 / 450 Output Total 250 / 500 250 / 500 Balance -100 / -50 -100 / -50 Intake: Oral 150 / 450 150 / 450 Output: Urine 250 / 500 250 / 500 Other: Weight 90.7 kg
[2022-07-07] MEDS: POTASSIUM CHLORIDE CRTAB 20 MEQ TABCR PO SCH (08:24)
[2022-07-07] MEDS: ATORVASTATIN 10 MG TAB PO SCH (08:25)
[2022-07-07] MEDS: MEMANTINE HCL 10 MG TAB PO SCH ×2 (08:25→20:39)
[2022-07-07] MEDS: CEROVITE ADV FORMULA TAB PO SCH ×2 (08:25→20:39)
[2022-07-07] MEDS: METOPROLOL SUCC 25MG EXT REL TAB PO SCH ×2 (08:26→20:39)
[2022-07-07] MEDS: PREGABALIN 100 MG CAP PO SCH ×2 (08:36→20:46)
[2022-07-07] MEDS: SPIRONOLACTONE 12.5 MG TAB PO SCH (11:27)
[2022-07-07] MEDS: FUROSEMIDE 20 MG TAB PO SCH (11:27)
[2022-07-07] MEDS: ASPIRIN 81 MG ECTAB PO SCH (11:37)
--- NOTE | 2022-07-07 16:00 | Hospitalist Progress Note ---
Date of Service July 07, 2022 Assessment & Plan (1) Diastolic CHF: Plan 86-year-old female with PMH of paroxysmal A. fib not on anticoagulation [poor candidate due to high fall risk], HLD, CAD, [place], PE, CKD stage III, GERD, vitamin D deficiency, idiopathic polyneuropathy, esophageal motility disorder, chronic pain syndrome presented to the ED 07/05 with complaint of acute chest pain and leg swelling. Leg swelling was ongoing for approximately 1 week [employer], patient reports not taking Lasix as directed as she states "I do not want to be dependent on medications]. She is being managed for the following: Chest pain, likely demand ischemia Atrial flutter New LBBB History of CAD/HTN Patient presented with chest pain and leg swelling. Status post full dose aspirin in the ED. Patient with history of OR however patient does not report this is similar to previous OR symptoms. Admitting troponin of 61.0, flat trended. Admitting EKG with sinus tachycardia and left bundle branch block which is new. 07/06 echo with ejection fraction 50 to 55%, grade 2 diastolic dysfunction, no regional wall motion abnormalities. Patient with no further chest pain, continue with telemetry. Cardiology on board, appreciate recs, on lasix and aldactone, dc kcl supplement. Monitor and replete electrolytes. 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 Cardiology managing diuresis - lasix, aldactone. strict I's and O's, daily weight, BLE swelling improving, patient on room air. Monitor and replete electrolytes. Orthostatic hypotension: Patient advised slow transition between position changes, same instruction relayed to patient's daughter Yoon as well. Losartan on hold in favor of diuretic therapy Memory loss: Burning sensation of mouth: - Follows with Dr. Vo as outpatient - continue on donepezil and meantine - Continue lyrica and nortiptyline for the burning mouth sensation DVT ppx: Hep SC. CODE: Full code Disposition: PT/OT, CM to assist with DC planning. Likely nabila. Patient's daughter Yoon updated in detail in person, answered all question to her satisfaction. Admission and Anticipated Discharge Date Admission Date: July 05, 2022 Subjective Patient seen and examined at bedside as a follow-up of chest pain, LBBB, acute on chronic diastolic CHF. Patient was sitting up in chair, on room air, NAD, reports no new acute event overnight. Reports feeling weak and reports some dizziness when she stands up to go to bathroom. Pt advised to do slow transition during position changes due to orthostatic hypotension. Patient denies any chest pain, reports eating okay, reports improvement in her leg swelling. Is moving bowels ok per her. Physical Exam Physical Exam: GENERAL: Alert and oriented x3. NAD, on RA. HEENT: No pallor, no icterus. Pupils equal, round and reactive to light. Oral mucosa moist. NECK: No JVD, no neck masses. HEART: S1 and S2 heard. Regular rate and rhythm. No murmur, no gallop. RESPIRATORY SYSTEM: Normal AP diameter. No accessory muscle use. No wheezing, no crackles. ABDOMEN: Soft, bowel sounds present, nontender, no distention. CENTRAL NERVOUS SYSTEM: No facial droop. Speech is clear. Obeys simple commands. Moves extremities. EXTREMITIES: trace/1+ ble edema, no erythema seen. Results & Data Results & Data ([facility]) Vital Signs (Past 12 Hours) Vital Signs Temp Pulse Pulse Resp BP Pulse Ox O2 Del Method 07/07/22 11:45 36.7 C 99 H 19 125/86 93 Room Air 07/07/22 08:00 89 07/07/22 08:00 Room Air 07/07/22 08:03 36.5 C 92 H 19 148/92 H 93 Room Air
[2022-07-07] MEDS: DONEPEZIL HCL 10 MG TAB PO SCH (20:39)
[2022-07-07] MEDS: NORTRIPTYLINE HCL 25 MG CAP PO SCH (20:39)
[2022-07-07] MEDS: LATANOPROST 0.005% OP SOLN 2.5 ML BTL OPB SCH (20:40)
[2022-07-08] MEDS: LEVOTHYROXINE SODIUM 75 MCG TABLET PO SCH (05:20)
[2022-07-08 07:20] LABS: BUN Creatinine Ratio 29.5 (10-20); Calcium 9.5 mg/dl (8.5-10.1); Creatinine Clr Calc Pharmacy 34.4 ml/min; Est GFR (African American) 42.2 ml/min; Est GFR (Non-African American) 36.4 ml/min; Magnesium 2.1 mg/dl (1.7-2.4); Potassium 4.3 mmol/L (3.5-5.1)
[2022-07-08] MEDS: ASPIRIN 81 MG ECTAB PO SCH (09:30)
[2022-07-08] MEDS: METOPROLOL SUCC 25MG EXT REL TAB PO SCH ×2 (09:31→20:42)
[2022-07-08] MEDS: ATORVASTATIN 10 MG TAB PO SCH (09:31)
[2022-07-08] MEDS: FUROSEMIDE 20 MG TAB PO SCH (09:31)
[2022-07-08] MEDS: MEMANTINE HCL 10 MG TAB PO SCH ×2 (09:31→20:42)
[2022-07-08] MEDS: CEROVITE ADV FORMULA TAB PO SCH ×2 (09:32→20:41)
[2022-07-08] MEDS: SPIRONOLACTONE 12.5 MG TAB PO SCH (09:32)
[2022-07-08] MEDS: PREGABALIN 100 MG CAP PO SCH ×2 (09:36→20:41)
--- NOTE | 2022-07-08 13:49 | Discharge Summary ---
Date of Service July 08, 2022 Admission HPI Per Admitting Provider This is an 86 yo F with PMHx of paroxysmal A. fib not on anticoagulation, HLD, CAD, history of MT, history of pulmonary embolism, CKD stage III, GERD, vitamin D deficiency, idiopathic polyneuropathy, esophageal motility disorder, chronic pain syndrome who presents to the ER with acute onset of chest pain and leg swelling. Leg edema has been going on for approximately 1 week and the patient was started on Lasix 20 mg daily which did not seem to improve symptoms. Her left knee has been difficult to bend for some time, but she feels she is swollen more in the left than the right. Pt reports being sedentary. This morning she had an EKG at the PCPs office. She then reports having acute onset of chest pain after being told her EKG did not appear normal. Pt has difficulty recalling the order of events due to short term memory issues. Pt denies having any shortness of breath at rest but with exertion gets short of breath, not a new thing. Daughter, Yoon at bedside reports this has been going on for some time now, that the patient normally cares for her who has severe dementia. Yoon lives next door to them and is the medical POA as well as help with their care. They also have Comfort keepers coming to the home regularly. Patient is found to be in a flutter on EKG with heart rate of 110 with a new left bundle branch block. Admission Exam Per Admitting Provider General: awake, alert, no apparent distress Head: Normocephalic, atraumatic ENT: PERRL, EOMI, no pharyngeal exudate, mucous membranes moist Chest: Clear to auscultation, on room air, no adventitious breath sounds Cardiac: Regular rate and rhythm, no murmur, no JVD, normal peripheral pulses, good capillary refill Abdominal: NABS x 4 quadrants, soft, nondistended, nontender to palpation, no rebound or guarding Extremities: 1+ Peripheral edema in BLE, mild pitting over ankles, otherwise normal inspection, no peripheral edema or erythema, calfs nontender to palpation Psych: Normal mood and affect Neuro: AAO x 3, has difficulty recalling order of events and specific details of the past week, strength intact bilaterally and rated 4/5 in left knee extension, 5/5 right knee extension, no motor deficits, speech is clear, no peripheral sensory deficits Principal Diagnosis Chest pain, likely demand ischemia Atrial flutter New LBBB Hypertension Orthostatic hypotension Acute on chronic diastolic heart failure Discharge Exam GENERAL: Alert and oriented x3. NAD, on RA. HEENT: No pallor, no icterus. Pupils equal, round and reactive to light. Oral mucosa moist. NECK: No JVD, no neck masses. HEART: S1 and S2 heard. Regular rate and rhythm. No murmur, no gallop. RESPIRATORY SYSTEM: Normal AP diameter. No accessory muscle use. No wheezing, no crackles. ABDOMEN: Soft, bowel sounds present, nontender, no distention. CENTRAL NERVOUS SYSTEM: No facial droop. Speech is clear. Obeys simple commands. Moves extremities. EXTREMITIES: trace ble edema, no erythema seen. Discharge Data Allergies Allergy/AdvReac Type Severity Reaction Status Date / Time Iodinated Contrast Media Allergy Severe ANAPHYLAXIS Verified 06/14/22 14:04 allopurinol AdvReac CAN NOT Verified 06/14/22 14:04 TAKE DUE TO KIDNEY FUNCTION Consultations 07/05/22 15:55 ED Decision to Admit Stat 07/05/22 19:38 Consult Cardiology Routine Ordered Studies 07/05/22 17:19 US venous doppler LE Routine Hospital Course (1) Diastolic CHF: Plan 86-year-old female with PMH of paroxysmal A. fib not on anticoagulation [poor candidate due to high fall risk], HLD, CAD, MT, PE, CKD stage III, GERD, vitamin D deficiency, idiopathic polyneuropathy, esophageal motility disorder, chronic pain syndrome presented to the ED 07/05 with complaint of acute chest pain and leg swelling. 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 She was managed for the following: Chest pain, likely demand ischemia Atrial flutter New LBBB History of CAD/HTN Patient presented with chest pain and leg swelling. Status post full dose aspirin in the ED. Patient with history of MT however patient does not report this is similar to previous MT symptoms. Admitting troponin of 61.0, flat trended. Admitting EKG with sinus tachycardia and left bundle branch block which is new. 07/06 echo with ejection fraction 50 to 55%, grade 2 diastolic dysfunction, no regional wall motion abnormalities. Patient with no further chest pain, continue with telemetry. Cardiology evaled, appreciate recs, on lasix and aldactone, dc'd kcl supplement. f/u PCP and cards on DC, cbc/cmp/mg/p in a week at pcp office. 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 Cardiology managing diuresis - lasix, aldactone. strict I's and O's, daily weight, BLE swelling improving, patient on room air. Pt hemodynamically stable. Orthostatic hypotension: Patient advised slow transition between position changes, same instruction relayed to patient's daughter Yoon as well. Losartan on hold in favor of diuretic therapy. We will taper down nortriptyline. Use abdominal binder/compression stockings. Memory loss: Burning sensation of mouth: - Follows with Dr. Vo as outpatient - continue on donepezil and meantine - Continue lyrica and nortiptyline for the burning mouth sensation DVT ppx: Hep SC. CODE: Full code Disposition: PT/OT, CM to assist with DC planning. Likely nabila. Patient's daughter Yoon updated in detail in over the phone. Patient being discharged home with home health with following instruction at the point of discharge: Follow-up with your primary care physician within a week time and likely you will need labs CBC/CMP/magnesium/phosphorus. For your leg swelling/acute on chronic heart failure, cardiology evaluated you, you will be taking Lasix and Aldactone. Potassium supplement has been stopped. Follow-up with your heart doctor in 2 to 4 weeks time upon discharge. For your orthostatic hypotension/dizziness while standing, recommend using compression stockings/abdominal binders, recommend slow transition while changing position as discussed at bedside, will decrease your nortriptyline to 50 Mg p.o. at bedtime upon discharge, can use [id number] electrolyte solution/pedialyte when dizziness is more. Your losartan has been held on discharge in favor of diuretics use for your heart failure status and also you had orthostatic hypotension. Even after this, your dizziness is severe, then your PCP office will have to slowly taper down your nortriptylline to stop and see if it helps. Further evaluation for use of meds targeted to orthostatic hypotension is required after trial of this nonpharmacologic measures are carried out and upon further evaluation at your PCP office. You should arise slowly, in stages, from supine to seated to standing. This maneuver is most important in the morning, when orthostatic tolerance is lowest. Avoid Valsalva-like maneuvers (that may acutely increase intrathoracic pressure) such as frequent, violent coughing or straining with a closed glottis to defecate. Constipation may need to be treated with stool softeners and diet changes, and cough suppressants may be indicated. Limit walking in very hot or humid weather, avoid overheating, and minimize entering hot showers and saunas, as exposure to warm temperatures causes skin vasodilation to reduce venous return and worsen Orthostatic Hypotension. Tense the legs and contract abdominal and buttock muscles while actively standing to alleviate symptoms. Take your medications as prescribed. Please make sure that you are able to get your medications today by calling your pharmacy before you leave the hospital so that your treatment continuity is not broken. Home Health Attestation I certify that this patient is under my care and that I, or a physicians career services assistant working with me, had a face to-face encounter that meets the home health [id number] encounter requirements with this patient. The encounter with the patient was in whole, or in part, for the following medical condition, which is the primary reason for home health care (list me dical condition): chest pain- new LBBB-weakness I certify that, based on my findings, the following services are medically necessary home health services: My clinical findings support the need for the above services because: OT Assess ADL Status and Restore Function w ADLs PT Assessment for Endurance / Balance / Strength PT Eval for Safety and Mobility PT Eval for Safety, Gait Training, Assistive Devices PT Gait and Balance Training, Strengthening and Safety Further, I certify that my clinical findings support that this patient is homebound (i.e. absences from home require considerable and taxing effort and are for medical reasons or yarsanism services or infrequently or of short duration when for other reasons) because: Supportive Aid - Walker Certification for Home Health Services: Based on the above findings, I certify that this patient is confined to the home and needs intermittent nursing home care, physical therapy and/or speech therapy or continues to need occupational therapy. The patient is under my care, and I have initiated the establishment of the plan of care. This patient will be followed by a physician who will periodically review the plan of care. Total Time Total Time Spent Total Time Spent (In Minutes): 55 Discharge Plan Discharge Items Patient Disposition: Home - Home Health Services Reason For Visit: chest pain, New LBBB Discharge Diagnosis: Chest pain, likely demand ischemia Atrial flutter New LBBB Hypertension Orthostatic hypotension Acute on chronic diastolic heart failure Activity: As commented below Activity Comment: Slow transition of care between change in positions. Walk w/use of support. Non-emergency contact: Primary Care Provider Call non-emergency contact if: you have any medication questions Follow-up/Referrals: Pancho Zimmer MD [Primary Care Provider] - Diet: Regular Fluids: 1800ml (7 cups) Addtl Attending Provider Instructions: Follow-up with your primary care physician within a week time and likely you will need labs CBC/CMP/magnesium/phosphorus. For your leg swelling/acute on chronic heart failure, cardiology evaluated you, you will be taking Lasix and Aldactone. Potassium supplement has been stopped. Follow-up with your heart doctor in 2 to 4 weeks time upon discharge. For your orthostatic hypotension/dizziness while standing, recommend using compression stockings/abdominal binders, recommend slow transition while changing position as discussed at bedside, will decrease your nortriptyline to 50 Mg p.o. at bedtime upon discharge, can use [id number] electrolyte solution/pedialyte when dizziness is more. Your losartan has been held on discharge in favor of diuretics use for your heart failure status and also you had orthostatic hypotension. Even after this, your dizziness is severe, then your PCP office will have to slowly taper down your nortriptylline to stop and see if it helps. Further evaluation for use of meds targeted to orthostatic hypotension is required after trial of this nonpharmacologic measures are carried out and upon further evaluation at your PCP office. You should arise slowly, in stages, from supine to seated to standing. This maneuver is most important in the morning, when orthostatic tolerance is lowest. Avoid Valsalva-like maneuvers (that may acutely increase intrathoracic pressure) such as frequent, violent coughing or straining with a closed glottis to defecate. Constipation may need to be treated with stool softeners and diet changes, and cough suppressants may be indicated. Limit walking in very hot or humid weather, avoid overheating, and minimize entering hot showers and saunas, as exposure to warm temperatures causes skin vasodilation to reduce venous return and worsen Orthostatic Hypotension. Tense the legs and contract abdominal and buttock muscles while actively standing to alleviate symptoms. Take your medications as prescribed. Please make sure that you are able to get your medications today by calling your pharmacy before you leave the hospital so that your treatment continuity is not broken. Pending Studies at Discharge: No Stand-Alone Forms: My [facility], Smoking Cessation Medications and DC Order Prescriptions: New spironolactone 25 mg Tablet 12.5 mg PO DAILY Qty: 14 0RF nortriptyline 25 mg Capsule 50 mg PO HS Qty: 60 0RF aspirin 81 mg Tablet,Delayed Release (Dr/Ec) 81 mg PO QAM Qty: 30 0RF furosemide 20 mg Tablet 20 mg PO QAM Qty: 30 0RF Continued atorvastatin [Lipitor] 10 mg Tablet 10 mg PO QAM Qty: 0 metoprolol succinate [Toprol XL] 25 mg tablet extended release 24 hr 25 mg PO BID Qty: 0 multivitamin with minerals Tablet 1 tab PO QAM Qty: 0 Label Comments: WITH EXTRA LUTEIN Pt has not taken for some days due to not getting the medication from the store. Pt says that dosage varies by whatever the store has in stock that day. 05/08/19 levothyroxine [Synthroid] 75 mcg tablet 75 mcg PO QAM Qty: 90 3RF Rx Instructions: MUST BE BRAND NAME donepezil 10 mg tablet 10 mg PO HS Qty: 90 3RF memantine 10 mg tablet See Rx Instructions .ROUTE .COMPLEX Qty: 180 3RF Dose Instruction: TAKE 1 TABLET BY MOUTH TWICE A DAY Rx Instructions: TAKE 1 TABLET BY MOUTH TWICE A DAY pregabalin 100 mg capsule 100 mg PO BID Qty: 180 1RF PreserVision AREDS [id number] Tablet 1 tab PO BID cyclosporine [Restasis] 0.05 % dropperette 1 drp OPB BID latanoprost [Xalatan] 0.005 % drops 1 drp OPB HS Discontinued furosemide 20 mg tablet 20 mg PO DAILY PRN (Reason: edema) Qty: 30 5RF Rx Instructions: Take one pill only if you have swelling or weight gain. Take a potassium pill if you take furosemide. potassium chloride [K-Tab] 20 mEq tablet extended release 20 meq PO DAILY PRN (Reason: if take furosemide) Qty: 30 5RF Rx Instructions: Take 1 pill if you take furosemide. amoxicillin 500 mg capsule 500 mg PO TID nortriptyline 75 mg capsule 75 mg PO HS Qty: 90 3RF losartan 50 mg Tablet 50 mg PO DAILY Discharge Orders: Discharge Order (Routine); Ordered 07/08/22 Ordered By: Lida Villanueva Admission Data Admit Date/Time: 07/05/22 16:07 Attending Provider: Lida Villanueva Admit Provider: Alix Morales Primary Care Provider: Pancho Zimmer Other Providers: Alix Morales ; Bryce Elizabeth ; [facility]
--- NOTE | 2022-07-08 14:05 | Hospitalist Progress Note ---
Date of Service July 08, 2022 Assessment & Plan (1) Diastolic CHF: Plan 86-year-old female with PMH of paroxysmal A. fib not on anticoagulation [poor candidate due to high fall risk], HLD, CAD, UT, PE, CKD stage III, GERD, vitamin D deficiency, idiopathic polyneuropathy, esophageal motility disorder, chronic pain syndrome presented to the ED 07/05 with complaint of acute chest pain and leg swelling. 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 She is being managed for the following: Chest pain, likely demand ischemia Atrial flutter New LBBB History of CAD/HTN Patient presented with chest pain and leg swelling. Status post full dose as pirin in the ED. Patient with history of UT however patient does not report this is similar to previous UT symptoms. Admitting troponin of 61.0, flat trended. Admitting EKG with sinus tachycardia and left bundle branch block which is new. 07/06 echo with ejection fraction 50 to 55%, grade 2 diastolic dysfunction, no regional wall motion abnormalities. Patient with no further chest pain, continue with telemetry. Cardiology evaled, appreciate recs, on lasix and aldactone, dc'd kcl supplement. f/u PCP and cards on DC, cbc/cmp/mg/p in a week at pcp office. 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 Cardiology managing diuresis - lasix, aldactone. strict I's and O's, daily weight, BLE swelling improving, patient on room air. Pt hemodynamically stable. Orthostatic hypotension: Patient advised slow transition between position changes, same instruction relayed to patient's daughter Yoon as well. Losartan on hold in favor of diuretic therapy. We will taper down nortriptyline. Use abdominal binder/compression stockings. Pt still w/ some dizziness, would like to stay one more day/ Memory loss: Burning sensation of mouth: - Follows with Dr. Vo as outpatient - continue on donepezil and meantine - Continue lyrica and nortiptyline for the burning mouth sensation DVT ppx: Hep SC. CODE: Full code Disposition: PT/OT, CM to assist with DC planning. Pt would like to go home nabila. Patient's daughter Yoon updated in detail in over the phone. Admission and Anticipated Discharge Date Admission Date: July 05, 2022 Subjective Patient seen and examined at bedside as a follow-up of chest pain, LBBB, acute on chronic diastolic CHF. Patient was sitting up in chair, on room air, NAD, reports no new acute event overnight. Reports feeling weak and reports some dizziness, would like to go home tomorrow. Pt advised to do slow transition during position changes due to orthostatic hypotension, same has been communicated to her daughter multiple times. Patient denies any chest pain, reports eating okay, reports improvement in her leg swelling. Is moving bowels ok per her. Physical Exam Physical Exam: GENERAL: Alert and oriented x3. NAD, on RA. HEENT: No pallor, no icterus. Pupils equal, round and reactive to light. Oral mucosa moist. NECK: No JVD, no neck masses. HEART: S1 and S2 heard. Regular rate and rhythm. No murmur, no gallop. RESPIRATORY SYSTEM: Normal AP diameter. No accessory muscle use. No wheezing, no crackles. ABDOMEN: Soft, bowel sounds present, nontender, no distention. CENTRAL NERVOUS SYSTEM: No facial droop. Speech is clear. Obeys simple commands. Moves extremities. EXTREMITIES: trace ble edema, no erythema seen. Results & Data Results & Data ([facility]) Vital Signs (Past 12 Hours) Vital Signs Temp Pulse Resp BP BP Pulse Ox O2 Del Method 07/08/22 11:01 36.7 C 90 18 137/83 95 Room Air 07/08/22 07:39 36.5 C 84 18 103/70 94 Room Air 07/08/22 02:57 36.6 C 82 18 100/68 92 Room Air
--- NOTE | 2022-07-08 14:17 | Cardiology Progress Note ---
Date of Service July 08, 2022 Assessment & Plan (1) Sinus tachycardia: (2) LBBB (left bundle branch block): (3) Diastolic CHF: (4) Memory loss: (5) CAD (coronary artery disease): Plan 86 year old female with history of CAD and prior PCI in ~2008, repeat nuclear stress testing due to recurrent chest pain 09/2020 which was nonischemic. Prior to admission patient experienced recurrent chest pressure while at rest- resolved on its own without nitro. HS trop minimally elevated but flat. EKG showing sinus tach. New LBBB- patient currently CP free without dizziness. No evidence of atrial flutter- would not recommend AC at this time. Patient would be a poor candidate for AC due to high fall risk. Echo with low normal LVEF of 50-55% and grade 2 diastolic dysfunction. Patient now appearing primarily euvolemic on exam. Weight down. Trace only pedal edema remains. Plan: Continue to hold losartan. Increase metoprolol succinate to 37.5 mg twice per day. Hold furosemide in a.m. while continuing spironolactone low-dose. Gradual increase in activities in hospital Admission and Anticipated Discharge Date Admission Date: July 05, 2022 Subjective Patient was seen and examined, chart, medications, telemetry reviewed. Feels slightly better today but still occasionally dyspneic when up. No chest pains or worsening shortness of breath. Pedal edema improved. No fevers or chills. Review of Systems Review of Systems: All systems reviewed & are unremarkable except as noted in Subjective Physical Exam Physical Exam: GENERAL: Alert and oriented x3. NAD, on RA. HEENT: No pallor, no icterus. Pupils equal, round and reactive to light. Oral mucosa moist. NECK: No JVD, no neck masses. HEART: S1 and S2 heard. Regular rate and rhythm. No murmur, no gallop. RESPIRATORY SYSTEM: Normal AP diameter. No accessory muscle use. No wheezing, no crackles. ABDOMEN: Soft, bowel sounds present, nontender, no distention. CENTRAL NERVOUS SYSTEM: No facial droop. Speech is clear. Obeys simple commands. Moves extremities. EXTREMITIES: Trivial BL pedal edema, no erythema seen. Compression socks on. Results & Data ([facility]) Vital Signs (Past 12 Hours) Vital Signs Temp Pulse Resp BP BP Pulse Ox O2 Del Method 07/08/22 11:01 36.7 C 90 18 137/83 95 Room Air 07/08/22 07:39 36.5 C 84 18 103/70 94 Room Air 07/08/22 02:57 36.6 C 82 18 100/68 92 Room Air Laboratory Results Laboratory Results - last 24 hr 07/08/22 06:16 Sodium 138 Potassium 4.3 Chloride 105 Carbon Dioxide 26 Anion Gap 7 BUN 39 H Creatinine 1.32 H Est Cr Clr Drug Dosing 34.4 Est GFR ( Amer) 42.2 Est GFR (Non-Af Amer) 36.4 BUN/Creatinine Ratio 29.5 H Glucose 121 H Calcium 9.5 Magnesium 2.1
[2022-07-08] MEDS: DONEPEZIL HCL 10 MG TAB PO SCH (20:41)
[2022-07-08] MEDS: NORTRIPTYLINE HCL 25 MG CAP PO SCH (20:42)
[2022-07-08] MEDS: LATANOPROST 0.005% OP SOLN 2.5 ML BTL OPB SCH (20:42)
[2022-07-09] MEDS: LEVOTHYROXINE SODIUM 75 MCG TABLET PO SCH (06:37)
[2022-07-09] MEDS: ATORVASTATIN 10 MG TAB PO SCH (09:03)
[2022-07-09] MEDS: ASPIRIN 81 MG ECTAB PO SCH (09:03)
[2022-07-09] MEDS: MEMANTINE HCL 10 MG TAB PO SCH (09:03)
[2022-07-09] MEDS: CEROVITE ADV FORMULA TAB PO SCH (09:04)
[2022-07-09] MEDS: METOPROLOL SUCC 25MG EXT REL TAB PO SCH (09:04)
[2022-07-09] MEDS: SPIRONOLACTONE 12.5 MG TAB PO SCH (09:05)
[2022-07-09] MEDS: PREGABALIN 100 MG CAP PO SCH (09:08)
--- NOTE | 2022-07-09 11:48 | Cardiology Progress Note ---
Date of Service July 09, 2022 Assessment & Plan (1) Sinus tachycardia: (2) LBBB (left bundle branch block): (3) Diastolic CHF: (4) Memory loss: (5) CAD (coronary artery disease): Plan 86 year old female with history of CAD and prior PCI in ~2008, repeat nuclear stress testing due to recurrent chest pain 09/2020 which was nonischemic. Prior to admission patient experienced recurrent chest pressure while at rest- resolved on its own without nitro. HS trop minimally elevated but flat. EKG showing sinus tach. New LBBB- patient currently CP free without dizziness. No evidence of atrial flutter- would not recommend AC at this time. Patient would be a poor candidate for AC due to high fall risk. Echo with low normal LVEF of 50-55% and grade 2 diastolic dysfunction. Patient now appearing primarily euvolemic on exam. Weight down. Trace only pedal edema remains. Plan: Continue to hold losartan. Increase metoprolol succinate to 37.5 mg twice per day. Hold furosemide in a.m. while continuing spironolactone low-dose. Gradual increase in activities in hospital 07/09/2022 Multifactorial complaints clinically improved. Patient desires discharge Recommendations: Discontinue losartan Continue increased dose of metoprolol succinate 37.5 mg twice per day Spironolactone 12.5 mg daily Furosemide 20mg 12 day weekly as needed for edema Admission and Anticipated Discharge Date Admission Date: July 05, 2022 Subjective Patient seen and examined, chart, medications, telemetry reviewed. Feels improved today. No chest pain or shortness of breath no dizziness or lightheadedness. Leg edema improved. Review of Systems Review of Systems: All systems reviewed & are unremarkable except as noted in Subjective Physical Exam Physical Exam: GENERAL: Alert and oriented x3. NAD, on RA. HEENT: No pallor, no icterus. Pupils equal, round and reactive to light. Oral mucosa moist. NECK: No JVD, no neck masses. HEART: S1 and S2 heard. Regular rate and rhythm. No murmur, no gallop. RESPIRATORY SYSTEM: Normal AP diameter. No accessory muscle use. No wheezing, no crackles. ABDOMEN: Soft, bowel sounds present, nontender, no distention. CENTRAL NERVOUS SYSTEM: No facial droop. Speech is clear. Obeys simple commands. Moves extremities. EXTREMITIES: Trivial BL pedal edema, no erythema seen. Compression socks on. Results & Data ([facility]) Vital Signs (Past 12 Hours) Vital Signs Temp Pulse Pulse Resp BP Pulse Ox O2 Del Method 07/09/22 07:00 56 L 07/09/22 07:00 81 07/09/22 07:43 36.5 C 72 18 122/63 96 Nasal Cannula 07/09/22 02:43 36.3 C L 83 18 114/77 92 Room Air
--- NOTE | 2022-07-09 12:49 | Hospitalist Progress Note ---
Date of Service July 09, 2022 Assessment & Plan (1) Diastolic CHF: Plan Patient is a 86 yr old female with PMH of paroxysmal A. fib not on anticoagulation [poor candidate due to high fall risk], HLD, CAD, [place], PE, CKD stage III, GERD, vitamin D deficiency, idiopathic polyneuropathy, esophageal motility disorder, chronic pain syndrome presented to the ED 07/05 with complaint of acute chest pain and leg swelling. 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 She is being managed for the following: Chest pain, likely demand ischemia Atrial flutter New LBBB H/O CAD/HTN --CXR:Cardiomegaly with no active disease in the chest. --Venous Doppler:No evidence of deep venous thrombus within the bilateral lower extremities. --ECHO with ejection fraction 50 to 55%, grade 2 diastolic dysfunction, no regional wall motion abnormalities. --Normal TSH -- Mild troponin elevation--trended down --Appreciate cardiology input --Continue aspirin, statin Metoprolol dose increased to 37.5 mg twice daily Losartan discontinued as recommended by cardiology Advised to follow-up with cardiology upon discharge Currently chest pain-free Acute on chronic diastolic heart failure: --CXR, ECHO as above Monitor I's and O's, daily weight, volume status Continue spironolactone 12.5 mg daily Continue Lasix 1 to 2 times a week as needed for edema Appreciate cardiology input Orthostatic hypotension: Advised slow transition between position changes Losartan discontinued Tapered down nortriptyline. Use compression stockings Memory loss: Burning sensation of mouth: - Follows with Dr. Vo as outpatient - continue on donepezil and meantine - Continue lyrica and nortiptyline -Follow-up as outpatient DVT px: Heparin SQ CODE: Full code Disposition: Home with Admission and Anticipated Discharge Date Admission Date: July 05, 2022 Subjective Patient is seen and examined at bedside States feeling tired Otherwise no complaints Eager to get discharged Denies any chest pain, dyspnea, dizziness, nausea, abdominal pain Review of Systems Review of Systems: All systems reviewed & are unremarkable except as noted in Subjective Physical Exam Physical Exam: Physical Exam: Vitals signs as noted above General Appearance:Moderately built and nourished, no apparent distress Head: normocephalic, Atraumatic Eyes: normal inspection, EOMI Neck: supple, Trachea midline Respiratory/Chest: Normal breath sounds, CTA, No accessory muscle use Cardiovascular: S1, S2, No murmur Abdomen/GI:Soft, Non tender, Bowel sounds present Extremities/Musculoskeletal:normal inspection, Trace pedal edema Neurologic/Psych:AAOX3, grossly no focal neurological deficits Skin: normal color, warm Results & Data Results & Data ([facility]) Vital Signs (Past 12 Hours) Vital Signs Temp Pulse Pulse Resp BP Pulse Ox O2 Del Method 07/09/22 12:03 36.9 C 81 18 132/68 95 Room Air 07/09/22 07:00 56 L 07/09/22 07:00 81 07/09/22 07:43 36.5 C 72 18 122/63 96 Nasal Cannula 07/09/22 02:43 36.3 C L 83 18 114/77 92 Room Air
--- NOTE | 2022-07-09 12:54 | Discharge Summary ---
Date of Service July 09, 2022 Admission HPI Per Admitting Provider This is an 86 yo F with PMHx of paroxysmal A. fib not on anticoagulation, HLD, CAD, history of ME, history of pulmonary embolism, CKD stage III, GERD, vitamin D deficiency, idiopathic polyneuropathy, esophageal motility disorder, chronic pain syndrome who presents to the ER with acute onset of chest pain and leg swelling. Leg edema has been going on for approximately 1 week and the patient was started on Lasix 20 mg daily which did not seem to improve symptoms. Her left knee has been difficult to bend for some time, but she feels she is swollen more in the left than the right. Pt reports being sedentary. This morning she had an EKG at the PCPs office. She then reports having acute onset of chest pain after being told her EKG did not appear normal. Pt has difficulty recalling the order of events due to short term memory issues. Pt denies having any shortness of breath at rest but with exertion gets short of breath, not a new thing. Daughter, Yoon at bedside reports this has been going on for some time now, that the patient normally cares for her who has severe dementia. Yoon lives next door to them and is the medical POA as well as help with their care. They also have Comfort keepers coming to the home regularly. Patient is found to be in a flutter on EKG with heart rate of 110 with a new left bundle branch block. Admission Exam Per Admitting Provider Physical Exam Physical Exam: General: awake, alert, no apparent distress Head: Normocephalic, atraumatic ENT: PERRL, EOMI, no pharyngeal exudate, mucous membranes moist Chest: Clear to auscultation, on room air, no adventitious breath sounds Cardiac: Regular rate and rhythm, no murmur, no JVD, normal peripheral pulses, good capillary refill Abdominal: NABS x 4 quadrants, soft, nondistended, nontender to palpation, no rebound or guarding Extremities: 1+ Peripheral edema in BLE, mild pitting over ankles, otherwise normal inspection, no peripheral edema or erythema, calfs nontender to palpation Psych: Normal mood and affect Neuro: AAO x 3, has difficulty recalling order of events and specific details of the past week, strength intact bilaterally and rated 4/5 in left knee extension, 5/5 right knee extension, no motor deficits, speech is clear, no peripheral sensory deficits Principal Diagnosis Chest pain, likely demand ischemia New LBBB Hypertension Orthostatic hypotension Acute on chronic diastolic heart failure Discharge Data Allergies Allergy/AdvReac Type Severity Reaction Status Date / Time Iodinated Contrast Media Allergy Severe ANAPHYLAXIS Verified 06/14/22 14:04 allopurinol AdvReac CAN NOT Verified 06/14/22 14:04 TAKE DUE TO KIDNEY FUNCTION Consultations 07/05/22 15:55 ED Decision to Admit Stat 07/05/22 19:38 Consult Cardiology Routine Procedures Performed Laboratory Results WBC 7.81 K/ul (4.8-10.8) 07/07/22 07:04 RBC 3.67 M/uL (3.93-5.22) L 07/07/22 07:04 Hgb 11.5 g/dl (12.0-16.0) L 07/07/22 07:04 Hct 35.0 % (34.1-44.9) 07/07/22 07:04 MCV 95.4 fL (80.0-100.0) 07/07/22 07:04 MCH 31.3 pg (25.0-34.0) 07/07/22 07:04 MCHC 32.9 g/dL (32.0-36.0) 07/07/22 07:04 RDW Std Deviation 53.1 fL (36.4-46.3) H 07/07/22 07:04 RDW Coeff of Bon 15.1 % (11.5-14.5) H 07/07/22 07:04 Plt Count 163 K/uL (130-400) 07/07/22 07:04 MPV 10.7 fL (9.4-12.3) 07/07/22 07:04 Immature Gran % (Auto) 0.6 % 07/05/22 12:56 Neut % (Auto) 65.9 % 07/05/22 12:56 Lymph % (Auto) 19.6 % 07/05/22 12:56 Isabela % (Auto) 11.0 % 07/05/22 12:56 Eos % (Auto) 2.7 % 07/05/22 12:56 Baso % (Auto) 0.2 % 07/05/22 12:56 Neut # (Auto) 5.38 K/uL (1.4-6.5) 07/05/22 12:56 Lymph # (Auto) 1.60 K/uL (1.2-3.4) 07/05/22 12:56 Isabela # (Auto) 0.90 K/uL (0.24-0.82) H 07/05/22 12:56 Eos # (Auto) 0.22 K/uL (0-0.50) 07/05/22 12:56 Baso # (Auto) 0.02 K/uL (0-0.2) 07/05/22 12:56 Immature Gran # (Auto) 0.05 K/uL (0.00-0.02) H 07/05/22 12:56 PT 10.0 Seconds (9.0-12.0) 07/05/22 12:56 INR 0.9 (0.9-1.1) 07/05/22 12:56 APTT 61.2 Seconds (21.0-31.0) H* 07/06/22 00:49 PTT Ratio 2.2 07/06/22 00:49 Sodium 138 mmol/L (136-145) 07/08/22 06:16 Potassium 4.3 mmol/L (3.5-5.1) 07/08/22 06:16 Chloride 105 mmol/L (98-107) 07/08/22 06:16 Carbon Dioxide 26 mmol/L (21-32) 07/08/22 06:16 Anion Gap 7 (3-11) 07/08/22 06:16 BUN 39 mg/dl (6-23) H 07/08/22 06:16 Creatinine 1.32 mg/dl (0.6-1.2) H 07/08/22 06:16 Est Cr Clr Drug Dosing 34.4 ml/min 07/08/22 06:16 Est GFR ( Amer) 42.2 ml/min 07/08/22 06:16 Est GFR (Non-Af Amer) 36.4 ml/min 07/08/22 06:16 BUN/Creatinine Ratio 29.5 (10-20) H 07/08/22 06:16 Glucose 121 mg/dl (70-99(Fasting)) H 07/08/22 06:16 Calcium 9.5 mg/dl (8.5-10.1) 07/08/22 06:16 Phosphorus 3.8 mg/dl (2.5-4.9) 07/07/22 07:04 Magnesium 2.1 mg/dl (1.7-2.4) 07/08/22 06:16 Total Bilirubin 0.6 mg/dl (0.2-1.0) 07/05/22 12:56 AST 22 U/L (13-39) 07/05/22 12:56 ALT 40 U/L (7-52) 07/05/22 12:56 Alkaline Phosphatase 86 U/L (34-104) 07/05/22 12:56 Troponin I High Sens 52.1 pg/ml (0-14) H* 07/06/22 00:49 Total Protein 6.9 gm/dl (6.0-8.3) 07/05/22 12:56 Albumin 3.7 gm/dl (3.4-5.0) 07/05/22 12:56 Globulin 3.2 gm/dl (2.5-4.0) 07/05/22 12:56 Albumin/Globulin Ratio 1.2 (0.9-2) 07/05/22 12:56 SARS-CoV-2, RNA, NAAT NEGATIVE (NEGATIVE) 07/05/22 16:55 Impressions Chest X-Ray 07/05/22 12:25 TWO VIEW CHEST CLINICAL HISTORY: Atypical chest pain.. FINDINGS: PA and lateral chest radiographs are compared to study dated 02/25/2022 and correlated with chest CT dated 02/05/2020. The heart is enlarged noting atherosclerotic calcification of the thoracic aorta. The pulmonary vasculature is noncongested. Chronic interstitial thickening is similar to previous. There is bibasilar scarring/atelectasis. No airspace consolidation or pleural effusion is identified. There is no pneumothorax. The skeletal structures are osteopenic. The bony thorax appears intact. Advanced arthritic change is seen in the right shoulder. Left shoulder arthroplasty is in place. Spondylotic change is noted in the spine. Surgical clips are seen in the upper abdomen. IMPRESSION: Cardiomegaly with no active disease in the chest. ACT 112: Negative or not required by law. Electronically signed by: Ronak Montalvo M.D. 07/05/2022 1:16 PM Venous Doppler Study 07/05/22 17:19 BILATERAL LOWER EXTREMITY VENOUS DOPPLER CLINICAL HISTORY: Bilateral lower extremity edema. COMPARISON STUDY: Left lower extremity venous Doppler ultrasound February 24, 2022 and right lower extremity venous Doppler ultrasound April 23, 2019. TECHNIQUE: Sonography of the deep venous system of the bilateral lower extremities was performed. Compression and augmentation were evaluated. FINDINGS: The bilateral common femoral, superficial femoral and popliteal veins were compressible. Augmentation was normal. Flow was shown within the deep calf vessels. IMPRESSION: No evidence of deep venous thrombus within the bilateral lower extremities. ACT 112: Negative or not required by law. Electronically signed by: Reilly Silva M.D. 07/05/2022 7:09 PM Ordered Studies 07/05/22 17:19 US venous doppler LE BI Routine Hospital Course (1) Diastolic CHF: Plan Patient is a 86 yr old female with PMH of paroxysmal A. fib not on antico agulation [poor candidate due to high fall risk], HLD, CAD, ME, PE, CKD stage III, GERD, vitamin D deficiency, idiopathic polyneuropathy, esophageal motility disorder, chronic pain syndrome presented to the ED 07/05 with complaint of acute chest pain and leg swelling. 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 She is being managed for the following: Chest pain, likely demand ischemia Sinus Tachycardia New LBBB H/O CAD/HTN --CXR:Cardiomegaly with no active disease in the chest. --Venous Doppler:No evidence of deep venous thrombus within the bilateral lower extremities. --ECHO with ejection fraction 50 to 55%, grade 2 diastolic dysfunction, no regional wall motion abnormalities. --Normal TSH -- Mild troponin elevation--trended down --Appreciate cardiology input --Continue aspirin, statin Metoprolol dose increased to 37.5 mg twice daily Losartan discontinued as recommended by cardiology Advised to follow-up with cardiology upon discharge Currently chest pain-free Acute on chronic diastolic heart failure: --CXR, ECHO as above Monitor I's and O's, daily weight, volume status Continue spironolactone 12.5 mg daily Continue Lasix 1 to 2 times a week as needed for edema Appreciate cardiology input Orthostatic hypotension: Advised slow transition between position changes Losartan discontinued Tapered down nortriptyline. Use compression stockings Memory loss: Burning sensation of mouth: - Follows with Dr. Vo as outpatient - continue on donepezil and meantine - Continue lyrica and nortiptyline -Follow-up as outpatient DVT px: Heparin SQ CODE: Full code Disposition: Home with HH Total Time Total Time Spent Total Time Spent (In Minutes): 45 minutes Discharge Plan Discharge Items Patient Disposition: Home - Home Health Services Reason For Visit: chest pain, New LBBB Discharge Diagnosis: Chest pain, likely demand ischemia New LBBB Hypertension Orthostatic hypotension Acute on chronic diastolic heart failure Activity: As commented below Activity Comment: Slow transition of care between change in positions. Walk w/use of support. Exercise/Sports: Wait until after follow-up appointment Non-emergency contact: Primary Care Provider and Mandrel Cleaner Call non-emergency contact if: you have any medication questions, your symptoms worsen and your pain is concerning for you Follow-up/Referrals: Pancho Zimmer MD [Primary Care Provider] - Diet: Regular and Heart Healthy Fluids: 1800ml (7 cups) Addtl Attending Provider Instructions: Follow-up with your primary care physician within a week time and likely you will need labs CBC/CMP/magnesium/phosphorus. For your leg swelling/acute on chronic heart failure, cardiology evaluated you, you will be taking Lasix and Aldactone. Potassium supplement has been stopped. Follow-up with your heart doctor in 2 to 4 weeks time upon discharge. For your orthostatic hypotension/dizziness while standing, recommend using compression stockings/abdominal binders, recommend slow transition while changing position as discussed at bedside, will decrease your nortriptyline to 50 Mg p.o. at bedtime upon discharge, can use [id number] electrolyte solution/pedialyte when dizziness is more. Your losartan has been held on discharge in favor of diuretics use for your heart failure status and also you had orthostatic hypotension. Even after this, your dizziness is severe, then your PCP office will have to slowly taper down your nortriptylline to stop and see if it helps. Further evaluation for use of meds targeted to orthostatic hypotension is required after trial of this nonpharmacologic measures are carried out and upon further evaluation at your PCP office. You should arise slowly, in stages, from supine to seated to standing. This maneuver is most important in the morning, when orthostatic tolerance is lowest. Avoid Valsalva-like maneuvers (that may acutely increase intrathoracic pressure) such as frequent, violent coughing or straining with a closed glottis to defecate. Constipation may need to be treated with stool softeners and diet changes, and cough suppressants may be indicated. Limit walking in very hot or humid weather, avoid overheating, and minimize entering hot showers and saunas, as exposure to warm temperatures causes skin vasodilation to reduce venous return and worsen Orthostatic Hypotension. Tense the legs and contract abdominal and buttock muscles while actively standing to alleviate symptoms. Take your medications as prescribed. Please make sure that you are able to get your medications today by calling your pharmacy before you leave the hospital so that your treatment continuity is not broken Call your Primary Care doctor if any of the following symptoms or problems start or get worse: * Shortness of breath or difficulty breathing * Wake up at night short of breath * Chest pain * Cough * Swelling of your hands, feet, or legs * More fatigued or tired with your normal activity * Palpitations - sudden fast heart beats WEIGHT * Weigh yourself every morning after using the bathroom. * Use the same scale. * Wear the same amount of clothing. * Write your weight down on a chart. * Call your Primary Care doctor if you gain more than 2-3 pounds in 1-2 days. MEDICATIONS * Use this discharge instruction sheet for medication instructions. * Take your medications at the time your doctor ordered. * Do not skip a dose of your medicines. * If you miss a dose of medicine, take it as soon as possible, but DO NOT DOUBLE A DOSE. * Read your medicine information when you get home. * Know all of the side effects of your medicine. If in doubt, ask your pharmacist * Call your Primary Care doctor's office if you have any side effects. * Be sure all of your doctors know what medicine and herbs you take (including cold, flu, and herbal medicine). Take the following with you to your follow-up doctor appointments: * Weight Chart * Medication List * List of questions Do not drink excessive alcohol, beer or wine. . Pending Studies at Discharge: No Stand-Alone Forms: [facility], Smoking Cessation Medications and DC Order Prescriptions: New spironolactone 25 mg Tablet 12.5 mg PO DAILY Qty: 14 0RF nortriptyline 25 mg Capsule 50 mg PO HS Qty: 60 0RF aspirin 81 mg Tablet,Delayed Release (Dr/Ec) 81 mg PO QAM Qty: 30 0RF metoprolol succinate 25 mg Tablet Extended Release 24 Hr 37.5 mg PO BID 30 Days Qty: 90 1RF Continued atorvastatin [Lipitor] 10 mg Tablet 10 mg PO QAM Qty: 0 multivitamin with minerals Tablet 1 tab PO QAM Qty: 0 Label Comments: WITH EXTRA LUTEIN Pt has not taken for some days due to not getting the medication from the store. Pt says that dosage varies by whatever the store has in stock that day. 05/08/19 levothyroxine [Synthroid] 75 mcg tablet 75 mcg PO QAM Qty: 90 3RF Rx Instructions: MUST BE BRAND NAME donepezil 10 mg tablet 10 mg PO HS Qty: 90 3RF memantine 10 mg tablet See Rx Instructions .ROUTE .COMPLEX Qty: 180 3RF Dose Instruction: TAKE 1 TABLET BY MOUTH TWICE A DAY Rx Instructions: TAKE 1 TABLET BY MOUTH TWICE A DAY pregabalin 100 mg capsule 100 mg PO BID Qty: 180 1RF PreserVision AREDS [id number] Tablet 1 tab PO BID cyclosporine [Restasis] 0.05 % dropperette 1 drp OPB BID latanoprost [Xalatan] 0.005 % drops 1 drp OPB HS furosemide 20 mg tablet 20 mg PO DAILY PRN (Reason: edema) Qty: 30 5RF Rx Instructions: Take one pill only if you have swelling or weight gain. Take a potassium pill if you take furosemide. 1-2 times per week Changed potassium chloride [K-Tab] 20 mEq tablet extended release 20 meq PO UD PRN (Reason: if take furosemide) Qty: 30 5RF Rx Instructions: Take 1 pill if you take furosemide. Discontinued metoprolol succinate [Toprol XL] 25 mg tablet extended release 24 hr 25 mg PO BID Qty: 0 amoxicillin 500 mg capsule 500 mg PO TID nortriptyline 75 mg capsule 75 mg PO HS Qty: 90 3RF losartan 50 mg Tablet 50 mg PO DAILY Discharge Orders: Discharge Order (Routine); Ordered 07/09/22 Ordered By: Matty Robertson Admission Data Admit Date/Time: 07/05/22 16:07 Attending Provider: Matty Robertson Admit Provider: Alix Morales Primary Care Provider: Pancho Zimemr Other Providers: Alix Morales ; Bryce Elizabeth ; [facility]
--- NOTE | 2022-07-09 20:38 | Electrocardiogram Report ---
Test Reason : Blood Pressure : / mmHG Vent. Rate : 101 BPM Atrial Rate : 101 BPM P-R Int : 220 ms QRS Dur : 156 ms QT Int : 382 ms P-R-T Axes : 044 -45 096 degrees QTc Int : 495 ms Sinus tachycardia with 1st degree A-V block Left axis deviation Left bundle branch block Abnormal ECG When compared with ECG of 05-JUL-2022 12:43, No significant change was found Confirmed by Skyler Mojica ([id number]) on 07/09/2022 8:37:52 PM Referred By: REFERRED SELF Confirmed By:Skyler Mojica
== END 2022-07-09 14:00 | disposition home health service (06) | DRG 291 ==
LOC: ED 12:08 → SUATTDRO 16:07 → 2S 16:07